=== PATIENT | male | born 1940 | race Caucasian/White ===

== ENCOUNTER 2016-12-21 23:02 | Emergency (ER) | payer MEDICARE, OTHER ==
[2016-12-21] MEDS ORDERED: Magnesium 1 Gm / 100 Ml D5W*** 100 ML IV ONE ×2 (23:07→23:12)
[2016-12-21] MEDS ORDERED: BABY ASPIRIN 81 MG CHEW PO ONE (23:10)
[2016-12-21] MEDS ORDERED: Sodium Chloride 0.9% 1000 ML 1,000 ML IV SCH (23:15)
[2016-12-21] MEDS ORDERED: BABY ASPIRIN 81 MG CHEW ONE (23:16)
[2016-12-21] MEDS ORDERED: Sodium Chloride 0.9% 1000 ML 1,000 ML ONE (23:17)
--- NOTE | 2016-12-21 23:18 | ERPHSYRPT ---
- History of Present Illness Time Seen by Provider: 12/21/16 23:02 Source: patient, EMS Exam Limitations: no limitations Physician History: FOR THE PAST 2 HOURS PT HAS HAD SHORTNESS OF AIR; DENIES CHEST PAIN, FEVER, COUGH, NAUSEA, VOMITING, DIAPHORESIS. Allergies/Adverse Reactions: No Known Drug Allergies Allergy (Unverified 02/15/16 07:44) Home Medications: Atorvastatin Calcium [Lipitor] 20 mg PO DAILY 10/02/13 [History] Enalapril Maleate [Vasotec] 20 mg PO DAILY 10/02/13 [History] Famotidine 20 mg [Pepcid 20 MG] 40 mg PO HS 10/02/13 [History] Metformin HCl 1000 mg [Glucophage 1000 MG] 1,000 mg PO BID 10/02/13 [History] Apixaban [Eliquis] 2.5 mg PO BID 12/12/15 [History] Bumetanide 1 mg [Bumex 1 mg] 1 mg PO DAILY 12/12/15 [History] Levothyroxine Sodium 75 Mcg [Synthroid 75 Mcg] 75 mcg PO DAILY 12/12/15 [ History] Ascorbic Acid [Vitamin C] 500 mg PO DAILY 02/15/16 [History] Vitamin E 400 Units [Vitamin E 400 UNIT SOFTGEL] 400 units PO DAILY [History] Potassium Chloride 20 Meq [Klor-Con 20 MEQ] 20 meq PO BID 02/16/16 [History] Clopidogrel Bisulfate 75 mg [PLAVIX 75 MG Tablet] 75 mg PO DAILY 12/21/16 [History] PANTOPRAZOLE 40 mg Tablet [Protonix 40MG Tablet] 40 mg PO DAILY 12/21/16 [ History] Tiotropium Br/Olodaterol HCl [Stiolto Respimat Inhal [place]] 4 gm IH DAILY [History] Hx Tetanus, Diphtheria Vaccination/Date Given: Yes Hx Influenza Vaccination/Date Given: Yes Hx Pneumococcal Vaccination/Date Given: Yes - Review of Systems Constitutional: No Fever Respiratory: Dyspnea, No Cough Cardiac: No Chest Pain Abdominal/Gastrointestinal: No Abdominal Pain, No Nausea, No Vomiting Endocrine: No Excessive Sweating All Other Systems: Reviewed and Negative - Past Medical History Pertinent Past Medical History: Yes Neurological History: TIA ENT History: No Pertinent History Cardiac History: Coronary Artery Disease, High Cholesterol, Hypertension Respiratory History: COPD Endocrine Medical History: Hypothyroidism Musculoskeletal History: Fractures, Arthritis GI Medical History: No Pertinent History History: No Pertinent History Psycho-Social History: No Pertinent History Male Reproductive Disorders: No Pertinent History Other Medical History: kidney stones - Past Surgical History Past Surgical History: Yes Neuro Surgical History: No Pertinent History Cardiac: Cardiac Catheterization, Cardiac Stent Gastrointestinal: No Pertinent History Genitourinary: No Pertinent History Musculoskeletal: Orthopedic Surgery Male Surgical History: Other Other Surgical History: right hand, - Social History Smoking Status: Former smoker Exposure to second hand smoke: No Drug Use: none Patient Lives Alone: No - Nursing Vital Signs Nursing Vital Signs: Initial Vital Signs Temperature 97.7 F 12/21/16 23:12 Pulse Rate 109 H 12/21/16 23:12 Respiratory Rate 26 H 12/21/16 23:12 Blood Pressure 216/132 12/21/16 23:12 O2 Sat by Pulse Oximetry 92 L 12/21/16 23:12 Pain Scale Pain Intensity 0 - Physical Exam General Appearance: mild distress, alert Eye Exam: PERRL/EOMI Ears, Nose, Throat Exam: normal pharynx, abnormal TM (R) (CERUMEN OCCLUSION OF RIGHT EAC.) Neck Exam: normal inspection Respiratory Exam: respiratory distress (MILD), wheezing Cardiovascular/Chest Exam: normal heart sounds Abdominal/Gastrointestinal Exam: soft, normal bowel sounds Extremity Exam: normal inspection, no pedal edema Peripheral Pulses Exam: dorsalis-pedis (R): 2+, dorsalis-pedis (L): 2+ Neurologic Exam: alert, cooperative Skin Exam: warm, dry SpO2 Interpretation: hypoxic SpO2: 92 Oxygen Delivery: Nasal Cannula (5L) - Course Nursing assessment & vital signs reviewed: Yes EKG Interpreted by Me: RATE (102), Sinus Tach, NORMAL AXIS, Non-specific ST Changes, Other (PREMATURE JUNCTIONAL BEATS) - Radiology Exams Chest X-ray Interpretation: Interpreted by me (COPD; ? FIBROSIS) Ordered Tests: Active Orders 24 hr Category Date Time Status Parcel Post Clerk STAT Care 12/21/16 23:11 Active EKG-ER Only STAT Care 12/21/16 23:10 Active EKG-ER Only STAT Care 12/22/16 00:19 Active IV Insertion STAT Care 12/21/16 23:10 Active Oxygen-ED Only NASAL CANNULA 4 lpm Care 12/21/16 23:10 Active Pulse Oximetry (ED) STAT Care 12/21/16 23:10 Active CHEST 1 VIEW (PORTABLE) Stat Exams 12/21/16 23:11 Taken AMYLASE Stat Lab 12/21/16 23:20 Completed ARTERIAL BLOOD GASES Urgent Lab 12/21/16 23:50 Completed CBC W DIFF Stat Lab 12/21/16 23:20 Completed CMP Stat Lab 12/21/16 23:20 Completed D-DIMER QUANTITATION Stat Lab 12/21/16 23:20 Completed LIPASE Stat Lab 12/21/16 23:20 Completed MAGNESIUM Stat Lab 12/21/16 23:20 Completed Manual Differential NC Stat Lab 12/21/16 23:20 Completed NT PRO BNP Stat Lab 12/21/16 23:20 Completed PROTIME WITH INR Stat Lab 12/21/16 23:20 Completed PTT Stat Lab 12/21/16 23:20 Completed TROPONIN Q3H Lab 12/21/16 23:20 Completed TROPONIN Q3H Lab 12/22/16 02:15 Ordered TROPONIN Q3H Lab 12/22/16 05:15 Ordered TROPONIN Q3H Lab 12/22/16 08:15 Ordered TROPONIN Q3H Lab 12/22/16 11:15 Ordered UA W/RFX UR CULTURE Stat Lab 12/21/16 23:11 Ordered BiPap/CPAP Assessment STAT RT 12/22/16 00:00 Active neb [Respiratory Nebulizer] STAT RT 12/22/16 00:27 Completed Medication Summary Generic Name Dose Route Start Last Admin Trade Name Freq PRN Reason Stop Dose Admin Sodium Chloride 1,000 mls @ 100 mls/hr 12/21/16 23:15 12/21/16 23:20 Sodium Chloride 0.9% 1000 Ml IV 01/20/17 23:14 100 mls/hr .Q10H DUANE Administration Discontinued Medications Generic Name Dose Route Start Last Admin Trade Name Freq PRN Reason Stop Dose Admin Aspirin 324 mg 12/21/16 23:10 12/21/16 23:23 Baby Aspirin 81 Mg Chew PO 12/21/16 23:11 324 mg STAT ONE Administration Aspirin Confirm 12/21/16 23:16 Baby Aspirin 81 Mg Chew Administered 12/21/16 23:17 Dose 324 mg .ROUTE .STK-MED ONE Magnesium Sulfate/Dextrose Confirm 12/21/16 23:07 Magnesium 1 Gm / 100 Ml D5w Administered 12/21/16 23:08 Dose 100 mls @ ud IV .STK-MED ONE Magnesium Sulfate/Dextrose 100 mls @ 400 mls/hr 12/21/16 23:12 12/21/16 23:10 Magnesium 1 Gm / 100 Ml D5w IV 12/21/16 23:26 400 mls/hr STAT ONE Administration Levalbuterol HCl 1.25 mg 12/21/16 23:59 12/22/16 00:22 Xopenex 1.25 Mg/0.5 Ml Ud Nebule IH 12/22/16 00:00 1.25 mg STAT ONE Administration Levalbuterol HCl Confirm 12/22/16 00:22 Xopenex 1.25 Mg/0.5 Ml Ud Nebule Administered 12/22/16 00:23 Dose 1.25 mg IH .STK-MED ONE Morphine Sulfate 1 mg 12/22/16 00:02 12/22/16 00:04 Morphine Sulfate 2 Mg Inj IV 12/22/16 00:03 1 mg STAT ONE Administration Morphine Sulfate Confirm 12/22/16 00:03 Morphine Sulfate 2 Mg Inj Administered 12/22/16 00:04 Dose 2 mg .ROUTE .STK-MED ONE Nitroglycerin 0.4 mg 12/21/16 23:21 12/21/16 23:26 Nitrostat 0.4 Mg (Ed) 12/21/16 23:22 0.4 mg STAT ONE Administration Nitroglycerin 0.4 mg 12/21/16 23:47 12/21/16 23:50 Nitrostat 0.4 Mg (Ed) SL 12/21/16 23:48 0.4 mg STAT ONE Administration Promethazine HCl 6.25 mg 12/22/16 00:02 12/22/16 00:05 Phenergan 25 Mg Inj IV 12/22/16 00:03 6.25 mg STAT ONE Administration Promethazine HCl Confirm 12/22/16 00:03 Phenergan 25 Mg Inj Administered 12/22/16 00:04 Dose 25 mg .ROUTE .STK-MED ONE Sodium Chloride Confirm 12/22/16 00:22 Sodium Chloride 3 Ml Ud Nebules Administered 12/22/16 00:23 Dose 3 ml IH .STK-MED ONE Lab/Rad Data: Laboratory Result Diagrams 12/21/16 23:20 12/21/16 23:20 Laboratory Results 12/21/16 12/21/16 12/21/16 Range/Units 23:50 23:20 23:20 WBC (4.0-10.5) K/mm3 RBC (4.1-5.6) M/mm3 Hgb (12.5-18.0) gm/dl Hct (42-50) % MCV (78-100) fl MCH (26-32) pg MCHC (32-36) g/dl RDW (11.5-14.0) % Plt Count (150-450) K/mm3 MPV (6-9.5) fl INR 1.26 (0.8-3.0) APTT 34.2 (24.1-36.1) SECONDS D-Dimer 487 (0-500) ng/mL Puncture Site LEFT RADIAL pCO2 54 H (35-45) mmHg pO2 78 (75-100) mmHg Base Excess -2.8 L (-2.0-2.0) O2 Saturation 94.4 (94-100) g/dF ABG pH 7.27 L (7.35-7.45) ABG HCO3 24.8 (22-28) ABG O2 Sat (Measured) 96.8 (95-100) % Samuel Test YES A-a Gradient 211 a/A Ratio 0.27 Hemoglobin 12.6 Carboxyhemoglobin 2.0 (0.0-6.9) % THgb Methemoglobin 0.6 L (1.4-1.5) % Temperature 37.0 C POC O2 Flow Rate 50 % Sodium (136-145) mEq/L Potassium 4.6 (3.5-5.1) mEq/L Chloride (98-107) mEq/L Carbon Dioxide (21-32) mEq/L Anion Gap (5-15) MEQ/L BUN (9-20) mg/dL Creatinine (0.55-1.30) mg/dl Estimated GFR ML/MIN Glucose (70-110) MG/DL Calcium (8.5-10.1) mg/dL Magnesium (1.8-2.4) mg/dL Total Bilirubin (0.2-1.0) mg/dL AST (15-37) U/L ALT (12-78) U/L Alkaline Phosphatase (46-116) U/L Troponin I < 0.017 (0.000-0.056) ng/ml NT-Pro-B Natriuret Pep (0-125) pg/ml Serum Total Protein (6.4-8.2) gm/dL Albumin (3.4-5.0) g/dL Amylase (25-115) U/L Lipase (73-393) U/L 12/21/16 12/21/16 Range/Units 23:20 23:20 WBC 14.1 H (4.0-10.5) K/mm3 RBC 4.62 (4.1-5.6) M/mm3 Hgb 13.4 (12.5-18.0) gm/dl Hct 41.9 L (42-50) % MCV 90.7 (78-100) fl MCH 29.0 (26-32) pg MCHC 32.0 (32-36) g/dl RDW 15.3 H (11.5-14.0) % Plt Count 189 (150-450) K/mm3 MPV 10.9 H (6-9.5) fl INR (0.8-3.0) APTT (24.1-36.1) SECONDS D-Dimer (0-500) ng/mL Puncture Site pCO2 (35-45) mmHg pO2 (75-100) mmHg Base Excess (-2.0-2.0) O2 Saturation (94-100) g/dF ABG pH (7.35-7.45) ABG HCO3 (22-28) ABG O2 Sat (Measured) (95-100) % Samuel Test A-a Gradient a/A Ratio Hemoglobin Carboxyhemoglobin (0.0-6.9) % THgb Methemoglobin (1.4-1.5) % Temperature C POC O2 Flow Rate % Sodium 144 (136-145) mEq/L Potassium 4.2 (3.5-5.1) mEq/L Chloride 108 H (98-107) mEq/L Carbon Dioxide 25.5 (21-32) mEq/L Anion Gap 15.1 H (5-15) MEQ/L BUN 19 (9-20) mg/dL Creatinine 1.46 H (0.55-1.30) mg/dl Estimated GFR 50 ML/MIN Glucose 117 H (70-110) MG/DL Calcium 9.0 (8.5-10.1) mg/dL Magnesium 1.8 (1.8-2.4) mg/dL Total Bilirubin 0.80 (0.2-1.0) mg/dL AST 19 (15-37) U/L ALT 29 (12-78) U/L Alkaline Phosphatase 104 (46-116) U/L Troponin I (0.000-0.056) ng/ml NT-Pro-B Natriuret Pep 643 H (0-125) pg/ml Serum Total Protein 7.5 (6.4-8.2) gm/dL Albumin 3.9 (3.4-5.0) g/dL Amylase 36 (25-115) U/L Lipase 114 (73-393) U/L - Progress Discussed with : Other (SPOKE WITH DR DEVLIN(HOSPITALIST)([id number]) WHO ACCEPTED PT FOR TRANSFER TO [facility] ICU.) - Departure Time of Disposition: 00:43 Departure Disposition: Transfer ([facility]) Clinical Impression: ACUTE RESPIRATORY FAILURE, COPD, CAD, HTN, ARTHRITIS, HYPOTHYROIDISM Condition: Stable Critical Care Time: Yes Critical Care Time(excluding separately billable procedures): 30-74 minutes Referrals: TOBIAS NULL [Primary Care Provider] -
[2016-12-21] MEDS ORDERED: Nitrostat 0.4 MG (ED) SL ONE ×2 (23:21→23:47)
[2016-12-21 23:37] LABS: Mean Cell Volume 90.7 fl (78-100); Mean Platelet Volume 10.9 fl (6-9.5); Platelet Count 189 K/mm3 (150-450); Red Blood Count 4.62 M/mm3 (4.1-5.6); Red Cell Distribution Width 15.3 % (11.5-14.0); White Blood Count 14.1 K/mm3 (4.0-10.5)
[2016-12-21 23:50] LABS: INR 1.26 (0.8-3.0)
[2016-12-21 23:53] LABS: PTT 34.2 SECONDS (24.1-36.1)
[2016-12-21] MEDS ORDERED: Xopenex 1.25 MG/0.5 ML UD NEBULE IH ONE (23:59)
[2016-12-22] MEDS ORDERED: Phenergan 25 MG INJ IV ONE (00:02)
[2016-12-22] MEDS ORDERED: MORPHINE SULFATE 2 MG INJ IV ONE (00:02)
[2016-12-22] MEDS ORDERED: MORPHINE SULFATE 2 MG INJ ONE (00:03)
[2016-12-22] MEDS ORDERED: Phenergan 25 MG INJ ONE (00:03)
[2016-12-22 00:05] LABS: ALBUMIN 3.9 g/dL (3.4-5.0); ANION GAP 15.1 MEQ/L (5-15); BILIRUBIN,TOTAL 0.8 mg/dL (0.2-1.0); Carbon Dioxide 25.5 mEq/L (21-32); MAGNESIUM 1.8 mg/dL (1.8-2.4); Potassium 4.2 mEq/L (3.5-5.1); Total Protein 7.5 gm/dL (6.4-8.2)
[2016-12-22 00:13] LABS: A-aADO2 211; ALLEN TEST OK? YES; ARTERIAL BLD GAS O2 SATURATION 96.8 % (95-100); ARTERIAL BLOOD GAS BASE EXCESS -2.8 (-2.0-2.0); ARTERIAL BLOOD GAS FIO2 50 %; ARTERIAL BLOOD GAS PO2 78 mmHg (75-100); ARTERIAL BLOOD GAS pH 7.27 (7.35-7.45)
[2016-12-22] MEDS ORDERED: Sodium Chloride 3 ML UD NEBULES IH ONE (00:22)
[2016-12-22] MEDS ORDERED: Xopenex 1.25 MG/0.5 ML UD NEBULE IH ONE (00:22)
[2016-12-22 00:57] VITALS: O2SAT 99
[2016-12-22 01:23] LABS: BAND 2 % (0.0-2.0); Eosinophil 1 % (0.00-3.0); Total Cells Counted 100
[2016-12-22 01:24] LABS: Platelet Estimate NORMAL (NORMAL)
[2016-12-22 01:46] VITALS: BP 140/88; PULSE 108
[2016-12-22] MEDS ORDERED: Nitrostat 0.4 MG (ED) SL ONE (03:51)
--- NOTE | 2016-12-22 21:07 | XRAY ---
Exam: AP portable chest film from 2330 hrs. on 12/21/2016. Comparison: Two-view chest from 02/15/2016. Indication: Shortness of air, no history of prior chest surgery. Findings: The transverse heart size is normal. The film was obtained in a lordotic projection. There is some hyperinflation of the lungs. There is some accentuation of the interstitial markings within the lower half of each lung. This appears relatively similar to 02/15/2016. Therefore, this may represent interstitial fibrosis. Correlate clinically to exclude an interstitial inflammatory process. I do not see any confluent dense airspace infiltrate, pneumothorax, or pleural fluid. The left costophrenic angle tip has been barely cut off. No Nasir B lines are seen. Some thoracic osteophyte formation is seen. Impression: 1. Mildly hyperinflated chest revealing mild increased interstitial lung markings throughout the lower half of each lung. This may represent chronic interstitial lung disease or interstitial fibrosis, as the findings appears similar to 02/15/2016. However, correlate clinically to exclude an interstitial inflammatory or infectious process.
== END 2016-12-22 01:40 | disposition short-term general hospital (02) ==
LOC: ED 23:02
DX: J96.90 Respiratory failure, unspecified, unspecified whether with hypoxia or hypercapnia (principal); J44.9 Chronic obstructive pulmonary disease, unspecified; I25.10 Atherosclerotic heart disease of native coronary artery without angina pectoris; I10 Essential (primary) hypertension; M19.90 Unspecified osteoarthritis, unspecified site; E03.9 Hypothyroidism, unspecified; Z79.899 Other long term (current) drug therapy; Z79.84 Long term (current) use of oral hypoglycemic drugs
CPT/HCPCS: 36000; 36415; 36600; 71010; 80053; 82150; 82375; 82803; 83690; 83735; 83880; 84484; 85025; 85379; 85610; 85730; 93005; 93041; 94002; 94640; 96360; 96361; 96365; 96374; 96375; 99291; J2270; J2550; J3475; A9270-GY

== ENCOUNTER 2019-03-18 18:26 | Emergency (ER) | payer MEDICARE, OTHER ==
[2019-03-18] MEDS ORDERED: Sodium Chloride 0.9% 1000 ML 1,000 ML ONE (18:46)
[2019-03-18] MEDS: Sodium Chloride 0.9% 1000 ML 1,000 ML IV SCH (18:48)
--- NOTE | 2019-03-18 18:49 | ERPHSYRPT ---
- History of Present Illness Source: patient, EMS Exam Limitations: no limitations Patient Subjective Stated Complaint: Pt states that he just hasn't felt good for the past couple of days and his only complaint is generalized weakness Triage Nursing Assessment: Pt brought to the ER via EMS, hypertensive, no edema , denies pain, denies N&V, wheezing, on 2L NC, doesnt' appear to be in any distress Timing/Duration: yesterday Associated Symptoms: loss of appetite, weakness, No nausea, No vomiting, No abdominal pain, No shortness of breath, No cough, No chest pain, No fever Hx Tetanus, Diphtheria Vaccination/Date Given: Yes Hx Influenza Vaccination/Date Given: Yes Hx Pneumococcal Vaccination/Date Given: Yes <KAYLA GIBSON - Last Filed: 03/18/19 19:23> <SUZAN STALLWORTH - Last Filed: 03/18/19 22:20> - History of Present Illness Time Seen by Provider: 03/18/19 18:35 Physician History: pt. presents to ER via EMS with c/o "not feeling good x 2 days", he complains of generalized weakness - states he was recently discharged from 1 week ago after being rx for COPD exacerbation - pt. denies fever/chest pain/SOB/abdominal pain - he has had his flu shot - he normally wears 2l oxygen at bedtime, pt, currently on 2 L oxygen - when asked he states that he was laying down hence he put the oxygen on (KAYLA GIBSON) Allergies/Adverse Reactions: No Known Drug Allergies Allergy (Verified 03/18/19 18:39) Home Medications: Atorvastatin Calcium [Lipitor] 20 mg PO DAILY 10/02/13 [History] Famotidine 20 mg [Pepcid 20 MG] 40 mg PO HS 10/02/13 [History] Apixaban [Eliquis] 5 mg PO BID 12/12/15 [History] Bumetanide 1 mg [Bumex 1 mg] 1 mg PO DAILY 12/12/15 [History] Levothyroxine Sodium 75 Mcg [Synthroid 75 Mcg] 75 mcg PO DAILY 12/12/15 [ History] Ascorbic Acid [Vitamin C] 500 mg PO DAILY 02/15/16 [History] Vitamin E 400 Units [Vitamin E 400 UNIT SOFTGEL] 400 units PO DAILY [History] Potassium Chloride 20 Meq [Klor-Con 20 MEQ] 10 meq PO BID 02/16/16 [History] Tiotropium Br/Olodaterol HCl [Stiolto Respimat Inhal [place]] 4 gm IH DAILY [History] Diltiazem HCl [Cartia Xt] 180 mg PO DAILY 03/18/19 [History] Losartan Potassium 50 mg [Cozaar 50 MG] 50 mg PO DAILY 03/18/19 [History] - Review of Systems Constitutional: Weakness, No Fever, No Chills Eyes: No Symptoms Ears, Nose, & Throat: No Symptoms Respiratory: No Symptoms Cardiac: No Symptoms Abdominal/Gastrointestinal: No Symptoms Genitourinary Symptoms: No Symptoms Musculoskeletal: No Symptoms Skin: No Symptoms Neurological: No Symptoms Psychological: No Symptoms Endocrine: No Symptoms Hematologic/Lymphatic: No Symptoms Immunological/Allergic: No Symptoms All Other Systems: Reviewed and Negative <KAYLA GIBSON - Last Filed: 03/18/19 19:23> - Past Medical History Pertinent Past Medical History: Yes Neurological History: TIA ENT History: No Pertinent History Cardiac History: Coronary Artery Disease, High Cholesterol, Hypertension Respiratory History: COPD Endocrine Medical History: Hypothyroidism Musculoskeletal History: Fractures, Arthritis GI Medical History: No Pertinent History History: No Pertinent History Psycho-Social History: No Pertinent History Male Reproductive Disorders: No Pertinent History Other Medical History: kidney stones - Past Surgical History Past Surgical History: Yes Neuro Surgical History: No Pertinent History Cardiac: Cardiac Catheterization, Cardiac Stent Gastrointestinal: No Pertinent History Genitourinary: No Pertinent History Musculoskeletal: Orthopedic Surgery Male Surgical History: Other Other Surgical History: right hand, - Social History Smoking Status: Former smoker Exposure to second hand smoke: No Drug Use: none Patient Lives Alone: No <KAYLA GIBSON - Last Filed: 03/18/19 19:23> - Physical Exam General Appearance: no apparent distress Eye Exam: PERRL/EOMI, eyes nml inspection, No pale conjunctivae Ears, Nose, Throat Exam: normal ENT inspection, TMs normal, pharynx normal, moist mucous membranes Neck Exam: normal inspection, non-tender, supple, full range of motion Respiratory Exam: diminished breath sounds, wheezing Cardiovascular Exam: regular rate/rhythm Gastrointestinal/Abdomen Exam: soft Back Exam: normal inspection Extremity Exam: normal inspection Neurologic Exam: alert, oriented x 3, cooperative, doctor of osteopathy II-XII nml as tested Skin Exam: normal color, warm, dry Lymphatic Exam: No adenopathy SpO2 Interpretation: O2 applied SpO2: 98 O2 Delivery: Nasal Cannula <KAYLA GIBSON - Last Filed: 03/18/19 19:23> - Nursing Vital Signs Nursing Vital Signs: Initial Vital Signs Temperature 97.7 F 03/18/19 18:27 Pulse Rate 62 03/18/19 18:27 Blood Pressure 174/76 03/18/19 18:27 O2 Sat by Pulse Oximetry 98 03/18/19 18:27 Pain Scale Pain Intensity 0 Ordered Tests: Active Orders 24 hr Category Date Time Status EKG-ER Only STAT Care 03/18/19 18:40 Active CHEST 2 VIEWS (PA AND LAT) Stat Exams 03/18/19 18:41 Taken CBC W DIFF Stat Lab 03/18/19 19:00 Completed CMP Stat Lab 03/18/19 19:00 Completed NT PRO BNP Stat Lab 03/18/19 19:00 Completed TROPONIN Q3H Lab 03/18/19 19:00 Completed TROPONIN Q3H Lab 03/18/19 21:51 Received TROPONIN Q3H Lab 03/19/19 00:45 Ordered TROPONIN Q3H Lab 03/19/19 03:45 Ordered TROPONIN Q3H Lab 03/19/19 06:45 Ordered UA W/RFX UR CULTURE Stat Lab 03/18/19 19:17 Completed Peak Expiratory Flow Rate ONCE RT 03/18/19 19:42 Active Respiratory Therapy Assessment DAILY RT 03/18/19 19:42 Active Medication Summary Generic Name Dose Route Start Last Admin Trade Name Freq PRN Reason Stop Dose Admin Sodium Chloride 1,000 mls @ 100 mls/hr 03/18/19 18:45 03/18/19 18:48 Sodium Chloride 0.9% 1000 Ml IV 04/17/19 18:44 100 mls/hr .Q10H DUANE Administration Discontinued Medications Generic Name Dose Route Start Last Admin Trade Name Freq PRN Reason Stop Dose Admin Albuterol Sulfate 2.5 mg 03/18/19 19:03 03/18/19 19:37 Proventil 2.5 Mg/3 Ml Neb IH 03/18/19 19:04 2.5 mg STAT ONE Administration Albuterol Sulfate Confirm 03/18/19 19:36 Proventil 2.5 Mg/3 Ml Neb Administered 03/18/19 19:37 Dose 2.5 mg IH .STK-MED ONE Methylprednisolone Sodium Succinate 125 mg 03/18/19 19:02 03/18/19 19:29 Solu-Medrol 125 Mg IV 03/18/19 19:03 125 mg STAT ONE Administration Methylprednisolone Sodium Succinate Confirm 03/18/19 19:25 Solu-Medrol 125 Mg Administered 03/18/19 19:26 Dose 125 mg .ROUTE .STK-MED ONE Lab/Rad Data: Laboratory Result Diagrams 03/18/19 19:00 03/18/19 19:00 Laboratory Results 03/18/19 03/18/19 03/18/19 Range/Units 19:17 19:00 19:00 WBC (4.0-10.5) K/mm3 RBC (4.1-5.6) M/mm3 Hgb (12.5-18.0) gm/dl Hct (42-50) % MCV (78-100) fl MCH (26-32) pg MCHC (32-36) g/dl RDW (11.5-14.0) % Plt Count (150-450) K/mm3 MPV (6-9.5) fl Gran % (36.0-66.0) % Eos # (Auto) (0-0.5) Absolute Lymphs (auto) (1.0-4.6) Absolute Monos (auto) (0.0-1.3) Lymphocytes % (24.0-44.0) % Monocytes % (0.0-12.0) % Eosinophils % (0.00-5.0) % Basophils % (0.0-0.4) % Absolute Granulocytes (1.4-6.9) Basophils # (0-0.4) Sodium (137-145) mmol/L Potassium (3.5-5.1) mmol/L Chloride (98-107) mmol/L Carbon Dioxide (22-30) mmol/L Anion Gap (5-15) MEQ/L BUN (9-20) mg/dL Creatinine (0.66-1.25) mg/dL Estimated GFR ML/MIN Glucose (74-106) mg/dL Calcium (8.4-10.2) mg/dL Total Bilirubin (0.2-1.3) mg/dL AST (17-59) U/L ALT (0-50) U/L Alkaline Phosphatase (38-126) U/L Troponin I < 0.012 (0.000-0.034) ng/mL NT-Pro-B Natriuret Pep (0-1800) pg/mL Serum Total Protein (6.3-8.2) g/dL Albumin (3.5-5.0) g/dL Urine Color STRAW (YELLOW) Urine Appearance CLEAR (CLEAR) Urine pH 7.0 (5-6) Ur Specific [place] 1.005 (1.005-1.025) Urine Protein NEGATIVE (Negative) Urine Ketones NEGATIVE (NEGATIVE) Urine Blood NEGATIVE (0-5) Sal/ul Urine Nitrite NEGATIVE (NEGATIVE) Urine Bilirubin NEGATIVE (NEGATIVE) Urine Urobilinogen NEGATIVE (0-1) mg/dL Ur Leukocyte Esterase NEGATIVE (NEGATIVE) Urine WBC (Auto) NONE (0-5) /HPF Urine RBC (Auto) NONE (0-2) /HPF U Epithel Cells (Auto) NONE (FEW) /HPF Urine Bacteria (Auto) NONE SEEN (NEGATIVE) /HPF Urine Culture Reflexed NO (NO) Urine Glucose NEGATIVE (NEGATIVE) mg/dL Influenza Type A Ag NEGATIVE (NEGATIVE) Influenza Type B Ag NEGATIVE (NEGATIVE) RSV (PCR) NEGATIVE (Negative) 03/18/19 03/18/19 Range/Units 19:00 19:00 WBC 11.1 H (4.0-10.5) K/mm3 RBC 4.98 (4.1-5.6) M/mm3 Hgb 14.4 (12.5-18.0) gm/dl Hct 44.4 (42-50) % MCV 89.2 (78-100) fl MCH 28.9 (26-32) pg MCHC 32.4 (32-36) g/dl RDW 14.3 H (11.5-14.0) % Plt Count 149 L (150-450) K/mm3 MPV 10.6 H (6-9.5) fl Gran % 75.6 H (36.0-66.0) % Eos # (Auto) 0.28 (0-0.5) Absolute Lymphs (auto) 1.31 (1.0-4.6) Absolute Monos (auto) 1.11 (0.0-1.3) Lymphocytes % 11.8 L (24.0-44.0) % Monocytes % 10.0 (0.0-12.0) % Eosinophils % 2.5 (0.00-5.0) % Basophils % 0.1 (0.0-0.4) % Absolute Granulocytes 8.40 H (1.4-6.9) Basophils # 0.01 (0-0.4) Sodium 139 (137-145) mmol/L Potassium 4.0 (3.5-5.1) mmol/L Chloride 103 (98-107) mmol/L Carbon Dioxide 32 H (22-30) mmol/L Anion Gap 8.0 (5-15) MEQ/L BUN 14 (9-20) mg/dL Creatinine 1.10 (0.66-1.25) mg/dL Estimated GFR > 60.0 ML/MIN Glucose 123 H (74-106) mg/dL Calcium 9.2 (8.4-10.2) mg/dL Total Bilirubin 0.80 (0.2-1.3) mg/dL AST 19 (17-59) U/L ALT 21 (0-50) U/L Alkaline Phosphatase 92 (38-126) U/L Troponin I (0.000-0.034) ng/mL NT-Pro-B Natriuret Pep 256 (0-1800) pg/mL Serum Total Protein 7.0 (6.3-8.2) g/dL Albumin 3.7 (3.5-5.0) g/dL Urine Color (YELLOW) Urine Appearance (CLEAR) Urine pH (5-6) Ur Specific [place] (1.005-1.025) Urine Protein (Negative) Urine Ketones (NEGATIVE) Urine Blood (0-5) Sal/ul Urine Nitrite (NEGATIVE) Urine Bilirubin (NEGATIVE) Urine Urobilinogen (0-1) mg/dL Ur Leukocyte Esterase (NEGATIVE) Urine WBC (Auto) (0-5) /HPF Urine RBC (Auto) (0-2) /HPF U Epithel Cells (Auto) (FEW) /HPF Urine Bacteria (Auto) (NEGATIVE) /HPF Urine Culture Reflexed (NO) Urine Glucose (NEGATIVE) mg/dL Influenza Type A Ag (NEGATIVE) Influenza Type B Ag (NEGATIVE) RSV (PCR) (Negative) <KAYLA GIBSON - Last Filed: 03/18/19 19:23> - Progress Progress: improved Counseled pt/family regarding: lab results, diagnosis, need for follow-up, rad results <SUZAN STALLWORTH - Last Filed: 03/18/19 22:20> - Progress Progress Note: 03/18/19 18:55 This's a 78 yr old pt. presenting to ED for evaluation of generalized weakness - On arrival he was hypertensive with BP 174/76, rest of Vital signs were stable - he was given albuterol inhaled, solumedrol and IVF At this time care has been transferred to - 03/18/19 19:23 (KAYLA GIBSON) 03/18/19 21:59 pt states he is feeling much better and is ready to go home. he is hungry and thirsty and verbalizes is ready to go home 03/18/19 22:17 cxr-no acute process. (SUZAN STALLWORTH) <KAYLA GIBSON - Last Filed: 03/18/19 19:23> - Departure Departure Disposition: Home Critical Care Time: No <SUZAN STALLWORTH - Last Filed: 03/18/19 22:20> - Departure Clinical Impression: Weakness, HTN (hypertension) Condition: Stable Referrals: TAHIR MICHAUD NP [NON-STAFF PHY W/O PRIVILEGES] - Additional Instructions: take your medications as prescribed. follow up with primary doctor for further management Prescriptions: Prednisone 10 mg [Deltasone 10 mg] 10 mg PO TID #12 tablet
[2019-03-18 19:03] LABS: BASOPHIL % 0.1 % (0.0-0.4); Basophil (Absolute #) 0.01 (0-0.4); Eosinophil % 2.5 % (0.00-5.0); Eosinophil (Absolute #) 0.28 (0-0.5); Hematocrit 44.4 % (42-50); Hemoglobin 14.4 gm/dl (12.5-18.0); Lymphocyte (Absolute #) 1.31 (1.0-4.6); Lymphocytes % 11.8 % (24.0-44.0); Mean Cell Volume 89.2 fl (78-100); Mean Corpuscular Hemoglobin 28.9 pg (26-32); Mean Corpuscular Hgb Concent. 32.4 g/dl (32-36); Mean Platelet Volume 10.6 fl (6-9.5); Monocyte (Absolute #) 1.11 (0.0-1.3); Neutrophil % 75.6 % (36.0-66.0); Platelet Count 149 K/mm3 (150-450); Red Blood Count 4.98 M/mm3 (4.1-5.6); Red Cell Distribution Width 14.3 % (11.5-14.0); White Blood Count 11.1 K/mm3 (4.0-10.5)
[2019-03-18 19:22] LABS: Appearance CLEAR (CLEAR); Bilirubin NEGATIVE (NEGATIVE); Blood NEGATIVE Ery/ul (0-5); Glucose NEGATIVE (NEGATIVE); Ketones NEGATIVE (NEGATIVE); Leukocyte Esterase NEGATIVE (NEGATIVE); Nitrite NEGATIVE (NEGATIVE); Protein,Urine Dip NEGATIVE (Negative); Specific Gravity 1.005 (1.005-1.025); Urobilinogen NEGATIVE mg/dL (0-1)
[2019-03-18 19:23] LABS: Bacteria NONE SEEN /HPF (NEGATIVE)
[2019-03-18] MEDS ORDERED: solu-MEDROL 125 MG ONE (19:25)
[2019-03-18 19:27] LABS: ALBUMIN 3.7 g/dL (3.5-5.0); ALKALINE PHOSPHATASE 92 U/L (38-126); BLOOD UREA NITROGEN 14 mg/dL (9-20); CHLORIDE 103 mmol/L (98-107); Calcium 9.2 mg/dL (8.4-10.2); Carbon Dioxide 32 mmol/L (22-30); Glucose 123 mg/dL (74-106); NT PRO BNP 256 pg/mL (0-1800); SGOT/AST 19 U/L (17-59); SGPT/ALT 21 U/L (0-50); SODIUM 139 mmol/L (137-145)
[2019-03-18] MEDS: solu-MEDROL 125 MG IV ONE (19:29)
[2019-03-18] MEDS ORDERED: PROVENTIL 2.5 MG/3 ML NEB IH ONE (19:36)
[2019-03-18] MEDS: PROVENTIL 2.5 MG/3 ML NEB IH ONE (19:37)
[2019-03-18 19:38] LABS: INFLUENZA A NEGATIVE (NEGATIVE); INFLUENZA B NEGATIVE (NEGATIVE); RESPIRATORY SYNCTIAL VIRUS NEGATIVE (Negative)
[2019-03-18 21:41] VITALS: O2SAT 97
[2019-03-18 22:25] VITALS: BP 168/88; PULSE 68
--- NOTE | 2019-03-19 07:38 | XRAY ---
Indication: Pain wheezing and weakness. COPD. Comparison: December 21, 2016. PA/lateral chest again demonstrates COPD with a few tiny calcified granulomas. No focal infiltrate, consolidation, or large effusion. Heart and mediastinal structures within normal limits. Bony thorax intact again with mild osteopenia and degenerative changes. Stable partially visualized right carotid stent graft. Impression: Nonacute chest with chronic features.
== END 2019-03-18 22:30 | disposition home or self-care (01) ==
LOC: ED 18:26
DX: R53.1 Weakness (principal); I10 Essential (primary) hypertension; J44.9 Chronic obstructive pulmonary disease, unspecified; I25.10 Atherosclerotic heart disease of native coronary artery without angina pectoris; E03.9 Hypothyroidism, unspecified; E78.00 Pure hypercholesterolemia, unspecified; M19.90 Unspecified osteoarthritis, unspecified site; Z99.81 Dependence on supplemental oxygen; Z79.899 Other long term (current) drug therapy; Z86.73 Personal history of transient ischemic attack (TIA), and cerebral infarction without residual deficits; Z87.442 Personal history of urinary calculi
CPT/HCPCS: 36415; 71046; 80053; 81001; 83880; 84484; 85025; 87631; 93005; 94150; 94640; 96360; 96374; 99284; J2930; J7609; A9270-GY

== ENCOUNTER 2019-03-28 00:44 | Emergency (ER) | payer MEDICARE, OTHER ==
[2019-03-28] MEDS ORDERED: DUONEB 0.5-3 MG/3 ml Neb IH ONE ×2 (00:56→01:00)
[2019-03-28 01:26] LABS: Hematocrit 46.9 % (42-50); Mean Cell Volume 90.5 fl (78-100); Mean Platelet Volume 10.1 fl (6-9.5); Platelet Count 152 K/mm3 (150-450); Red Blood Count 5.18 M/mm3 (4.1-5.6); Red Cell Distribution Width 14.5 % (11.5-14.0); White Blood Count 14.1 K/mm3 (4.0-10.5)
--- NOTE | 2019-03-28 01:32 | ERPHSYRPT ---
- History of Present Illness Time Seen by Provider: 03/28/19 01:10 Source: patient, family, EMS Exam Limitations: clinical condition Patient Subjective Stated Complaint: pt states states that he went to PCP on sunday for regular visit, pt states that he has not felt well for weeks, pt states that tonight he became more short of breath, pt states that he was dx with bronchitis a couple weeks ago, pt states that he was on steroid and antibiotic and finished last week, son states that father is under a lot of stress, son states that pt had neb treatment and inhaler at 2130 Triage Nursing Assessment: pt arrived to er via ambulance, pt c/o SOB, pt using accessory muscles, pt is breathing substernal, lungs sounds are wheezy throughout, pt is very anxious, pt is hypertensive, pt received a duo neb, 125 mg solu in route Physician History: 78 yo pt with a h/o copd, afib, cad, htn here for sob. pt is on 2-3 L o2 via nc started having sob yesterday. got worse today. no fever chills. no cp. duoneb at home, 2 hours later by medics and once here has helped his breathing some. solumedrol via ambulance. 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 lives with his and son. quit smoking 30 years ago. was diagnosed with bronchitis a few weeks back and was on steroids, abx till last week. uptodate on shots Allergies/Adverse Reactions: No Known Drug Allergies Allergy (Verified 03/18/19 18:39) Home Medications: Atorvastatin Calcium [Lipitor] 20 mg PO DAILY 10/02/13 [History] Famotidine 20 mg [Pepcid 20 MG] 40 mg PO HS 10/02/13 [History] Apixaban [Eliquis] 5 mg PO BID 12/12/15 [History] Bumetanide 1 mg [Bumex 1 mg] 1 mg PO DAILY 12/12/15 [History] Levothyroxine Sodium 75 Mcg [Synthroid 75 Mcg] 75 mcg PO DAILY 12/12/15 [ History] Ascorbic Acid [Vitamin C] 500 mg PO DAILY 02/15/16 [History] Vitamin E 400 Units [Vitamin E 400 UNIT SOFTGEL] 400 units PO DAILY [History] Potassium Chloride 20 Meq [Klor-Con 20 MEQ] 10 meq PO BID 02/16/16 [History] Tiotropium Br/Olodaterol HCl [Stiolto Respimat Inhal Burns] 4 gm IH DAILY [History] Diltiazem HCl [Cartia Xt] 180 mg PO DAILY 03/18/19 [History] Losartan Potassium 50 mg [Cozaar 50 MG] 50 mg PO DAILY 03/18/19 [History] Hx Tetanus, Diphtheria Vaccination/Date Given: Yes Hx Influenza Vaccination/Date Given: Yes Hx Pneumococcal Vaccination/Date Given: Yes - Review of Systems Constitutional: No Symptoms Eyes: No Symptoms Ears, Nose, & Throat: Nose Congestion Respiratory: Cough, Wheezing Cardiac: No Chest Pain Abdominal/Gastrointestinal: No Nausea, No Vomiting, No Diarrhea Genitourinary Symptoms: No Symptoms Musculoskeletal: No Symptoms Skin: No Symptoms Neurological: No Symptoms - Past Medical History Pertinent Past Medical History: Yes Neurological History: TIA ENT History: No Pertinent History Cardiac History: Coronary Artery Disease, High Cholesterol, Hypertension Respiratory History: COPD Endocrine Medical History: Hypothyroidism Musculoskeletal History: Fractures, Arthritis GI Medical History: No Pertinent History History: No Pertinent History Psycho-Social History: No Pertinent History Male Reproductive Disorders: No Pertinent History Other Medical History: kidney stones, a-fib - Past Surgical History Past Surgical History: Yes Neuro Surgical History: No Pertinent History Cardiac: Cardiac Catheterization, Cardiac Stent Gastrointestinal: No Pertinent History Genitourinary: No Pertinent History Musculoskeletal: Orthopedic Surgery Male Surgical History: Other Other Surgical History: right hand, - Social History Smoking Status: Former smoker Exposure to second hand smoke: No Drug Use: none Patient Lives Alone: No - Nursing Vital Signs Nursing Vital Signs: Initial Vital Signs Temperature 98.9 F 03/28/19 00:55 Pulse Rate 100 H 03/28/19 00:55 Respiratory Rate 43 H 03/28/19 00:55 Blood Pressure 215/112 03/28/19 00:55 O2 Sat by Pulse Oximetry 100 03/28/19 00:55 - Physical Exam General Appearance: moderate distress Eye Exam: eyes nml inspection Ears, Nose, Throat Exam: normal ENT inspection Neck Exam: normal inspection Respiratory Exam: diminished breath sounds, accessory muscle use, wheezing Cardiovascular Exam: other (tachycardic) Gastrointestinal/Abdomen Exam: soft, normal bowel sounds Extremity Exam: normal inspection SpO2: 100 - Course EKG Interpreted by Me: RATE (105), Other (escape rhythm) Ordered Tests: Active Orders 24 hr Category Date Time Status CHEST 2 VIEWS (PA AND LAT) Stat Exams 03/28/19 01:33 Taken BLOOD CULTURE Stat Lab 03/28/19 01:23 Received CBC Stat Lab 03/28/19 01:23 Completed CMP Stat Lab 03/28/19 01:23 Completed Lactic Acid Stat Lab 03/28/19 02:35 Completed TROPONIN Stat Lab 03/28/19 01:15 Completed UA W/RFX UR CULTURE Stat Lab 03/28/19 00:58 Uncollected VENOUS BLOOD GAS Stat Lab 03/28/19 02:35 Completed BiPap/CPAP STAT RT 03/28/19 01:26 Active EKG STAT RT 03/28/19 00:57 Active Respiratory Therapy Assessment DAILY RT 03/28/19 02:10 Active Respiratory Therapy Consult ONCE RT 03/28/19 02:10 Completed Medication Summary Discontinued Medications Generic Name Dose Route Start Last Admin Trade Name Ashia PRN Reason Stop Dose Admin Albuterol/Ipratropium Confirm 03/28/19 00:56 Duoneb 0.5-3 Mg/3 Ml Neb Administered 03/28/19 00:57 Dose 3 ml IH .STK-MED ONE Albuterol/Ipratropium 3 ml 03/28/19 01:00 03/28/19 01:00 Duoneb 0.5-3 Mg/3 Ml Neb IH 03/28/19 01:01 3 ml STAT ONE Administration Azithromycin 500 mg 03/28/19 01:40 03/28/19 01:54 Zithromax 250 Mg Tablet PO 03/28/19 01:41 500 mg STAT ONE Administration Azithromycin Confirm 03/28/19 01:48 Zithromax 250 Mg Tablet Administered 03/28/19 01:49 Dose 500 mg .ROUTE .STK-MED ONE Ceftriaxone Sodium 2,000 mg 03/28/19 01:39 03/28/19 01:54 Rocephin 1000 Mg Inj IV 03/28/19 01:40 2,000 mg STAT ONE Administration Ceftriaxone Sodium/Dextrose Confirm 03/28/19 01:48 Rocephin 2 Gm-D5w 50ml Bag Administered 03/28/19 01:49 Dose 2 g in 50 mls @ ud IV .STK-MED ONE Lab/Rad Data: Laboratory Result Diagrams 03/28/19 01:23 03/28/19 01:23 Laboratory Results 03/28/19 03/28/19 03/28/19 Range/Units 02:35 01:23 01:23 WBC 14.1 H (4.0-10.5) K/mm3 RBC 5.18 (4.1-5.6) M/mm3 Hgb 15.0 (12.5-18.0) gm/dl Hct 46.9 (42-50) % MCV 90.5 (78-100) fl MCH 29.0 (26-32) pg MCHC 32.0 (32-36) g/dl RDW 14.5 H (11.5-14.0) % Plt Count 152 (150-450) K/mm3 MPV 10.1 H (6-9.5) fl pO2/FiO2 Ratio 36 % VBG pH 7.36 (7.32-7.42) VBG pCO2 at Pat Temp 48 (42-55) mm/Hg VBG pO2 at Pat Temp 95 H (25-40) mm/Hg VBG HCO3 27.1 (22-28) meq/L VBG O2 Sat (Magno) 99.2 (95-100) VBG Base Excess 0.9 (-2.0-2.0) VBG Hemoglobin 15.0 VBG Carboxyhemoglobin 2.6 (0.0-6.9) % T HGB POC Potassium 4.3 (3.5-5.1) Sodium 139 (137-145) mmol/L Potassium 4.5 (3.5-5.1) mmol/L Chloride 100 (98-107) mmol/L Carbon Dioxide 33 H (22-30) mmol/L Anion Gap 9.9 (5-15) MEQ/L BUN 15 (9-20) mg/dL Creatinine 1.08 (0.66-1.25) mg/dL Estimated GFR > 60.0 ML/MIN Glucose 190 H (74-106) mg/dL Lactic Acid 0.8 (0.4-2.0) Calcium 8.9 (8.4-10.2) mg/dL Total Bilirubin 0.70 (0.2-1.3) mg/dL AST 21 (17-59) U/L ALT 23 (0-50) U/L Alkaline Phosphatase 91 (38-126) U/L Troponin I (0.000-0.034) ng/mL Serum Total Protein 7.3 (6.3-8.2) g/dL Albumin 3.9 (3.5-5.0) g/dL 03/28/19 Range/Units 01:15 WBC (4.0-10.5) K/mm3 RBC (4.1-5.6) M/mm3 Hgb (12.5-18.0) gm/dl Hct (42-50) % MCV (78-100) fl MCH (26-32) pg MCHC (32-36) g/dl RDW (11.5-14.0) % Plt Count (150-450) K/mm3 MPV (6-9.5) fl pO2/FiO2 Ratio % VBG pH (7.32-7.42) VBG pCO2 at Pat Temp (42-55) mm/Hg VBG pO2 at Pat Temp (25-40) mm/Hg VBG HCO3 (22-28) meq/L VBG O2 Sat (Magno) (95-100) VBG Base Excess (-2.0-2.0) VBG Hemoglobin VBG Carboxyhemoglobin (0.0-6.9) % T HGB POC Potassium (3.5-5.1) Sodium (137-145) mmol/L Potassium (3.5-5.1) mmol/L Chloride (98-107) mmol/L Carbon Dioxide (22-30) mmol/L Anion Gap (5-15) MEQ/L BUN (9-20) mg/dL Creatinine (0.66-1.25) mg/dL Estimated GFR ML/MIN Glucose (74-106) mg/dL Lactic Acid (0.4-2.0) Calcium (8.4-10.2) mg/dL Total Bilirubin (0.2-1.3) mg/dL AST (17-59) U/L ALT (0-50) U/L Alkaline Phosphatase (38-126) U/L Troponin I 0.012 (0.000-0.034) ng/mL Serum Total Protein (6.3-8.2) g/dL Albumin (3.5-5.0) g/dL - Progress Progress: improved Air Movement: fair Blood Culture(s) Obtained: Yes Antibiotics given: Yes Counseled pt/family regarding: lab results, diagnosis, rad results (xray doesnt show any new infiltrates. opacities right lower lobe,same from before. azithro and rocephin given in er. no beds at [facility]. bipap started. wbc, bs slighty elevated. otherwise labs unremarkable. 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 D/W DR Fleming hospitalist at 2:44am who graciously accepted the pt to the floor on tele. ) - Departure Departure Disposition: In-patient Admission, Transfer Clinical Impression: COPD exacerbation Condition: Stable Critical Care Time: No Referrals: JED CARTER [Primary Care Provider] - Instructions: Chronic Obstructive Pulmonary Disease
[2019-03-28] MEDS ORDERED: Rocephin 1000 MG INJ IV ONE (01:39)
[2019-03-28] MEDS ORDERED: Zithromax 250 MG TABLET PO ONE (01:40)
[2019-03-28 01:42] LABS: ALBUMIN 3.9 g/dL (3.5-5.0); ALKALINE PHOSPHATASE 91 U/L (38-126); ANION GAP 9.9 MEQ/L (5-15); BLOOD UREA NITROGEN 15 mg/dL (9-20); CHLORIDE 100 mmol/L (98-107); Calcium 8.9 mg/dL (8.4-10.2); Carbon Dioxide 33 mmol/L (22-30); Creatinine 1 1.08 mg/dL (0.66-1.25); Glucose 190 mg/dL (74-106); Potassium 4.5 mmol/L (3.5-5.1); SGOT/AST 21 U/L (17-59); SGPT/ALT 23 U/L (0-50); SODIUM 139 mmol/L (137-145); Total Protein 7.3 g/dL (6.3-8.2)
[2019-03-28] MEDS ORDERED: Zithromax 250 MG TABLET ONE (01:48)
[2019-03-28] MEDS ORDERED: ROCEPHIN 2 Gm-D5w 50ML BAG** 2 G/50 ML IVPB IV ONE (01:48)
[2019-03-28 02:49] LABS: Lactic Acid 0.8 (0.4-2.0); VBG BASE EXCESS 0.9 (-2.0-2.0); VBG CARBOXYHEMOGLOBIN 2.6 % T HGB (0.0-6.9); VBG HCO3- 27.1 meq/L (22-28); VBG O2 SATURATION 99.2 (95-100); VBG POTASSIUM 4.3 (3.5-5.1); VBG pH 7.36 (7.32-7.42)
[2019-03-28 03:30] VITALS: BP 130/95; PULSE 98; O2SAT 99
--- NOTE | 2019-03-28 09:56 | XRAY ---
Indication: Cough and short of breath. COPD. Comparison: March 18, 2019. PA/lateral chest unchanged again demonstrating COPD and right carotid stent graft. Remaining heart and lungs unremarkable. No new/acute findings.
== END 2019-03-28 04:02 | disposition short-term general hospital (02) ==
LOC: ED 00:44
DX: J44.1 Chronic obstructive pulmonary disease with (acute) exacerbation (principal); Z79.899 Other long term (current) drug therapy; R05 Cough; R09.81 Nasal congestion; Z86.73 Personal history of transient ischemic attack (TIA), and cerebral infarction without residual deficits; I25.10 Atherosclerotic heart disease of native coronary artery without angina pectoris; E78.00 Pure hypercholesterolemia, unspecified; I10 Essential (primary) hypertension
CPT/HCPCS: 36415; 71046; 80053; 82805; 83605; 84484; 85027; 87040; 94002; 94640; 96372; 99285; J0696; A9270-GY

== ENCOUNTER 2020-07-01 17:37 | Observation (INO) | payer MEDICARE ==
[2020-07-01] MEDS ORDERED: PROVENTIL 2.5 MG/3 ML NEB IH ONE ×2 (18:18→18:26)
[2020-07-01] MEDS ORDERED: solu-MEDROL 125 MG IV ONE (18:20)
[2020-07-01] MEDS ORDERED: solu-MEDROL 125 MG ONE (18:28)
--- NOTE | 2020-07-01 18:40 | ERPHSYRPT ---
- History of Present Illness Time Seen by Provider: 07/01/20 17:50 Source: patient Exam Limitations: no limitations Patient Subjective Stated Complaint: Pt had been to see Dr. Jean Baptiste's nurse practitioner and he was unable to catch his breath and she sent him to the [facility] Triage Nursing Assessment: Pt was sent to the ER by the nurse practitioner, hypertensive, bradycardic, on 4 L NC, denies pain, was told that he needed steroids, no edema, skin n/w/d, pulses normal, doesn't appear to be in any distress Physician History: Patient is a 80-year-old male presents to our emergency department for evaluation of shortness of breath. Patient has a history of COPD. Patient states he was at his primary care doctor's office . Patient was seen and evaluated by primary's nurse practitioner. Patient was found to be hypoxic. His oxygen via nasal cannula was increased. Patient was advised to follow-up at the hospital for evaluation. Patient chose come here as it is closer to his home. at bedside states patient was previously on antibiotics. states that nurse practitioner advised her that patient will require a dose of steroids as well as IV antibiotics. Patient has no chest pain. No nausea vomiting or diaphoresis. No fever. Symptoms are moderate in intensity. No specific worsening or improving factors. Patient voices no other complaints or concerns at this time. Timing/Duration: today Activities at Onset: activity Severity of Dyspnea-Max: moderate Severity of Dyspnea-Current: mild Possible Cause: occasional episodes Modifying Factors: Improves With: activity Associated Symptoms: intermittent Allergies/Adverse Reactions: No Known Drug Allergies Allergy (Verified 07/01/20 17:59) Home Medications: Famotidine 20 mg [Pepcid 20 MG] 40 mg PO HS 10/02/13 [History] Apixaban [Eliquis] 5 mg PO BID 12/12/15 [History] Bumetanide 1 mg [Bumex 1 mg] 1 mg PO DAILY 12/12/15 [History] Levothyroxine Sodium 75 Mcg [Synthroid 75 Mcg] 75 mcg PO DAILY 12/12/15 [History] Ascorbic Acid [Vitamin C] 500 mg PO DAILY 02/15/16 [History] Potassium Chloride 20 Meq [Klor-Con 20 MEQ] 10 meq PO BID 02/16/16 [History] Diltiazem HCl [Cartia Xt] 180 mg PO DAILY 03/18/19 [History] Losartan Potassium 50 mg [Cozaar 50 MG] 50 mg PO DAILY 03/18/19 [History] Atorvastatin Calcium [Lipitor 20MG Tablet] 20 mg PO DAILY 07/01/20 [History] Budesonide/Glycopyr/Formoterol [Breztri Aerosphere Inhaler] 2 inh PO BID 07/01/20 [History] Metoprolol Succinate 50 mg [Toprol Xl 50 MG] 50 mg PO BID 07/01/20 [History] [place]-3 Fatty Acids/Fish Oil [Fish Oil 1,000 mg Capsule] 1,000 mg PO DAILY 07/01/20 [History] Hx Tetanus, Diphtheria Vaccination/Date Given: Yes Hx Influenza Vaccination/Date Given: Yes Hx Pneumococcal Vaccination/Date Given: Yes Travel Risk - International Travel Have you traveled outside of the country in past 3 weeks: No - Coronavirus Screening Are you exhibiting any of the following symptoms?: No Close contact with a COVID-19 positive Pt in past 14-21 Days: No - Vaccine Status Have you recieved a Covid-19 vaccination: Yes 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 - Vaccination Dates Date of 2cond Vaccination (if applicable): 06/10/2020 - Review of Systems Constitutional: No Symptoms, No Fever, No Chills Eyes: No Symptoms Ears, Nose, & Throat: No Symptoms Respiratory: No Symptoms, No Cough, No Dyspnea Cardiac: No Symptoms, No Chest Pain, No Edema, No Syncope Abdominal/Gastrointestinal: No Symptoms, No Abdominal Pain, No Nausea, No Vomiting, No Diarrhea Genitourinary Symptoms: No Symptoms, No Dysuria Musculoskeletal: No Symptoms, No Back Pain, No Neck Pain Skin: No Symptoms, No Rash Neurological: No Symptoms, No Dizziness, No Focal Weakness, No Sensory Changes Psychological: No Symptoms Endocrine: No Symptoms Hematologic/Lymphatic: No Symptoms Immunological/Allergic: No Symptoms All Other Systems: Reviewed and Negative - Past Medical History Pertinent Past Medical History: Yes Neurological History: TIA ENT History: No Pertinent History Cardiac History: Coronary Artery Disease, High Cholesterol, Hypertension Respiratory History: COPD Endocrine Medical History: Hypothyroidism Musculoskeletal History: Fractures, Arthritis GI Medical History: No Pertinent History History: No Pertinent History Psycho-Social History: No Pertinent History Male Reproductive Disorders: No Pertinent History Other Medical History: kidney stones, a-fib - Past Surgical History Past Surgical History: Yes Neuro Surgical History: No Pertinent History Cardiac: Cardiac Catheterization, Cardiac Stent Gastrointestinal: No Pertinent History Genitourinary: No Pertinent History Musculoskeletal: Orthopedic Surgery Male Surgical History: Other Other Surgical History: right hand, - Social History Smoking Status: Former smoker Exposure to second hand smoke: No Drug Use: none Patient Lives Alone: No - Nursing Vital Signs Nursing Vital Signs: Initial Vital Signs Temperature 97.8 F 07/01/20 17:44 Pulse Rate 49 L 07/01/20 17:44 Respiratory Rate 17 07/01/20 17:44 Blood Pressure 171/112 07/01/20 17:44 O2 Sat by Pulse Oximetry 95 07/01/20 17:44 Pain Scale Pain Intensity 0 - Physical Exam General Appearance: no apparent distress, alert Eye Exam: PERRL/EOMI Neck Exam: normal inspection, supple Respiratory Exam: airway intact, diminished breath sounds, other (Coarse breath sounds. Diminished breath sounds. Airway intact.), No respiratory distress Cardiovascular/Chest Exam: normal heart sounds, regular rate/rhythm Abdominal/Gastrointestinal Exam: soft, No tenderness, No distention, No mass Extremity Exam: non-tender, normal range of motion, normal inspection, no calf tenderness, no pedal edema Neurologic Exam: alert, oriented x 3, cooperative, corrective therapist II-XII nml as tested, sensation nml, No motor deficits Skin Exam: normal color, warm, No dry Lymphatic Exam: No adenopathy SpO2 Interpretation: normal SpO2: 94 O2 Delivery: Room Air - Course Nursing assessment & vital signs reviewed: Yes EKG Interpreted by Me: RATE (49), Sinus Nolan, NORMAL AXIS, NORMAL INTERVALS - Radiology Exams Chest X-ray Interpretation: Teleradiologist Report (COPD, atelectasis versus scarring at lung bases coronary artery stent.) Ordered Tests: Active Orders 24 hr Category Date Time Status Up With Assistance ROUTINE Activity 07/01/20 20:26 Active Greenhouse Manager STAT Care 07/01/20 18:18 Completed Code Status Order ROUTINE Care 07/01/20 20:26 Active EKG-ER Only STAT Care 07/01/20 18:18 Completed IV Care Q6H Care 07/01/20 20:26 Active IV Insertion STAT Care 07/01/20 18:[address] in Observation ROUTINE Care 07/01/20 20:26 Active Pulse Oximetry (ED) STAT Care 07/01/20 18:18 Completed Marisela Gardiner ROUTINE Care 07/01/20 20:26 Active Telemetry q4h Care 07/01/20 20:26 Active Weight,Daily 0600 Care 07/01/20 20:26 Active Heart-Healthy Diet Diet 07/01/20 Breakfast Active CHEST 1 VIEW (PORTABLE) Stat Exams 07/01/20 18:18 Taken BLOOD CULTURE Stat Lab 07/01/20 18:40 Received CBC AM.LAB Lab 07/02/20 04:00 Ordered CBC W DIFF Stat Lab 07/01/20 18:30 Completed CMP AM.LAB Lab 07/02/20 04:00 Ordered CMP Stat Lab 07/01/20 18:30 Completed MAGNESIUM Stat Lab 07/01/20 18:30 Completed TROPONIN Q3H Lab 07/01/20 18:30 Completed TROPONIN Q3H Lab 07/01/20 21:30 Completed TROPONIN Q3H Lab 07/02/20 00:30 Ordered TROPONIN Q3H Lab 07/02/20 03:30 Ordered TROPONIN Q3H Lab 07/02/20 06:30 Ordered UA W/RFX UR CULTURE Stat Lab 07/01/20 18:59 Completed Pulse Oximetry CONTINUOUS RT 07/01/20 20:26 Active Transfer Order Routine Transfer 07/01/20 Completed Medication Summary Generic Name Dose Route Start Last Admin Trade Name Freq PRN Reason Stop Dose Admin Albuterol Sulfate 2.5 mg 07/01/20 23:00 07/01/20 22:39 Proventil 2.5 Mg/3 Ml Neb IH 07/31/20 22:59 2.5 mg Q4HRT DUANE Administration Apixaban 5 mg 07/01/20 22:00 07/01/20 21:58 Eliquis 2.5 Mg Tablet PO 07/31/20 21:59 5 mg BID DUANE Administration Carvedilol 12.5 mg 07/01/20 22:00 07/01/20 21:58 Coreg 12.5 Mg PO 07/31/20 21:59 12.5 mg BID DUANE Administration Famotidine 40 mg 07/01/20 22:00 07/01/20 21:58 Pepcid 20 Mg PO 07/31/20 21:59 40 mg HS DUANE Administration Metoprolol Succinate 50 mg 07/01/20 22:00 07/01/20 21:59 Toprol Xl 50 Mg PO 07/31/20 21:59 50 mg BID DUANE Administration Patient Own Medication 2 each 07/01/20 19:00 07/01/20 21:13 Patient Own Medication IH 07/31/20 18:59 2 each BIDRT DUANE Administration Potassium Chloride 10 meq 07/01/20 22:00 07/01/20 21:59 Klor Con 10 Meq PO 07/31/20 21:59 10 meq BID DUANE Administration Discontinued Medications Generic Name Dose Route Start Last Admin Trade Name Freq PRN Reason Stop Dose Admin Albuterol Sulfate 2.5 mg 07/01/20 18:18 07/01/20 18:30 Proventil 2.5 Mg/3 Ml Neb IH 07/01/20 18:19 2.5 mg STAT ONE Administration Albuterol Sulfate Confirm 07/01/20 18:26 Proventil 2.5 Mg/3 Ml Neb Administered 07/01/20 18:27 Dose 2.5 mg IH .STK-MED ONE Vancomycin HCl 1 gm in 200 mls @ 125 mls/hr 07/01/20 18:42 07/01/20 20:08 Vancomycin 1 Gram/200 Ml Bag IV 07/01/20 20:17 125 mls/hr STAT ONE 125 mls/hr Administration Piperacillin Sod/Tazobactam 100 mls @ 200 mls/hr 07/01/20 18:42 07/01/20 18:52 Sod 3.375 gm/ Sodium Chloride IV 07/01/20 19:11 200 mls/hr STAT ONE Administration Sodium Chloride Confirm 07/01/20 18:50 Sodium Chloride 100ml Mini-Bag Plus Administered 07/01/20 18:51 Dose 100 mls @ ud IV .STK-MED ONE Vancomycin HCl Confirm 07/01/20 20:06 Vancomycin 1 Gram/200 Ml Bag Administered 07/01/20 20:07 Dose 1 gm in 200 mls @ ud IV .STK-MED ONE Methylprednisolone Sodium Succinate 125 mg 07/01/20 18:20 07/01/20 18:29 Solu-Medrol 125 Mg IV 04/08/21 18:21 125 mg STAT ONE Administration Methylprednisolone Sodium Succinate Confirm 07/01/20 18:28 Solu-Medrol 125 Mg Administered 07/01/20 18:29 Dose 125 mg .ROUTE .STK-MED ONE Piperacillin Sod/Tazobactam Sod Confirm 07/01/20 18:49 Zosyn 3.375 Gm Vial Administered 07/01/20 18:50 Dose 3.375 gm IV .STK-MED ONE Lab/Rad Data: Laboratory Result Diagrams 07/01/20 18:30 07/01/20 18:30 Laboratory Results 07/01/20 07/01/20 07/01/20 Range/Units 18:59 18:51 18:30 WBC (4.0-10.5) K/mm3 RBC (4.1-5.6) M/mm3 Hgb (12.5-18.0) gm/dl Hct (42-50) % MCV (78-100) fl MCH (26-32) pg MCHC (32-36) g/dl RDW (11.5-14.0) % Plt Count (150-450) K/mm3 MPV (7.5-11.0) fl Gran % (36.0-66.0) % Eos # (Auto) (0-0.5) Absolute Lymphs (auto) (1.0-4.6) Absolute Monos (auto) (0.0-1.3) Lymphocytes % (24.0-44.0) % Monocytes % (0.0-12.0) % Eosinophils % (0.00-5.0) % Basophils % (0.0-0.4) % Absolute Granulocytes (1.4-6.9) Basophils # (0-0.4) Sodium (137-145) mmol/L Potassium (3.5-5.1) mmol/L Chloride (98-107) mmol/L Carbon Dioxide (22-30) mmol/L Anion Gap (5-15) MEQ/L BUN (9-20) mg/dL Creatinine (0.66-1.25) mg/dL Estimated GFR ML/MIN Glucose (74-106) mg/dL Calcium (8.4-10.2) mg/dL Magnesium (1.6-2.3) mg/dL Total Bilirubin (0.2-1.3) mg/dL AST (17-59) U/L ALT (0-50) U/L Alkaline Phosphatase (38-126) U/L Troponin I < 0.012 (0.000-0.034) ng/mL Serum Total Protein (6.3-8.2) g/dL Albumin (3.5-5.0) g/dL Urine Color STRAW (YELLOW) Urine Appearance CLEAR (CLEAR) Urine pH 6.0 (5-6) Ur Specific [place] 1.006 (1.005-1.025) Urine Protein NEGATIVE (Negative) Urine Ketones NEGATIVE (NEGATIVE) Urine Blood SMALL (0-5) Sal/ul Urine Nitrite NEGATIVE (NEGATIVE) Urine Bilirubin NEGATIVE (NEGATIVE) Urine Urobilinogen NEGATIVE (0-1) mg/dL Ur Leukocyte Esterase NEGATIVE (NEGATIVE) Urine WBC (Auto) NONE (0-5) /HPF Urine RBC (Auto) 6-10 (0-2) /HPF U Epithel Cells (Auto) NONE (FEW) /HPF Urine Bacteria (Auto) NONE (NEGATIVE) /HPF Urine Culture Reflexed NO (NO) Urine Glucose NEGATIVE (NEGATIVE) mg/dL Influenza Type A Ag NEGATIVE (NEGATIVE) Influenza Type B Ag NEGATIVE (NEGATIVE) RSV (PCR) NEGATIVE (Negative) SARS-CoV-2 (PCR) NEGATIVE (NEGATIVE) 07/01/20 07/01/20 Range/Units 18:30 18:30 WBC 9.3 (4.0-10.5) K/mm3 RBC 4.97 (4.1-5.6) M/mm3 Hgb 14.6 (12.5-18.0) gm/dl Hct 45.8 (42-50) % MCV 92.2 (78-100) fl MCH 29.4 (26-32) pg MCHC 31.9 L (32-36) g/dl RDW 14.3 H (11.5-14.0) % Plt Count 190 (150-450) K/mm3 MPV 10.8 (7.5-11.0) fl Gran % 61.3 (36.0-66.0) % Eos # (Auto) 0.39 (0-0.5) Absolute Lymphs (auto) 2.11 (1.0-4.6) Absolute Monos (auto) 1.08 (0.0-1.3) Lymphocytes % 22.6 L (24.0-44.0) % Monocytes % 11.6 (0.0-12.0) % Eosinophils % 4.2 (0.00-5.0) % Basophils % 0.3 (0.0-0.4) % Absolute Granulocytes 5.71 (1.4-6.9) Basophils # 0.03 (0-0.4) Sodium 145 (137-145) mmol/L Potassium 3.8 (3.5-5.1) mmol/L Chloride 99 (98-107) mmol/L Carbon Dioxide 33 H (22-30) mmol/L Anion Gap 16.4 H (5-15) MEQ/L BUN 19 (9-20) mg/dL Creatinine 1.21 (0.66-1.25) mg/dL Estimated GFR > 60.0 ML/MIN Glucose 118 H (74-106) mg/dL Calcium 9.7 (8.4-10.2) mg/dL Magnesium 2.2 (1.6-2.3) mg/dL Total Bilirubin 0.50 (0.2-1.3) mg/dL AST 28 (17-59) U/L ALT 27 (0-50) U/L Alkaline Phosphatase 106 (38-126) U/L Troponin I (0.000-0.034) ng/mL Serum Total Protein 8.2 (6.3-8.2) g/dL Albumin 4.7 (3.5-5.0) g/dL Urine Color (YELLOW) Urine Appearance (CLEAR) Urine pH (5-6) Ur Specific [place] (1.005-1.025) Urine Protein (Negative) Urine Ketones (NEGATIVE) Urine Blood (0-5) Sal/ul Urine Nitrite (NEGATIVE) Urine Bilirubin (NEGATIVE) Urine Urobilinogen (0-1) mg/dL Ur Leukocyte Esterase (NEGATIVE) Urine WBC (Auto) (0-5) /HPF Urine RBC (Auto) (0-2) /HPF U Epithel Cells (Auto) (FEW) /HPF Urine Bacteria (Auto) (NEGATIVE) /HPF Urine Culture Reflexed (NO) Urine Glucose (NEGATIVE) mg/dL Influenza Type A Ag (NEGATIVE) Influenza Type B Ag (NEGATIVE) RSV (PCR) (Negative) SARS-CoV-2 (PCR) (NEGATIVE) - Progress Progress: improved Air Movement: good Progress Note: Patient reassessed. Shortness of breath improved. Steroids administered. Blood cultures obtained. IV antibiotics infused. Case discussed with Dr. Butler who accepts admission to observation. Plan of care discussed with patient. He agrees to admission [facility] for further evaluation and treatment. 07/01/20 22:32 Blood Culture(s) Obtained: No Antibiotics given: No Discussed with Dr.: Aniya Will see patient in: hospital (observation) Counseled pt/family regarding: lab results, diagnosis, rad results - Departure Departure Disposition: Observation Clinical Impression: COPD exacerbation, Shortness of breath Condition: Stable Critical Care Time: No
[2020-07-01] MEDS ORDERED: VANCOMYCIN 1 GRAM/200 ML BAG 1 GM/200 ML PIGGYBACK IV ONE ×2 (18:42→20:06)
[2020-07-01] MEDS ORDERED: Zosyn 3.375 GM Vial 3.375 GM in Sodium Chloride 100ML MINI-BAG PLUS 100 ML IV ONE (18:42)
[2020-07-01] MEDS ORDERED: Zosyn 3.375 GM Vial IV ONE (18:49)
[2020-07-01 18:50] LABS: Absolute Neutrophil Ct (ANC) 5.71 (1.4-6.9); BASOPHIL % 0.3 % (0.0-0.4); Basophil (Absolute #) 0.03 (0-0.4); Eosinophil % 4.2 % (0.00-5.0); Eosinophil (Absolute #) 0.39 (0-0.5); Hematocrit 45.8 % (42-50); Hemoglobin 14.6 gm/dl (12.5-18.0); Lymphocyte (Absolute #) 2.11 (1.0-4.6); Lymphocytes % 22.6 % (24.0-44.0); Mean Cell Volume 92.2 fl (78-100); Mean Corpuscular Hemoglobin 29.4 pg (26-32); Mean Corpuscular Hgb Concent. 31.9 g/dl (32-36); Mean Platelet Volume 10.8 fl (7.5-11.0); Monocyte (Absolute #) 1.08 (0.0-1.3); Monocytes % 11.6 % (0.0-12.0); Neutrophil % 61.3 % (36.0-66.0); Platelet Count 190 K/mm3 (150-450); Red Blood Count 4.97 M/mm3 (4.1-5.6); Red Cell Distribution Width 14.3 % (11.5-14.0); White Blood Count 9.3 K/mm3 (4.0-10.5)
[2020-07-01] MEDS ORDERED: Sodium Chloride 100ML MINI-BAG PLUS 100 ML IV ONE (18:50)
[2020-07-01 19:00] LABS: ALBUMIN 4.7 g/dL (3.5-5.0); ALKALINE PHOSPHATASE 106 U/L (38-126); ANION GAP 16.4 MEQ/L (5-15); BLOOD UREA NITROGEN 19 mg/dL (9-20); CHLORIDE 99 mmol/L (98-107); Calcium 9.7 mg/dL (8.4-10.2); Carbon Dioxide 33 mmol/L (22-30); Creatinine 1 1.21 mg/dL (0.66-1.25); EST GLOMERULAR FILTRATION RATE > 60.0 ML/MIN; Glucose 118 mg/dL (74-106); MAGNESIUM 2.2 mg/dL (1.6-2.3); Potassium 3.8 mmol/L (3.5-5.1); SGOT/AST 28 U/L (17-59); SGPT/ALT 27 U/L (0-50); SODIUM 145 mmol/L (137-145); Total Protein 8.2 g/dL (6.3-8.2)
[2020-07-01 19:23] LABS: Appearance CLEAR (CLEAR); Bilirubin NEGATIVE (NEGATIVE); Blood SMALL Ery/ul (0-5); Glucose NEGATIVE (NEGATIVE); Ketones NEGATIVE (NEGATIVE); Leukocyte Esterase NEGATIVE (NEGATIVE); Nitrite NEGATIVE (NEGATIVE); Protein,Urine Dip NEGATIVE (Negative); Specific Gravity 1.006 (1.005-1.025); Urobilinogen NEGATIVE mg/dL (0-1)
[2020-07-01 19:39] LABS: INFLUENZA A NEGATIVE (NEGATIVE); INFLUENZA B NEGATIVE (NEGATIVE); RESPIRATORY SYNCTIAL VIRUS NEGATIVE (Negative)
[2020-07-01] MEDS: PATIENT OWN MEDICATION IH SCH (21:13)
[2020-07-01] MEDS: COREG 12.5 MG PO SCH (21:58)
[2020-07-01] MEDS: ELIQUIS 2.5 MG TABLET PO SCH (21:58)
[2020-07-01] MEDS: Toprol Xl 50 MG PO SCH (21:59)
[2020-07-01] MEDS: Klor Con 10 MEQ PO SCH (21:59)
[2020-07-01] MEDS ORDERED: Pepcid 20 MG PO SCH (22:00)
[2020-07-01] MEDS: PROVENTIL 2.5 MG/3 ML NEB IH SCH (22:39)
[2020-07-02] MEDS: PROVENTIL 2.5 MG/3 ML NEB IH SCH ×3 (02:41→10:40)
[2020-07-02 04:55] LABS: Hematocrit 40.5 % (42-50); Hemoglobin 12.6 gm/dl (12.5-18.0); Mean Cell Volume 91.4 fl (78-100); Mean Corpuscular Hemoglobin 28.4 pg (26-32); Mean Corpuscular Hgb Concent. 31.1 g/dl (32-36); Mean Platelet Volume 10.7 fl (7.5-11.0); Platelet Count 163 K/mm3 (150-450); Red Blood Count 4.43 M/mm3 (4.1-5.6); Red Cell Distribution Width 13.8 % (11.5-14.0); White Blood Count 12.7 K/mm3 (4.0-10.5)
[2020-07-02 05:12] LABS: ALBUMIN 3.9 g/dL (3.5-5.0); ALKALINE PHOSPHATASE 90 U/L (38-126); ANION GAP 13.7 MEQ/L (5-15); BLOOD UREA NITROGEN 21 mg/dL (9-20); CHLORIDE 101 mmol/L (98-107); Carbon Dioxide 26 mmol/L (22-30); EST GLOMERULAR FILTRATION RATE > 60.0 ML/MIN; Glucose 291 mg/dL (74-106); Potassium 3.8 mmol/L (3.5-5.1); SGOT/AST 53 U/L (17-59); SGPT/ALT 56 U/L (0-50); SODIUM 137 mmol/L (137-145); Total Protein 6.9 g/dL (6.3-8.2)
[2020-07-02] MEDS: PATIENT OWN MEDICATION IH SCH (06:41)
[2020-07-02 07:17] VITALS: O2SAT 93
--- NOTE | 2020-07-02 08:18 | SSS ---
DISCHARGE DIAGNOSES: 1) ACUTE EXACERBATION OF CHRONIC OBSTRUCTIVE PULMONARY DISEASE. 2) HYPOXEMIA. HISTORY: The patient is a 80 year-old white male patient with a long history of chronic obstructive pulmonary disease and is on home oxygen. He has been seen in follow up by the nurse practitioner of Dr. Jean Baptiste. He had been seen in follow up for a one month follow up after being started on new inhaler medication and it was noted that his oxygen level was somewhat low and he was having some problems with wheezing. She gave him the option to go to [facility] for follow up there or to come to [facility]. The patient reports that his does not drive so they decided to come to the [facility] Emergency Room where he was seen and admitted for IV Solu-Medrol, antibiotics, nebulizer treatment and increasing oxygen. PAST MEDICAL/SURGICAL HISTORY: Significant for his chronic obstructive pulmonary disease. He is on blood thinners and thyroid medication. He has previous history of coronary artery disease, hypertension, hyperlipidemia, transient ischemic attack, kidney stones and atrial fibrillation. He had a cardiac catheterization with cardiac stent placed. PHYSICAL EXAMINATION: Vital signs in the emergency room showed temperature 97.8F, pulse 49, respiratory rate 17 and blood pressure 171/112. O2 saturation 95%. HEENT: Normocephalic, atraumatic. Pupils equal round reactive to light. Extraocular movements intact. Oropharynx is pink and moist. He is wearing oxygen per nasal cannula currently at 3 liters. NECK: Supple without lymphadenopathy, thyromegaly or JVD. HEART: Currently regular rate and rhythm. No murmurs, rubs or gallops are heard. There are slight wheezes in the bases but good air movement otherwise. ABDOMEN: Soft with no palpable masses. EXTREMITIES: Without cyanosis, clubbing or edema. NEUROLOGIC: The patient is alert and oriented x3 with no focal deficits noted. LAB DATA AND TESTS: The patient's chest x-ray showed bilateral atelectasis, infiltrate in the right base, chronic obstructive pulmonary disease and a coronary artery stent. His labs initially in the emergency room showed his white count to be 9,300, hemoglobin 14.6, PLT count 190,000. His sugar is 118, BUN 19, creatinine 1.21. Electrolytes were essentially normal. Liver enzymes were normal. His UA was normal with specific gravity 1.006. His troponin was less than 0.012. His COVID, influenza and RSV were negative. HOSPITAL COURSE: The patient was given Solu-Medrol in the emergency room and nebulizer treatments and by the next morning he was feeling much better and essentially back to his normal state of health. We discussed with the patient and his in the room his further care. We felt that he was really doing well enough that he could actually return home on prednisone p.o. and we are giving him 60 mg for five days, 40 mg for five days and then 20 mg for five days. He has a follow up to see Dr. Akbar in the office in six days. We have instructed him to follow up with his pulmonary health care manager in the next week or so as well. He has what he needs at home as far as oxygen and nebulizer medications and his usual home medications will be continued. We will give him Augmentin 875 mg twice a day for ten days in addition to the prednisone. He was instructed to call us or return if he has any further problems with increasing shortness of breath that were not controlled by the above means.
--- NOTE | 2020-07-02 08:45 | XRAY ---
Indication: Short of breath. Comparison: March 28, 2019. Portable chest again demonstrates COPD with new right base infiltrate versus atelectasis. No consolidation/large effusion. Heart not enlarged. Bony thorax intact again with mild degenerative changes. Comment: Preliminary interpretation was made by [facility]. No critical discrepancy.
[2020-07-02] MEDS: COREG 12.5 MG PO SCH (09:49)
[2020-07-02] MEDS: ELIQUIS 2.5 MG TABLET PO SCH (09:49)
[2020-07-02] MEDS: Klor Con 10 MEQ PO SCH (09:50)
[2020-07-02] MEDS: Toprol Xl 50 MG PO SCH (09:50)
[2020-07-02 10:16] VITALS: BP 126/61
[2020-07-02 10:45] VITALS: PULSE 72
== END 2020-07-02 11:31 | disposition home or self-care (01) ==
LOC: ED 17:37 → MED SURG 20:16
PROVIDERS: ADMIT Family Medicine; ATTEND Family Medicine
DX: J44.1 Chronic obstructive pulmonary disease with (acute) exacerbation (principal); R09.02 Hypoxemia; Z99.81 Dependence on supplemental oxygen; Z79.899 Other long term (current) drug therapy; Z79.01 Long term (current) use of anticoagulants; I10 Essential (primary) hypertension; E78.5 Hyperlipidemia, unspecified; Z86.73 Personal history of transient ischemic attack (TIA), and cerebral infarction without residual deficits; Z20.828 Contact with and (suspected) exposure to other viral communicable diseases
CPT/HCPCS: 0241U; 36000; 36415; 71045; 80053; 81001; 82947; 83735; 84484; 85025; 85027; 87040; 93005; 93041; 93268; 94640; 94760; 94762; 96365; 96367; 96374; 99285; G0378; J2930; J7609; A9270-GY; J3370

== ENCOUNTER 2023-03-01 16:56 | Observation (INO) | payer MEDICARE ==
[2023-03-01] MEDS ORDERED: Zofran 4 MG/2 ML VIAL IV ONE (17:51)
[2023-03-01] MEDS ORDERED: SUBLIMAZE 100 MCG/2 ML IV ONE (17:51)
[2023-03-01] MEDS ORDERED: Zofran 4 MG/2 ML VIAL ONE (17:57)
[2023-03-01] MEDS ORDERED: SUBLIMAZE 100 MCG/2 ML ONE (17:58)
[2023-03-01 18:12] LABS: Absolute Neutrophil Ct (ANC) 9.46 x10^3/uL (1.4-6.9); BASOPHIL % 0.4 % (0.0-0.4); Basophil (Absolute #) 0.05 x10^3/uL (0-0.4); Eosinophil % 1.6 % (0.00-5.0); Hematocrit 42.1 % (42-50); IMMATURE GRAN # 0.06 x10^3u/L (0.00-0.03); IMMATURE GRAN % 0.5 % (0.00-0.4); Lymphocyte (Absolute #) 1.02 x10^3/uL (1.0-4.6); Lymphocytes % 8.3 % (24.0-44.0); Mean Cell Volume 93.6 fL (78-100); Mean Corpuscular Hemoglobin 28.9 pg (26-32); Mean Corpuscular Hgb Concent. 30.9 g/dL (32-36); Mean Platelet Volume 11.2 fL (7.5-11.0); Monocyte (Absolute #) 1.57 x10^3/uL (0.0-1.3); Monocytes % 12.7 % (0.0-12.0); Neutrophil % 76.5 % (36.0-66.0); Platelet Count 150 x10^3/uL (150-450); Red Cell Distribution Width 13.8 % (11.5-14.0); White Blood Count 12.4 x10^3/uL (4.0-10.5)
[2023-03-01] MEDS ORDERED: DUONEB 0.5-3 MG/3 ml Neb IH ONE ×2 (18:40→18:50)
[2023-03-01 18:48] LABS: ALBUMIN 4.2 g/dL (3.5-5.0); ANION GAP 12.2 MEQ/L (5-15); BILIRUBIN,TOTAL 0.8 mg/dL (0.2-1.3); Calcium 9.5 mg/dL (8.4-10.2); Creatinine 1 1.45 mg/dL (0.66-1.25); EST GLOMERULAR FILTRATION RATE 48.7 ML/MIN; Total Protein 7.9 g/dL (6.3-8.2)
[2023-03-01 19:12] LABS: Slide Review 1 YES
[2023-03-01 19:23] LABS: Appearance Clear (Clear); Bacteria None Seen /HPF (None Seen); Bilirubin Negative (Negative); Blood Negative (Negative); Epithelial Cells None Seen /HPF (None Seen); Glucose, Urine Negative (Negative); Hyaline Casts NONE SEEN /LPF (0-2); Ketones Trace (Negative); Leukocyte Esterase Negative (Negative); Nitrite Negative (Negative); Ph 5.5 (4.6-8.0); Protein,Urine Dip Trace (Negative); RBC 0-2 /HPF (0-5); Specific Gravity 1.015 (1.005-1.030); Urobilinogen 0.2 mg/dL (0.2); WBC 0-2 /HPF (0-5)
[2023-03-01] MEDS ORDERED: solu-MEDROL 125 MG, Sterile H2O 10 ml 2 ML IV ONE ×2 (19:38)
[2023-03-01] MEDS ORDERED: solu-MEDROL ONE (19:41)
[2023-03-01] MEDS ORDERED: Sterile H2O 10 ml IJ ONE (19:41)
[2023-03-01 19:52] LABS: ADD URINE CULTURE? NO (NO)
--- NOTE | 2023-03-01 20:54 | ERPHSYRPT ---
- History of Present Illness Time Seen by Provider: 03/01/23 17:08 Source: patient, family Exam Limitations: no limitations Patient Subjective Stated Complaint: C/O SOB that has been worse since Sunday with c/o left side/rib pain. Patient had CPR performed on him Sunday. Triage Nursing Assessment: Patient brought back in a W/C. He is very SOB wearing 02 @ 4L per N/C. Patient wears this continuously at home. Patient only able to speak with one or two words at at time. 02 sats 84%. 02 increased to 5.5L per N/C and RT called to room. Patient stating 89% on the 5.5L. RT arrived to assess patient and increased oxygen administration to 10L per mask. 02 sats slowly increased to 94%. Patient is alert and oriented. Physician History: 82 years old male with history of paroxysmal atrial fibrillation, hypertension, lung cancer on progressive radiation therapy presented to the ER with increasing shortness of breath and pain left lower ribs and left side abdomen since yesterday. Patient received flu vaccine 2 days ago followed by collapse and CPR was performed, patient was taken to regional ER. Reported no pneumothorax or fracture ribs. Patient reports moderate intensity pain in the left lower chest wall and abdomen without associated nausea and vomiting. Patient usually use 3 to 4 L oxygen but her saturation was dropping in the 80s. He is on 5.5 L oxygen with saturation around 89% on presentation in the ER with moderate to severe shortness of breath making it difficult to complete a sentence. He is placed on 10 L Venturi mask and saturation improved to mid 90s. Allergies/Adverse Reactions: No Known Drug Allergies Allergy (Verified 03/01/23 17:21) Home Medications: Apixaban [Eliquis] 1 tab PO BID 03/01/23 [History] Atorvastatin Calcium [Lipitor 20MG Tablet] 1 tab PO DAILY 03/01/23 [History] Diltiazem HCl [Cartia Xt] 1 cap PO DAILY 03/01/23 [History] Metoprolol Tartrate 50 mg [Lopressor 50 MG] 1 tab PO BID 03/01/23 [History] Valsartan 1 tab PO DAILY 03/01/23 [History] Hx Tetanus, Diphtheria Vaccination/Date Given: Yes Hx Influenza Vaccination/Date Given: Yes (02/27/23) Hx Pneumococcal Vaccination/Date Given: Yes Immunizations Up to Date: Yes Travel Risk - International Travel Have you traveled outside of the country in past 3 weeks: No - Coronavirus Screening Are you exhibiting any of the following symptoms?: Yes Symptoms: Shortness of Breath Close contact with a COVID-19 positive Pt in past 14-21 Days: No - Vaccine Status Have you recieved a Covid-19 vaccination: Yes Regular Senior Care Provider: Moderna - Vaccination Dates Date of 2cond Vaccination (if applicable): 06/10/2020 - Review of Systems Constitutional: No Symptoms Eyes: No Symptoms Ears, Nose, & Throat: No Symptoms Respiratory: Dyspnea Cardiac: Chest Pain Abdominal/Gastrointestinal: Abdominal Pain Genitourinary Symptoms: No Symptoms Musculoskeletal: Arthralgias Neurological: No Symptoms Endocrine: No Symptoms Hematologic/Lymphatic: No Symptoms Immunological/Allergic: No Symptoms - Past Medical History Pertinent Past Medical History: Yes Neurological History: TIA ENT History: No Pertinent History Cardiac History: Coronary Artery Disease, High Cholesterol, Hypertension Respiratory History: COPD, Emphysema Endocrine Medical History: Hypothyroidism Musculoskeletal History: Fractures, Arthritis GI Medical History: No Pertinent History History: No Pertinent History Psycho-Social History: No Pertinent History Male Reproductive Disorders: No Pertinent History Other Medical History: kidney stones, a-fib - Past Surgical History Past Surgical History: Yes Neuro Surgical History: No Pertinent History Cardiac: Cardiac Catheterization, Cardiac Stent Gastrointestinal: No Pertinent History Genitourinary: No Pertinent History Musculoskeletal: Orthopedic Surgery Male Surgical History: Other Other Surgical History: right hand, - Social History Smoking Status: Former smoker Exposure to second hand smoke: No Drug Use: none Patient Lives Alone: No - Nursing Vital Signs Nursing Vital Signs: Initial Vital Signs Temperature 98 F 03/01/23 17:21 Pulse Rate 89 03/01/23 17:21 Respiratory Rate 30 H 03/01/23 17:21 Blood Pressure 182/84 03/01/23 17:21 O2 Sat by Pulse Oximetry 84 L 03/01/23 17:21 Pain Scale Pain Intensity 5 - Physical Exam General Appearance: mild distress, moderate distress, alert Eye Exam: PERRL/EOMI, eyes nml inspection Ears, Nose, Throat Exam: hearing grossly normal, pharyngeal erythema Neck Exam: normal inspection, non-tender, supple, full range of motion Respiratory Exam: respiratory distress, accessory muscle use, rhonchi, wheezing Cardiovascular/Chest Exam: normal heart sounds, regular rate/rhythm Abdominal/Gastrointestinal Exam: soft, normal bowel sounds, No tenderness Extremity Exam: non-tender, normal range of motion Neurologic Exam: alert, oriented x 3, cooperative, shaft sinker II-XII nml as tested Skin Exam: normal color SpO2 Interpretation: O2 applied SpO2: 91 O2 Delivery: Nasal Cannula - Course EKG Interpreted by Me: RATE ([id number]), Sinus Rhythm, NORMAL AXIS, NORMAL INTERVALS, Non-specific ST Changes Ordered Tests: Active Orders 24 hr Category Date Time Status EKG-ER Only STAT Care 03/01/23 17:51 Active IV Insertion STAT Care 03/01/23 17:51 Active NPO (ED) STAT Care 03/01/23 17:51 Active ABDOMEN AND PELVIS W/0 CONTRAS [CT] Stat Exams 03/01/23 17:51 Taken CHEST WITHOUT CONTRAST [CT] Stat Exams 03/01/23 17:51 Taken BNPII [NT PRO BNPII] Stat Lab 03/01/23 18:00 Completed CBC W DIFF Stat Lab 03/01/23 18:00 Completed CMP Stat Lab 03/01/23 18:00 Completed LIPASE Stat Lab 03/01/23 18:00 Completed Lactic Acid Stat Lab 03/01/23 18:00 Completed Lactic Acid Stat Lab 03/01/23 20:11 Received TROPONIN Q4H Lab 03/01/23 18:00 Completed TROPONIN Q4H Lab 03/01/23 22:00 Ordered TROPONIN Q4H Lab 03/02/23 02:00 Ordered UA W/RFX UR CULTURE Stat Lab 03/01/23 19:10 Completed Oxygen Oxymask LPM 10 lpm RT 03/01/23 17:44 Active Pulse Oximetry ROUTINE RT 03/01/23 17:46 Active Respiratory Therapy Assessment DAILY RT 03/01/23 18:55 Active Transfer Order Routine Transfer 03/01/23 Ordered Medication Summary Discontinued Medications Generic Name Dose Route Start Last Admin Trade Name Freq PRN Reason Stop Dose Admin Albuterol/Ipratropium 3 ml 03/01/23 18:40 03/01/23 18:53 Ipratropium/Albuterol Sulfate 3 Ml Ampul.Neb IH 03/01/23 18:41 3 ml STAT ONE Administration Albuterol/Ipratropium Confirm 03/01/23 18:50 Ipratropium/Albuterol Sulfate 3 Ml Ampul.Neb Administered 03/01/23 18:51 Dose 3 ml IH .STK-MED ONE Methylprednisolone Sodium 0 mg 03/01/23 19:38 03/01/23 19:41 Succinate 125 mg/ Sterile IV 03/01/23 19:39 125 mg Water 2 ml STAT ONE Administration Fentanyl Citrate 50 mcg 03/01/23 17:51 03/01/23 18:01 Fentanyl Citrate 100 Mcg/2 Ml* Vial IV 03/01/23 17:52 50 mcg STAT ONE Administration Fentanyl Citrate Confirm 03/01/23 17:58 Fentanyl Citrate 100 Mcg/2 Ml* Vial Administered 03/01/23 17:59 Dose 100 mcg .ROUTE .STK-MED ONE Methylprednisolone Sodium Succinate Confirm 03/01/23 19:41 Methylprednis Sod Succ 125 Mg/2 Ml Vial Administered 03/01/23 19:42 Dose 125 mg .ROUTE .STK-MED ONE Ondansetron HCl 4 mg 03/01/23 17:51 03/01/23 18:00 Ondansetron Hcl 4 Mg/2 Ml Vial IV 03/01/23 17:52 4 mg STAT ONE Administration Ondansetron HCl Confirm 03/01/23 17:57 Ondansetron Hcl 4 Mg/2 Ml Vial Administered 03/01/23 17:58 Dose 4 mg .ROUTE .STK-MED ONE Sterile Water Confirm 03/01/23 19:41 Water For Injection,Sterile 10 Ml Vial Administered 03/01/23 19:42 Dose 10 ml IJ .STK-MED ONE Lab/Rad Data: Laboratory Result Diagrams 03/01/23 18:00 03/01/23 18:00 Laboratory Results 03/01/23 03/01/23 03/01/23 Range/Units 19:10 18:00 18:00 WBC (4.0-10.5) x10^3/uL RBC (4.1-5.6) x10^6/uL Hgb (12.5-18.0) g/dL Hct (42-50) % MCV (78-100) fL MCH (26-32) pg MCHC (32-36) g/dL RDW (11.5-14.0) % Plt Count (150-450) x10^3/uL MPV (7.5-11.0) fL Gran % (36.0-66.0) % Immature Gran % (Auto) (0.00-0.4) % Nucleat RBC Rel Count (0.00-0.1) % Eos # (Auto) (0-0.5) x10^3/uL Immature Gran # (Auto) (0.00-0.03) x10^3u/L Absolute Lymphs (auto) (1.0-4.6) x10^3/uL Absolute Monos (auto) (0.0-1.3) x10^3/uL Absolute Nucleated RBC (0.00-0.01) x10^3u/L Lymphocytes % (24.0-44.0) % Monocytes % (0.0-12.0) % Eosinophils % (0.00-5.0) % Basophils % (0.0-0.4) % Absolute Granulocytes (1.4-6.9) x10^3/uL Basophils # (0-0.4) x10^3/uL Sodium (137-145) mmol/L Potassium (3.5-5.1) mmol/L Chloride (98-107) mmol/L Carbon Dioxide (22-30) mmol/L Anion Gap (5-15) MEQ/L BUN (9-20) mg/dL Creatinine (0.66-1.25) mg/dL Estimated GFR ML/MIN Glucose (74-106) mg/dL Lactic Acid (0.4-2.0) Calcium (8.4-10.2) mg/dL Total Bilirubin (0.2-1.3) mg/dL AST (17-59) U/L ALT (0-50) U/L Alkaline Phosphatase (38-126) U/L Troponin I < 0.012 (0.000-0.034) ng/mL NT-Pro-B Natriuret Pep 1100 (<300) pg/mL Serum Total Protein (6.3-8.2) g/dL Albumin (3.5-5.0) g/dL Lipase (23-300) U/L Urine Color Yellow (Yellow) Urine Appearance Clear (Clear) Urine pH 5.5 (4.6-8.0) Ur Specific [place] 1.015 (1.005-1.030) Urine Protein Trace A (Negative) Urine Glucose (UA) Negative (Negative) mg/dL Urine Ketones Trace A (Negative) Urine Blood Negative (Negative) Urine Nitrite Negative (Negative) Urine Bilirubin Negative (Negative) Urine Urobilinogen 0.2 (0.2) mg/dL Ur Leukocyte Esterase Negative (Negative) U Hyaline Cast (Auto) NONE SEEN (0-2) /LPF Urine Microscopic RBC 0-2 (0-5) /HPF Urine Microscopic WBC 0-2 (0-5) /HPF Ur Epithelial Cells None Seen (None Seen) /HPF Urine Bacteria None Seen (None Seen) /HPF Urine Culture Reflexed NO (NO) Slides for Path Review 03/01/23 03/01/23 03/01/23 Range/Units 18:00 18:00 18:00 WBC 12.4 H (4.0-10.5) x10^3/uL RBC 4.50 (4.1-5.6) x10^6/uL Hgb 13.0 (12.5-18.0) g/dL Hct 42.1 (42-50) % MCV 93.6 (78-100) fL MCH 28.9 (26-32) pg MCHC 30.9 L (32-36) g/dL RDW 13.8 (11.5-14.0) % Plt Count 150 (150-450) x10^3/uL MPV 11.2 H (7.5-11.0) fL Gran % 76.5 H (36.0-66.0) % Immature Gran % (Auto) 0.5 H (0.00-0.4) % Nucleat RBC Rel Count 0.0 (0.00-0.1) % Eos # (Auto) 0.20 (0-0.5) x10^3/uL Immature Gran # (Auto) 0.06 H (0.00-0.03) x10^3u/L Absolute Lymphs (auto) 1.02 (1.0-4.6) x10^3/uL Absolute Monos (auto) 1.57 H (0.0-1.3) x10^3/uL Absolute Nucleated RBC 0.00 (0.00-0.01) x10^3u/L Lymphocytes % 8.3 L (24.0-44.0) % Monocytes % 12.7 H (0.0-12.0) % Eosinophils % 1.6 (0.00-5.0) % Basophils % 0.4 (0.0-0.4) % Absolute Granulocytes 9.46 H (1.4-6.9) x10^3/uL Basophils # 0.05 (0-0.4) x10^3/uL Sodium 138 (137-145) mmol/L Potassium 5.0 (3.5-5.1) mmol/L Chloride 98 (98-107) mmol/L Carbon Dioxide 33 H (22-30) mmol/L Anion Gap 12.2 (5-15) MEQ/L BUN 27 H (9-20) mg/dL Creatinine 1.45 H (0.66-1.25) mg/dL Estimated GFR 48.7 ML/MIN Glucose 163 H (74-106) mg/dL Lactic Acid 2.1 H (0.4-2.0) Calcium 9.5 (8.4-10.2) mg/dL Total Bilirubin 0.80 (0.2-1.3) mg/dL AST 26 (17-59) U/L ALT 25 (0-50) U/L Alkaline Phosphatase 128 H (38-126) U/L Troponin I (0.000-0.034) ng/mL NT-Pro-B Natriuret Pep (<300) pg/mL Serum Total Protein 7.9 (6.3-8.2) g/dL Albumin 4.2 (3.5-5.0) g/dL Lipase 41 (23-300) U/L Urine Color (Yellow) Urine Appearance (Clear) Urine pH (4.6-8.0) Ur Specific [place] (1.005-1.030) Urine Protein (Negative) Urine Glucose (UA) (Negative) mg/dL Urine Ketones (Negative) Urine Blood (Negative) Urine Nitrite (Negative) Urine Bilirubin (Negative) Urine Urobilinogen (0.2) mg/dL Ur Leukocyte Esterase (Negative) U Hyaline Cast (Auto) (0-2) /LPF Urine Microscopic RBC (0-5) /HPF Urine Microscopic WBC (0-5) /HPF Ur Epithelial Cells (None Seen) /HPF Urine Bacteria (None Seen) /HPF Urine Culture Reflexed (NO) Slides for Path Review YES - Progress Progress: improved Air Movement: good Progress Note: 03/01/23 21:08 82 years old male with history of paroxysmal atrial fibrillation, hypertension, lung cancer on progressive radiation therapy presented to the ER with increasing shortness of breath and pain left lower ribs and left side abdomen since yesterday. Patient received flu vaccine 2 days ago followed by collapse and CPR was performed, patient was taken to regional ER. Reported no pneumothorax or fracture ribs. Patient reports moderate intensity pain in the left lower chest wall and abdomen without associated nausea and vomiting. Patient usually use 3 to 4 L oxygen but her saturation was dropping in the 80s. He is on 5.5 L oxygen with saturation around 89% on presentation in the ER with moderate to severe shortness of breath making it difficult to complete a sentence. He is placed on 10 L Venturi mask and saturation improved to mid 90s. He is given DuoNeb and symptomatic treatment for pain along with steroid, on reevaluation feeling better. He slowly weaned down to 5 L maintaining satu ration in low 90s. I have obtained CT chest abdomen pelvis without contrast which showed right upper lobe spiculated mass which patient is already aware of but no focal consolidation, pneumothorax or fractured rib. No acute intra- abdominal findings. Negative initial troponins. White count of 12 and stable CKD with a creatinine of 1.4. Patient is on Eliquis, low concern for PE. EKG is normal sinus rhythm with no acute ST elevations. I believe patient has COPD exacerbation, would benefit with observation, frequent neb treatments and steroids. I have discussed the results of workup with patient and family and plan of observation admission which they agree. Discussed with rev Emiliano iewed history, workup and agreed with observation admission. Blood Culture(s) Obtained: Yes Antibiotics given: No Discussed with : Alie, Other (Dr. Leiva [id number]) Counseled pt/family regarding: lab results, diagnosis, rad results Medical Desision Making - Independent Historian Additional History obtained from: Child - Discussion of managment Care discussed with:: hospitalist (Dr. Leiva) Reviewed:: Test results Agreed on:: Treatment plan Will see patient: in hospital - Diagnostic Testing Diagnostic test were ordered, analyzed, and reviewed by me: Yes Radiological Interpretation: Reviewed by me - Risk of complications The pt has a high risk of morbidity or mortality based on: Decision regarding hospitilization or escalation of hosp level of care - Departure Departure Disposition: Observation Clinical Impression: COPD exacerbation, Left sided abdominal pain Condition: Stable Critical Care Time: No Referrals: JED CARTER MD [Primary Care Provider] - Follow up/PCP as directed
[2023-03-01 21:42] LABS: INFLUENZA A NEGATIVE (NEGATIVE); INFLUENZA B NEGATIVE (NEGATIVE); RESPIRATORY SYNCTIAL VIRUS NEGATIVE (NEGATIVE); SARS-CoV-2 Xpert Express NEGATIVE (NEGATIVE)
[2023-03-01] MEDS ORDERED: PROVENTIL 2.5 MG/3 ML NEB IH PRN (22:35)
--- NOTE | 2023-03-01 23:22 | PCM.HP ---
History of Present Illness - Chief Complaint Chief Complaint: COPD exacerbation Date: 03/01/23 History of Present Illness: Mr. Jaramillo is an 82 year-old male with CAD s/p PCI, Afib, COPD, HTN, Lung Cancer on XRT, chronic hypoxemic respiratory failure, CKD, HLD, and hypothyroidism who presents with shortness of breath. According to the patient, he suffered a cardiac arrest a few days ago while getting the influenza vaccine (CPR; ACLS) but was discharged home the next day with no acute abnormalities discovered during the admission. This morning, he suddenly felt short of breath and thus presented to [place] for further medical attention. Initially, he was placed on 10L oxygen, but after several nebulizer treatments and a dose of IV solumedrol, his oxygen requirement decreased to 5L. Laboratory data including a viral panel was negative, and CT chest revealed known malignancy but no other acute abnormalities. On my examination, he is resting comfortably on 5L NC denying any current fevers, chills, nausea, vomiting, diarrhea, syncope, presyncope, visual changes, orthopnea, PND, odynophagia, dysphagia, chest pain, belly pain, dysuria, hematuria, melena, hematochezia, or neurological changes. All other systems were reviewed and were negative. - Review of Systems Constitutional: No Fever, No Chills Eyes: No Symptoms Ears, Nose, & Throat: No Symptoms Respiratory: Short Of Breath Cardiac: No Chest Pain, No Edema, No Syncope Abdominal/Gastrointestinal: No Abdominal Pain, No Nausea, No Vomiting, No Diarrhea Genitourinary Symptoms: No Dysuria Musculoskeletal: No Back Pain, No Neck Pain Skin: No Rash Neurological: No Dizziness, No Focal Weakness, No Sensory Changes Psychological: No Symptoms Endocrine: No Symptoms Hematologic/Lymphatic: No Symptoms Immunological/Allergic: No Symptoms Medications & Allergies Home Medications: Home Medication List Albuterol Sulfate 2.5 mg IH Q4H PRN PRN 03/01/23 [History Confirmed 03/01/23] Apixaban [Eliquis] 1 tab PO BID 03/01/23 [History Confirmed 03/01/23] Atorvastatin Calcium [Lipitor 20MG Tablet] 1 tab PO DAILY 03/01/23 [History Confirmed 03/01/23] Budesonide/Glycopyr/Formoterol [Breztri Aerosphere Inhaler] See Rx Instructions .ROUTE .COMPLEX 12/07/23 [History Confirmed 03/01/23] Bumetanide 1 mg [Bumex 1 mg] 1 mg PO DAILY 03/01/23 [History Confirmed 03/01/23] Diltiazem HCl [Cartia Xt] 1 cap PO DAILY 03/01/23 [History Confirmed 03/01/23] Famotidine 40 mg PO HS 03/01/23 [History Confirmed 03/01/23] LORazepam [Lorazepam] 0.5 mg PO BID PRN 03/01/23 [History Confirmed 03/01/23] Levothyroxine Sodium 75 Mcg [Synthroid 75 Mcg] 75 mcg PO DAILY 03/01/23 [History Confirmed 03/01/23] Metoprolol Tartrate 50 mg [Lopressor 50 MG] 1 tab PO BID 03/01/23 [History Confirmed 03/01/23] Potassium Chloride 10 meq PO TID 03/01/23 [History Confirmed 03/01/23] Valsartan 1 tab PO DAILY 03/01/23 [History Confirmed 03/01/23] Allergies/Adverse Reactions: Allergies Allergy/AdvReac Type Severity Reaction Status Date / Time influenza vaccine Allergy Severe Uncoded 03/01/23 21:23 - Past Medical History Past Medical History: Yes Neurological History: TIA ENT History: No Pertinent History Cardiac History: Arrhythmia, Congestive Heart Failure, Coronary Artery Disease, High Cholesterol, Hypertension, Myocardial Infarction ([place]) Respiratory History: COPD, Emphysema, Lung Cancer Endocrine Medical History: Diabetes Type II, Hypothyroidism Musculoskelatal History: Fractures, Arthritis GI Medical History: GERD History: No Pertinent History Pyscho-Social History: Anxiety Male Reproductive Disorders: No Pertinent History Comment: kidney stones, a-fib - Past Surgical History Past Surgical History: Yes Neuro Surgical History: No Pertinent History Cardiac History: Cardiac Catheterization, Cardiac Stent Respiratory Surgery: No Pertinent History GI Surgical History: No Pertinent History Genitourinary Surgical Hx: No Pertinent History Musculskeletal Surgical Hx: Orthopedic Surgery Male Surgical History: No Pertinent History Other Surgical History: right hand, cardiac ablation 2016 - Social History Smoking Status: Former smoker Exposure to second hand smoke: No Alcohol: None Drug Use: none - Physical Exam Vital Signs: Vital Signs - 24 hr Temp Pulse Resp BP BP Pulse Ox 03/01/23 22:38 58 L 18 92 L 03/01/23 21:57 97.6 F 76 22 144/76 93 L 03/01/23 21:10 91 L 03/01/23 21:00 64 21 134/86 96 03/01/23 20:30 66 18 138/69 91 L 03/01/23 20:00 89 20 136/72 91 L 03/01/23 19:48 90 19 125/86 97 03/01/23 18:53 83 20 98 03/01/23 18:01 91 H 26 H 138/90 97 03/01/23 17:46 89 L 03/01/23 17:30 93 H 19 179/90 100 03/01/23 17:21 98 F 89 30 H 182/84 84 L General Appearance: no apparent distress, alert Neurologic Exam: alert, oriented x 3, cooperative, normal mood/affect, nml cerebellar function, nml station & gait, sensation nml, No motor deficits Eye Exam: PERRL/EOMI, eyes nml inspection Ears, Nose, Throat Exam: normal ENT inspection, TMs normal, pharynx normal, moist mucous membranes Neck Exam: normal inspection, non-tender, supple, full range of motion Respiratory Exam: normal breath sounds, lungs clear, No respiratory distress Cardiovascular Exam: regular rate/rhythm, normal heart sounds, normal peripheral pulses Gastrointestinal/Abdomen Exam: soft, normal bowel sounds, No tenderness, No mass Back Exam: normal inspection, normal range of motion, No CVA tenderness, No vertebral tenderness Extremity Exam: normal inspection, normal range of motion, pelvis stable Skin Exam: normal color, warm, dry, No rash Lymphatic Exam: No adenopathy Results - Labs Lab/Micro Results: Lab Results-Last 24 Hours 03/01/23 03/01/23 03/01/23 Range/Units 18:00 18:00 18:00 WBC 12.4 H (4.0-10.5) x10^3/uL RBC 4.50 (4.1-5.6) x10^6/uL Hgb 13.0 (12.5-18.0) g/dL Hct 42.1 (42-50) % MCV 93.6 (78-100) fL MCH 28.9 (26-32) pg MCHC 30.9 L (32-36) g/dL RDW 13.8 (11.5-14.0) % Plt Count 150 (150-450) x10^3/uL MPV 11.2 H (7.5-11.0) fL Gran % 76.5 H (36.0-66.0) % Immature Gran % (Auto) 0.5 H (0.00-0.4) % Nucleat RBC Rel Count 0.0 (0.00-0.1) % Eos # (Auto) 0.20 (0-0.5) x10^3/uL Immature Gran # (Auto) 0.06 H (0.00-0.03) x10^3u/L Absolute Lymphs (auto) 1.02 (1.0-4.6) x10^3/uL Absolute Monos (auto) 1.57 H (0.0-1.3) x10^3/uL Absolute Nucleated RBC 0.00 (0.00-0.01) x10^3u/L Lymphocytes % 8.3 L (24.0-44.0) % Monocytes % 12.7 H (0.0-12.0) % Eosinophils % 1.6 (0.00-5.0) % Basophils % 0.4 (0.0-0.4) % Absolute Granulocytes 9.46 H (1.4-6.9) x10^3/uL Basophils # 0.05 (0-0.4) x10^3/uL Sodium 138 (137-145) mmol/L Potassium 5.0 (3.5-5.1) mmol/L Chloride 98 (98-107) mmol/L Carbon Dioxide 33 H (22-30) mmol/L Anion Gap 12.2 (5-15) MEQ/L BUN 27 H (9-20) mg/dL Creatinine 1.45 H (0.66-1.25) mg/dL Estimated GFR 48.7 ML/MIN Glucose 163 H (74-106) mg/dL Lactic Acid 2.1 H (0.4-2.0) Calcium 9.5 (8.4-10.2) mg/dL Total Bilirubin 0.80 (0.2-1.3) mg/dL AST 26 (17-59) U/L ALT 25 (0-50) U/L Alkaline Phosphatase 128 H (38-126) U/L Troponin I (0.000-0.034) ng/mL NT-Pro-B Natriuret Pep (<300) pg/mL Serum Total Protein 7.9 (6.3-8.2) g/dL Albumin 4.2 (3.5-5.0) g/dL Lipase 41 (23-300) U/L Urine Color (Yellow) Urine Appearance (Clear) Urine pH (4.6-8.0) Ur Specific [place] (1.005-1.030) Urine Protein (Negative) Urine Glucose (UA) (Negative) mg/dL Urine Ketones (Negative) Urine Blood (Negative) Urine Nitrite (Negative) Urine Bilirubin (Negative) Urine Urobilinogen (0.2) mg/dL Ur Leukocyte Esterase (Negative) U Hyaline Cast (Auto) (0-2) /LPF Urine Microscopic RBC (0-5) /HPF Urine Microscopic WBC (0-5) /HPF Ur Epithelial Cells (None Seen) /HPF Urine Bacteria (None Seen) /HPF Urine Culture Reflexed (NO) Influenza Type A Ag (NEGATIVE) Influenza Type B Ag (NEGATIVE) RSV (PCR) (NEGATIVE) SARS-CoV-2 (PCR) (NEGATIVE) Slides for Path Review YES 03/01/23 03/01/23 03/01/23 Range/Units 18:00 18:00 19:10 WBC (4.0-10.5) x10^3/uL RBC (4.1-5.6) x10^6/uL Hgb (12.5-18.0) g/dL Hct (42-50) % MCV (78-100) fL MCH (26-32) pg MCHC (32-36) g/dL RDW (11.5-14.0) % Plt Count (150-450) x10^3/uL MPV (7.5-11.0) fL Gran % (36.0-66.0) % Immature Gran % (Auto) (0.00-0.4) % Nucleat RBC Rel Count (0.00-0.1) % Eos # (Auto) (0-0.5) x10^3/uL Immature Gran # (Auto) (0.00-0.03) x10^3u/L Absolute Lymphs (auto) (1.0-4.6) x10^3/uL Absolute Monos (auto) (0.0-1.3) x10^3/uL Absolute Nucleated RBC (0.00-0.01) x10^3u/L Lymphocytes % (24.0-44.0) % Monocytes % (0.0-12.0) % Eosinophils % (0.00-5.0) % Basophils % (0.0-0.4) % Absolute Granulocytes (1.4-6.9) x10^3/uL Basophils # (0-0.4) x10^3/uL Sodium (137-145) mmol/L Potassium (3.5-5.1) mmol/L Chloride (98-107) mmol/L Carbon Dioxide (22-30) mmol/L Anion Gap (5-15) MEQ/L BUN (9-20) mg/dL Creatinine (0.66-1.25) mg/dL Estimated GFR ML/MIN Glucose (74-106) mg/dL Lactic Acid (0.4-2.0) Calcium (8.4-10.2) mg/dL Total Bilirubin (0.2-1.3) mg/dL AST (17-59) U/L ALT (0-50) U/L Alkaline Phosphatase (38-126) U/L Troponin I < 0.012 (0.000-0.034) ng/mL NT-Pro-B Natriuret Pep 1100 (<300) pg/mL Serum Total Protein (6.3-8.2) g/dL Albumin (3.5-5.0) g/dL Lipase (23-300) U/L Urine Color Yellow (Yellow) Urine Appearance Clear (Clear) Urine pH 5.5 (4.6-8.0) Ur Specific [place] 1.015 (1.005-1.030) Urine Protein Trace A (Negative) Urine Glucose (UA) Negative (Negative) mg/dL Urine Ketones Trace A (Negative) Urine Blood Negative (Negative) Urine Nitrite Negative (Negative) Urine Bilirubin Negative (Negative) Urine Urobilinogen 0.2 (0.2) mg/dL Ur Leukocyte Esterase Negative (Negative) U Hyaline Cast (Auto) NONE SEEN (0-2) /LPF Urine Microscopic RBC 0-2 (0-5) /HPF Urine Microscopic WBC 0-2 (0-5) /HPF Ur Epithelial Cells None Seen (None Seen) /HPF Urine Bacteria None Seen (None Seen) /HPF Urine Culture Reflexed NO (NO) Influenza Type A Ag (NEGATIVE) Influenza Type B Ag (NEGATIVE) RSV (PCR) (NEGATIVE) SARS-CoV-2 (PCR) (NEGATIVE) Slides for Path Review 03/01/23 03/01/23 Range/Units 21:00 21:00 WBC (4.0-10.5) x10^3/uL RBC (4.1-5.6) x10^6/uL Hgb (12.5-18.0) g/dL Hct (42-50) % MCV (78-100) fL MCH (26-32) pg MCHC (32-36) g/dL RDW (11.5-14.0) % Plt Count (150-450) x10^3/uL MPV (7.5-11.0) fL Gran % (36.0-66.0) % Immature Gran % (Auto) (0.00-0.4) % Nucleat RBC Rel Count (0.00-0.1) % Eos # (Auto) (0-0.5) x10^3/uL Immature Gran # (Auto) (0.00-0.03) x10^3u/L Absolute Lymphs (auto) (1.0-4.6) x10^3/uL Absolute Monos (auto) (0.0-1.3) x10^3/uL Absolute Nucleated RBC (0.00-0.01) x10^3u/L Lymphocytes % (24.0-44.0) % Monocytes % (0.0-12.0) % Eosinophils % (0.00-5.0) % Basophils % (0.0-0.4) % Absolute Granulocytes (1.4-6.9) x10^3/uL Basophils # (0-0.4) x10^3/uL Sodium (137-145) mmol/L Potassium (3.5-5.1) mmol/L Chloride (98-107) mmol/L Carbon Dioxide (22-30) mmol/L Anion Gap (5-15) MEQ/L BUN (9-20) mg/dL Creatinine (0.66-1.25) mg/dL Estimated GFR ML/MIN Glucose (74-106) mg/dL Lactic Acid (0.4-2.0) Calcium (8.4-10.2) mg/dL Total Bilirubin (0.2-1.3) mg/dL AST (17-59) U/L ALT (0-50) U/L Alkaline Phosphatase (38-126) U/L Troponin I 0.013 (0.000-0.034) ng/mL NT-Pro-B Natriuret Pep (<300) pg/mL Serum Total Protein (6.3-8.2) g/dL Albumin (3.5-5.0) g/dL Lipase (23-300) U/L Urine Color (Yellow) Urine Appearance (Clear) Urine pH (4.6-8.0) Ur Specific [place] (1.005-1.030) Urine Protein (Negative) Urine Glucose (UA) (Negative) mg/dL Urine Ketones (Negative) Urine Blood (Negative) Urine Nitrite (Negative) Urine Bilirubin (Negative) Urine Urobilinogen (0.2) mg/dL Ur Leukocyte Esterase (Negative) U Hyaline Cast (Auto) (0-2) /LPF Urine Microscopic RBC (0-5) /HPF Urine Microscopic WBC (0-5) /HPF Ur Epithelial Cells (None Seen) /HPF Urine Bacteria (None Seen) /HPF Urine Culture Reflexed (NO) Influenza Type A Ag NEGATIVE (NEGATIVE) Influenza Type B Ag NEGATIVE (NEGATIVE) RSV (PCR) NEGATIVE (NEGATIVE) SARS-CoV-2 (PCR) NEGATIVE (NEGATIVE) Slides for Path Review - Radiology Impressions Radiology Exams & Impressions: Radiology Procedures Category Date Time Status ABDOMEN AND PELVIS W/0 CONTRAS [CT] Stat Exams 03/01/23 17:51 Taken CHEST WITHOUT CONTRAST [CT] Stat Exams 03/01/23 17:51 Taken - Other Procedures and Tests Respiratory Therapy 03/01/23 18:55 Respiratory Therapy Assessment DAILY 03/01/23 21:16 Oxygen Nasal Cannula 5 lpm 03/01/23 22:48 Incentive Spirometry UD 03/01/23 22:52 Respiratory MDI BID Assessment/Plan (1) COPD exacerbation Current Visit: No Status: Acute Assessment & Plan: ANTIBIOTICS AND STEROIDS Azithromycin Solumedrol ASSESSMENT 1. Acute on Chronic Hypoxemic Respiratory Failure 2. Acute COPD Exacerbation 3. Acute on Chronic Kidney Disease 4. Elevated Lactate 5. Hyperkalemia 6. Atrial Fibrillation 7. Hypertension 8. Hyperlipidemia 9. Coronary Artery Disease s/p PCI 10. Hypothyroidism 11. Lung Cancer on XRT PLAN 1. Wean oxygen to maintain SaO2 > 90%; currently on 5L 2. IV steroids + Neb Treatments 3. No ABx for now; no PNA on my read of CT; final read pending 4. Gentle fluids 5. Needs V/Q Scan Eliquis/PPI The entirety of this encounter was done via telemedicine Chi Leiva MD Pulmonary and Critical Care Medicine Code(s): J44.1 - CHRONIC OBSTRUCTIVE PULMONARY DISEASE W (ACUTE) EXACERBATION Telemedicine Encounter - Telemedicine Encounter Telemedicine Encounter: The entirety of this encounter was performed via Telemedicine"
[2023-03-02] MEDS ORDERED: solu-MEDROL 60 MG, Sterile H2O 10 ml 2 ML IV SCH ×2
[2023-03-02] MEDS ORDERED: solu-MEDROL ONE ×2 (00:04→05:59)
[2023-03-02] MEDS ORDERED: Sterile H2O 10 ml IJ ONE ×2 (00:05→05:59)
[2023-03-02] MEDS: solu-MEDROL 40 MG, Sterile H2O 10 ml 1 ML IV SCH ×6 (00:09→21:19)
[2023-03-02 02:27] LABS: Hematocrit 37.4 % (42-50); Hemoglobin 11.7 g/dL (12.5-18.0); Mean Corpuscular Hemoglobin 29.1 pg (26-32); Mean Corpuscular Hgb Concent. 31.3 g/dL (32-36); Platelet Count 120 x10^3/uL (150-450); Red Blood Count 4.02 x10^6/uL (4.1-5.6); Red Cell Distribution Width 13.8 % (11.5-14.0); White Blood Count 8.5 x10^3/uL (4.0-10.5)
[2023-03-02] MEDS: DUONEB 0.5-3 MG/3 ml Neb IH SCH ×6 (02:44→22:27)
[2023-03-02 02:47] LABS: ALBUMIN 3.7 g/dL (3.5-5.0); ANION GAP 8.4 MEQ/L (5-15); BILIRUBIN,TOTAL 0.7 mg/dL (0.2-1.3); Calcium 9.3 mg/dL (8.4-10.2); Creatinine 1 1.42 mg/dL (0.66-1.25); Potassium 4.8 mmol/L (3.5-5.1); Total Protein 7.1 g/dL (6.3-8.2)
[2023-03-02] MEDS ORDERED: PROVENTIL 2.5 MG/3 ML NEB IH SCH (07:00)
[2023-03-02] MEDS: Advair Hfa 115/21 Common canister IH SCH ×2 (07:20→18:46)
[2023-03-02] MEDS: Spiriva 18 Mcg/Cap Inhaler IH SCH (07:31)
[2023-03-02] MEDS: TYLENOL 325 MG PO PRN ×2 (08:05→23:53)
[2023-03-02] MEDS: HUMALOG SQ PRN ×2 (08:07→11:58)
--- NOTE | 2023-03-02 08:54 | XRAY ---
Indication: Short of breath and left abdomen pain. Status post CPR. Multiple contiguous axial images obtained through the chest without contrast. Comparison: November 07, 2021 Lungs again demonstrates moderate/advanced centrilobular pulmonary emphysema and tiny right lower lobe calcified granuloma. Medial right upper lobe demonstrates new spiculated subpleural mass like opacity measuring 2.2 x 1.7 x 2.4 cm with minimal pleural thickening, concerning for malignancy. No infiltrate, effusion, or pneumothorax. Heart not enlarged again with scattered coronary calcifications. Aorta remains mildly arteriosclerotic without aneurysm. Stable 1.5 x 2.0 cm precarinal noncalcified node and tiny right hilar calcified nodes. No new pathologic mediastinal lymphadenopathy. Bony thorax again demonstrates osteopenia and mild degenerative changes throughout the spine. New anterolateral left 8/9 rib fractures of uncertain chronicity. CT abdomen/pelvis reported separately. Impression: 1. New suspicious medial right upper lobe masslike opacity as detailed. Malignancy is of primary concern. PET CT may yield further information. 2. Stable prominent mediastinal lymphadenopathy. Rule out reactive versus metastasis. 3. Chronic findings including pulmonary emphysema, arteriosclerotic disease, and old granulomatous disease. 4. Incidental bony findings.
--- NOTE | 2023-03-02 08:56 | XRAY ---
Indication: Left abdomen pain. Multiple contiguous axial images obtained through the abdomen and pelvis without contrast. Comparison: None CT chest reported separately. Study slightly degraded by respiration artifact. Noncontrasted stomach and bowel loops appear nonobstructed. Scattered descending and sigmoid diverticulosis without diverticulitis. Nonobstructing bilateral renal micro-calculi largest right lower pole measuring 7 mm. 2 cm right upper renal cyst. Enlarged prostate gland impresses on base of bladder. No free fluid/air. Remaining liver, gallbladder, pancreas, spleen, adrenal glands, kidneys, ureters, and bladder are unremarkable for noncontrast exam. Moderate scattered arteriosclerotic disease without AAA. Osseous structures intact with osteopenia and mild degenerative changes throughout visualized spine/both hips. Small fatty bilateral inguinal hernias. Impression: 1. Respiration artifact. 2. Chronic findings including colonic diverticulosis, nonobstructing bilateral renal micro-calculi, right renal cyst, enlarged prostate gland, arteriosclerotic disease, chronic bony findings, and bilateral fatty inguinal hernias. 3. No acute findings on this noncontrast exam.
[2023-03-02] MEDS: Zocor 10MG PO SCH (09:16)
[2023-03-02] MEDS: DIOVAN 80 MG PO SCH (09:17)
[2023-03-02] MEDS: BUMEX 1 MG PO SCH (09:17)
[2023-03-02] MEDS: ELIQUIS 2.5 MG TABLET PO SCH ×2 (09:17→21:23)
[2023-03-02] MEDS: Klor Con PO SCH ×3 (09:17→21:22)
[2023-03-02] MEDS: Lidoderm Patch 5% TOP SCH (09:18)
[2023-03-02] MEDS: Cardizem CD PO SCH (09:18)
[2023-03-02] MEDS: Lopressor 50 MG PO SCH ×2 (09:34→21:23)
[2023-03-02] MEDS ORDERED: SYNTHROID 75 MCG PO SCH (10:00)
--- NOTE | 2023-03-02 12:45 | PCM.NOTE ---
Date and Time: 03/02/23 1232 Subjective Assessment: 03/02/23 Mr. Jaramillo is an 82 year-old male with CAD s/p PCI, Afib, COPD, HTN, Lung Cancer on XRT, chronic hypoxemic respiratory failure, CKD, HLD, and hypothyroidism who presents with shortness of breath. According to the patient, he suffered a cardiac arrest a few days ago while getting the influenza vaccine (CPR; ACLS) but was discharged home the next day with no acute abnormalities discovered during the admission. The morning of 03/01 he suddenly felt short of breath and thus presented to [facility] for further medical attention. Initially, he was placed on 10L oxygen, but after several nebulizer treatments and a dose of IV solumedrol, his oxygen requirement decreased to 5L. Laboratory data including a viral panel was negative CT chest revealed known malignancy and new anterolateral left 8/9 rib fractures . On my examination, he is resting comfo rtably on baseline o2 of 4L NC denying anything further than some increased SOB that has improved since admission. - Review of Systems Constitutional: No Fever, No Chills Eyes: No Symptoms Ears, Nose, & Throat: No Symptoms Respiratory: Short Of Breath, No Cough Cardiac: No Chest Pain, No Edema, No Syncope Abdominal/Gastrointestinal: No Abdominal Pain, No Nausea, No Vomiting, No Diarrhea Genitourinary Symptoms: No Dysuria Musculoskeletal: Other (Rib pain ), No Back Pain, No Neck Pain Skin: No Rash Neurological: No Dizziness, No Focal Weakness, No Sensory Changes Psychological: No Symptoms Endocrine: No Symptoms Hematologic/Lymphatic: No Symptoms Immunological/Allergic: No Symptoms Objective Exam General Appearance: no apparent distress, alert Neurologic Exam: alert, oriented x 3, cooperative, normal mood/affect, nml cerebellar function, sensation nml, No motor deficits Skin Exam: normal color, warm, dry Eye Exam: PERRL, EOMI, eyes nml inspection Ears, Nose, Throat Exam: normal ENT inspection, pharynx normal, moist mucous membranes Neck Exam: normal inspection, non-tender, supple, full range of motion Respiratory Exam: normal breath sounds, lungs clear, No respiratory distress Cardiovascular Exam: regular rate/rhythm, normal heart sounds Gastrointestinal/Abdomen Exam: soft, No tenderness, No mass Extremity Exam: normal inspection, normal range of motion Back Exam: normal inspection, normal range of motion, No CVA tenderness, No vertebral tenderness Male Genitalia Exam: deferred Rectal Exam: deferred OBJECTIVE DATA Vital Signs: Vital Signs - 24 hr Temp Pulse Resp BP BP Pulse Ox 03/02/23 10:48 76 20 96 03/02/23 09:15 62 105/53 03/02/23 07:17 70 20 99 03/02/23 06:58 96.7 F 55 L 17 129/62 100 03/02/23 04:00 97.8 F 74 21 133/69 99 03/02/23 00:00 97.6 F 58 L 18 144/76 92 L 03/01/23 22:38 58 L 18 92 L 03/01/23 21:57 97.6 F 76 22 144/76 93 L 03/01/23 21:10 91 L 03/01/23 21:00 64 21 134/86 96 03/01/23 20:30 66 18 138/69 91 L 03/01/23 20:00 89 20 136/72 91 L 03/01/23 19:48 90 19 125/86 97 03/01/23 18:53 83 20 98 03/01/23 18:01 91 H 26 H 138/90 97 03/01/23 17:46 89 L 03/01/23 17:30 93 H 19 179/90 100 03/01/23 17:21 98 F 89 30 H 182/84 84 L Pain Assessment - Last Documented Pain Intensity 5 Pain Scale Used 0-10 Pain Scale Intake and Output: Intake & Output 02/28/23 03/01/23 03/02/23 03/03/23 11:59 11:59 11:59 11:59 Intake Total 100 Output Total 300 Balance -200 Weight 58.5 kg Lab Results: Lab Results-Last 24 Hours 03/01/23 03/01/23 03/01/23 Range/Units 18:00 18:00 18:00 WBC 12.4 H (4.0-10.5) x10^3/uL RBC 4.50 (4.1-5.6) x10^6/uL Hgb 13.0 (12.5-18.0) g/dL Hct 42.1 (42-50) % MCV 93.6 (78-100) fL MCH 28.9 (26-32) pg MCHC 30.9 L (32-36) g/dL RDW 13.8 (11.5-14.0) % Plt Count 150 (150-450) x10^3/uL MPV 11.2 H (7.5-11.0) fL Gran % 76.5 H (36.0-66.0) % Immature Gran % (Auto) 0.5 H (0.00-0.4) % Nucleat RBC Rel Count 0.0 (0.00-0.1) % Eos # (Auto) 0.20 (0-0.5) x10^3/uL Immature Gran # (Auto) 0.06 H (0.00-0.03) x10^3u/L Absolute Lymphs (auto) 1.02 (1.0-4.6) x10^3/uL Absolute Monos (auto) 1.57 H (0.0-1.3) x10^3/uL Absolute Nucleated RBC 0.00 (0.00-0.01) x10^3u/L Lymphocytes % 8.3 L (24.0-44.0) % Monocytes % 12.7 H (0.0-12.0) % Eosinophils % 1.6 (0.00-5.0) % Basophils % 0.4 (0.0-0.4) % Absolute Granulocytes 9.46 H (1.4-6.9) x10^3/uL Basophils # 0.05 (0-0.4) x10^3/uL Sodium 138 (137-145) mmol/L Potassium 5.0 (3.5-5.1) mmol/L Chloride 98 (98-107) mmol/L Carbon Dioxide 33 H (22-30) mmol/L Anion Gap 12.2 (5-15) MEQ/L BUN 27 H (9-20) mg/dL Creatinine 1.45 H (0.66-1.25) mg/dL Estimated GFR 48.7 ML/MIN Glucose 163 H (74-106) mg/dL POC Glucometer (74 to 106) mg/dL Hemoglobin A1c (4.5-6.0) % Lactic Acid 2.1 H (0.4-2.0) Calcium 9.5 (8.4-10.2) mg/dL Total Bilirubin 0.80 (0.2-1.3) mg/dL AST 26 (17-59) U/L ALT 25 (0-50) U/L Alkaline Phosphatase 128 H (38-126) U/L Troponin I (0.000-0.034) ng/mL NT-Pro-B Natriuret Pep (<300) pg/mL Serum Total Protein 7.9 (6.3-8.2) g/dL Albumin 4.2 (3.5-5.0) g/dL Lipase 41 (23-300) U/L Urine Color (Yellow) Urine Appearance (Clear) Urine pH (4.6-8.0) Ur Specific [place] (1.005-1.030) Urine Protein (Negative) Urine Glucose (UA) (Negative) mg/dL Urine Ketones (Negative) Urine Blood (Negative) Urine Nitrite (Negative) Urine Bilirubin (Negative) Urine Urobilinogen (0.2) mg/dL Ur Leukocyte Esterase (Negative) U Hyaline Cast (Auto) (0-2) /LPF Urine Microscopic RBC (0-5) /HPF Urine Microscopic WBC (0-5) /HPF Ur Epithelial Cells (None Seen) /HPF Urine Bacteria (None Seen) /HPF Urine Culture Reflexed (NO) Influenza Type A Ag (NEGATIVE) Influenza Type B Ag (NEGATIVE) RSV (PCR) (NEGATIVE) SARS-CoV-2 (PCR) (NEGATIVE) Slides for Path Review YES 03/01/23 03/01/23 03/01/23 Range/Units 18:00 18:00 19:10 WBC (4.0-10.5) x10^3/uL RBC (4.1-5.6) x10^6/uL Hgb (12.5-18.0) g/dL Hct (42-50) % MCV (78-100) fL MCH (26-32) pg MCHC (32-36) g/dL RDW (11.5-14.0) % Plt Count (150-450) x10^3/uL MPV (7.5-11.0) fL Gran % (36.0-66.0) % Immature Gran % (Auto) (0.00-0.4) % Nucleat RBC Rel Count (0.00-0.1) % Eos # (Auto) (0-0.5) x10^3/uL Immature Gran # (Auto) (0.00-0.03) x10^3u/L Absolute Lymphs (auto) (1.0-4.6) x10^3/uL Absolute Monos (auto) (0.0-1.3) x10^3/uL Absolute Nucleated RBC (0.00-0.01) x10^3u/L Lymphocytes % (24.0-44.0) % Monocytes % (0.0-12.0) % Eosinophils % (0.00-5.0) % Basophils % (0.0-0.4) % Absolute Granulocytes (1.4-6.9) x10^3/uL Basophils # (0-0.4) x10^3/uL Sodium (137-145) mmol/L Potassium (3.5-5.1) mmol/L Chloride (98-107) mmol/L Carbon Dioxide (22-30) mmol/L Anion Gap (5-15) MEQ/L BUN (9-20) mg/dL Creatinine (0.66-1.25) mg/dL Estimated GFR ML/MIN Glucose (74-106) mg/dL POC Glucometer (74 to 106) mg/dL Hemoglobin A1c (4.5-6.0) % Lactic Acid (0.4-2.0) Calcium (8.4-10.2) mg/dL Total Bilirubin (0.2-1.3) mg/dL AST (17-59) U/L ALT (0-50) U/L Alkaline Phosphatase (38-126) U/L Troponin I < 0.012 (0.000-0.034) ng/mL NT-Pro-B Natriuret Pep 1100 (<300) pg/mL Serum Total Protein (6.3-8.2) g/dL Albumin (3.5-5.0) g/dL Lipase (23-300) U/L Urine Color Yellow (Yellow) Urine Appearance Clear (Clear) Urine pH 5.5 (4.6-8.0) Ur Specific [place] 1.015 (1.005-1.030) Urine Protein Trace A (Negative) Urine Glucose (UA) Negative (Negative) mg/dL Urine Ketones Trace A (Negative) Urine Blood Negative (Negative) Urine Nitrite Negative (Negative) Urine Bilirubin Negative (Negative) Urine Urobilinogen 0.2 (0.2) mg/dL Ur Leukocyte Esterase Negative (Negative) U Hyaline Cast (Auto) NONE SEEN (0-2) /LPF Urine Microscopic RBC 0-2 (0-5) /HPF Urine Microscopic WBC 0-2 (0-5) /HPF Ur Epithelial Cells None Seen (None Seen) /HPF Urine Bacteria None Seen (None Seen) /HPF Urine Culture Reflexed NO (NO) Influenza Type A Ag (NEGATIVE) Influenza Type B Ag (NEGATIVE) RSV (PCR) (NEGATIVE) SARS-CoV-2 (PCR) (NEGATIVE) Slides for Path Review 03/01/23 03/01/23 03/01/23 Range/Units 20:11 21:00 21:00 WBC (4.0-10.5) x10^3/uL RBC (4.1-5.6) x10^6/uL Hgb (12.5-18.0) g/dL Hct (42-50) % MCV (78-100) fL MCH (26-32) pg MCHC (32-36) g/dL RDW (11.5-14.0) % Plt Count (150-450) x10^3/uL MPV (7.5-11.0) fL Gran % (36.0-66.0) % Immature Gran % (Auto) (0.00-0.4) % Nucleat RBC Rel Count (0.00-0.1) % Eos # (Auto) (0-0.5) x10^3/uL Immature Gran # (Auto) (0.00-0.03) x10^3u/L Absolute Lymphs (auto) (1.0-4.6) x10^3/uL Absolute Monos (auto) (0.0-1.3) x10^3/uL Absolute Nucleated RBC (0.00-0.01) x10^3u/L Lymphocytes % (24.0-44.0) % Monocytes % (0.0-12.0) % Eosinophils % (0.00-5.0) % Basophils % (0.0-0.4) % Absolute Granulocytes (1.4-6.9) x10^3/uL Basophils # (0-0.4) x10^3/uL Sodium (137-145) mmol/L Potassium (3.5-5.1) mmol/L Chloride (98-107) mmol/L Carbon Dioxide (22-30) mmol/L Anion Gap (5-15) MEQ/L BUN (9-20) mg/dL Creatinine (0.66-1.25) mg/dL Estimated GFR ML/MIN Glucose (74-106) mg/dL POC Glucometer (74 to 106) mg/dL Hemoglobin A1c (4.5-6.0) % Lactic Acid 1.9 (0.4-2.0) Calcium (8.4-10.2) mg/dL Total Bilirubin (0.2-1.3) mg/dL AST (17-59) U/L ALT (0-50) U/L Alkaline Phosphatase (38-126) U/L Troponin I 0.013 (0.000-0.034) ng/mL NT-Pro-B Natriuret Pep (<300) pg/mL Serum Total Protein (6.3-8.2) g/dL Albumin (3.5-5.0) g/dL Lipase (23-300) U/L Urine Color (Yellow) Urine Appearance (Clear) Urine pH (4.6-8.0) Ur Specific [place] (1.005-1.030) Urine Protein (Negative) Urine Glucose (UA) (Negative) mg/dL Urine Ketones (Negative) Urine Blood (Negative) Urine Nitrite (Negative) Urine Bilirubin (Negative) Urine Urobilinogen (0.2) mg/dL Ur Leukocyte Esterase (Negative) U Hyaline Cast (Auto) (0-2) /LPF Urine Microscopic RBC (0-5) /HPF Urine Microscopic WBC (0-5) /HPF Ur Epithelial Cells (None Seen) /HPF Urine Bacteria (None Seen) /HPF Urine Culture Reflexed (NO) Influenza Type A Ag NEGATIVE (NEGATIVE) Influenza Type B Ag NEGATIVE (NEGATIVE) RSV (PCR) NEGATIVE (NEGATIVE) SARS-CoV-2 (PCR) NEGATIVE (NEGATIVE) Slides for Path Review 03/02/23 03/02/23 03/02/23 Range/Units 02:20 02:20 02:20 WBC 8.5 (4.0-10.5) x10^3/uL RBC 4.02 L (4.1-5.6) x10^6/uL Hgb 11.7 L (12.5-18.0) g/dL Hct 37.4 L (42-50) % MCV 93.0 (78-100) fL MCH 29.1 (26-32) pg MCHC 31.3 L (32-36) g/dL RDW 13.8 (11.5-14.0) % Plt Count 120 L (150-450) x10^3/uL MPV 11.0 (7.5-11.0) fL Gran % (36.0-66.0) % Immature Gran % (Auto) (0.00-0.4) % Nucleat RBC Rel Count (0.00-0.1) % Eos # (Auto) (0-0.5) x10^3/uL Immature Gran # (Auto) (0.00-0.03) x10^3u/L Absolute Lymphs (auto) (1.0-4.6) x10^3/uL Absolute Monos (auto) (0.0-1.3) x10^3/uL Absolute Nucleated RBC (0.00-0.01) x10^3u/L Lymphocytes % (24.0-44.0) % Monocytes % (0.0-12.0) % Eosinophils % (0.00-5.0) % Basophils % (0.0-0.4) % Absolute Granulocytes (1.4-6.9) x10^3/uL Basophils # (0-0.4) x10^3/uL Sodium 135 L (137-145) mmol/L Potassium 4.8 (3.5-5.1) mmol/L Chloride 97 L (98-107) mmol/L Carbon Dioxide 34 H (22-30) mmol/L Anion Gap 8.4 (5-15) MEQ/L BUN 31 H (9-20) mg/dL Creatinine 1.42 H (0.66-1.25) mg/dL Estimated GFR 50.0 ML/MIN Glucose 283 H (74-106) mg/dL POC Glucometer (74 to 106) mg/dL Hemoglobin A1c (4.5-6.0) % Lactic Acid (0.4-2.0) Calcium 9.3 (8.4-10.2) mg/dL Total Bilirubin 0.70 (0.2-1.3) mg/dL AST 23 (17-59) U/L ALT 24 (0-50) U/L Alkaline Phosphatase 113 (38-126) U/L Troponin I 0.014 (0.000-0.034) ng/mL NT-Pro-B Natriuret Pep (<300) pg/mL Serum Total Protein 7.1 (6.3-8.2) g/dL Albumin 3.7 (3.5-5.0) g/dL Lipase (23-300) U/L Urine Color (Yellow) Urine Appearance (Clear) Urine pH (4.6-8.0) Ur Specific [place] (1.005-1.030) Urine Protein (Negative) Urine Glucose (UA) (Negative) mg/dL Urine Ketones (Negative) Urine Blood (Negative) Urine Nitrite (Negative) Urine Bilirubin (Negative) Urine Urobilinogen (0.2) mg/dL Ur Leukocyte Esterase (Negative) U Hyaline Cast (Auto) (0-2) /LPF Urine Microscopic RBC (0-5) /HPF Urine Microscopic WBC (0-5) /HPF Ur Epithelial Cells (None Seen) /HPF Urine Bacteria (None Seen) /HPF Urine Culture Reflexed (NO) Influenza Type A Ag (NEGATIVE) Influenza Type B Ag (NEGATIVE) RSV (PCR) (NEGATIVE) SARS-CoV-2 (PCR) (NEGATIVE) Slides for Path Review 03/02/23 03/02/23 03/02/23 Range/Units 07:56 11:51 Unknown WBC (4.0-10.5) x10^3/uL RBC (4.1-5.6) x10^6/uL Hgb (12.5-18.0) g/dL Hct (42-50) % MCV (78-100) fL MCH (26-32) pg MCHC (32-36) g/dL RDW (11.5-14.0) % Plt Count (150-450) x10^3/uL MPV (7.5-11.0) fL Gran % (36.0-66.0) % Immature Gran % (Auto) (0.00-0.4) % Nucleat RBC Rel Count (0.00-0.1) % Eos # (Auto) (0-0.5) x10^3/uL Immature Gran # (Auto) (0.00-0.03) x10^3u/L Absolute Lymphs (auto) (1.0-4.6) x10^3/uL Absolute Monos (auto) (0.0-1.3) x10^3/uL Absolute Nucleated RBC (0.00-0.01) x10^3u/L Lymphocytes % (24.0-44.0) % Monocytes % (0.0-12.0) % Eosinophils % (0.00-5.0) % Basophils % (0.0-0.4) % Absolute Granulocytes (1.4-6.9) x10^3/uL Basophils # (0-0.4) x10^3/uL Sodium (137-145) mmol/L Potassium (3.5-5.1) mmol/L Chloride (98-107) mmol/L Carbon Dioxide (22-30) mmol/L Anion Gap (5-15) MEQ/L BUN (9-20) mg/dL Creatinine (0.66-1.25) mg/dL Estimated GFR ML/MIN Glucose (74-106) mg/dL POC Glucometer 223 H 272 H (74 to 106) mg/dL Hemoglobin A1c 6.04 H (4.5-6.0) % Lactic Acid (0.4-2.0) Calcium (8.4-10.2) mg/dL Total Bilirubin (0.2-1.3) mg/dL AST (17-59) U/L ALT (0-50) U/L Alkaline Phosphatase (38-126) U/L Troponin I (0.000-0.034) ng/mL NT-Pro-B Natriuret Pep (<300) pg/mL Serum Total Protein (6.3-8.2) g/dL Albumin (3.5-5.0) g/dL Lipase (23-300) U/L Urine Color (Yellow) Urine Appearance (Clear) Urine pH (4.6-8.0) Ur Specific [place] (1.005-1.030) Urine Protein (Negative) Urine Glucose (UA) (Negative) mg/dL Urine Ketones (Negative) Urine Blood (Negative) Urine Nitrite (Negative) Urine Bilirubin (Negative) Urine Urobilinogen (0.2) mg/dL Ur Leukocyte Esterase (Negative) U Hyaline Cast (Auto) (0-2) /LPF Urine Microscopic RBC (0-5) /HPF Urine Microscopic WBC (0-5) /HPF Ur Epithelial Cells (None Seen) /HPF Urine Bacteria (None Seen) /HPF Urine Culture Reflexed (NO) Influenza Type A Ag (NEGATIVE) Influenza Type B Ag (NEGATIVE) RSV (PCR) (NEGATIVE) SARS-CoV-2 (PCR) (NEGATIVE) Slides for Path Review Radiology Exams: Radiology Procedures Category Date Time Status ABDOMEN AND PELVIS W/0 CONTRAS [CT] Stat Exams 03/01/23 17:51 Completed CHEST WITHOUT CONTRAST [CT] Stat Exams 03/01/23 17:51 Completed Multi-Disciplinary Progress Notes: Multi-Disciplinary Progress Notes 03/02/23 08:31 Pharmacy Note by Wayne Stahl Patient is 82 yo, <60kg and has reduced renal function. Recommended dose of Eliquis is 2.5mg po bid. Initialized on 03/02/23 08:31 - END OF NOTE 03/02/23 02:45 Respiratory Note by Anna Chowdhury Patient does not wish to be woken up for scheduled 0300 neb tx. RT advised pt to call RT if he needs tx. RT checked on patient at 0245, pt sleeping at this time. Initialized on 03/02/23 02:45 - END OF NOTE 03/01/23 19:49 Respiratory Note by Anna Chowdhury Pt's SpO2 on 10L oxymask was 100%. Pt's O2 weaned to 4L nasal cannula per Dr. Bui. Pt wears 4-4.5L O2 at home 24hr/day. SpO2 on 4L nasal cannula is 96%. Initialized on 03/01/23 19:49 - END OF NOTE Assessment/Plan (1) COPD exacerbation Current Visit: Yes Status: Acute Assessment & Plan: - On baseline oxygen at 4LNC- 96% - IV steroids + Neb Treatments - No ABx needed - Chronic findings seen on CT Code(s): J44.1 - CHRONIC OBSTRUCTIVE PULMONARY DISEASE W (ACUTE) EXACERBATION (2) Rib fractures Current Visit: Yes Status: Acute Assessment & Plan: - New finding seen on CT - New anterolateral left 8/9 rib fractures - Lidocaine patch - tylenol for pain Code(s): S22.49XA - MULTIPLE FRACTURES OF RIBS, UNSP SIDE, INIT FOR CLOS FX (3) Lactate blood increased Current Visit: Yes Status: Acute Assessment & Plan: - resolved - 2:2 COPD exacerbation Code(s): R79.89 - OTHER SPECIFIED ABNORMAL FINDINGS OF BLOOD CHEMISTRY (4) Hyponatremia Current Visit: Yes Status: Acute Assessment & Plan: - Mild 135- trend Code(s): E87.1 - HYPO-OSMOLALITY AND HYPONATREMIA (5) Lung cancer Current Visit: Yes Status: Acute Assessment & Plan: - Known hx- follows with Dr. Weeks- oncology - Has an OP appointment Weds - CT chest 03/01 Impression: 1. New suspicious medial right upper lobe masslike opacity as detailed. Malignancy is of primary concern. PET CT may yield further information. 2. Stable prominent mediastinal lymphadenopathy. Rule out reactive versus metastasis. 3. Chronic findings including pulmonary emphysema, arteriosclerotic disease, and old granulomatous disease. 4. Incidental bony findings Code(s): C34.90 - MALIGNANT NEOPLASM OF UNSP PART OF UNSP BRONCHUS OR LUNG (6) Atrial fibrillation Current Visit: Yes Status: Acute Assessment & Plan: - Chronic- on eliquis- cont Code(s): I48.91 - UNSPECIFIED ATRIAL FIBRILLATION (7) Diabetes mellitus Current Visit: No Status: Chronic Qualifiers: Diabetes mellitus type: type 2 Diabetes mellitus complication status: without complication Assessment & Plan: - oral medication controlled - glucose elevated d/t steriods - accuchecks ac/hs - Humalog s/s- low dose Code(s): E11.9 - TYPE 2 DIABETES MELLITUS WITHOUT COMPLICATIONS (8) Hypertension Current Visit: No Status: Chronic Assessment & Plan: - Stable - Continue home meds Code(s): I10 - ESSENTIAL (PRIMARY) HYPERTENSION (9) Hypothyroidism Current Visit: Yes Status: Acute Assessment & Plan: - Continue synthroid Code(s): E03.9 - HYPOTHYROIDISM, UNSPECIFIED (10) Acute on chronic renal failure Current Visit: Yes Status: Acute Assessment & Plan: - labs improving- trend - Baseline creat 1.25 VTE: eliquis PPI: pepcid Next of kin: Emily Matute ( daughter) [phone] D/C plan: tomorrow Code(s): N17.9 - ACUTE KIDNEY FAILURE, UNSPECIFIED; N18.9 - CHRONIC KIDNEY DISEASE, UNSPECIFIED
[2023-03-02] MEDS: Pepcid 20 MG PO SCH (21:22)
[2023-03-02] MEDS: Ativan 0.5 MG PO PRN (23:41)
[2023-03-03] MEDS: HUMALOG SQ PRN ×4 (01:23→16:44)
[2023-03-03] MEDS: DUONEB 0.5-3 MG/3 ml Neb IH SCH ×6 (05:19→22:57)
[2023-03-03 05:39] LABS: Hematocrit 35.2 % (42-50); Hemoglobin 11.3 g/dL (12.5-18.0); Mean Cell Volume 90.5 fL (78-100); Mean Corpuscular Hgb Concent. 32.1 g/dL (32-36); Mean Platelet Volume 11.2 fL (7.5-11.0); Platelet Count 138 x10^3/uL (150-450); Red Blood Count 3.89 x10^6/uL (4.1-5.6); White Blood Count 24.6 x10^3/uL (4.0-10.5)
[2023-03-03] MEDS: SYNTHROID 75 MCG PO SCH (05:41)
[2023-03-03 05:58] LABS: ALBUMIN 3.4 g/dL (3.5-5.0); ANION GAP 13.8 MEQ/L (5-15); BILIRUBIN,TOTAL 0.5 mg/dL (0.2-1.3); Calcium 9.1 mg/dL (8.4-10.2); Creatinine 1 1.72 mg/dL (0.66-1.25); EST GLOMERULAR FILTRATION RATE 39.7 ML/MIN; Potassium 4.3 mmol/L (3.5-5.1); Total Protein 6.4 g/dL (6.3-8.2)
[2023-03-03] MEDS: Advair Hfa 115/21 Common canister IH SCH ×2 (06:45→19:13)
[2023-03-03] MEDS: Spiriva 18 Mcg/Cap Inhaler IH SCH (06:45)
[2023-03-03] MEDS: TYLENOL 325 MG PO PRN ×2 (07:59→21:26)
[2023-03-03] MEDS: Lidoderm Patch 5% TOP SCH (08:59)
[2023-03-03] MEDS: Dextrose 5%-NS IV Solution 1000 ML 1,000 ML IV SCH ×2 (09:00→21:25)
[2023-03-03] MEDS: solu-MEDROL 40 MG, Sterile H2O 10 ml 1 ML IV SCH ×4 (09:04→21:25)
[2023-03-03] MEDS: Klor Con PO SCH ×3 (09:12→21:26)
[2023-03-03] MEDS: Cardizem CD PO SCH (09:12)
[2023-03-03] MEDS: Zocor 10MG PO SCH (09:12)
[2023-03-03] MEDS: DIOVAN 80 MG PO SCH (09:12)
[2023-03-03] MEDS: ELIQUIS 2.5 MG TABLET PO SCH ×2 (09:12→21:25)
[2023-03-03] MEDS: BUMEX 1 MG PO SCH (09:13)
[2023-03-03] MEDS: Lopressor 50 MG PO SCH ×2 (09:14→23:48)
[2023-03-03] MEDS: Docusate Sodium 100 MG PO SCH ×2 (10:51→21:25)
--- NOTE | 2023-03-03 11:36 | PCM.NOTE ---
Date and Time: 03/03/23 1130 Subjective Assessment: 03/02/23 Mr. Jaramillo is an 82 year-old male with CAD s/p PCI, Afib, COPD, HTN, Lung Cancer on XRT, chronic hypoxemic respiratory failure, CKD, HLD, and hypothyroidism who presents with shortness of breath. According to the patient, he suffered a cardiac arrest a few days ago while getting the influenza vaccine (CPR; ACLS) but was discharged home the next day with no acute abnormalities discovered during the admission. The morning of 03/01 he suddenly felt short of breath and thus presented to [facility] for further medical attention. Initially, he was placed on 10L oxygen, but after several nebulizer treatments and a dose of IV solumedrol, his oxygen requirement decreased to 5L. Laboratory data including a viral panel was negative CT chest revealed known malignancy and new anterolateral left 8/9 rib fractures . On my examination, he is resting comfor tably on baseline o2 of 4L NC denying anything further than some increased SOB that has improved since admission. 03/03/23 Pt sitting up in the chair. He explains he is feeling much better. He is not SOB and lungs are clear. Discussed labs and his kidney function has worsened overnight . Stopped Valsartan, Bumex, and lopresser. Will give evening dose of lopresser. BP is low this morning at 97/55. IVF started. WBC elevated and most likely r/t steriods as he is not SOB, no cough or fever, and on baseline oxygen of 4LNC. He is not happy about staying another day but explained we would like his kidney function to improve before D/C. He denies any further concerns at this time. - Review of Systems Constitutional: No Fever, No Chills Eyes: No Symptoms Ears, Nose, & Throat: No Symptoms Respiratory: No Cough, No Short Of Breath Cardiac: No Chest Pain, No Edema, No Syncope Abdominal/Gastrointestinal: No Abdominal Pain, No Nausea, No Vomiting, No Diarrhea Genitourinary Symptoms: No Dysuria Musculoskeletal: No Back Pain, No Neck Pain Skin: No Rash Neurological: No Dizziness, No Focal Weakness, No Sensory Changes Psychological: No Symptoms Endocrine: No Symptoms Hematologic/Lymphatic: No Symptoms Immunological/Allergic: No Symptoms Objective Exam General Appearance: no apparent distress, alert Neurologic Exam: alert, oriented x 3, cooperative, normal mood/affect, nml cerebellar function, sensation nml, No motor deficits Skin Exam: normal color, warm, dry Eye Exam: PERRL, EOMI, eyes nml inspection Ears, Nose, Throat Exam: normal ENT inspection, pharynx normal, moist mucous membranes Neck Exam: normal inspection, non-tender, supple, full range of motion Respiratory Exam: normal breath sounds, lungs clear, No respiratory distress Cardiovascular Exam: regular rate/rhythm, normal heart sounds Gastrointestinal/Abdomen Exam: soft, No tenderness, No mass Extremity Exam: normal inspection, normal range of motion Back Exam: normal inspection, normal range of motion, No CVA tenderness, No vertebral tenderness Male Genitalia Exam: deferred Rectal Exam: deferred OBJECTIVE DATA Vital Signs: Vital Signs - 24 hr Temp Pulse Resp BP Pulse Ox 03/03/23 11:04 61 20 98 03/03/23 09:00 72 97/55 03/03/23 07:00 97.1 F 72 18 96/59 98 03/03/23 06:49 72 18 99 03/03/23 03:00 97.8 F 92 H 21 100/55 98 03/02/23 23:00 98.8 F 109 H 17 137/62 96 03/02/23 22:28 86 18 95 03/02/23 19:53 98.5 F 78 18 107/53 96 03/02/23 18:50 81 16 96 03/02/23 16:59 97.1 F 85 19 120/72 97 03/02/23 14:46 70 20 99 03/02/23 13:00 97.3 F 68 18 115/56 95 Pain Assessment - Last Documented Pain Intensity 5 Pain Scale Used 0-10 Pain Scale Intake and Output: Intake & Output 02/28/23 03/01/23 03/02/23 03/03/23 11:59 11:59 11:59 11:59 Intake Total 100 1200 Output Total 300 2050 Balance -200 -850 Weight 58.5 kg Lab Results: Lab Results-Last 24 Hours 03/02/23 03/02/23 03/02/23 Range/Units 11:51 16:22 21:02 WBC (4.0-10.5) x10^3/uL RBC (4.1-5.6) x10^6/uL Hgb (12.5-18.0) g/dL Hct (42-50) % MCV (78-100) fL MCH (26-32) pg MCHC (32-36) g/dL RDW (11.5-14.0) % Plt Count (150-450) x10^3/uL MPV (7.5-11.0) fL Sodium (137-145) mmol/L Potassium (3.5-5.1) mmol/L Chloride (98-107) mmol/L Carbon Dioxide (22-30) mmol/L Anion Gap (5-15) MEQ/L BUN (9-20) mg/dL Creatinine (0.66-1.25) mg/dL Estimated GFR ML/MIN Glucose (74-106) mg/dL POC Glucometer 272 H 194 H 224 H (74 to 106) mg/dL Calcium (8.4-10.2) mg/dL Total Bilirubin (0.2-1.3) mg/dL AST (17-59) U/L ALT (0-50) U/L Alkaline Phosphatase (38-126) U/L Serum Total Protein (6.3-8.2) g/dL Albumin (3.5-5.0) g/dL 03/03/23 03/03/23 03/03/23 Range/Units 01:18 05:15 05:15 WBC 24.6 H (4.0-10.5) x10^3/uL RBC 3.89 L (4.1-5.6) x10^6/uL Hgb 11.3 L (12.5-18.0) g/dL Hct 35.2 L (42-50) % MCV 90.5 (78-100) fL MCH 29.0 (26-32) pg MCHC 32.1 (32-36) g/dL RDW 14.0 (11.5-14.0) % Plt Count 138 L (150-450) x10^3/uL MPV 11.2 H (7.5-11.0) fL Sodium 130 L (137-145) mmol/L Potassium 4.3 (3.5-5.1) mmol/L Chloride 94 L (98-107) mmol/L Carbon Dioxide 27 (22-30) mmol/L Anion Gap 13.8 (5-15) MEQ/L BUN 51 H (9-20) mg/dL Creatinine 1.72 H (0.66-1.25) mg/dL Estimated GFR 39.7 ML/MIN Glucose 236 H (74-106) mg/dL POC Glucometer 271 H (74 to 106) mg/dL Calcium 9.1 (8.4-10.2) mg/dL Total Bilirubin 0.50 (0.2-1.3) mg/dL AST 25 (17-59) U/L ALT 26 (0-50) U/L Alkaline Phosphatase 97 (38-126) U/L Serum Total Protein 6.4 (6.3-8.2) g/dL Albumin 3.4 L (3.5-5.0) g/dL 03/03/23 Range/Units 06:44 WBC (4.0-10.5) x10^3/uL RBC (4.1-5.6) x10^6/uL Hgb (12.5-18.0) g/dL Hct (42-50) % MCV (78-100) fL MCH (26-32) pg MCHC (32-36) g/dL RDW (11.5-14.0) % Plt Count (150-450) x10^3/uL MPV (7.5-11.0) fL Sodium (137-145) mmol/L Potassium (3.5-5.1) mmol/L Chloride (98-107) mmol/L Carbon Dioxide (22-30) mmol/L Anion Gap (5-15) MEQ/L BUN (9-20) mg/dL Creatinine (0.66-1.25) mg/dL Estimated GFR ML/MIN Glucose (74-106) mg/dL POC Glucometer 254 H (74 to 106) mg/dL Calcium (8.4-10.2) mg/dL Total Bilirubin (0.2-1.3) mg/dL AST (17-59) U/L ALT (0-50) U/L Alkaline Phosphatase (38-126) U/L Serum Total Protein (6.3-8.2) g/dL Albumin (3.5-5.0) g/dL Radiology Exams: Radiology Procedures Category Date Time Status ABDOMEN AND PELVIS W/0 CONTRAS [CT] Stat Exams 03/01/23 17:51 Completed CHEST WITHOUT CONTRAST [CT] Stat Exams 03/01/23 17:51 Completed Assessment/Plan (1) COPD exacerbation Current Visit: Yes Status: Acute Code(s): J44.1 - CHRONIC OBSTRUCTIVE PULMONARY DISEASE W (ACUTE) EXACERBATION (2) Rib fractures Current Visit: Yes Status: Acute Code(s): S22.49XA - MULTIPLE FRACTURES OF RIBS, UNSP SIDE, INIT FOR CLOS FX (3) Lactate blood increased Current Visit: Yes Status: Acute Code(s): R79.89 - OTHER SPECIFIED ABNORMAL FINDINGS OF BLOOD CHEMISTRY (4) Hyponatremia Current Visit: Yes Status: Acute Code(s): E87.1 - HYPO-OSMOLALITY AND HYPONATREMIA (5) Lung cancer Current Visit: Yes Status: Acute Code(s): C34.90 - MALIGNANT NEOPLASM OF UNSP PART OF UNSP BRONCHUS OR LUNG (6) Atrial fibrillation Current Visit: Yes Status: Acute Code(s): I48.91 - UNSPECIFIED ATRIAL FIBRILLATION (7) Diabetes mellitus Current Visit: No Status: Chronic Qualifiers: Diabetes mellitus type: type 2 Diabetes mellitus complication status: without complication Code(s): E11.9 - TYPE 2 DIABETES MELLITUS WITHOUT COMPLICATIONS (8) Hypertension Current Visit: No Status: Chronic Code(s): I10 - ESSENTIAL (PRIMARY) HYPERTENSION (9) Hypothyroidism Current Visit: Yes Status: Acute Code(s): E03.9 - HYPOTHYROIDISM, UNSPECIFIED (10) Acute on chronic renal failure Current Visit: Yes Status: Acute Assessment & Plan: (1) COPD exacerbation Current Visit: Yes Status: Acute Assessment & Plan: - On baseline oxygen at 4LNC- 96% - IV steroids + Neb Treatments - No ABx needed - Chronic findings seen on CT Code(s): J44.1 - CHRONIC OBSTRUCTIVE PULMONARY DISEASE W (ACUTE) EXACERBATION (2) Rib fractures Current Visit: Yes Status: Acute Assessment & Plan: - New finding seen on CT - New anterolateral left 8/9 rib fractures - Lidocaine patch - tylenol for pain Code(s): S22.49XA - MULTIPLE FRACTURES OF RIBS, UNSP SIDE, INIT FOR CLOS FX (3) Lactate blood increased Current Visit: Yes Status: Acute Assessment & Plan: - resolved - 2:2 COPD exacerbation Code(s): R79.89 - OTHER SPECIFIED ABNORMAL FINDINGS OF BLOOD CHEMISTRY (4) Hyponatremia Current Visit: Yes Status: Acute Assessment & Plan: - Mild 135- trend 03/02 - Na+ 130 -started D5NS @ 75ml/hr Code(s): E87.1 - HYPO-OSMOLALITY AND HYPONATREMIA (5) Lung cancer Current Visit: Yes Status: Acute Assessment & Plan: - Known hx- follows with Dr. Weeks- oncology - Has an OP appointment Weds - On baseline 4LNC - CT chest 03/01 Impression: 1. New suspicious medial right upper lobe masslike opacity as detailed. Malignancy is of primary concern. PET CT may yield further information. 2. Stable prominent mediastinal lymphadenopathy. Rule out reactive versus metastasis. 3. Chronic findings including pulmonary emphysema, arteriosclerotic disease, and old granulomatous disease. 4. Incidental bony findings Code(s): C34.90 - MALIGNANT NEOPLASM OF UNSP PART OF UNSP BRONCHUS OR LUNG (6) Atrial fibrillation Current Visit: Yes Status: Acute Assessment & Plan: - Chronic- on eliquis- cont Code(s): I48.91 - UNSPECIFIED ATRIAL FIBRILLATION (7) Diabetes mellitus Current Visit: No Status: Chronic Qualifiers: Diabetes mellitus type: type 2 Diabetes mellitus complication status: without complication Assessment & Plan: - oral medication controlled - glucose elevated d/t steriods - accuchecks ac/hs - Humalog s/s- low dose - A1C 6.04 Code(s): E11.9 - TYPE 2 DIABETES MELLITUS WITHOUT COMPLICATIONS (8) Hypertension Current Visit: No Status: Chronic Assessment & Plan: - Stable - Continue home meds 03/03 - held lopressor this am- will restart this afternoon - hold valsartan Code(s): I10 - ESSENTIAL (PRIMARY) HYPERTENSION (9) Hypothyroidism Current Visit: Yes Status: Acute Assessment & Plan: - Continue synthroid Code(s): E03.9 - HYPOTHYROIDISM, UNSPECIFIED (10) Acute on chronic renal failure Current Visit: Yes Status: Acute Assessment & Plan: - labs improving- trend - Baseline creat 1.25 03/03 - Cret 1.72- worse - held Valsartan, and Bumex - IVF VTE: Eliquis PPI: Pepcid Next of kin: Emily Matute ( daughter) [phone] D/C plan: tomorrow Code(s): N17.9 - ACUTE KIDNEY FAILURE, UNSPECIFIED; N18.9 - CHRONIC KIDNEY DISEASE, UNSPECIFIED
[2023-03-03] MEDS: Pepcid 20 MG PO SCH (21:25)
[2023-03-03] MEDS: Ativan 0.5 MG PO PRN (21:26)
[2023-03-04] MEDS: DUONEB 0.5-3 MG/3 ml Neb IH SCH ×3 (05:56→11:31)
[2023-03-04] MEDS: SYNTHROID 75 MCG PO SCH (06:12)
[2023-03-04] MEDS: Spiriva 18 Mcg/Cap Inhaler IH SCH (06:44)
[2023-03-04] MEDS: Advair Hfa 115/21 Common canister IH SCH (06:44)
[2023-03-04] MEDS: HUMALOG SQ PRN ×2 (07:36→13:11)
[2023-03-04 08:11] LABS: Hematocrit 38.3 % (42-50); Hemoglobin 12.3 g/dL (12.5-18.0); Mean Cell Volume 91.6 fL (78-100); Mean Corpuscular Hemoglobin 29.4 pg (26-32); Mean Corpuscular Hgb Concent. 32.1 g/dL (32-36); Mean Platelet Volume 10.8 fL (7.5-11.0); Platelet Count 162 x10^3/uL (150-450); Red Blood Count 4.18 x10^6/uL (4.1-5.6); Red Cell Distribution Width 14.2 % (11.5-14.0)
[2023-03-04 08:36] LABS: ALBUMIN 3.9 g/dL (3.5-5.0); ANION GAP 14.8 MEQ/L (5-15); BILIRUBIN,TOTAL 0.4 mg/dL (0.2-1.3); Calcium 9.4 mg/dL (8.4-10.2); Creatinine 1 1.4 mg/dL (0.66-1.25); EST GLOMERULAR FILTRATION RATE 50.8 ML/MIN; Potassium 4.8 mmol/L (3.5-5.1); Total Protein 7.3 g/dL (6.3-8.2)
[2023-03-04] MEDS: Dextrose 5%-NS IV Solution 1000 ML 1,000 ML IV SCH (09:06)
[2023-03-04] MEDS: Lidoderm Patch 5% TOP SCH (09:08)
[2023-03-04] MEDS: Cardizem CD PO SCH (09:09)
[2023-03-04] MEDS: Zocor 10MG PO SCH (09:10)
[2023-03-04] MEDS: Klor Con PO SCH (09:10)
[2023-03-04] MEDS: ELIQUIS 2.5 MG TABLET PO SCH (09:10)
[2023-03-04] MEDS: Docusate Sodium 100 MG PO SCH (09:10)
[2023-03-04] MEDS: Lopressor 50 MG PO SCH (09:10)
[2023-03-04] MEDS: solu-MEDROL 40 MG, Sterile H2O 10 ml 1 ML IV SCH ×2 (09:10)
--- NOTE | 2023-03-04 10:40 | PCM.DS ---
Discharge Summary Date of Admission: 03/01/23 21:13 Date of Discharge: 03/04/23 Admitting Physician: PRITI HARDWICK MD Primary Care Provider: JED CARTER Allergies Allergies influenza vaccine Allergy (Severe, Uncoded 03/01/23 21:23) cardiac arrest Hospital Summary - Hospital Course Hospital Course: 03/02/23 Mr. Jaramillo is an 82 year-old male with CAD s/p PCI, Afib, COPD, HTN, Lung Cancer on XRT, chronic hypoxemic respiratory failure, CKD, HLD, and hypothyroidism who presents with shortness of breath. According to the patient, he suffered a cardiac arrest a few days ago while getting the influenza vaccine (CPR; ACLS) but was discharged home the next day with no acute abnormalities discovered during the admission. The morning of 03/01 he suddenly felt short of breath and thus presented to [facility] for further medical attention. Initially, he was placed on 10L oxygen, but after several nebulizer treatments and a dose of IV solumedrol, his oxygen requirement decreased to 5L. Laboratory data including a viral panel was negative CT chest revealed known malignancy and new anterolateral left 8/9 rib fractures . On my examination, he is resting comfortably on baseline o2 of 4L NC denying anything further than some increased SOB that has improved since admission. 03/03/23 Pt sitting up in the chair. He explains he is feeling much better. He is not SOB and lungs are clear. Discussed labs and his kidney function has worsened overnight . Stopped Valsartan, Bumex, and lopresser. Will give evening dose of lopresser. BP is low this morning at 97/55. IVF started. WBC elevated and most likely r/t steriods as he is not SOB, no cough or fever, and on baseline oxygen of 4LNC. He is not happy about staying another day but explained we would like his kidney function to improve before D/C. He denies any further concerns at this time. 03/04/23 Pt resting in bed. He is feeling much better today. He is no longer SOB and on baseline oxygen at 4LNC. He would like to go home today. He reports he has an appointment Sunday with Oncology and will make a f/u appointment with Cardiology. BRENT has improved. Will continue to hold Valsartan. He has concerns about the medication and will discuss with cardiology at the appointment. He denies any further concerns at this time. - Vitals & Intake/Output Vital Signs: Vital Signs Temperature 97.6 F 03/04/23 07:00 Pulse Rate 75 03/04/23 09:52 Respiratory Rate 18 03/04/23 07:00 Blood Pressure 152/63 03/04/23 09:52 O2 Sat by Pulse Oximetry 97 03/04/23 07:00 Intake & Output: Intake & Output 03/01/23 03/02/23 03/03/23 03/04/23 11:59 11:59 11:59 11:59 Intake Total 100 1200 3043 Output Total 300 2050 1850 Balance -200 -850 1193 Weight 58.5 kg - Lab Result Diagrams: 03/04/23 08:05 03/04/23 08:05 Lab Results-Last 24 Hrs: Lab Results-Last 24 Hours 03/03/23 03/03/23 03/03/23 Range/Units 11:50 16:17 20:43 WBC (4.0-10.5) x10^3/uL RBC (4.1-5.6) x10^6/uL Hgb (12.5-18.0) g/dL Hct (42-50) % MCV (78-100) fL MCH (26-32) pg MCHC (32-36) g/dL RDW (11.5-14.0) % Plt Count (150-450) x10^3/uL MPV (7.5-11.0) fL Sodium (137-145) mmol/L Potassium (3.5-5.1) mmol/L Chloride (98-107) mmol/L Carbon Dioxide (22-30) mmol/L Anion Gap (5-15) MEQ/L BUN (9-20) mg/dL Creatinine (0.66-1.25) mg/dL Estimated GFR ML/MIN Glucose (74-106) mg/dL POC Glucometer 214 H 232 H 231 H (74 to 106) mg/dL Calcium (8.4-10.2) mg/dL Total Bilirubin (0.2-1.3) mg/dL AST (17-59) U/L ALT (0-50) U/L Alkaline Phosphatase (38-126) U/L Serum Total Protein (6.3-8.2) g/dL Albumin (3.5-5.0) g/dL 03/04/23 03/04/23 03/04/23 Range/Units 07:19 08:05 08:05 WBC 22.0 H (4.0-10.5) x10^3/uL RBC 4.18 (4.1-5.6) x10^6/uL Hgb 12.3 L (12.5-18.0) g/dL Hct 38.3 L (42-50) % MCV 91.6 (78-100) fL MCH 29.4 (26-32) pg MCHC 32.1 (32-36) g/dL RDW 14.2 H (11.5-14.0) % Plt Count 162 (150-450) x10^3/uL MPV 10.8 (7.5-11.0) fL Sodium 137 D (137-145) mmol/L Potassium 4.8 (3.5-5.1) mmol/L Chloride 102 (98-107) mmol/L Carbon Dioxide 25 (22-30) mmol/L Anion Gap 14.8 (5-15) MEQ/L BUN 47 H (9-20) mg/dL Creatinine 1.40 H (0.66-1.25) mg/dL Estimated GFR 50.8 ML/MIN Glucose 284 H (74-106) mg/dL POC Glucometer 283 H (74 to 106) mg/dL Calcium 9.4 (8.4-10.2) mg/dL Total Bilirubin 0.40 (0.2-1.3) mg/dL AST 38 (17-59) U/L ALT 60 H (0-50) U/L Alkaline Phosphatase 95 (38-126) U/L Serum Total Protein 7.3 (6.3-8.2) g/dL Albumin 3.9 (3.5-5.0) g/dL Micro Results-Entire Visit: Microbiology 02/28/23 21:08 Blood Culture - Preliminary Blood 02/28/23 21:08 Blood Culture - Preliminary Blood Accuchecks Date 03/04/23 Date 03/03/23 Date 03/03/23 Date 03/03/23 Time 07:33 Time 20:45 Time 16:34 Time 11:53 - Procedures and Test Procedures and Tests throughout Hospitalization: Therapy Orders & Screens 03/01/23 18:55 Respiratory Therapy Assessment DAILY Comment: 03/01/23 21:16 Oxygen Nasal Cannula 4 lpm Comment: 03/01/23 22:24 RT Screen per Nursing Assess ONCE Comment: Protocol Order Physician Instructions: Greater than 3 points order RT Admission Screen Reason For Exam: Triggered on Admission Diagnosis: COPD exacerbation Diagnosis: COPD exacerbation Pneumonia: No Home O2: Yes Asthma: No CHF: Yes Home CPAP/BIPAP: No Home Nebs/MDI: Yes Total Points: 13 03/01/23 22:48 Incentive Spirometry UD Comment: Diagnosis: COPD exacerbation 03/01/23 22:52 Respiratory MDI BID Comment: Diagnosis: COPD exacerbation Discharge Exam General Appearance: no apparent distress, alert Neurologic Exam: alert, oriented x 3, cooperative, normal mood/affect, nml cerebellar function, sensation nml, No motor deficits Eye Exam: PERRL, EOMI, eyes nml inspection Ears, Nose, Throat Exam: normal ENT inspection, pharynx normal, moist mucous membranes Neck Exam: normal inspection, non-tender, supple, full range of motion Respiratory Exam: normal breath sounds, lungs clear, No respiratory distress Cardiovascular Exam: regular rate/rhythm, normal heart sounds Gastrointestinal/Abdomen Exam: soft, No tenderness, No mass Male Genitalia Exam: deferred Rectal Exam: deferred Back Exam: normal inspection, normal range of motion, No CVA tenderness, No vertebral tenderness Extremity Exam: normal inspection, normal range of motion Skin Exam: normal color, warm, dry Final Diagnosis/Problem List - Final Discharge Diagnosis/Problem (1) COPD exacerbation Current Visit: Yes Status: Acute Code(s): J44.1 - CHRONIC OBSTRUCTIVE PULMONARY DISEASE W (ACUTE) EXACERBATION (2) Rib fractures Current Visit: Yes Status: Acute Code(s): S22.49XA - MULTIPLE FRACTURES OF RIBS, UNSP SIDE, INIT FOR CLOS FX (3) Lactate blood increased Current Visit: Yes Status: Acute Code(s): R79.89 - OTHER SPECIFIED ABNORMAL FINDINGS OF BLOOD CHEMISTRY (4) Hyponatremia Current Visit: Yes Status: Acute Code(s): E87.1 - HYPO-OSMOLALITY AND HYPONATREMIA (5) Lung cancer Current Visit: Yes Status: Acute Code(s): C34.90 - MALIGNANT NEOPLASM OF UNSP PART OF UNSP BRONCHUS OR LUNG (6) Atrial fibrillation Current Visit: Yes Status: Acute Code(s): I48.91 - UNSPECIFIED ATRIAL FIBRILLATION (7) Diabetes mellitus Current Visit: No Status: Chronic Code(s): E11.9 - TYPE 2 DIABETES MELLITUS WITHOUT COMPLICATIONS (8) Hypertension Current Visit: No Status: Chronic Code(s): I10 - ESSENTIAL (PRIMARY) HYPERTENSION (9) Hypothyroidism Current Visit: Yes Status: Acute Code(s): E03.9 - HYPOTHYROIDISM, UNSPECIFIED (10) Acute on chronic renal failure Current Visit: Yes Status: Acute Assessment & Plan: (1) COPD exacerbation Current Visit: Yes Status: Acute Assessment & Plan: - On baseline oxygen at 4LNC- 96% - IV steroids + Neb Treatments - No ABx needed - Chronic findings seen on CT 03/04 - Continue steriod taper OP Code(s): J44.1 - CHRONIC OBSTRUCTIVE PULMONARY DISEASE W (ACUTE) EXACERBATION (2) Rib fractures Current Visit: Yes Status: Acute Assessment & Plan: - from CPR earlier this week - New finding seen on CT - New anterolateral left 8/9 rib fractures - Lidocaine patch - tylenol for pain Code(s): S22.49XA - MULTIPLE FRACTURES OF RIBS, UNSP SIDE, INIT FOR CLOS FX (3) Lactate blood increased Current Visit: Yes Status: Acute Assessment & Plan: - resolved - 2:2 COPD exacerbation Code(s): R79.89 - OTHER SPECIFIED ABNORMAL FINDINGS OF BLOOD CHEMISTRY (4) Hyponatremia Current Visit: Yes Status: Acute Assessment & Plan: - Mild 135- trend 03/02 - Na+ 130 -started D5NS @ 75ml/hr 03/03 - Sodium 137- resolved Code(s): E87.1 - HYPO-OSMOLALITY AND HYPONATREMIA (5) Lung cancer Current Visit: Yes Status: Acute Assessment & Plan: - Known hx- follows with Dr. Weeks- oncology - Has an OP appointment Weds - On baseline 4LNC - CT chest 03/01 Impression: 1. New suspicious medial right upper lobe masslike opacity as detailed. Malignancy is of primary concern. PET CT may yield further information. 2. Stable prominent mediastinal lymphadenopathy. Rule out reactive versus metastasis. 3. Chronic findings including pulmonary emphysema, arteriosclerotic disease, and old granulomatous disease. 4. Incidental bony findings 03/04 - F/u with oncology OP Code(s): C34.90 - MALIGNANT NEOPLASM OF UNSP PART OF UNSP BRONCHUS OR LUNG (6) Atrial fibrillation Current Visit: Yes Status: Acute Assessment & Plan: - Chronic- on eliquis- cont Code(s): I48.91 - UNSPECIFIED ATRIAL FIBRILLATION (7) Diabetes mellitus Current Visit: No Status: Chronic Qualifiers: Diabetes mellitus type: type 2 Diabetes mellitus complication status: without complication Assessment & Plan: - oral medication controlled - glucose elevated d/t steriods - accuchecks ac/hs - Humalog s/s- low dose - A1C 6.04 Code(s): E11.9 - TYPE 2 DIABETES MELLITUS WITHOUT COMPLICATIONS (8) Hypertension Current Visit: No Status: Chronic Assessment & Plan: - Stable - Continue home meds 03/03 - held lopressor this am- will restart this afternoon - hold valsartan 03/04 - Bp stable - Continue to hold valsartan and f/u with cardiology OP Code(s): I10 - ESSENTIAL (PRIMARY) HYPERTENSION (9) Hypothyroidism Current Visit: Yes Status: Acute Assessment & Plan: - Continue synthroid Code(s): E03.9 - HYPOTHYROIDISM, UNSPECIFIED (10) Acute on chronic renal failure Current Visit: Yes Status: Acute Assessment & Plan: - labs improving- trend - Baseline creat 1.25 03/03 - Cret 1.72- worse - held Valsartan, and Bumex - IVF 03/04 - labs improved - Hold valsartan OP- F/u with Cardiology Code(s): N17.9 - ACUTE KIDNEY FAILURE, UNSPECIFIED; N18.9 - CHRONIC KIDNEY DISEASE, UNSPECIFIED - Discharge Discharge Date: 03/04/23 Disposition: Home, Self-Care Condition: Stable Prescriptions: Continue Apixaban [Eliquis] 1 tab PO BID Diltiazem HCl [Cartia Xt] 1 cap PO DAILY Valsartan 1 tab PO DAILY Metoprolol Tartrate 50 mg [Lopressor 50 MG] 1 tab PO BID Atorvastatin Calcium [Lipitor 20MG Tablet] 1 tab PO DAILY Budesonide/Glycopyr/Formoterol [Breztri Aerosphere Inhaler] See Rx Instructions .ROUTE .COMPLEX Potassium Chloride 10 meq PO TID Levothyroxine Sodium 75 Mcg [Synthroid 75 Mcg] 75 mcg PO DAILY LORazepam [Lorazepam] 0.5 mg PO BID PRN PRN Reason: Anxiety Famotidine 40 mg PO HS Bumetanide 1 mg [Bumex 1 mg] 1 mg PO DAILY Albuterol Sulfate 2.5 mg IH Q4H PRN PRN PRN Reason: Shortness Of Breath/Wheezing Additional Instructions: Can buy OTC lidocaine patches for rib pain if they were helpful. Use tylenol for pain. Follow up with: JED CARTER MD [Primary Care Provider] - 03/13/23 3:00 pm
[2023-03-04 11:10] VITALS: BP 148/74; TEMP 97.3
[2023-03-04 11:34] VITALS: PULSE 74; RESP 18; O2SAT 97
== END 2023-03-04 14:15 | disposition home or self-care (01) ==
LOC: ED 16:56 → MED SURG 21:13
PROVIDERS: ADMIT Internal Medicine Critical Care Medicine; ATTEND Internal Medicine Critical Care Medicine
DX: J44.1 Chronic obstructive pulmonary disease with (acute) exacerbation (principal); S22.49XA Multiple fractures of ribs, unspecified side, initial encounter for closed fracture; R79.89 Other specified abnormal findings of blood chemistry; E87.1 Hypo-osmolality and hyponatremia; C34.90 Malignant neoplasm of unspecified part of unspecified bronchus or lung; I48.91 Unspecified atrial fibrillation; E11.22 Type 2 diabetes mellitus with diabetic chronic kidney disease; I12.9 Hypertensive chronic kidney disease with stage 1 through stage 4 chronic kidney disease, or unspecified chronic kidney disease; N18.9 Chronic kidney disease, unspecified; I25.10 Atherosclerotic heart disease of native coronary artery without angina pectoris; E78.5 Hyperlipidemia, unspecified; E03.9 Hypothyroidism, unspecified; N17.9 Acute kidney failure, unspecified; Z79.01 Long term (current) use of anticoagulants; Z79.899 Other long term (current) drug therapy; Z20.828 Contact with and (suspected) exposure to other viral communicable diseases
CPT/HCPCS: 0241U; 36000; 36415; 71250; 74176; 80053; 81001; 82947; 83036; 83605; 83690; 83880; 84484; 85025; 85027; 87040; 93005; 93268; 94640; 94760; 94762; 96374; 96375; 99285; G0378; J1817; J2405; J2920; J2930; J3010; J7609; Q3014; A9270-GY

== ENCOUNTER 2023-09-30 20:34 | Observation (INO) | payer MEDICARE ==
--- NOTE | 2023-09-30 20:45 | ERPHSYRPT ---
- History of Present Illness Time Seen by Provider: 09/30/23 20:34 Source: patient Exam Limitations: no limitations Physician History: Pt states he has had shortness of air and a productive cough for the past 9.5 hours; denies chest pain, fever, abdominal pain, nausea, vomiting, diarrhea. Allergies/Adverse Reactions: influenza vaccine Allergy (Severe, Uncoded 09/30/23 20:37) cardiac arrest Home Medications: Apixaban [Eliquis] 1 tab PO BID 03/01/23 [History] Atorvastatin Calcium [Lipitor 20MG Tablet] 1 tab PO DAILY 03/01/23 [History] Bumetanide 1 mg [Bumex 1 mg] 1 mg PO DAILY 03/01/23 [History] LORazepam [Lorazepam] 0.5 mg PO BID PRN 03/01/23 [History] Levothyroxine Sodium 75 Mcg [Synthroid 75 Mcg] 75 mcg PO DAILY 03/01/23 [History] Metoprolol Tartrate 50 mg [Lopressor 50 MG] 1 tab PO BID 03/01/23 [History] Potassium Chloride 10 meq PO TID 03/01/23 [History] Valsartan 0.5 tab PO DAILY 03/01/23 [History] dilTIAZem HCL [Cartia Xt] 1 cap PO DAILY 03/01/23 [History] Cinnamon Bark [Cinnamon] 2,000 mg PO DAILY 09/30/23 [History] Multivitamin 1 tab PO DAILY 09/30/23 [History] Nitroglycerin 0.4 mg SL Q5MIN PRN MR X 3 PRN 09/30/23 [History] Sertraline HCl 50 mg [Zoloft 50 mg Tablet] 1 tab PO DAILY 09/30/23 [History] Sucralfate 1 tab PO HS 09/30/23 [History] Hx Tetanus, Diphtheria Vaccination/Date Given: Yes Hx Influenza Vaccination/Date Given: Yes (02/27/23) Hx Pneumococcal Vaccination/Date Given: Yes - Review of Systems Constitutional: No Fever, No Chills Ears, Nose, & Throat: No Ear Pain Respiratory: Cough, Dyspnea Cardiac: No Chest Pain Abdominal/Gastrointestinal: No Abdominal Pain, No Nausea, No Vomiting, No Diarrhea Genitourinary Symptoms: No Dysuria Neurological: No Headache - Past Medical History Pertinent Past Medical History: Yes Neurological History: TIA ENT History: No Pertinent History Cardiac History: Arrhythmia, Congestive Heart Failure, Coronary Artery Disease, High Cholesterol, Hypertension, Myocardial Infarction ([place]) Respiratory History: COPD, Emphysema, Lung Cancer Endocrine Medical History: Diabetes Type II, Hypothyroidism Musculoskeletal History: Fractures, Arthritis GI Medical History: GERD History: No Pertinent History Psycho-Social History: Anxiety Male Reproductive Disorders: No Pertinent History Other Medical History: kidney stones, a-fib - Past Surgical History Past Surgical History: Yes Neuro Surgical History: No Pertinent History Cardiac: Cardiac Catheterization, Cardiac Stent Respiratory: No Pertinent History Gastrointestinal: No Pertinent History Genitourinary: No Pertinent History Musculoskeletal: Orthopedic Surgery Male Surgical History: No Pertinent History Other Surgical History: right hand, cardiac ablation 2016 - Social History Smoking Status: Former smoker Exposure to second hand smoke: No Drug Use: none Patient Lives Alone: No - Social Determinants of Health Will the patient participate in the screening: Yes Do you worry about a steady place to live?: No In the past 12 months,have you had to go without utilities?: No Transportation Issues: No Has anyone in your support network made you feel unsafe?: No Have you or anyone in your house had to go without enough: No - Nursing Vital Signs Nursing Vital Signs: Initial Vital Signs Pulse Rate 64 09/30/23 20:35 Respiratory Rate 23 09/30/23 20:35 Blood Pressure 149/85 09/30/23 20:35 O2 Sat by Pulse Oximetry 100 09/30/23 20:35 Pain Scale Pain Intensity 0 - Physical Exam General Appearance: alert Eye Exam: eyes nml inspection Ears, Nose, Throat Exam: pharyngeal erythema (mild), No abnormal TM (R), No abnormal TM (L) Neck Exam: normal inspection Respiratory Exam: wheezing (minimal expiratory wheezing over left posterior base) Cardiovascular/Chest Exam: No friction rub Abdominal/Gastrointestinal Exam: normal bowel sounds Extremity Exam: pedal edema (+1 bilaterally) Neurologic Exam: alert, cooperative Skin Exam: warm, dry SpO2 Interpretation: normal SpO2: 100 O2 Delivery: Nasal Cannula (5 l/min) - Course EKG Interpreted by Me: RATE (61), Sinus Rhythm, NORMAL AXIS, Other (QTc = 432) - CT Exams Chest CT Interpretation: Tele-radiologist Report (Mild right-sided pleural effusion with focal patchy consolidation with nodular infiltrates in posterior segment of the right upper lobe, likely representing acute infectious etiology. See rest of report.) Ordered Tests: Active Orders 24 hr Category Date Time Status EKG-ER Only STAT Care 09/30/23 20:47 Active IV Insertion STAT Care 09/30/23 20:47 Active CHEST WITH CONTRAST [CT] Stat Exams 09/30/23 22:08 Completed BLOOD CULTURE Stat Lab 09/30/23 21:20 Received CBC W DIFF Stat Lab 09/30/23 21:05 Completed CMP Stat Lab 09/30/23 21:05 Completed CULTURE,SPUTUM Stat Lab 09/30/23 21:17 Received D-DIMER QUANTITATIVE Stat Lab 09/30/23 21:05 Completed MAGNESIUM Stat Lab 09/30/23 21:05 Completed NT PRO BNPII Stat Lab 09/30/23 21:05 Completed TROPONIN Q4H Lab 09/30/23 21:05 Completed TROPONIN Q4H Lab 10/01/23 01:00 Ordered TROPONIN Q4H Lab 10/01/23 05:00 Ordered VENOUS BLOOD GAS Stat Lab 09/30/23 21:20 Completed Respiratory Therapy Assessment DAILY RT 09/30/23 21:17 Active Medication Summary Generic Name Dose Route Start Last Admin Trade Name Freq PRN Reason Stop Dose Admin Sodium Chloride 1,000 mls @ 100 mls/hr 09/30/23 21:00 09/30/23 23:31 Sodium Chloride 0.9% 1000 Ml IV 10/30/23 20:59 Infused .Q10H DUANE Infusion Discontinued Medications Generic Name Dose Route Start Last Admin Trade Name Freq PRN Reason Stop Dose Admin Albuterol Sulfate 2.5 mg 09/30/23 20:49 09/30/23 21:16 Albuterol Sulfate 2.5 Mg/3 Ml Neb IH 09/30/23 20:50 2.5 mg STAT ONE Administration Albuterol Sulfate Confirm 09/30/23 21:16 Albuterol Sulfate 2.5 Mg/3 Ml Neb Administered 09/30/23 21:17 Dose 2.5 mg IH .STK-MED ONE Azithromycin 500 mg in 250 mls @ 250 mls/hr 09/30/23 20:49 09/30/23 22:45 Zithromax 500 Mg/ 250 Ml Nacl Premix IV 09/30/23 21:48 Infused STAT STA Infusion Ceftriaxone Sodium 1 gm in 100 mls @ 200 mls/hr 09/30/23 20:49 09/30/23 22:10 Rocephin 1 Gm / 100 Ml Nacl IV 09/30/23 21:18 Infused STAT ONE Infusion Ceftriaxone Sodium Confirm 09/30/23 21:25 Rocephin 1 Gm / 100 Ml Nacl Administered 09/30/23 21:26 Dose 1 gm in 100 mls @ ud IV .STK-MED ONE Sodium Chloride 1,000 mls @ 999 mls/hr 09/30/23 21:46 09/30/23 21:56 Sodium Chloride 0.9% 1000 Ml IV 09/30/23 22:46 Not Given .Q1H1M STA Azithromycin Confirm 09/30/23 22:07 Zithromax 500 Mg/ 250 Ml Nacl Premix Administered 09/30/23 22:08 Dose 500 mg in 250 mls @ ud IV .STK-MED ONE Lab/Rad Data: Laboratory Result Diagrams 09/30/23 21:05 09/30/23 21:05 Laboratory Results 09/30/23 09/30/23 09/30/23 Range/Units 21:20 21:20 21:05 WBC (4.23-9.07) x10^3/uL RBC (4.63-6.08) x10^6/uL Hgb (13.7-17.5) g/dL Hct (40.1-51.0) % MCV (79.0-92.2) fL MCH (25.7-32.2) pg MCHC (32.3-36.5) g/dL RDW (11.6-14.4) % Plt Count (163-337) x10^3/uL MPV (9.4-12.4) fL Gran % (34.0-67.9) % Immature Gran % (Auto) (0.001-0.429) % Nucleat RBC Rel Count (0.00-0.2) % Eos # (Auto) (0.04-0.54) x10^3/uL Immature Gran # (Auto) (0.001-0.031) x10^3u/L Absolute Lymphs (auto) (1.32-3.57) x10^3/uL Absolute Monos (auto) (0.30-0.82) x10^3/uL Absolute Nucleated RBC (0.00-0.012) x10^3u/L Lymphocytes % (21.8-53.1) % Monocytes % (5.3-12.2) % Eosinophils % (0.8-7.0) % Basophils % (0.2-1.2) % Absolute Granulocytes (1.78-5.38) x10^3/uL Basophils # (0.01-0.08) x10^3/uL D-Dimer (0.0-0.50) mg/L pO2/FiO2 Ratio 21.0 % VBG pH 7.50 H (7.32-7.42) VBG pCO2 at Pat Temp 56 H (42-55) mm/Hg VBG pO2 at Pat Temp 39 (25-40) mm/Hg VBG HCO3 43.7 H* (22-28) meq/L VBG O2 Sat (Magno) 77.7 L (95-100) VBG Base Excess 17.9 H (-2.0-2.0) VBG Hemoglobin 11.5 VBG Carboxyhemoglobin 6.8 (0.0-6.9) % T HGB POC Potassium 4.3 (3.5-5.1) Sodium (135-145) mmol/L Potassium (3.5-5.1) mmol/L Chloride (98-107) mmol/L Carbon Dioxide (22-30) mmol/L Anion Gap (5-15) MEQ/L BUN (9-20) mg/dL Creatinine (0.66-1.25) mg/dL Estimated GFR ML/MIN Glucose (74-106) mg/dL Calcium (8.4-10.2) mg/dL Magnesium 2.0 (1.6-2.3) mg/dL Total Bilirubin (0.2-1.3) mg/dL AST (17-59) U/L ALT (0-50) U/L Alkaline Phosphatase (38-126) U/L Troponin I 0.012 (0.000-0.033) ng/mL NT-Pro-B Natriuret Pep 903 (<300) pg/mL Serum Total Protein (6.3-8.2) g/dL Albumin (3.5-5.0) g/dL Influenza Type A Ag NEGATIVE (NEGATIVE) Influenza Type B Ag NEGATIVE (NEGATIVE) RSV (PCR) NEGATIVE (NEGATIVE) SARS-CoV-2 (PCR) NEGATIVE (NEGATIVE) 09/30/23 09/30/23 09/30/23 Range/Units 21:05 21:05 21:05 WBC 10.0 H (4.23-9.07) x10^3/uL RBC 3.76 L (4.63-6.08) x10^6/uL Hgb 10.7 L (13.7-17.5) g/dL Hct 34.4 L (40.1-51.0) % MCV 91.5 (79.0-92.2) fL MCH 28.5 (25.7-32.2) pg MCHC 31.1 L (32.3-36.5) g/dL RDW 14.2 (11.6-14.4) % Plt Count 174 (163-337) x10^3/uL MPV 11.1 (9.4-12.4) fL Gran % 79.6 H (34.0-67.9) % Immature Gran % (Auto) 0.2 (0.001-0.429) % Nucleat RBC Rel Count 0.0 (0.00-0.2) % Eos # (Auto) 0.22 (0.04-0.54) x10^3/uL Immature Gran # (Auto) 0.02 (0.001-0.031) x10^3u/L Absolute Lymphs (auto) 0.77 L (1.32-3.57) x10^3/uL Absolute Monos (auto) 1.00 H (0.30-0.82) x10^3/uL Absolute Nucleated RBC 0.00 (0.00-0.012) x10^3u/L Lymphocytes % 7.7 L (21.8-53.1) % Monocytes % 10.0 (5.3-12.2) % Eosinophils % 2.2 (0.8-7.0) % Basophils % 0.3 (0.2-1.2) % Absolute Granulocytes 7.94 H (1.78-5.38) x10^3/uL Basophils # 0.03 (0.01-0.08) x10^3/uL D-Dimer 0.69 H* (0.0-0.50) mg/L pO2/FiO2 Ratio % VBG pH (7.32-7.42) VBG pCO2 at Pat Temp (42-55) mm/Hg VBG pO2 at Pat Temp (25-40) mm/Hg VBG HCO3 (22-28) meq/L VBG O2 Sat (Magno) (95-100) VBG Base Excess (-2.0-2.0) VBG Hemoglobin VBG Carboxyhemoglobin (0.0-6.9) % T HGB POC Potassium (3.5-5.1) Sodium 139 (135-145) mmol/L Potassium 4.1 (3.5-5.1) mmol/L Chloride 95 L (98-107) mmol/L Carbon Dioxide 39 H (22-30) mmol/L Anion Gap 8.8 (5-15) MEQ/L BUN 23 H (9-20) mg/dL Creatinine 1.03 (0.66-1.25) mg/dL Estimated GFR 73.0 ML/MIN Glucose 122 H (74-106) mg/dL Calcium 9.5 (8.4-10.2) mg/dL Magnesium (1.6-2.3) mg/dL Total Bilirubin 0.40 (0.2-1.3) mg/dL AST 35 (17-59) U/L ALT 41 (0-50) U/L Alkaline Phosphatase 129 H (38-126) U/L Troponin I (0.000-0.033) ng/mL NT-Pro-B Natriuret Pep (<300) pg/mL Serum Total Protein 7.2 (6.3-8.2) g/dL Albumin 3.7 (3.5-5.0) g/dL Influenza Type A Ag (NEGATIVE) Influenza Type B Ag (NEGATIVE) RSV (PCR) (NEGATIVE) SARS-CoV-2 (PCR) (NEGATIVE) - Progress Progress: unchanged Progress Note: 09/30/23 23:43 ER Nurse states pt's oxygen saturation dropped to 88% during ER stay. Discussed with : Melany (Spoke with & discussed case with Dr. Vergara - obs.) Counseled pt/family regarding: lab results, diagnosis, rad results Medical Desision Making - Diagnostic Testing Diagnostic test were ordered, analyzed, and reviewed by me: Yes Radiological Interpretation: Teleradiologist Report - Departure Departure Disposition: Observation Clinical Impression: Pneumonia, Hypoxia, Dyspnea Condition: Stable Critical Care Time: No Referrals: JED CARTER MD [Primary Care Provider] - Follow up/PCP as directed
[2023-09-30] MEDS ORDERED: PROVENTIL 2.5 MG/3 ML NEB IH ONE (21:16)
[2023-09-30] MEDS: PROVENTIL 2.5 MG/3 ML NEB IH ONE (21:16)
[2023-09-30 21:23] LABS: Absolute Neutrophil Ct (ANC) 7.94 x10^3/uL (1.78-5.38); BASOPHIL % 0.3 % (0.2-1.2); Basophil (Absolute #) 0.03 x10^3/uL (0.01-0.08); Eosinophil % 2.2 % (0.8-7.0); Eosinophil (Absolute #) 0.22 x10^3/uL (0.04-0.54); Hematocrit 34.4 % (40.1-51.0); Hemoglobin 10.7 g/dL (13.7-17.5); IMMATURE GRAN # 0.02 x10^3u/L (0.001-0.031); IMMATURE GRAN % 0.2 % (0.001-0.429); Lymphocyte (Absolute #) 0.77 x10^3/uL (1.32-3.57); Lymphocytes % 7.7 % (21.8-53.1); Mean Cell Volume 91.5 fL (79.0-92.2); Mean Corpuscular Hemoglobin 28.5 pg (25.7-32.2); Mean Corpuscular Hgb Concent. 31.1 g/dL (32.3-36.5); Mean Platelet Volume 11.1 fL (9.4-12.4); Neutrophil % 79.6 % (34.0-67.9); Platelet Count 174 x10^3/uL (163-337); Red Blood Count 3.76 x10^6/uL (4.63-6.08); Red Cell Distribution Width 14.2 % (11.6-14.4)
[2023-09-30] MEDS ORDERED: Sodium Chloride 0.9% 1000 ML 1,000 ML ONE (21:25)
[2023-09-30] MEDS ORDERED: ROCEPHIN 1 GM / 100 ML NaCl 1 GM/100 ML IVPB IV ONE (21:25)
[2023-09-30] MEDS: Sodium Chloride 0.9% 1000 ML 1,000 ML IV SCH (21:27)
[2023-09-30 21:29] LABS: VBG BASE EXCESS 17.9 (-2.0-2.0); VBG CARBOXYHEMOGLOBIN 6.8 % T HGB (0.0-6.9); VBG HCO3- 43.7 meq/L (22-28); VBG HEMOGLOBIN 11.5; VBG O2 SATURATION 77.7 (95-100); VBG POTASSIUM 4.3 (3.5-5.1); VBG pH 7.5 (7.32-7.42)
[2023-09-30] MEDS: ROCEPHIN 1 GM / 100 ML NaCl 1 GM/100 ML IVPB IV ONE (21:29)
[2023-09-30 21:39] LABS: ALBUMIN 3.7 g/dL (3.5-5.0); ANION GAP 8.8 MEQ/L (5-15); BILIRUBIN,TOTAL 0.4 mg/dL (0.2-1.3); Calcium 9.5 mg/dL (8.4-10.2); Creatinine 1 1.03 mg/dL (0.66-1.25); Potassium 4.1 mmol/L (3.5-5.1); Total Protein 7.2 g/dL (6.3-8.2)
[2023-09-30 21:51] LABS: TROPONIN 0.012 ng/mL (0.000-0.033)
[2023-09-30] MEDS: Sodium Chloride 0.9% 1000 ML 1,000 ML IV STA (21:56)
[2023-09-30 22:02] LABS: INFLUENZA A NEGATIVE (NEGATIVE); INFLUENZA B NEGATIVE (NEGATIVE); RESPIRATORY SYNCTIAL VIRUS NEGATIVE (NEGATIVE); SARS-CoV-2 Xpert Express NEGATIVE (NEGATIVE)
[2023-09-30] MEDS ORDERED: Zithromax 500 MG/ 250 ML NaCl Premix 500 MG/250 ML IVPB IV ONE (22:07)
[2023-09-30] MEDS: Zithromax 500 MG/ 250 ML NaCl Premix 500 MG/250 ML IVPB IV STA (22:08)
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
[2023-10-01] MEDS: PROVENTIL 2.5 MG/3 ML NEB IH SCH (00:52)
[2023-10-01] MEDS ORDERED: TYLENOL 325 MG PO PRN (02:23)
--- NOTE | 2023-10-01 02:36 | PCM.HP ---
History of Present Illness - Chief Complaint Chief Complaint: shortness of breath Date: 10/01/23 History of Present Illness: 83 y/o M with h/o COPD on 4L oxygen at home, A-fib, CHF, hypothyroidism, and HTN, who presents with dyspnea. Notes that about 3-4 days ago he began to have worsening dyspnea with a productive cough. Denies fevers, sick contacts, or change in his baseline oxygen requirements. Notes no wheezing, nor a change in his albuterol usage (about q4h while awake at baseline.) He has noted some leg swelling at the same time; he denies orthopnea, PND, or early satiety. Notes chronic poor appetite. Denies chest pain, nausea, diaphoresis, or weakness. In ED, patient was given Rocephin, Azithromycin, albuterol x1, NS 1L, then started on NS at 125 ml/hr. - Review of Systems Constitutional: No Fever, No Fatigue, No Night Sweats, No Weakness Eyes: No Vision Changes Ears, Nose, & Throat: No Nose Congestion, No Throat Pain, No Throat Swelling Respiratory: Cough, Short Of Breath, No Orthopnea, No Wheezing Cardiac: Edema, No Chest Pain, No Palpitations, No Orthopnea, No PND Abdominal/Gastrointestinal: Appetite Changes, No Abdominal Pain, No Nausea, No Diarrhea Genitourinary Symptoms: No Dysuria, No Frequency Neurological: No Dizziness, No Focal Weakness, No Headache Medications & Allergies Home Medications: Home Medication List Apixaban [Eliquis] 1 tab PO BID 03/01/23 [History Confirmed 09/30/23] Atorvastatin Calcium [Lipitor 20MG Tablet] 1 tab PO DAILY 03/01/23 [History Confirmed 09/30/23] Bumetanide 1 mg [Bumex 1 mg] 1 mg PO DAILY 03/01/23 [History Confirmed 09/30/23] LORazepam [Lorazepam] 0.5 mg PO BID PRN 03/01/23 [History Confirmed 09/30/23] Levothyroxine Sodium 75 Mcg [Synthroid 75 Mcg] 75 mcg PO DAILY 03/01/23 [History Confirmed 09/30/23] Metoprolol Tartrate 50 mg [Lopressor 50 MG] 1 tab PO BID 03/01/23 [History Confirmed 09/30/23] Potassium Chloride 10 meq PO TID 03/01/23 [History Confirmed 09/30/23] Valsartan 0.5 tab PO DAILY 03/01/23 [History Confirmed 09/30/23] dilTIAZem HCL [Cartia Xt] 1 cap PO DAILY 03/01/23 [History Confirmed 09/30/23] Cinnamon Bark [Cinnamon] 2,000 mg PO DAILY 09/30/23 [History Confirmed 09/30/23] Multivitamin 1 tab PO DAILY 09/30/23 [History Confirmed 09/30/23] Nitroglycerin 0.4 mg SL Q5MIN PRN MR X 3 PRN 09/30/23 [History Confirmed 09/30/23] Sertraline HCl 50 mg [Zoloft 50 mg Tablet] 1 tab PO DAILY 09/30/23 [History Confirmed 09/30/23] Sucralfate 1 tab PO HS 09/30/23 [History Confirmed 09/30/23] Allergies/Adverse Reactions: Allergies Allergy/AdvReac Type Severity Reaction Status Date / Time influenza vaccine Allergy Severe Uncoded 09/30/23 20:37 - Past Medical History Past Medical History: Yes Neurological History: TIA ENT History: No Pertinent History Cardiac History: Arrhythmia, Congestive Heart Failure, Coronary Artery Disease, High Cholesterol, Hypertension, Myocardial Infarction (SD) Respiratory History: COPD, Emphysema, Lung Cancer Endocrine Medical History: Hypothyroidism Musculoskelatal History: Fractures, Arthritis GI Medical History: GERD History: No Pertinent History Pyscho-Social History: Anxiety Male Reproductive Disorders: No Pertinent History Comment: kidney stones, a-fib, lung cancer in 2022 - radiation tx only, SD - 2014 - Past Surgical History Past Surgical History: Yes Neuro Surgical History: No Pertinent History Cardiac History: Cardiac Catheterization, Cardiac Stent Respiratory Surgery: No Pertinent History GI Surgical History: No Pertinent History Genitourinary Surgical Hx: No Pertinent History Musculskeletal Surgical Hx: Orthopedic Surgery Male Surgical History: No Pertinent History Other Surgical History: right hand, cardiac ablation 2016 Significant Family History: no pertinent family hx - Social History Smoking Status: Former smoker Exposure to second hand smoke: No Alcohol: None Drug Use: none - Social Determinants of Health Will the patient participate in the screening: Yes Do you worry about a steady place to live?: No Do you have any problems with any of the following?: No known problems In the past 12 months,have you had to go without utilities?: No Have you or anyone in your house had to go without enough: No Transportation Issues: No Has anyone in your support network made you feel unsafe?: No Does the patient want assistance with any of the above?: No Comment: air conditioning went out today - Physical Exam Vital Signs: Vital Signs - 24 hr Temp Pulse Resp BP BP Pulse Ox 10/01/23 00:52 54 L 20 91 L 10/01/23 00:09 97.8 F 59 L 22 134/61 91 L 10/01/23 00:00 61 20 134/75 95 09/30/23 23:50 100 09/30/23 23:30 62 22 127/76 93 L 09/30/23 23:07 76 23 128/76 95 09/30/23 22:00 115 H 21 131/78 94 L 09/30/23 21:45 88 L 09/30/23 21:32 66 21 112/52 99 09/30/23 21:18 22 98 09/30/23 21:16 80 22 99 09/30/23 20:37 73 18 149/85 95 09/30/23 20:35 64 23 149/85 100 GEN: Sitting up in bed in on acute distress HEENT: NCAT, eyes clear CV: Irregularly irregular, no murmur, mild pedal edema. PULM: No wheezing, mild coarse breath sounds on right, on 5L oxygen by nasal cannula ABD: Soft, non-distended PSYCH: alert, oriented, calm NEURO: no focal deficits Results - Labs Lab/Micro Results: Lab Results-Last 24 Hours 09/30/23 09/30/23 09/30/23 Range/Units 21:05 21:05 21:05 WBC 10.0 H (4.23-9.07) x10^3/uL RBC 3.76 L (4.63-6.08) x10^6/uL Hgb 10.7 L (13.7-17.5) g/dL Hct 34.4 L (40.1-51.0) % MCV 91.5 (79.0-92.2) fL MCH 28.5 (25.7-32.2) pg MCHC 31.1 L (32.3-36.5) g/dL RDW 14.2 (11.6-14.4) % Plt Count 174 (163-337) x10^3/uL MPV 11.1 (9.4-12.4) fL Gran % 79.6 H (34.0-67.9) % Immature Gran % (Auto) 0.2 (0.001-0.429) % Nucleat RBC Rel Count 0.0 (0.00-0.2) % Eos # (Auto) 0.22 (0.04-0.54) x10^3/uL Immature Gran # (Auto) 0.02 (0.001-0.031) x10^3u/L Absolute Lymphs (auto) 0.77 L (1.32-3.57) x10^3/uL Absolute Monos (auto) 1.00 H (0.30-0.82) x10^3/uL Absolute Nucleated RBC 0.00 (0.00-0.012) x10^3u/L Lymphocytes % 7.7 L (21.8-53.1) % Monocytes % 10.0 (5.3-12.2) % Eosinophils % 2.2 (0.8-7.0) % Basophils % 0.3 (0.2-1.2) % Absolute Granulocytes 7.94 H (1.78-5.38) x10^3/uL Basophils # 0.03 (0.01-0.08) x10^3/uL D-Dimer 0.69 H* (0.0-0.50) mg/L pO2/FiO2 Ratio % VBG pH (7.32-7.42) VBG pCO2 at Pat Temp (42-55) mm/Hg VBG pO2 at Pat Temp (25-40) mm/Hg VBG HCO3 (22-28) meq/L VBG O2 Sat (Magno) (95-100) VBG Base Excess (-2.0-2.0) VBG Hemoglobin VBG Carboxyhemoglobin (0.0-6.9) % T HGB POC Potassium (3.5-5.1) Sodium 139 (135-145) mmol/L Potassium 4.1 (3.5-5.1) mmol/L Chloride 95 L (98-107) mmol/L Carbon Dioxide 39 H (22-30) mmol/L Anion Gap 8.8 (5-15) MEQ/L BUN 23 H (9-20) mg/dL Creatinine 1.03 (0.66-1.25) mg/dL Estimated GFR 73.0 ML/MIN Glucose 122 H (74-106) mg/dL Calcium 9.5 (8.4-10.2) mg/dL Magnesium (1.6-2.3) mg/dL Total Bilirubin 0.40 (0.2-1.3) mg/dL AST 35 (17-59) U/L ALT 41 (0-50) U/L Alkaline Phosphatase 129 H (38-126) U/L Troponin I (0.000-0.033) ng/mL NT-Pro-B Natriuret Pep (<300) pg/mL Serum Total Protein 7.2 (6.3-8.2) g/dL Albumin 3.7 (3.5-5.0) g/dL Influenza Type A Ag (NEGATIVE) Influenza Type B Ag (NEGATIVE) RSV (PCR) (NEGATIVE) SARS-CoV-2 (PCR) (NEGATIVE) 09/30/23 09/30/23 09/30/23 Range/Units 21:05 21:20 21:20 WBC (4.23-9.07) x10^3/uL RBC (4.63-6.08) x10^6/uL Hgb (13.7-17.5) g/dL Hct (40.1-51.0) % MCV (79.0-92.2) fL MCH (25.7-32.2) pg MCHC (32.3-36.5) g/dL RDW (11.6-14.4) % Plt Count (163-337) x10^3/uL MPV (9.4-12.4) fL Gran % (34.0-67.9) % Immature Gran % (Auto) (0.001-0.429) % Nucleat RBC Rel Count (0.00-0.2) % Eos # (Auto) (0.04-0.54) x10^3/uL Immature Gran # (Auto) (0.001-0.031) x10^3u/L Absolute Lymphs (auto) (1.32-3.57) x10^3/uL Absolute Monos (auto) (0.30-0.82) x10^3/uL Absolute Nucleated RBC (0.00-0.012) x10^3u/L Lymphocytes % (21.8-53.1) % Monocytes % (5.3-12.2) % Eosinophils % (0.8-7.0) % Basophils % (0.2-1.2) % Absolute Granulocytes (1.78-5.38) x10^3/uL Basophils # (0.01-0.08) x10^3/uL D-Dimer (0.0-0.50) mg/L pO2/FiO2 Ratio 21.0 % VBG pH 7.50 H (7.32-7.42) VBG pCO2 at Pat Temp 56 H (42-55) mm/Hg VBG pO2 at Pat Temp 39 (25-40) mm/Hg VBG HCO3 43.7 H* (22-28) meq/L VBG O2 Sat (Magno) 77.7 L (95-100) VBG Base Excess 17.9 H (-2.0-2.0) VBG Hemoglobin 11.5 VBG Carboxyhemoglobin 6.8 (0.0-6.9) % T HGB POC Potassium 4.3 (3.5-5.1) Sodium (135-145) mmol/L Potassium (3.5-5.1) mmol/L Chloride (98-107) mmol/L Carbon Dioxide (22-30) mmol/L Anion Gap (5-15) MEQ/L BUN (9-20) mg/dL Creatinine (0.66-1.25) mg/dL Estimated GFR ML/MIN Glucose (74-106) mg/dL Calcium (8.4-10.2) mg/dL Magnesium 2.0 (1.6-2.3) mg/dL Total Bilirubin (0.2-1.3) mg/dL AST (17-59) U/L ALT (0-50) U/L Alkaline Phosphatase (38-126) U/L Troponin I 0.012 (0.000-0.033) ng/mL NT-Pro-B Natriuret Pep 903 (<300) pg/mL Serum Total Protein (6.3-8.2) g/dL Albumin (3.5-5.0) g/dL Influenza Type A Ag NEGATIVE (NEGATIVE) Influenza Type B Ag NEGATIVE (NEGATIVE) RSV (PCR) NEGATIVE (NEGATIVE) SARS-CoV-2 (PCR) NEGATIVE (NEGATIVE) - Radiology Impressions Radiology Exams & Impressions: Radiology Procedures Category Date Time Status CHEST WITH CONTRAST [CT] Stat Exams 09/30/23 22:[address] Chest - small R pleural effusion, RUL infiltrate (images reviewed) - Other Procedures and Tests Respiratory Therapy 09/30/23 21:17 Respiratory Therapy Assessment DAILY 10/01/23 00:09 Oxygen Nasal Cannula 5 lpm Assessment/Plan (1) Pneumonia Current Visit: Yes Status: Acute Assessment & Plan: 83 y/o M with h/o COPD on 4L O2, CHF, HTN, A-fib, and hypothyrodism, here with pneumonia. ## Pneumonia - with RUL infiltrate on CXR, cough, and worsened dyspnea. Impressively, his COPD does not appear to be significantly exacerbated, and patient is more or less at his baseline oxygen needs, although with less exercise tolerance. - Rocephin/Azithromycin for CAP coverage - follow up blood cultures ## COPD, chronic hypoxic respiratory failure - more or less at his baseline oxygen usage. No appreciable wheezing on exam. Does not appear to be in COPD exacerbation. Of note, he is only on PRN albuterol at home, no controller medications. - no need for steroids at this point - continue albuterol q4h - titrate oxygen to maintain SpO2 91-94% ## CHF - unknown if systolic or diastolic (although as he is not on GDMT, likely diastolic). Patient's proBNP is 900, decreased from prior at 1100. Despite his pedal edema, current symptoms appear more driven by pulmonary status than by a CHF exacerbation. Likely increased cardiac demand from the pneumonia led to some volume overload/pedal edema. Unfortunately, now has also received extra IV fluids on arrival. - Give Lasix 20 mg IV x1 now - resume home Bumex 1 mg PO daily later today (Sunday) ## A-fib - currently rate-controlled. - continue Eliquis 5 BID - continue Diltiazem 180 mg daily, Lopressor 50 BID ## hypertension - BP controlled - resume home Valsartan 20 daily, diltiazem 180 daily, Lopressor 50 BID ## hypothyroidism - continue home levothyroxine 75 mcg daily ## depression - continue home Zoloft 50 daily Code Status: Full code Prophylaxis: Eliquis Diet: 2 gm Na Code(s): J18.9 - PNEUMONIA, UNSPECIFIED ORGANISM Telemedicine Encounter - Telemedicine Encounter Telemedicine Encounter: "The entirety of this encounter was performed via Telemedicine" This visit was performed using real-time audio and video connection between my location and thepatients locationwith the assistance of a surrogateat the patients location. Written or verbal consent was obtained from the patient/guardian to perform this visit [facility] technology. Any patient questions regarding the telemedicine interaction were answered.
[2023-10-01] MEDS: Lasix 20 MG/2 ML IV ONE (02:38)
[2023-10-01] MEDS: Sodium Chloride 0.9% 1000 ML 1,000 ML IV SCH (02:57)
[2023-10-01 04:39] LABS: Absolute Neutrophil Ct (ANC) 7.31 x10^3/uL (1.78-5.38); BASOPHIL % 0.4 % (0.2-1.2); Basophil (Absolute #) 0.04 x10^3/uL (0.01-0.08); Eosinophil % 2.2 % (0.8-7.0); Hematocrit 31.6 % (40.1-51.0); Hemoglobin 9.7 g/dL (13.7-17.5); IMMATURE GRAN # 0.02 x10^3u/L (0.001-0.031); IMMATURE GRAN % 0.2 % (0.001-0.429); Lymphocyte (Absolute #) 0.83 x10^3/uL (1.32-3.57); Lymphocytes % 8.9 % (21.8-53.1); Mean Cell Volume 92.1 fL (79.0-92.2); Mean Corpuscular Hemoglobin 28.3 pg (25.7-32.2); Mean Corpuscular Hgb Concent. 30.7 g/dL (32.3-36.5); Mean Platelet Volume 10.9 fL (9.4-12.4); Monocyte (Absolute #) 0.88 x10^3/uL (0.30-0.82); Monocytes % 9.5 % (5.3-12.2); Neutrophil % 78.8 % (34.0-67.9); Platelet Count 150 x10^3/uL (163-337); Red Blood Count 3.43 x10^6/uL (4.63-6.08); Red Cell Distribution Width 14.6 % (11.6-14.4); White Blood Count 9.3 x10^3/uL (4.23-9.07)
[2023-10-01 04:57] LABS: ALBUMIN 3.2 g/dL (3.5-5.0); BILIRUBIN,TOTAL 0.3 mg/dL (0.2-1.3); Calcium 9.1 mg/dL (8.4-10.2); Creatinine 1 1.1 mg/dL (0.66-1.25); EST GLOMERULAR FILTRATION RATE 67.4 ML/MIN; Potassium 3.8 mmol/L (3.5-5.1); Total Protein 6.2 g/dL (6.3-8.2)
[2023-10-01 05:07] LABS: ANION GAP 11.8 MEQ/L (5-15)
[2023-10-01] MEDS ORDERED: PROVENTIL Solution 2.5 MG/0.5 ML IH ONE (06:58)
[2023-10-01] MEDS: Klor Con PO SCH (10:01)
[2023-10-01] MEDS: SYNTHROID 75 MCG PO SCH (10:01)
[2023-10-01] MEDS: DIOVAN 80 MG PO SCH (10:01)
[2023-10-01] MEDS: Cardizem CD PO SCH (10:01)
[2023-10-01] MEDS: BUMEX 1 MG PO SCH (10:02)
[2023-10-01] MEDS: Lopressor 50 MG PO SCH (10:02)
[2023-10-01] MEDS: Zocor 10MG PO SCH (10:03)
[2023-10-01] MEDS: ELIQUIS 2.5 MG TABLET PO SCH (10:03)
[2023-10-01] MEDS: ZOLOFT 50 MG TABLET PO SCH (10:03)
[2023-10-01] MEDS: PULMICORT 0.5 MG/2 ML RESPULES IH SCH (13:56)
[2023-10-01] MEDS: ROCEPHIN 1 GM / 100 ML NaCl 1 GM/100 ML IVPB IV SCH (22:14)
[2023-10-01] MEDS: Carafate 1 GM PO SCH (22:15)
[2023-10-01] MEDS: Zithromax 500 MG/ 250 ML NaCl Premix 500 MG/250 ML IVPB IV SCH (22:52)
[2023-10-02 04:48] LABS: Absolute Neutrophil Ct (ANC) 6.14 x10^3/uL (1.78-5.38); BASOPHIL % 0.5 % (0.2-1.2); Basophil (Absolute #) 0.04 x10^3/uL (0.01-0.08); Eosinophil % 4.3 % (0.8-7.0); Eosinophil (Absolute #) 0.36 x10^3/uL (0.04-0.54); Hematocrit 30.7 % (40.1-51.0); Hemoglobin 9.6 g/dL (13.7-17.5); IMMATURE GRAN # 0.03 x10^3u/L (0.001-0.031); IMMATURE GRAN % 0.4 % (0.001-0.429); Lymphocyte (Absolute #) 0.96 x10^3/uL (1.32-3.57); Lymphocytes % 11.4 % (21.8-53.1); Mean Cell Volume 91.1 fL (79.0-92.2); Mean Corpuscular Hemoglobin 28.5 pg (25.7-32.2); Mean Corpuscular Hgb Concent. 31.3 g/dL (32.3-36.5); Mean Platelet Volume 10.7 fL (9.4-12.4); Monocyte (Absolute #) 0.89 x10^3/uL (0.30-0.82); Monocytes % 10.6 % (5.3-12.2); Neutrophil % 72.8 % (34.0-67.9); Platelet Count 149 x10^3/uL (163-337); Red Blood Count 3.37 x10^6/uL (4.63-6.08); Red Cell Distribution Width 14.5 % (11.6-14.4); White Blood Count 8.4 x10^3/uL (4.23-9.07)
--- NOTE | 2023-10-02 05:23 | PCM.NOTE ---
Date and Time: 10/02/23 0517 Subjective Assessment: 83 y/o M with h/o COPD on 4L oxygen at home, A-fib, CHF, hypothyroidism, and HTN admitted 10/01/23 with pneumonia after experiencing a 3-4 day history of worsening dyspnea and productive cough. CT Chest with small right pleural effusion and RUL infiltrate. Rocephin/azithromycin started for CAP coverage. Patient baseline oxygen of 4L - currently at 5L. CHF with volume overload - lasix 20mg given IV, will resume his home bumex 1mg IV due to BLE pitting edema. H/o AFIB - controlled with eliquis and diltiazem, will continue. 10/02/23: Met with patient bedside. Endorses continued dyspnea and non productive cough. Baseline 4L oxygen, requiring 5L currently. Lung sounds diminished. BLE improved, still with 1+ pitting edema. Will continue IV bumex/antibiotics. Sputum culture with gram negative ID - will change abx to levaquin/Add mucinex. Patient stated he has been having difficulty swallowing, speech therapy consulted with plans for barium swallow today. Denies fever, cp, abdominal pain, SWANN, dizziness, N/V/D. - Review of Systems Constitutional: No Symptoms Eyes: No Symptoms Ears, Nose, & Throat: No Symptoms Respiratory: Cough, Short Of Breath Cardiac: Edema (BLE +1 pitting) Abdominal/Gastrointestinal: No Symptoms Genitourinary Symptoms: No Symptoms Musculoskeletal: No Symptoms Skin: No Symptoms Neurological: No Symptoms Psychological: No Symptoms Endocrine: No Symptoms Hematologic/Lymphatic: No Symptoms Immunological/Allergic: No Symptoms Objective Exam General Appearance: no apparent distress Neurologic Exam: alert, oriented x 3, cooperative Skin Exam: normal color Eye Exam: PERRL Ears, Nose, Throat Exam: normal ENT inspection Neck Exam: normal inspection, full range of motion Respiratory Exam: diminished breath sounds, crackles/rales Cardiovascular Exam: regular rate/rhythm, normal heart sounds Gastrointestinal/Abdomen Exam: soft, normal bowel sounds Extremity Exam: swelling (BLE +1 pitting edema) Back Exam: normal inspection Male Genitalia Exam: deferred Rectal Exam: deferred Objective Data Vital Signs: Vital Signs - 24 hr Temp Pulse Resp BP Pulse Ox 10/02/23 04:00 97.9 F 58 L 18 155/72 90 L 10/02/23 01:02 58 L 18 98 10/01/23 23:04 97.6 F 74 18 123/66 98 10/01/23 20:00 97.3 F 60 18 136/66 90 L 10/01/23 19:08 65 99 10/01/23 15:59 98.0 F 68 17 107/58 91 L 10/01/23 13:58 62 18 94 L 10/01/23 12:00 97.7 F 62 17 152/72 94 L 10/01/23 07:20 97.8 F 63 24 135/64 93 L 10/01/23 07:07 62 18 93 L Pain Assessment - Last Documented Pain Intensity 0 Intake and Output: Intake & Output 09/29/23 09/30/23 10/01/23 10/02/23 11:59 11:59 11:59 11:59 Intake Total 260 180 Output Total 700 350 Balance -440 -170 Weight 52.3 kg Lab Results: Lab Results-Last 24 Hours 10/01/23 10/01/23 10/01/23 Range/Units 04:32 15:38 21:14 POC Glucometer 137 H 153 H (74 to 106) mg/dL Hemoglobin A1c 6.67 H (4.5-6.0) % Radiology Exams: Radiology Procedures Category Date Time Status CHEST WITH CONTRAST [CT] Stat Exams 09/30/23 22:08 Completed Multi-Disciplinary Progress Notes: Multi-Disciplinary Progress Notes 10/01/23 12:47 Case Management Note by Brianna Chao Addendum entered by Brianna Chao 10/01/23 12:52: FOLLOW UP PHONE NUMBERS PLACED IN DC INSTRUCTIONS Original Note: REFERRAL FAXED TO [facility] TO SEE IF PATIENT QUALIFIED FOR ANY SERVICES THRU THEM REFERRAL ALSO GIVEN TO [facility] Initialized on 10/01/23 12:47 - END OF NOTE 10/01/23 12:34 Case Management Note by Brianna Chao S/W KRISTIN ELIAS, SHE REPORTS SHE FEELS LIKE THEY COULD USE MORE HELP AT HOME. SHE IS AGREEABLE TO [facility]. SHE DOES NOT THINK THEY WILL QUALIFY FOR MEDICAID SERVICES AND IS AWARE HELP LIKE THAT AT HOME WOULD NEED TO BE A PRIVATE PAY SITUATION. SHE REPORTS PATIENT IS INDEPENDENT AT HOME AND STILL MANAGES HIS MEDS AND SUCH BUT BOTH HIM AND HIS ARE ELDERLY AND NEED ASSISTANCE AT HOME. SHE WAS GIVEN C LIST TO DISCUSS WITH PATIENT AND ALSO LIST OF PRIVATE CAREGIVERS. Initialized on 10/01/23 12:34 - END OF NOTE Assessment/Plan (1) Pneumonia Current Visit: Yes Status: Acute Assessment & Plan: -cxr demonstrates RUL infiltrate -blood cultures NGTD - sputum cultures with gram - ID -Ceftriaxone/azithromycin started, changed to levaquin due to sputum culture -supplemental oxygen with goal spo2 88-92% - baseline 4L -RT following nebs/INH - budesonide -add mucinex Code(s): J18.9 - PNEUMONIA, UNSPECIFIED ORGANISM (2) CHF (congestive heart failure) Current Visit: Yes Status: Acute Assessment & Plan: -BNP 900 -decreased from previous 1100 -BLE edema -Lasix IV given, will continue with Bumex 1mg IV Code(s): I50.9 - HEART FAILURE, UNSPECIFIED (3) COPD exacerbation Current Visit: No Status: Acute Assessment & Plan: -2/2 to pneumonia -Nebs PRN- budesonide -continue ceftriaxone/azith -supplemental oxygen with spo2 goal 88-92% - baseline 4L, currently at 5L Code(s): J44.1 - CHRONIC OBSTRUCTIVE PULMONARY DISEASE W (ACUTE) EXACERBATION (4) Hypertension Current Visit: No Status: Chronic Assessment & Plan: -controlled, continue home meds valsartan, diltiazem, lopressor Code(s): I10 - ESSENTIAL (PRIMARY) HYPERTENSION (5) Hypothyroidism Current Visit: No Status: Chronic Assessment & Plan: -continue kush levothyroxine Code(s): E03.9 - HYPOTHYROIDISM, UNSPECIFIED (6) Depression Current Visit: Yes Status: Acute Assessment & Plan: - continue home Zoloft 50 daily Code Status: Full code Prophylaxis: Eliquis Diet: 2 gm Na Code(s): F32.A - DEPRESSION, UNSPECIFIED (7) Dysphagia Current Visit: Yes Status: Acute Assessment & Plan: -speech therapy consulted, plans for barium swallow today Code(s): R13.10 - DYSPHAGIA, UNSPECIFIED
[2023-10-02 05:28] LABS: ALBUMIN 3.1 g/dL (3.5-5.0); BILIRUBIN,TOTAL 0.4 mg/dL (0.2-1.3); Creatinine 1 0.95 mg/dL (0.66-1.25); EST GLOMERULAR FILTRATION RATE 80.4 ML/MIN; Potassium 4.4 mmol/L (3.5-5.1); Total Protein 6.3 g/dL (6.3-8.2)
[2023-10-02 05:50] LABS: ANION GAP 11.4 MEQ/L (5-15)
[2023-10-02] MEDS: Mucinex 600MG ER Tabs PO SCH (09:09)
[2023-10-02] MEDS: BUMEX 1 MG IV SCH (09:48)
[2023-10-02] MEDS ORDERED: Lasix 40 MG/4 ML IV SCH (10:00)
--- NOTE | 2023-10-03 05:07 | PCM.NOTE ---
Date and Time: 10/03/23 0506 Subjective Assessment: 83 y/o M with h/o COPD on 4L oxygen at home, A-fib, CHF, hypothyroidism, and HTN admitted 10/01/23 with pneumonia after experiencing a 3-4 day history of worsening dyspnea and productive cough. CT Chest with small right pleural effusion and RUL infiltrate. Rocephin/azithromycin started for CAP coverage. Patient baseline oxygen of 4L - currently at 5L. CHF with volume overload - lasix 20mg given IV, will resume his home bumex 1mg IV due to BLE pitting edema. H/o AFIB - controlled with eliquis and diltiazem, will continue. 10/02/23: Met with patient bedside. Endorses continued dyspnea and non productive cough. Baseline 4L oxygen, requiring 5L currently. Lung sounds diminished. BLE improved, still with 1+ pitting edema. Will continue IV bumex/antibiotics. Sputum culture with gram negative ID - will change abx to levaquin/Add mucinex. Patient stated he has been having difficulty swallowing, speech therapy consulted with plans for barium swallow today. Denies fever, cp, abdominal pain, SWANN, dizziness, N/V/D. Objective Data Vital Signs: Vital Signs - 24 hr Temp Pulse Resp BP Pulse Ox 10/03/23 03:00 97.2 F 73 14 125/73 97 10/03/23 00:46 58 L 18 100 10/02/23 23:00 97.1 F 57 L 15 119/66 100 10/02/23 19:55 97.4 F 57 L 17 164/70 98 10/02/23 19:10 61 20 98 10/02/23 16:00 97.7 F 53 L 16 126/60 90 L 10/02/23 13:12 54 L 20 92 L 10/02/23 12:00 97.9 F 57 L 16 138/63 92 L 10/02/23 07:44 98.0 F 58 L 20 144/69 92 L 10/02/23 06:44 55 L 20 92 L Pain Assessment - Last Documented Pain Intensity 0 Intake and Output: Intake & Output 09/30/23 10/01/23 10/02/23 10/03/23 11:59 11:59 11:59 11:59 Intake Total 260 180 720 Output Total 700 1350 400 Balance -440 -1170 320 Weight 52.3 kg Lab Results: Lab Results-Last 24 Hours 10/02/23 10/02/23 10/02/23 Range/Units 04:40 04:40 07:32 WBC 8.4 (4.23-9.07) x10^3/uL RBC 3.37 L (4.63-6.08) x10^6/uL Hgb 9.6 L (13.7-17.5) g/dL Hct 30.7 L (40.1-51.0) % MCV 91.1 (79.0-92.2) fL MCH 28.5 (25.7-32.2) pg MCHC 31.3 L (32.3-36.5) g/dL RDW 14.5 H (11.6-14.4) % Plt Count 149 L (163-337) x10^3/uL MPV 10.7 (9.4-12.4) fL Gran % 72.8 H (34.0-67.9) % Immature Gran % (Auto) 0.4 (0.001-0.429) % Nucleat RBC Rel Count 0.0 (0.00-0.2) % Eos # (Auto) 0.36 (0.04-0.54) x10^3/uL Immature Gran # (Auto) 0.03 (0.001-0.031) x10^3u/L Absolute Lymphs (auto) 0.96 L (1.32-3.57) x10^3/uL Absolute Monos (auto) 0.89 H (0.30-0.82) x10^3/uL Absolute Nucleated RBC 0.00 (0.00-0.012) x10^3u/L Lymphocytes % 11.4 L (21.8-53.1) % Monocytes % 10.6 (5.3-12.2) % Eosinophils % 4.3 (0.8-7.0) % Basophils % 0.5 (0.2-1.2) % Absolute Granulocytes 6.14 H (1.78-5.38) x10^3/uL Basophils # 0.04 (0.01-0.08) x10^3/uL Sodium 140 (135-145) mmol/L Potassium 4.4 (3.5-5.1) mmol/L Chloride 97 L (98-107) mmol/L Carbon Dioxide 36 H (22-30) mmol/L Anion Gap 11.4 (5-15) MEQ/L BUN 19 (9-20) mg/dL Creatinine 0.95 (0.66-1.25) mg/dL Estimated GFR 80.4 ML/MIN Glucose 104 (74-106) mg/dL POC Glucometer 110 H (74 to 106) mg/dL Calcium 9.0 (8.4-10.2) mg/dL Total Bilirubin 0.40 (0.2-1.3) mg/dL AST 65 H (17-59) U/L ALT 75 H (0-50) U/L Alkaline Phosphatase 125 (38-126) U/L Serum Total Protein 6.3 (6.3-8.2) g/dL Albumin 3.1 L (3.5-5.0) g/dL 10/02/23 10/02/23 10/02/23 Range/Units 11:08 16:22 21:53 WBC (4.23-9.07) x10^3/uL RBC (4.63-6.08) x10^6/uL Hgb (13.7-17.5) g/dL Hct (40.1-51.0) % MCV (79.0-92.2) fL MCH (25.7-32.2) pg MCHC (32.3-36.5) g/dL RDW (11.6-14.4) % Plt Count (163-337) x10^3/uL MPV (9.4-12.4) fL Gran % (34.0-67.9) % Immature Gran % (Auto) (0.001-0.429) % Nucleat RBC Rel Count (0.00-0.2) % Eos # (Auto) (0.04-0.54) x10^3/uL Immature Gran # (Auto) (0.001-0.031) x10^3u/L Absolute Lymphs (auto) (1.32-3.57) x10^3/uL Absolute Monos (auto) (0.30-0.82) x10^3/uL Absolute Nucleated RBC (0.00-0.012) x10^3u/L Lymphocytes % (21.8-53.1) % Monocytes % (5.3-12.2) % Eosinophils % (0.8-7.0) % Basophils % (0.2-1.2) % Absolute Granulocytes (1.78-5.38) x10^3/uL Basophils # (0.01-0.08) x10^3/uL Sodium (135-145) mmol/L Potassium (3.5-5.1) mmol/L Chloride (98-107) mmol/L Carbon Dioxide (22-30) mmol/L Anion Gap (5-15) MEQ/L BUN (9-20) mg/dL Creatinine (0.66-1.25) mg/dL Estimated GFR ML/MIN Glucose (74-106) mg/dL POC Glucometer 152 H 114 H 145 H (74 to 106) mg/dL Calcium (8.4-10.2) mg/dL Total Bilirubin (0.2-1.3) mg/dL AST (17-59) U/L ALT (0-50) U/L Alkaline Phosphatase (38-126) U/L Serum Total Protein (6.3-8.2) g/dL Albumin (3.5-5.0) g/dL Radiology Exams: Radiology Procedures Category Date Time Status MODIFIED BARIUM SWALLOW (RAD) [MODIFIED BARIUM SWALLOW Exams 10/02/23 08:42 Taken EXAM] Routine Multi-Disciplinary Progress Notes: Multi-Disciplinary Progress Notes 10/02/23 17:25 Mod Barium Swallow Note by Maisha(Iwona#[id number],Jazzy Modified Barium Swallow Study ST Modified Barium Swallow Study Start: 10/02/23 09:00 Freq: .as ordered Status: Active Protocol: Document 10/02/23 16:48 BM (Rec: 10/02/23 17:22 BM [id number]) E-Sign 10/02/23 16:48 BM Modified Barium Swallow Reason for Assessment Primary Diagnosis J18.9 - PNEUMONIA, UNSPECIFIED ORGANISM Primary Diagnosis (cont) R06.00 - DYSPNEA, UNSPECIFIED Treatment Diagnosis #1 R13.12 - DYSPHAGIA, OROPHARYNGEAL PHASE Reason for Assessment PATIENT REFERRED FOR MBS STUDY DUE TO PATIENT C/O DIFFICULTY SWALLOWING. PATIENT INDICATED THAT HE FEELS SOMETHING GETS STUCK AND POINTED HIGH IN THROAT JUST UNDER MANDIBLE. PMH: SEE MEDICAL RECORD. PATIENT WITH LUNG CA, COMPLETED RADIATION TX IN DEC 2022. Onset Date 09/30/23 Date of Evaluation/SOC 10/02/23 Pain Assessment Do you have pain on swallowing No Non-verbal signs & symptoms of pain No Modified Barium Swallow View This evaluation was completed to assess the functioning of the oral and pharyngeal phases of swallowing and to determine if the patient is aspirating or at risk for aspiration. Modified Barium Swallow View Lateral View Consistencies Assessed Barium trials included: Thin Liquid via Spoon,Thin Liquid via Cup,Thin Liquid via Straw,[place] Liquid via Spoon ,Thin Honey Liquid via spoon, Honey Liquid via Spoon,Pudding Liquid via spoon,Pureed Food, Paste on a Cookie Aspiration Risk Aspiration Observed No Amount of Aspiration Observed None Patient considered at risk of aspiration Yes during oral intake Patient is at risk for aspiration After the swallow,Before the swallow,During the swallow Severity of Aspiration Risk Moderate Penetration into Laryngeal Vestibule Yes Penetration occured with Thin Liquid Reason for aspirational risk: PATIENT AT RISK FOR ASPIRATION BEFORE THE SWALLOW DUE TO DELAYED SWALLOW INITIATION WITH PREMATURE SPILLAGE INTO VALLECULAE WITH ALL CONSISTENCIES. PATIENT AT RISK FOR ASPIRATION DURING THE SWALLOW DUE TO DECREASED TIMING/ COORDINATION AND BOLUS CONTROL WITH LARGE VOLUME SWALLOW OF THIN LIQUID PRESENTED VIA STRAW. 8-Point Penetration-Aspiration Scale ([place]) 2.Material enters the airway,remains Yes above the vocal folds and IS ejected from the airway Consistency Thin Method of presentation Straw Comment: ALL OTHER TRIALS AND METHODS OF PRESENTATION: #1 MATERIAL DOES NOT ENTER AIRWAY Residue/Retention Residue Observed Valleculae Right,Valleculae Left Esophageal Function No Impairment (WFL) Other UNABLE TO FULLY ASSESS ESOPHAGEAL FUNCTION DURING THIS MBS STUDY DUE TO MOVEMENT LIMITATIONS OF EQUIPMENT UTILIZED. Assessment of Swallow Phases Oral Phase Labial Closure No Impairment (WFL) Bolus Formation Yes Bolus Control Pooling L/R No Impairment (WFL) Bolus Control under Tongue No Impairment (WFL) Bolus Control Scattered Loss No Impairment (WFL) Mastication Effectiveness No Impairment (WFL) A/P Bolus Propulsion No Impairment (WFL) Premature Spillage into: Valleculae A/P Lingual Propulsion Delay No Impairment (WFL) Lingual Movement No Impairment (WFL) Residue Clearing/Sensitivity No Impairment (WFL) Aspiration No Swallow Initiation Delay Mild Impairment Swallow Delay Time (sec) 2 Other Oral Phase Observations PATIENT WITH MILD SWALLOW INITIATION DELAY EVIDENCED BY PREMATURE SPILLAGE TO VALLECULAE PRIOR TO SWALLOW INITIATION. Pharyngeal Phase Base of Tongue Retraction No Impairment (WFL) Epiglottic Coverage No Impairment (WFL) Laryngeal Elevation Minimal Impairment Reduced Anterior Laryngeal Movement No Laryngeal Closure Minimal Impariment Vallecular Retention Clearing Moderate Impairment Pharyn. Wall Residue Clearing No Impairment (WFL) Pyriform Sinus Retention No Impairment (WFL) Penetration Yes Aspiration No Cricopharyngeal Dysfunction No Cough Throat Clear Other Pharyngeal Phase Observation PATIENT WITH LARYNGEAL VESTIBULE PENETRATION WITH LARGE VOLUME OF THIN LIQUID BARIUM PRESENTED VIA STRAW, DUE TO DECREASED TIMING/ COORDINATION WITH LARYNGEAL CLOSURE. SUFFICIENTLY CLEARED WITH SWALLOW COMPLETION. PATIENT DID DEMONSTRATE SLIGHT THROAT CLEARING COUGH SPONTANEOUSLY. PATIENT WITH INCREASING VOLUME OF VALLECULAR RETENTION AND DECREASED ABILITY TO SUFFICIENTLY CLEAR RESIDUE WITH EACH INCREASE IN VISCOSITY OF BARIUM. PATIENT CUED TO SWALLOW AGAIN TO ASSIST IN CLEARING RESIDUE FROM VALLECULAE. ADDITIONAL ATTEMPT TO CLEAR WITH USE OF DRINK OF WATER, RESULTING IN PARTIAL CLEAR LEAVING SMALL-TO -TRACE AMOUNT REMAINING. Clinical Interpretation Clinical Interpretation PATIENT PRESENTS WITH MILD-TO- MODERATE OROPHARYNGEAL DYSPHAGIA. Speech Therapy Teaching Record Teaching Summary Results/Recommendations Learning Preferences Demonstration,Discussion Barriers to Learning None Readiness for Learning Accepting Teaching Methods Discussion,Audiovisual Teaching Recipient Patient Response to Teaching Verbalize understanding ST Recommendations Diet Consistency Regular Liquid Consistency Regular Thin Follow-Up Primary Physician regarding findings/ Yes recommendations Safe Swallow Compensatory Strategies Compensatory Strategies Small bites and drinks,Dry swallows,Alternate solids/ liquids,[place]in [place] Medication Instructions Medication(s) in pudding or applesauce Staff/Family Suggestions Reinforce Treatment Program Speech Therapist Treatment Program Thermal/tactile Stim. to trigger the No swallow response Therapeutic Feeds Teach Compensatory Techniques, Diet Consistency Analysis Rehabilitation Potential: GOOD Additional Comments: ST TO PROVIDE A WRITTEN LIST OF SAFE SWALLOW COMPENSATORY STRATEGIES FOR PATIENT USE. PLAN OF CARE/STG (DURING HOSPITAL STAY): 1. PATIENT WILL INDEPENDENTLY UTILIZE SAFE SWALLOW COMPENSATORY STRATEGIES TO DECREASE RISK OF ASPIRATION, 90% OF TRIALS. Signatures Speech Therapist Signature ZAK MS, CCC/INSTALLER APPRENTICE Physician Signature DR Christopher SIMPSON, RADIOLOGIST Initialized on 10/02/23 17:25 - END OF NOTE 10/02/23 11:42 Case Management Note by Brianna Chao REFERRAL FAXED TO [facility]. THEY WILL NEED NOTIFIED AT TIME OF DC AT [phone]. THEY WILL NEED FAXED THE DC INSTRUCTIONS. DC MED LIST AND DC SUMMARY TO [phone] Initialized on 10/02/23 11:42 - END OF NOTE 10/02/23 11:03 Case Management Note by Brianna Chao PATIENT CONTINUES TO PLAN TO DC HOME WITH HIS AT TIME OF DC. HE IS AGREEABLE TO [facility] AND HAS NO PREFERENCE IN COMPANY. HE IS ALSO AWARE HIS FAMILY IS LOOKING INTO PRIVATE CAREGIVERS TO HELP HIM AND HIS AT HOME. S/W SON SHON AND PANCHITO FOSTER- BOTH AGREEABLE WITH PLAN TO DC HOME WITH [facility] AND THEY WILL LOOK INTO PRIVATE CAREGIVERS TO ASSIST WELL. NO OTHER NEW NEEDS IDENTIFIED AT THIS TIME Initialized on 10/02/23 11:03 - END OF NOTE Assessment/Plan (1) Pneumonia Current Visit: Yes Status: Acute Assessment & Plan: -cxr demonstrates RUL infiltrate -blood cultures NGTD - sputum cultures with gram - ID -Ceftriaxone/azithromycin started, changed to levaquin due to sputum culture -supplemental oxygen with goal spo2 88-92% - baseline 4L -RT following nebs/INH - budesonide -add mucinex Code(s): J18.9 - PNEUMONIA, UNSPECIFIED ORGANISM (2) CHF (congestive heart failure) Current Visit: Yes Status: Acute Assessment & Plan: -BNP 900 -decreased from previous 1100 -BLE edema -Lasix IV given, will continue with Bumex 1mg IV Code(s): I50.9 - HEART FAILURE, UNSPECIFIED (3) COPD exacerbation Current Visit: No Status: Acute Assessment & Plan: -2/2 to pneumonia -Nebs PRN- budesonide -continue ceftriaxone/azith -supplemental oxygen with spo2 goal 88-92% - baseline 4L, currently at 5L Code(s): J44.1 - CHRONIC OBSTRUCTIVE PULMONARY DISEASE W (ACUTE) EXACERBATION (4) Hypertension Current Visit: No Status: Chronic Assessment & Plan: -controlled, continue home meds valsartan, diltiazem, lopressor Code(s): I10 - ESSENTIAL (PRIMARY) HYPERTENSION (5) Hypothyroidism Current Visit: No Status: Chronic Assessment & Plan: -continue kush levothyroxine Code(s): E03.9 - HYPOTHYROIDISM, UNSPECIFIED (6) Depression Current Visit: Yes Status: Acute Assessment & Plan: - continue home Zoloft 50 daily Code Status: Full code Prophylaxis: Eliquis Diet: 2 gm Na Code(s): F32.A - DEPRESSION, UNSPECIFIED (7) Dysphagia Current Visit: Yes Status: Acute Assessment & Plan: -speech therapy consulted, plans for barium swallow today Code(s): R13.10 - DYSPHAGIA, UNSPECIFIED Code(s): J18.9 - PNEUMONIA, UNSPECIFIED ORGANISM (2) CHF (congestive heart failure) Current Visit: Yes Status: Acute Code(s): I50.9 - HEART FAILURE, UNSPECIFIED (3) COPD exacerbation Current Visit: No Status: Acute Code(s): J44.1 - CHRONIC OBSTRUCTIVE PULMONARY DISEASE W (ACUTE) EXACERBATION (4) Hypertension Current Visit: No Status: Chronic Code(s): I10 - ESSENTIAL (PRIMARY) HYPERTENSION (5) Hypothyroidism Current Visit: No Status: Chronic Code(s): E03.9 - HYPOTHYROIDISM, UNSPECIFIED (6) Depression Current Visit: Yes Status: Acute Code(s): F32.A - DEPRESSION, UNSPECIFIED (7) Dysphagia Current Visit: Yes Status: Acute Code(s): R13.10 - DYSPHAGIA, UNSPECIFIED
[2023-10-03 05:14] LABS: Absolute Neutrophil Ct (ANC) 6.72 x10^3/uL (1.78-5.38); BASOPHIL % 0.5 % (0.2-1.2); Basophil (Absolute #) 0.04 x10^3/uL (0.01-0.08); Eosinophil % 3.6 % (0.8-7.0); Eosinophil (Absolute #) 0.32 x10^3/uL (0.04-0.54); Hematocrit 32.1 % (40.1-51.0); Hemoglobin 9.8 g/dL (13.7-17.5); IMMATURE GRAN # 0.02 x10^3u/L (0.001-0.031); IMMATURE GRAN % 0.2 % (0.001-0.429); Lymphocyte (Absolute #) 0.87 x10^3/uL (1.32-3.57); Lymphocytes % 9.9 % (21.8-53.1); Mean Cell Volume 92.2 fL (79.0-92.2); Mean Corpuscular Hemoglobin 28.2 pg (25.7-32.2); Mean Corpuscular Hgb Concent. 30.5 g/dL (32.3-36.5); Mean Platelet Volume 10.9 fL (9.4-12.4); Monocyte (Absolute #) 0.86 x10^3/uL (0.30-0.82); Monocytes % 9.7 % (5.3-12.2); Neutrophil % 76.1 % (34.0-67.9); Platelet Count 154 x10^3/uL (163-337); Red Blood Count 3.48 x10^6/uL (4.63-6.08); Red Cell Distribution Width 14.3 % (11.6-14.4); White Blood Count 8.8 x10^3/uL (4.23-9.07)
[2023-10-03 05:51] LABS: ALBUMIN 3.2 g/dL (3.5-5.0); BILIRUBIN,TOTAL 0.4 mg/dL (0.2-1.3); Calcium 9.2 mg/dL (8.4-10.2); Creatinine 1 0.99 mg/dL (0.66-1.25); EST GLOMERULAR FILTRATION RATE 76.5 ML/MIN; Potassium 4.7 mmol/L (3.5-5.1); Total Protein 6.4 g/dL (6.3-8.2)
[2023-10-03 06:00] LABS: ANION GAP 10.7 MEQ/L (5-15)
--- NOTE | 2023-10-03 08:42 | XRAY ---
Indication: Difficulty swallowing. Dysphagia. Modified barium swallow study performed by the Department of speech therapy with fluoroscopic assistance provided. Patient ingested multiple consistencies of liquids and solids. Full report and recommendations will be reported separately. Approximately 1.19 minute of fluoroscopy used.
[2023-10-03] MEDS: LEVOFLOXACIN 750MG/150ML D5W 750 MG/150 ML BAG IV SCH (09:38)
--- NOTE | 2023-10-03 11:24 | PCM.DS ---
Discharge Summary Date of Admission: 10/01/23 00:03 Date of Discharge: 10/03/23 Admitting Physician: HI KAUR MD Primary Care Provider: JED CARTER Allergies Allergies influenza vaccine Allergy (Severe, Uncoded 09/30/23 20:37) cardiac arrest Hospital Summary - Hospital Course Hospital Course: 83 y/o M with h/o COPD on 4L oxygen at home, A-fib, CHF, hypothyroidism, and HTN admitted 10/01/23 with pneumonia after experiencing a 3-4 day history of worsening dyspnea and productive cough. CT Chest with small right pleural effusion and RUL infiltrate. IP treatment with Rocephin/azithromycin started for CAP coverage. Patient at baseline oxygen of 4L - 5L. CHF with volume overload. H/o AFIB - controlled with eliquis and diltiazem, will continue. Dyspnea and cough have improved. Patient at baseline oxygenation. Sputum culture with possible c ontamination. Blood cultures NGTD. Labs and vitals stable. Patient requesting discharge and is stable. Will discharge home on levaquin. Advised follow up next week with PCP/Pulm. Discharge Note New Diagnosis: Pneumonia New Medications: Levaquin Follow Up: PCP Results pending: Blood culture final read Latest Assessment & Plan (1) Pneumonia Current Visit: Yes Status: Acute Assessment & Plan: -cxr demonstrates RUL infiltrate -blood cultures NGTD - sputum cultures with gram - ID -Ceftriaxone/azithromycin started, changed to levaquin due to sputum culture -supplemental oxygen with goal spo2 88-92% - baseline 4L -RT following nebs/INH - budesonide -add mucinex 10/02: -Home with levaquin - at baseline oxygen -labs stable -sputum culture with possible contamination -covered with levaquin Code(s): J18.9 - PNEUMONIA, UNSPECIFIED ORGANISM (2) CHF (congestive heart failure) Current Visit: Yes Status: Acute Assessment & Plan: -BNP 900 -decreased from previous 1100 -BLE edema -Lasix IV given, will continue with Bumex 1mg IV Code(s): I50.9 - HEART FAILURE, UNSPECIFIED (3) COPD exacerbation Current Visit: No Status: Acute Assessment & Plan: -2/2 to pneumonia -Nebs PRN- budesonide -continue ceftriaxone/azith -supplemental oxygen with spo2 goal 88-92% - baseline 4L, currently at 5L Code(s): J44.1 - CHRONIC OBSTRUCTIVE PULMONARY DISEASE W (ACUTE) EXACERBATION (4) Hypertension Current Visit: No Status: Chronic Assessment & Plan: -controlled, continue home meds valsartan, diltiazem, lopressor Code(s): I10 - ESSENTIAL (PRIMARY) HYPERTENSION (5) Hypothyroidism Current Visit: No Status: Chronic Assessment & Plan: -continue kush levothyroxine Code(s): E03.9 - HYPOTHYROIDISM, UNSPECIFIED (6) Depression Current Visit: Yes Status: Acute Assessment & Plan: - continue home Zoloft 50 daily #Dysphagia -Barium swallow performed recs for Regular diet Small bites and drinks,Dry swallows,Alternate solids/ liquids,Chin Tuck Medication Instructions Medication(s) in pudding or applesauce Staff/Family Suggestions Reinforce Treatment Program I spent 35 minutes [id number] with the patient on the day of discharge performing discharge exam, discussing hospital stay and discharge instructions with patient and caregivers, preparation of discharge records, prescriptions & referral forms and addressing any questions/concerns the patient had as documented above. - Vitals & Intake/Output Vital Signs: Vital Signs Temperature 97.1 F 10/03/23 07:00 Pulse Rate 60 10/03/23 07:00 Respiratory Rate 16 10/03/23 07:00 Blood Pressure 141/70 10/03/23 07:00 O2 Sat by Pulse Oximetry 90 L 10/03/23 07:00 Intake & Output: Intake & Output 09/30/23 10/01/23 10/02/23 10/03/23 11:59 11:59 11:59 11:59 Intake Total 229 798 1223 Output Total 700 1350 1225 Balance -440 -1170 455 Weight 52.3 kg - Lab Result Diagrams: 10/03/23 04:25 10/03/23 04:25 Lab Results-Last 24 Hrs: Lab Results-Last 24 Hours 10/02/23 10/02/23 10/03/23 Range/Units 16:22 21:53 04:25 WBC 8.8 (4.23-9.07) x10^3/uL RBC 3.48 L (4.63-6.08) x10^6/uL Hgb 9.8 L (13.7-17.5) g/dL Hct 32.1 L (40.1-51.0) % MCV 92.2 (79.0-92.2) fL MCH 28.2 (25.7-32.2) pg MCHC 30.5 L (32.3-36.5) g/dL RDW 14.3 (11.6-14.4) % Plt Count 154 L (163-337) x10^3/uL MPV 10.9 (9.4-12.4) fL Gran % 76.1 H (34.0-67.9) % Immature Gran % (Auto) 0.2 (0.001-0.429) % Nucleat RBC Rel Count 0.0 (0.00-0.2) % Eos # (Auto) 0.32 (0.04-0.54) x10^3/uL Immature Gran # (Auto) 0.02 (0.001-0.031) x10^3u/L Absolute Lymphs (auto) 0.87 L (1.32-3.57) x10^3/uL Absolute Monos (auto) 0.86 H (0.30-0.82) x10^3/uL Absolute Nucleated RBC 0.00 (0.00-0.012) x10^3u/L Lymphocytes % 9.9 L (21.8-53.1) % Monocytes % 9.7 (5.3-12.2) % Eosinophils % 3.6 (0.8-7.0) % Basophils % 0.5 (0.2-1.2) % Absolute Granulocytes 6.72 H (1.78-5.38) x10^3/uL Basophils # 0.04 (0.01-0.08) x10^3/uL Sodium (135-145) mmol/L Potassium (3.5-5.1) mmol/L Chloride (98-107) mmol/L Carbon Dioxide (22-30) mmol/L Anion Gap (5-15) MEQ/L BUN (9-20) mg/dL Creatinine (0.66-1.25) mg/dL Estimated GFR ML/MIN Glucose (74-106) mg/dL POC Glucometer 114 H 145 H (74 to 106) mg/dL Calcium (8.4-10.2) mg/dL Total Bilirubin (0.2-1.3) mg/dL AST (17-59) U/L ALT (0-50) U/L Alkaline Phosphatase (38-126) U/L Serum Total Protein (6.3-8.2) g/dL Albumin (3.5-5.0) g/dL 10/03/23 10/03/23 Range/Units 04:25 07:05 WBC (4.23-9.07) x10^3/uL RBC (4.63-6.08) x10^6/uL Hgb (13.7-17.5) g/dL Hct (40.1-51.0) % MCV (79.0-92.2) fL MCH (25.7-32.2) pg MCHC (32.3-36.5) g/dL RDW (11.6-14.4) % Plt Count (163-337) x10^3/uL MPV (9.4-12.4) fL Gran % (34.0-67.9) % Immature Gran % (Auto) (0.001-0.429) % Nucleat RBC Rel Count (0.00-0.2) % Eos # (Auto) (0.04-0.54) x10^3/uL Immature Gran # (Auto) (0.001-0.031) x10^3u/L Absolute Lymphs (auto) (1.32-3.57) x10^3/uL Absolute Monos (auto) (0.30-0.82) x10^3/uL Absolute Nucleated RBC (0.00-0.012) x10^3u/L Lymphocytes % (21.8-53.1) % Monocytes % (5.3-12.2) % Eosinophils % (0.8-7.0) % Basophils % (0.2-1.2) % Absolute Granulocytes (1.78-5.38) x10^3/uL Basophils # (0.01-0.08) x10^3/uL Sodium 139 (135-145) mmol/L Potassium 4.7 (3.5-5.1) mmol/L Chloride 96 L (98-107) mmol/L Carbon Dioxide 37 H (22-30) mmol/L Anion Gap 10.7 (5-15) MEQ/L BUN 18 (9-20) mg/dL Creatinine 0.99 (0.66-1.25) mg/dL Estimated GFR 76.5 ML/MIN Glucose 110 H (74-106) mg/dL POC Glucometer 117 H (74 to 106) mg/dL Calcium 9.2 (8.4-10.2) mg/dL Total Bilirubin 0.40 (0.2-1.3) mg/dL AST 62 H (17-59) U/L ALT 75 H (0-50) U/L Alkaline Phosphatase 131 H (38-126) U/L Serum Total Protein 6.4 (6.3-8.2) g/dL Albumin 3.2 L (3.5-5.0) g/dL Micro Results-Entire Visit: Microbiology 09/30/23 21:17 Gram Stain - Final Sputum - Aerosol Induced Sputum Culture - Final [place] Spp 09/30/23 21:20 Blood Culture - Preliminary Blood 09/30/23 21:20 Blood Culture - Preliminary Blood Accuchecks Date 10/03/23 Date 10/02/23 Date 10/02/23 Date 10/02/23 Time 16:31 Time 11:10 - Radiology Exams Ordered Rad Exams-Entire Visit: Radiology Procedures Category Date Time Status MODIFIED BARIUM SWALLOW (RAD) [MODIFIED BARIUM SWALLOW Exams 10/02/23 08:42 Completed EXAM] Routine - Procedures and Test Procedures and Tests throughout Hospitalization: Therapy Orders & Screens 09/30/23 21:17 Respiratory Therapy Assessment DAILY Comment: 10/01/23 00:09 Oxygen Nasal Cannula 5 lpm Comment: Respiratory Therapy Consult ONCE Comment: Reason For Exam: 10/01/23 01:18 RT Screen per Nursing Assess ONCE Comment: Protocol Order Physician Instructions: Greater than 3 points order RT Admission Screen Reason For Exam: Triggered on Admission Diagnosis: pneumonia, dyspnea Diagnosis: pneumonia, dyspnea Pneumonia: Yes Home O2: Yes Asthma: Yes CHF: Yes Home CPAP/BIPAP: No Home Nebs/MDI: Yes Total Points: 20 10/01/23 09:00 ST Screen per Nursing Assess ONCE Comment: Protocol Order Physician Instructions: Greater than [address] Admission Screening Reason For Exam: Triggered on Admission Diagnosis: pneumonia, dyspnea CVA/Dyshpagia/Aphasia: No Cognitive Deficits: No Dehydration/Nutrition Deficit: No Reflux: No Oral-Motor Difficulties: No Pneumonia: Yes Senior Care Resident: No Total Points: 5 10/01/23 13:44 Speech Therapy Eval & Treat [ Eval & Treat (MD Order)] .as ordered Comment: Physician Instructions: Reason For Exam: Evaluate: Yes Treat: Yes Reason for Eval: pt states trouble swallowing; pt has known lung CA and XRT Diagnosis: shortness of breath 10/02/23 08:00 Incentive Spirometry UD Comment: Diagnosis: shortness of breath 10/02/23 09:00 Modified Barium Swallow Eval .as ordered Comment: Physician Instructions: Reason For Exam: dysphagia Discharge Exam General Appearance: no apparent distress Neurologic Exam: alert, oriented x 3, cooperative Eye Exam: PERRL Ears, Nose, Throat Exam: normal ENT inspection Neck Exam: normal inspection Respiratory Exam: diminished breath sounds Cardiovascular Exam: regular rate/rhythm, normal heart sounds Gastrointestinal/Abdomen Exam: soft, normal bowel sounds Male Genitalia Exam: deferred Rectal Exam: deferred Back Exam: normal inspection Extremity Exam: normal inspection Skin Exam: normal color Final Diagnosis/Problem List - Final Discharge Diagnosis/Problem (1) Pneumonia Current Visit: Yes Status: Acute Code(s): J18.9 - PNEUMONIA, UNSPECIFIED ORGANISM (2) CHF (congestive heart failure) Current Visit: Yes Status: Chronic Code(s): I50.9 - HEART FAILURE, UNSPECIFIED (3) COPD exacerbation Current Visit: No Status: Chronic Code(s): J44.1 - CHRONIC OBSTRUCTIVE PULMONARY DISEASE W (ACUTE) EXACERBATION (4) Hypertension Current Visit: No Status: Chronic Code(s): I10 - ESSENTIAL (PRIMARY) HYPERTENSION (5) Hypothyroidism Current Visit: No Status: Chronic Code(s): E03.9 - HYPOTHYROIDISM, UNSPECIFIED (6) Depression Current Visit: Yes Status: Chronic Code(s): F32.A - DEPRESSION, UNSPECIFIED (7) Dysphagia Current Visit: Yes Status: Resolved Code(s): R13.10 - DYSPHAGIA, UNSPECIFIED - Discharge Disposition: Home, Self-Care Condition: Stable Prescriptions: New levoFLOXacin [Levofloxacin] 750 mg PO DAILY 7 Days #7 tablet Continue Apixaban [Eliquis] 1 tab PO BID dilTIAZem HCL [Cartia Xt] 1 cap PO DAILY Valsartan 0.5 tab PO DAILY Metoprolol Tartrate 50 mg [Lopressor 50 MG] 1 tab PO BID Atorvastatin Calcium [Lipitor 20MG Tablet] 1 tab PO DAILY Potassium Chloride 10 meq PO TID Levothyroxine Sodium 75 Mcg [Synthroid 75 Mcg] 75 mcg PO DAILY LORazepam [Lorazepam] 0.5 mg PO BID PRN PRN Reason: Anxiety Bumetanide 1 mg [Bumex 1 mg] 1 mg PO DAILY Cinnamon Bark [Cinnamon] 2,000 mg PO DAILY Multivitamin 1 tab PO DAILY Sucralfate 1 tab PO HS Sertraline HCl 50 mg [Zoloft 50 mg Tablet] 1 tab PO DAILY Nitroglycerin 0.4 mg SL Q5MIN PRN MR X 3 PRN PRN Reason: Chest Pain Additional Instructions: [facility] HAS BEEN SET UP FOR YOU. THEY WILL CALL YOU TO MAKE AN APT TO COME SEE YOU. THEIR PHONE NUMBER IS [phone] IF YOU NEED ANYTHING BEFORE THEIR FIRST VISIT A REFERRAL WAS SENT TO [facility] TO SEE IF YOU QUALIFY TO GET ANY HELP THRU THEM. THEY WILL CALL YOU BUT IF NEEDED YOU CAN FOLLOW UP WITH THEM AT [phone] A REFERRAL WAS ALSO SENT TO OUT [facility]CO DEPARTMENT TO SEE IF THEY CAN HELP YOU MANGE YOUR HEALTH AT HOME WELL. THEY WILL CALL YOU TO SEE HOW THEY CAN HELP. IF NEED TO, YOU CAN FOLLOWUP WITH THEM AT [phone] Follow up with: JED CARTER MD [Primary Care Provider] -
[2023-10-03] MEDS: Ativan 0.5 MG PO PRN (21:33)
--- NOTE | 2023-10-04 05:13 | PCM.DS ---
Discharge Summary Date of Admission: 10/01/23 00:03 Date of Discharge: 10/04/23 Admitting Physician: HI KAUR MD Primary Care Provider: JED CARTER Allergies Allergies influenza vaccine Allergy (Severe, Uncoded 09/30/23 20:37) cardiac arrest Hospital Summary - Hospital Course Hospital Course: 83 y/o M with h/o COPD on 4L oxygen at home, A-fib, CHF, hypothyroidism, and HTN admitted 10/01/23 with pneumonia after experiencing a 3-4 day history of worsening dyspnea and productive cough. CT Chest with small right pleural effusion and RUL infiltrate. IP treatment with Rocephin/azithromycin started for CAP coverage. Patient at baseline oxygen of 4L - 5L. CHF with volume overload. H/o AFIB - controlled with eliquis and diltiazem, will continue. Dyspnea and cough have improved. Patient at baseline oxygenation. Sputum culture with possible contamination. Blood cultures NGTD. Labs and vitals stable. Patient requesting discharge and is stable. Will discharge home on levaquin. Advised follow up next week with PCP/Pulm. Discharge Note New Diagnosis: Pneumonia New Medications: Levaquin Follow Up: PCP Results pending: Blood culture final read Latest Assessment & Plan (1) Pneumonia Current Visit: Yes Status: Acute Assessment & Plan: -cxr demonstrates RUL infiltrate -blood cultures NGTD - sputum cultures with gram - ID -Ceftriaxone/azithromycin started, changed to levaquin due to sputum culture -supplemental oxygen with goal spo2 88-92% - baseline 4L -RT following nebs/INH - budesonide -add mucinex 10/02: -Home with levaquin - at baseline oxygen -labs stable -sputum culture with possible contamination -covered with levaquin Code(s): J18.9 - PNEUMONIA, UNSPECIFIED ORGANISM (2) CHF (congestive heart failure) Current Visit: Yes Status: Acute Assessment & Plan: -BNP 900 -decreased from previous 1100 -BLE edema -Lasix IV given, will continue with Bumex 1mg IV Code(s): I50.9 - HEART FAILURE, UNSPECIFIED (3) COPD exacerbation Current Visit: No Status: Acute Assessment & Plan: -2/2 to pneumonia -Nebs PRN- budesonide -continue ceftriaxone/azith -supplemental oxygen with spo2 goal 88-92% - baseline 4L, currently at 5L Code(s): J44.1 - CHRONIC OBSTRUCTIVE PULMONARY DISEASE W (ACUTE) EXACERBATION (4) Hypertension Current Visit: No Status: Chronic Assessment & Plan: -controlled, continue home meds valsartan, diltiazem, lopressor Code(s): I10 - ESSENTIAL (PRIMARY) HYPERTENSION (5) Hypothyroidism Current Visit: No Status: Chronic Assessment & Plan: -continue kush levothyroxine Code(s): E03.9 - HYPOTHYROIDISM, UNSPECIFIED (6) Depression Current Visit: Yes Status: Acute Assessment & Plan: - continue home Zoloft 50 daily #Dysphagia -Barium swallow performed recs for Regular diet Small bites and drinks,Dry swallows,Alternate solids/ liquids,Chin Tuck Medication Instructions Medication(s) in pudding or applesauce Staff/Family Suggestions Reinforce Treatment Program I spent 35 minutes [id number] with the patient on the day of discharge performing discharge exam, discussing hospital stay and discharge instructions with patient and caregivers, preparation of discharge records, prescriptions & referral forms and addressing any questions/concerns the patient had as documented above. - Vitals & Intake/Output Vital Signs: Vital Signs Temperature 97.0 F 10/03/23 23:00 Pulse Rate 61 10/04/23 01:15 Respiratory Rate 16 10/04/23 01:15 Blood Pressure 129/69 10/03/23 23:00 O2 Sat by Pulse Oximetry 96 10/04/23 01:15 Intake & Output: Intake & Output 10/01/23 10/02/23 10/03/23 10/04/23 11:59 11:59 11:59 11:59 Intake Total 904 153 2381 240 Output Total 700 1350 1225 650 Balance -440 -1170 455 -410 Weight 52.3 kg - Lab Result Diagrams: 10/04/23 04:50 10/04/23 04:50 Lab Results-Last 24 Hrs: Lab Results-Last 24 Hours 10/03/23 10/03/23 10/03/23 Range/Units 04:25 04:25 07:05 WBC 8.8 (4.23-9.07) x10^3/uL RBC 3.48 L (4.63-6.08) x10^6/uL Hgb 9.8 L (13.7-17.5) g/dL Hct 32.1 L (40.1-51.0) % MCV 92.2 (79.0-92.2) fL MCH 28.2 (25.7-32.2) pg MCHC 30.5 L (32.3-36.5) g/dL RDW 14.3 (11.6-14.4) % Plt Count 154 L (163-337) x10^3/uL MPV 10.9 (9.4-12.4) fL Gran % 76.1 H (34.0-67.9) % Immature Gran % (Auto) 0.2 (0.001-0.429) % Nucleat RBC Rel Count 0.0 (0.00-0.2) % Eos # (Auto) 0.32 (0.04-0.54) x10^3/uL Immature Gran # (Auto) 0.02 (0.001-0.031) x10^3u/L Absolute Lymphs (auto) 0.87 L (1.32-3.57) x10^3/uL Absolute Monos (auto) 0.86 H (0.30-0.82) x10^3/uL Absolute Nucleated RBC 0.00 (0.00-0.012) x10^3u/L Lymphocytes % 9.9 L (21.8-53.1) % Monocytes % 9.7 (5.3-12.2) % Eosinophils % 3.6 (0.8-7.0) % Basophils % 0.5 (0.2-1.2) % Absolute Granulocytes 6.72 H (1.78-5.38) x10^3/uL Basophils # 0.04 (0.01-0.08) x10^3/uL Sodium 139 (135-145) mmol/L Potassium 4.7 (3.5-5.1) mmol/L Chloride 96 L (98-107) mmol/L Carbon Dioxide 37 H (22-30) mmol/L Anion Gap 10.7 (5-15) MEQ/L BUN 18 (9-20) mg/dL Creatinine 0.99 (0.66-1.25) mg/dL Estimated GFR 76.5 ML/MIN Glucose 110 H (74-106) mg/dL POC Glucometer 117 H (74 to 106) mg/dL Calcium 9.2 (8.4-10.2) mg/dL Total Bilirubin 0.40 (0.2-1.3) mg/dL AST 62 H (17-59) U/L ALT 75 H (0-50) U/L Alkaline Phosphatase 131 H (38-126) U/L Serum Total Protein 6.4 (6.3-8.2) g/dL Albumin 3.2 L (3.5-5.0) g/dL 10/03/23 10/03/23 10/03/23 Range/Units 11:17 16:35 21:21 WBC (4.23-9.07) x10^3/uL RBC (4.63-6.08) x10^6/uL Hgb (13.7-17.5) g/dL Hct (40.1-51.0) % MCV (79.0-92.2) fL MCH (25.7-32.2) pg MCHC (32.3-36.5) g/dL RDW (11.6-14.4) % Plt Count (163-337) x10^3/uL MPV (9.4-12.4) fL Gran % (34.0-67.9) % Immature Gran % (Auto) (0.001-0.429) % Nucleat RBC Rel Count (0.00-0.2) % Eos # (Auto) (0.04-0.54) x10^3/uL Immature Gran # (Auto) (0.001-0.031) x10^3u/L Absolute Lymphs (auto) (1.32-3.57) x10^3/uL Absolute Monos (auto) (0.30-0.82) x10^3/uL Absolute Nucleated RBC (0.00-0.012) x10^3u/L Lymphocytes % (21.8-53.1) % Monocytes % (5.3-12.2) % Eosinophils % (0.8-7.0) % Basophils % (0.2-1.2) % Absolute Granulocytes (1.78-5.38) x10^3/uL Basophils # (0.01-0.08) x10^3/uL Sodium (135-145) mmol/L Potassium (3.5-5.1) mmol/L Chloride (98-107) mmol/L Carbon Dioxide (22-30) mmol/L Anion Gap (5-15) MEQ/L BUN (9-20) mg/dL Creatinine (0.66-1.25) mg/dL Estimated GFR ML/MIN Glucose (74-106) mg/dL POC Glucometer 204 H 101 174 H (74 to 106) mg/dL Calcium (8.4-10.2) mg/dL Total Bilirubin (0.2-1.3) mg/dL AST (17-59) U/L ALT (0-50) U/L Alkaline Phosphatase (38-126) U/L Serum Total Protein (6.3-8.2) g/dL Albumin (3.5-5.0) g/dL Micro Results-Entire Visit: Microbiology 09/30/23 21:17 Gram Stain - Final Sputum - Aerosol Induced Sputum Culture - Final [place] Spp 09/30/23 21:20 Blood Culture - Preliminary Blood 09/30/23 21:20 Blood Culture - Preliminary Blood Accuchecks Date 10/03/23 Date 10/03/23 Date 10/03/23 Date 10/03/23 Time 21:21 - Radiology Exams Ordered Rad Exams-Entire Visit: Radiology Procedures Category Date Time Status MODIFIED BARIUM SWALLOW (RAD) [MODIFIED BARIUM SWALLOW Exams 10/02/23 08:42 Completed EXAM] Routine - Procedures and Test Procedures and Tests throughout Hospitalization: Therapy Orders & Screens 09/30/23 21:17 Respiratory Therapy Assessment DAILY Comment: 10/01/23 00:09 Oxygen Nasal Cannula 5 lpm Comment: Respiratory Therapy Consult ONCE Comment: Reason For Exam: 10/01/23 01:18 RT Screen per Nursing Assess ONCE Comment: Protocol Order Physician Instructions: Greater than 3 points order RT Admission Screen Reason For Exam: Triggered on Admission Diagnosis: pneumonia, dyspnea Diagnosis: pneumonia, dyspnea Pneumonia: Yes Home O2: Yes Asthma: Yes CHF: Yes Home CPAP/BIPAP: No Home Nebs/MDI: Yes Total Points: 20 10/01/23 09:00 ST Screen per Nursing Assess ONCE Comment: Protocol Order Physician Instructions: Greater than [address] Admission Screening Reason For Exam: Triggered on Admission Diagnosis: pneumonia, dyspnea CVA/Dyshpagia/Aphasia: No Cognitive Deficits: No Dehydration/Nutrition Deficit: No Reflux: No Oral-Motor Difficulties: No Pneumonia: Yes Prison Resident: No Total Points: 5 10/01/23 13:44 Speech Therapy Eval & Treat [ Eval & Treat (MD Order)] .as ordered Comment: Physician Instructions: Reason For Exam: Evaluate: Yes Treat: Yes Reason for Eval: pt states trouble swallowing; pt has known lung CA and XRT Diagnosis: shortness of breath 10/02/23 08:00 Incentive Spirometry UD Comment: Diagnosis: shortness of breath 10/02/23 09:00 Modified Barium Swallow Eval .as ordered Comment: Physician Instructions: Reason For Exam: dysphagia 10/03/23 13:36 PT Eval & Treat ( Order) ONCE Reason for Eval:: weakness Diagnosis: shortness of breath Discharge Exam General Appearance: no apparent distress Neurologic Exam: alert, oriented x 3, cooperative Eye Exam: PERRL Ears, Nose, Throat Exam: normal ENT inspection Neck Exam: normal inspection Respiratory Exam: diminished breath sounds Cardiovascular Exam: regular rate/rhythm, normal heart sounds Gastrointestinal/Abdomen Exam: soft, normal bowel sounds Male Genitalia Exam: deferred Rectal Exam: deferred Back Exam: normal inspection Extremity Exam: normal inspection Skin Exam: normal color Final Diagnosis/Problem List - Final Discharge Diagnosis/Problem (1) Pneumonia Current Visit: Yes Status: Acute Code(s): J18.9 - PNEUMONIA, UNSPECIFIED ORGANISM (2) CHF (congestive heart failure) Current Visit: Yes Status: Chronic Code(s): I50.9 - HEART FAILURE, UNSPECIFIED (3) COPD exacerbation Current Visit: No Status: Chronic Code(s): J44.1 - CHRONIC OBSTRUCTIVE PULMONARY DISEASE W (ACUTE) EXACERBATION (4) Hypertension Current Visit: No Status: Chronic Code(s): I10 - ESSENTIAL (PRIMARY) HYPERTENSION (5) Hypothyroidism Current Visit: No Status: Chronic Code(s): E03.9 - HYPOTHYROIDISM, UNSPECIFIED (6) Depression Current Visit: Yes Status: Chronic Code(s): F32.A - DEPRESSION, UNSPECIFIED (7) Dysphagia Current Visit: Yes Status: Resolved Code(s): R13.10 - DYSPHAGIA, UNSPECIFIED - Discharge Disposition: Home, Self-Care Condition: Stable Prescriptions: New levoFLOXacin [Levofloxacin] 750 mg PO DAILY 7 Days #7 tablet Continue Apixaban [Eliquis] 1 tab PO BID dilTIAZem HCL [Cartia Xt] 1 cap PO DAILY Valsartan 0.5 tab PO DAILY Metoprolol Tartrate 50 mg [Lopressor 50 MG] 1 tab PO BID Atorvastatin Calcium [Lipitor 20MG Tablet] 1 tab PO DAILY Potassium Chloride 10 meq PO TID Levothyroxine Sodium 75 Mcg [Synthroid 75 Mcg] 75 mcg PO DAILY LORazepam [Lorazepam] 0.5 mg PO BID PRN PRN Reason: Anxiety Bumetanide 1 mg [Bumex 1 mg] 1 mg PO DAILY Cinnamon Bark [Cinnamon] 2,000 mg PO DAILY Multivitamin 1 tab PO DAILY Sucralfate 1 tab PO HS Sertraline HCl 50 mg [Zoloft 50 mg Tablet] 1 tab PO DAILY Nitroglycerin 0.4 mg SL Q5MIN PRN MR X 3 PRN PRN Reason: Chest Pain Instructions: Levofloxacin (Systemic), Pneumonia in adults - Discharge instructions Additional Instructions: [facility] HAS BEEN SET UP FOR YOU. THEY WILL CALL YOU TO MAKE AN APT TO COME SEE YOU. THEIR PHONE NUMBER IS [phone] IF YOU NEED ANYTHING BEFORE THEIR FIRST VISIT A REFERRAL WAS SENT TO [facility] TO SEE IF YOU QUALIFY TO GET ANY HELP THRU THEM. THEY WILL CALL YOU BUT IF NEEDED YOU CAN FOLLOW UP WITH THEM AT [phone] A REFERRAL WAS ALSO SENT TO OUT ACO DEPARTMENT TO SEE IF THEY CAN HELP YOU MANGE YOUR HEALTH AT HOME WELL. THEY WILL CALL YOU TO SEE HOW THEY CAN HELP. IF NEED TO, YOU CAN FOLLOWUP WITH THEM AT [phone] Follow up with: JED CARTER MD [Primary Care Provider] - 10/16/23 10:00 am Forms: Discharge Instructions
[2023-10-04 05:28] LABS: Absolute Neutrophil Ct (ANC) 7.25 x10^3/uL (1.78-5.38); BASOPHIL % 0.2 % (0.2-1.2); Basophil (Absolute #) 0.02 x10^3/uL (0.01-0.08); Eosinophil % 1.5 % (0.8-7.0); Eosinophil (Absolute #) 0.13 x10^3/uL (0.04-0.54); Hematocrit 34.3 % (40.1-51.0); Hemoglobin 10.5 g/dL (13.7-17.5); IMMATURE GRAN # 0.03 x10^3u/L (0.001-0.031); IMMATURE GRAN % 0.3 % (0.001-0.429); Lymphocytes % 5.7 % (21.8-53.1); Mean Corpuscular Hemoglobin 28.2 pg (25.7-32.2); Mean Corpuscular Hgb Concent. 30.6 g/dL (32.3-36.5); Mean Platelet Volume 11.6 fL (9.4-12.4); Monocyte (Absolute #) 0.87 x10^3/uL (0.30-0.82); Monocytes % 9.9 % (5.3-12.2); Neutrophil % 82.4 % (34.0-67.9); Platelet Count 175 x10^3/uL (163-337); Red Blood Count 3.73 x10^6/uL (4.63-6.08); Red Cell Distribution Width 14.2 % (11.6-14.4); White Blood Count 8.8 x10^3/uL (4.23-9.07)
[2023-10-04 05:51] LABS: ALBUMIN 3.5 g/dL (3.5-5.0); ANION GAP 9.8 MEQ/L (5-15); BILIRUBIN,TOTAL 0.7 mg/dL (0.2-1.3); Calcium 9.3 mg/dL (8.4-10.2); Creatinine 1 1.18 mg/dL (0.66-1.25); Potassium 4.5 mmol/L (3.5-5.1); Total Protein 6.9 g/dL (6.3-8.2)
[2023-10-04 07:01] VITALS: RESP 18
[2023-10-04 07:47] LABS: Slide Review 1 YES
[2023-10-04 13:16] VITALS: BP 102/56; PULSE 81; TEMP 97.9; O2SAT 93
[2023-10-05] MEDS ORDERED: Levofloxacin 250MG Tablet PO SCH ×2 (10:00)
== END 2023-10-04 13:10 | disposition home health service (06) ==
LOC: ED 20:34 → MED SURG 10-01 00:03
PROVIDERS: ADMIT Internal Medicine; ATTEND Internal Medicine
DX: J18.9 Pneumonia, unspecified organism (principal); I11.0 Hypertensive heart disease with heart failure; I50.9 Heart failure, unspecified; I48.91 Unspecified atrial fibrillation; J44.1 Chronic obstructive pulmonary disease with (acute) exacerbation; E03.9 Hypothyroidism, unspecified; F32.A Depression, unspecified; R13.10 Dysphagia, unspecified; Z99.81 Dependence on supplemental oxygen; Z79.01 Long term (current) use of anticoagulants; Z79.899 Other long term (current) drug therapy
CPT/HCPCS: 0241U; 36000; 36415; 71260; 74230; 80053; 82805; 82947; 83036; 83735; 83880; 84484; 85025; 85379; 87040; 87070; 87077; 87186; 92611; 93005; 93268; 94640; 94762; 96365; 96367; 97161; 99285; G0378; Q3014; J0456; J0696; J1940; J1956; J7609; A9270-GY

== ENCOUNTER 2023-10-05 13:08 | Observation (INO) | payer MEDICARE ==
--- NOTE | 2023-10-05 13:18 | ERPHSYRPT ---
- History of Present Illness Time Seen by Provider: 10/05/23 13:17 Source: patient Exam Limitations: clinical condition Patient Subjective Stated Complaint: Pt states "I was released from here yesterday and I still cannot breath." Triage Nursing Assessment: Pt presented alert and oriented X 3, skin pwd. Pt able to speak in clear full sentences. Pt resting comfortably on the bed. Physician History: This is an 83-year-old white male patient of Dr. Carter who was brought to the emergency department by the paramedics because of complaint of worsening shortness of breath. I reviewed the patient's most recent admission into [facility]. Date of admission 09/30/2023 and date of discharge 10/04/2023. Patient states he was breathing much better yesterday and requested that he be discharged to home. Since being home, his shortness of breath has worsened. He does not have shortness of breath. He was diagnosed with right- sided pneumonia and was on Levaquin orally as an outpatient. Patient denies chest pain. Patient denies abdominal pain. Patient has end-stage COPD and wears 4 to 5 L of oxygen via nasal cannula and has a history of lung cancer. On arrival to the emergency department, the patient's oxygen saturation levels 84% on his 4 L of nasal cannula oxygen. He is afebrile. His systolic blood pressure 86. He has a respiratory rate of 14. Patient has a history of atrial fibrillation for which he takes Eliquis and diltiazem. He has a history of hyperlipidemia, CHF, hypertension, TIAs, coronary disease, gastroesophageal reflux disease and anxiety. Timing/Duration: today, worse Activities at Onset: none Severity of Dyspnea-Max: moderate Severity of Dyspnea-Current: moderate Possible Cause: frequent episodes Modifying Factors: Improves With: oxygen Associated Symptoms: denies symptoms Allergies/Adverse Reactions: influenza vaccine Allergy (Severe, Uncoded 09/30/23 20:37) cardiac arrest Home Medications: Apixaban [Eliquis] 1 tab PO BID 03/01/23 [History] Atorvastatin Calcium [Lipitor 20MG Tablet] 1 tab PO DAILY 03/01/23 [History] Bumetanide 1 mg [Bumex 1 mg] 1 mg PO DAILY 03/01/23 [History] LORazepam [Lorazepam] 0.5 mg PO BID PRN 03/01/23 [History] Levothyroxine Sodium 75 Mcg [Synthroid 75 Mcg] 75 mcg PO DAILY 03/01/23 [History] Metoprolol Tartrate 50 mg [Lopressor 50 MG] 1 tab PO BID 03/01/23 [History] Potassium Chloride 10 meq PO TID 03/01/23 [History] Valsartan 0.5 tab PO DAILY 03/01/23 [History] dilTIAZem HCL [Cartia Xt] 1 cap PO DAILY 03/01/23 [History] Cinnamon Bark [Cinnamon] 2,000 mg PO DAILY 09/30/23 [History] Multivitamin 1 tab PO DAILY 09/30/23 [History] Nitroglycerin 0.4 mg SL Q5MIN PRN MR X 3 PRN 09/30/23 [History] Sertraline HCl 50 mg [Zoloft 50 mg Tablet] 1 tab PO DAILY 09/30/23 [History] Sucralfate 1 tab PO HS 09/30/23 [History] Hx Tetanus, Diphtheria Vaccination/Date Given: No Hx Influenza Vaccination/Date Given: No Hx Pneumococcal Vaccination/Date Given: No Immunizations Up to Date: No Travel Risk - International Travel Have you traveled outside of the country in past 3 weeks: No - Emerging Infectious Disease Are you exhibiting symptoms associated with any current EIDs: No Symptoms: Shortness of Breath - Review of Systems Constitutional: Lethargy, Weakness Eyes: No Symptoms Ears, Nose, & Throat: No Symptoms Respiratory: Dyspnea Cardiac: No Symptoms Abdominal/Gastrointestinal: No Symptoms Genitourinary Symptoms: No Symptoms Musculoskeletal: No Symptoms Skin: No Symptoms Neurological: No Symptoms Psychological: No Symptoms Endocrine: No Symptoms Hematologic/Lymphatic: No Symptoms Immunological/Allergic: No Symptoms All Other Systems: Reviewed and Negative - Past Medical History Pertinent Past Medical History: Yes Neurological History: TIA ENT History: No Pertinent History Cardiac History: Arrhythmia, Congestive Heart Failure, Coronary Artery Disease, High Cholesterol, Hypertension, Myocardial Infarction ([place]) Respiratory History: COPD, Emphysema, Lung Cancer Endocrine Medical History: Hypothyroidism Musculoskeletal History: Fractures, Arthritis GI Medical History: GERD History: No Pertinent History Psycho-Social History: Anxiety Male Reproductive Disorders: No Pertinent History Other Medical History: kidney stones, a-fib, lung cancer in 2022 - radiation tx only, [place] - [place] - Past Surgical History Past Surgical History: Yes Neuro Surgical History: No Pertinent History Cardiac: Cardiac Catheterization, Cardiac Stent Respiratory: No Pertinent History Gastrointestinal: No Pertinent History Genitourinary: No Pertinent History Musculoskeletal: Orthopedic Surgery Male Surgical History: No Pertinent History Other Surgical History: right hand, cardiac ablation 2017 Significant Family History: no pertinent family hx - Social History Smoking Status: Former smoker Exposure to second hand smoke: No Drug Use: none Patient Lives Alone: No - Social Determinants of Health Will the patient participate in the screening: Yes Do you worry about a steady place to live?: No Do you have any problems with any of the following?: No known problems In the past 12 months,have you had to go without utilities?: No Transportation Issues: No Has anyone in your support network made you feel unsafe?: No Have you or anyone in your house had to go without enough: No Comment: air conditioning went out today - Nursing Vital Signs Nursing Vital Signs: Initial Vital Signs Temperature 97.4 F 10/05/23 13:09 Pulse Rate 64 10/05/23 13:09 Respiratory Rate 14 10/05/23 13:09 Blood Pressure 86/52 10/05/23 13:09 O2 Sat by Pulse Oximetry 84 L 10/05/23 13:09 Pain Scale Pain Intensity 0 - Physical Exam General Appearance: moderate distress, lethargy, cachetic Eye Exam: PERRL/EOMI, eyes nml inspection Ears, Nose, Throat Exam: hearing grossly normal, normal pharynx Neck Exam: normal inspection, non-tender, supple, full range of motion Respiratory Exam: normal breath sounds, lungs clear, respiratory distress, airway intact, No chest tenderness Cardiovascular/Chest Exam: normal heart sounds, regular rate/rhythm Abdominal/Gastrointestinal Exam: soft, normal bowel sounds, No tenderness Rectal Exam: not done Extremity Exam: non-tender, normal range of motion, normal inspection 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 No change from the twelve-lead EKG that was performed here at [facility] on 09/30/2023.) Ordered Tests: Active Orders 24 hr Category Date Time Status Machine Container Washer STAT Care 10/05/23 13:19 Active EKG-ER Only STAT Care 10/05/23 13:18 Active IV Insertion STAT Care 10/05/23 13:18 Active Pulse Oximetry (ED) STAT Care 10/05/23 13:18 Active CHEST 1 VIEW (PORTABLE) Stat Exams 10/05/23 13:18 Completed BLOOD CULTURE Stat Lab 10/05/23 13:18 Received CBC W DIFF Stat Lab 10/05/23 13:47 Completed CMP Stat Lab 10/05/23 13:47 Completed CULTURE,URINE Stat Lab 10/05/23 14:21 Received D-DIMER QUANTITATIVE Stat Lab 10/05/23 13:47 Completed Lactic Acid Stat Lab 10/05/23 13:18 Completed MAGNESIUM Stat Lab 10/05/23 13:47 Completed NT PRO BNPII Stat Lab 10/05/23 13:47 Completed TROPONIN Q4H Lab 10/05/23 13:30 Completed TROPONIN Q4H Lab 10/05/23 17:30 Ordered TROPONIN Q4H Lab 10/05/23 21:30 Ordered UA W/RFX UR CULTURE Stat Lab 10/05/23 14:21 Completed VBG [VENOUS BLOOD GAS] Stat Lab 10/05/23 13:18 Completed BiPap/CPAP STAT RT 10/05/23 14:16 Active Medication Summary Discontinued Medications Generic Name Dose Route Start Last Admin Trade Name Freq PRN Reason Stop Dose Admin Methylprednisolone Sodium 0 mg 10/05/23 13:18 10/05/23 13:27 Succinate 125 mg/ Sterile IV 10/05/23 13:19 125 mg Water 2 ml STAT ONE Administration Furosemide 40 mg 10/05/23 14:32 10/05/23 14:48 Furosemide 40 Mg/4 Ml Vial IV 10/05/23 14:33 40 mg STAT ONE Administration Furosemide Confirm 10/05/23 14:46 Furosemide 40 Mg/4 Ml Vial Administered 10/05/23 14:47 Dose 40 mg .ROUTE .STK-MED ONE Methylprednisolone Sodium Succinate Confirm 10/05/23 13:24 Methylprednis Sod Succ 125 Mg/2 Ml Vial Administered 10/05/23 13:25 Dose 125 mg .ROUTE .STK-MED ONE Sterile Water Confirm 10/05/23 13:24 Water For Injection,Sterile 10 Ml Vial Administered 10/05/23 13:25 Dose 10 ml IJ .STK-MED ONE Lab/Rad Data: Laboratory Result Diagrams 10/05/23 13:47 10/05/23 13:47 Laboratory Results 10/05/23 10/05/23 10/05/23 Range/Units 14:21 14:02 13:47 WBC (4.23-9.07) x10^3/uL RBC (4.63-6.08) x10^6/uL Hgb (13.7-17.5) g/dL Hct (40.1-51.0) % MCV (79.0-92.2) fL MCH (25.7-32.2) pg MCHC (32.3-36.5) g/dL RDW (11.6-14.4) % Plt Count (163-337) x10^3/uL MPV (9.4-12.4) fL Gran % (34.0-67.9) % Immature Gran % (Auto) (0.001-0.429) % Nucleat RBC Rel Count (0.00-0.2) % Eos # (Auto) (0.04-0.54) x10^3/uL Immature Gran # (Auto) (0.001-0.031) x10^3u/L Absolute Lymphs (auto) (1.32-3.57) x10^3/uL Absolute Monos (auto) (0.30-0.82) x10^3/uL Absolute Nucleated RBC (0.00-0.012) x10^3u/L Lymphocytes % (21.8-53.1) % Monocytes % (5.3-12.2) % Eosinophils % (0.8-7.0) % Basophils % (0.2-1.2) % Absolute Granulocytes (1.78-5.38) x10^3/uL Basophils # (0.01-0.08) x10^3/uL D-Dimer 0.72 H* (0.0-0.50) mg/L pO2/FiO2 Ratio % VBG pH (7.32-7.42) VBG pCO2 at Pat Temp (42-55) mm/Hg VBG pO2 at Pat Temp (25-40) mm/Hg VBG HCO3 (22-28) meq/L VBG O2 Sat (Magno) (95-100) VBG Base Excess (-2.0-2.0) VBG Hemoglobin VBG Carboxyhemoglobin (0.0-6.9) % T HGB POC Potassium (3.5-5.1) Sodium (135-145) mmol/L Potassium (3.5-5.1) mmol/L Chloride (98-107) mmol/L Carbon Dioxide (22-30) mmol/L Anion Gap (5-15) MEQ/L BUN (9-20) mg/dL Creatinine (0.66-1.25) mg/dL Estimated GFR ML/MIN Glucose (74-106) mg/dL Lactic Acid (0.4-2.0) Calcium (8.4-10.2) mg/dL Magnesium (1.6-2.3) mg/dL Total Bilirubin (0.2-1.3) mg/dL AST (17-59) U/L ALT (0-50) U/L Alkaline Phosphatase (38-126) U/L Troponin I (0.000-0.033) ng/mL NT-Pro-B Natriuret Pep (<300) pg/mL Serum Total Protein (6.3-8.2) g/dL Albumin (3.5-5.0) g/dL Urine Color Yellow (Yellow) Urine Appearance Clear (Clear) Urine pH 5.0 (4.6-8.0) Ur Specific [place] 1.015 (1.005-1.030) Urine Protein Trace A (Negative) Urine Glucose (UA) Negative (Negative) mg/dL Urine Ketones Negative (Negative) Urine Blood Large A (Negative) Urine Nitrite Negative (Negative) Urine Bilirubin Negative (Negative) Urine Urobilinogen 0.2 (0.2) mg/dL Ur Leukocyte Esterase Negative (Negative) U Hyaline Cast (Auto) 6-10 A (0-2) /LPF Urine Microscopic RBC 21-50 A (0-5) /HPF Urine Microscopic WBC 3-5 (0-5) /HPF Ur Epithelial Cells None Seen (None Seen) /HPF Urine Bacteria None Seen (None Seen) /HPF Urine Culture Reflexed YES (NO) Influenza Type A Ag NEGATIVE (NEGATIVE) Influenza Type B Ag NEGATIVE (NEGATIVE) RSV (PCR) NEGATIVE (NEGATIVE) SARS-CoV-2 (PCR) NEGATIVE (NEGATIVE) 10/05/23 10/05/23 10/05/23 Range/Units 13:47 13:47 13:30 WBC 11.7 H (4.23-9.07) x10^3/uL RBC 3.40 L (4.63-6.08) x10^6/uL Hgb 9.7 L (13.7-17.5) g/dL Hct 31.5 L (40.1-51.0) % MCV 92.6 H (79.0-92.2) fL MCH 28.5 (25.7-32.2) pg MCHC 30.8 L (32.3-36.5) g/dL RDW 14.4 (11.6-14.4) % Plt Count 151 L (163-337) x10^3/uL MPV 10.9 (9.4-12.4) fL Gran % 83.3 H (34.0-67.9) % Immature Gran % (Auto) 0.4 (0.001-0.429) % Nucleat RBC Rel Count 0.0 (0.00-0.2) % Eos # (Auto) 0 L (0.04-0.54) x10^3/uL Immature Gran # (Auto) 0.05 H (0.001-0.031) x10^3u/L Absolute Lymphs (auto) 0.67 L (1.32-3.57) x10^3/uL Absolute Monos (auto) 1.22 H (0.30-0.82) x10^3/uL Absolute Nucleated RBC 0.00 (0.00-0.012) x10^3u/L Lymphocytes % 5.7 L (21.8-53.1) % Monocytes % 10.4 (5.3-12.2) % Eosinophils % 0.0 L (0.8-7.0) % Basophils % 0.2 (0.2-1.2) % Absolute Granulocytes 9.76 H (1.78-5.38) x10^3/uL Basophils # 0.02 (0.01-0.08) x10^3/uL D-Dimer (0.0-0.50) mg/L pO2/FiO2 Ratio % VBG pH (7.32-7.42) VBG pCO2 at Pat Temp (42-55) mm/Hg VBG pO2 at Pat Temp (25-40) mm/Hg VBG HCO3 (22-28) meq/L VBG O2 Sat (Magno) (95-100) VBG Base Excess (-2.0-2.0) VBG Hemoglobin VBG Carboxyhemoglobin (0.0-6.9) % T HGB POC Potassium (3.5-5.1) Sodium 136 (135-145) mmol/L Potassium 4.4 (3.5-5.1) mmol/L Chloride 95 L (98-107) mmol/L Carbon Dioxide 32 H (22-30) mmol/L Anion Gap 13.2 (5-15) MEQ/L BUN 43 H (9-20) mg/dL Creatinine 1.61 H (0.66-1.25) mg/dL Estimated GFR 42.7 ML/MIN Glucose 158 H (74-106) mg/dL Lactic Acid (0.4-2.0) Calcium 9.3 (8.4-10.2) mg/dL Magnesium 2.0 (1.6-2.3) mg/dL Total Bilirubin 0.50 (0.2-1.3) mg/dL AST 158 H (17-59) U/L ALT 164 H (0-50) U/L Alkaline Phosphatase 158 H (38-126) U/L Troponin I 0.117 H* (0.000-0.033) ng/mL NT-Pro-B Natriuret Pep 8700 (<300) pg/mL Serum Total Protein 6.9 (6.3-8.2) g/dL Albumin 3.8 (3.5-5.0) g/dL Urine Color (Yellow) Urine Appearance (Clear) Urine pH (4.6-8.0) Ur Specific [place] (1.005-1.030) Urine Protein (Negative) Urine Glucose (UA) (Negative) mg/dL Urine Ketones (Negative) Urine Blood (Negative) Urine Nitrite (Negative) Urine Bilirubin (Negative) Urine Urobilinogen (0.2) mg/dL Ur Leukocyte Esterase (Negative) U Hyaline Cast (Auto) (0-2) /LPF Urine Microscopic RBC (0-5) /HPF Urine Microscopic WBC (0-5) /HPF Ur Epithelial Cells (None Seen) /HPF Urine Bacteria (None Seen) /HPF Urine Culture Reflexed (NO) Influenza Type A Ag (NEGATIVE) Influenza Type B Ag (NEGATIVE) RSV (PCR) (NEGATIVE) SARS-CoV-2 (PCR) (NEGATIVE) 10/05/23 10/05/23 Range/Units 13:18 13:18 WBC (4.23-9.07) x10^3/uL RBC (4.63-6.08) x10^6/uL Hgb (13.7-17.5) g/dL Hct (40.1-51.0) % MCV (79.0-92.2) fL MCH (25.7-32.2) pg MCHC (32.3-36.5) g/dL RDW (11.6-14.4) % Plt Count (163-337) x10^3/uL MPV (9.4-12.4) fL Gran % (34.0-67.9) % Immature Gran % (Auto) (0.001-0.429) % Nucleat RBC Rel Count (0.00-0.2) % Eos # (Auto) (0.04-0.54) x10^3/uL Immature Gran # (Auto) (0.001-0.031) x10^3u/L Absolute Lymphs (auto) (1.32-3.57) x10^3/uL Absolute Monos (auto) (0.30-0.82) x10^3/uL Absolute Nucleated RBC (0.00-0.012) x10^3u/L Lymphocytes % (21.8-53.1) % Monocytes % (5.3-12.2) % Eosinophils % (0.8-7.0) % Basophils % (0.2-1.2) % Absolute Granulocytes (1.78-5.38) x10^3/uL Basophils # (0.01-0.08) x10^3/uL D-Dimer (0.0-0.50) mg/L pO2/FiO2 Ratio 40.0 % VBG pH 7.32 (7.32-7.42) VBG pCO2 at Pat Temp 68 H* (42-55) mm/Hg VBG pO2 at Pat Temp 21 L (25-40) mm/Hg VBG HCO3 35.0 H* (22-28) meq/L VBG O2 Sat (Magno) 35.2 L (95-100) VBG Base Excess 7.2 H (-2.0-2.0) VBG Hemoglobin 10.2 VBG Carboxyhemoglobin 0.5 (0.0-6.9) % T HGB POC Potassium 4.4 (3.5-5.1) Sodium (135-145) mmol/L Potassium (3.5-5.1) mmol/L Chloride (98-107) mmol/L Carbon Dioxide (22-30) mmol/L Anion Gap (5-15) MEQ/L BUN (9-20) mg/dL Creatinine (0.66-1.25) mg/dL Estimated GFR ML/MIN Glucose (74-106) mg/dL Lactic Acid 3.1 H (0.4-2.0) Calcium (8.4-10.2) mg/dL Magnesium (1.6-2.3) mg/dL Total Bilirubin (0.2-1.3) mg/dL AST (17-59) U/L ALT (0-50) U/L Alkaline Phosphatase (38-126) U/L Troponin I (0.000-0.033) ng/mL NT-Pro-B Natriuret Pep (<300) pg/mL Serum Total Protein (6.3-8.2) g/dL Albumin (3.5-5.0) g/dL Urine Color (Yellow) Urine Appearance (Clear) Urine pH (4.6-8.0) Ur Specific [place] (1.005-1.030) Urine Protein (Negative) Urine Glucose (UA) (Negative) mg/dL Urine Ketones (Negative) Urine Blood (Negative) Urine Nitrite (Negative) Urine Bilirubin (Negative) Urine Urobilinogen (0.2) mg/dL Ur Leukocyte Esterase (Negative) U Hyaline Cast (Auto) (0-2) /LPF Urine Microscopic RBC (0-5) /HPF Urine Microscopic WBC (0-5) /HPF Ur Epithelial Cells (None Seen) /HPF Urine Bacteria (None Seen) /HPF Urine Culture Reflexed (NO) Influenza Type A Ag (NEGATIVE) Influenza Type B Ag (NEGATIVE) RSV (PCR) (NEGATIVE) SARS-CoV-2 (PCR) (NEGATIVE) - Progress Progress: re-examined Air Movement: fair Progress Note: 10/05/23 13:48 My medical decision making and the assignment of moderate to high complexity of this patient's medical history today is based on review of the patient's past medical history, review the patient's medication list, review patient drug allergy list, history present illness and physical findings on examination. The workup in this patient includes respiratory therapy consultation, ABG, application of BiPAP, intravenous line, twelve-lead EKG, BNP, D-dimer, troponin level, CBC, CMP, chest x-ray. The chest x-ray [place] report was interpreted by me. It appears as though the patient might have a right lower lobe infiltrate versus fluid and mild 5 basilar pleural effusions right side worse than left. Differential diagnosis include but is not limited to worsening CHF, COPD exace rbation, myocardial infarction, arrhythmia, pleural effusions, pneumonia 10/05/23 14:28 I interpreted the patient's laboratory data results. The patient's white count is elevated which may suggest worsening pneumonia. Patient has worsening BNP level as well as associated increase in the liver function test. This may be related to worsening CHF. The D-dimer is elevated but I will not repeat a CT scan of the chest with contrast. The patient had a CT scan of the chest with contrast 5 days ago which was read by the radiologist. There was no evidence of pulmonary embolus on that film. 10/05/23 16:03 5 spoke with the family at length including the . They are adamant that the patient is to go to [facility] and not [facility]. I spoke with the hospitalist at [facility], . I reviewed the patient history, presenting complaint, physical findings, EKG, radiographic and laboratory results with him. He accepts the patient in transfer. Transfer center stated to me that at this point in time they do have beds and 1 will likely become available sooner rather than later this evening. Blood Culture(s) Obtained: Yes Antibiotics given: Yes Counseled pt/family regarding: lab results, diagnosis, rad results Medical Desision Making - Independent Historian Additional History obtained from: Spouse, Family - Diagnostic Testing Diagnostic test were ordered, analyzed, and reviewed by me: Yes Radiological Interpretation: Reviewed by me, Teleradiologist Report - Risk of complications The pt has a high risk of morbidity or mortality based on: Decision regarding hospitilization or escalation of hosp level of care - Departure Departure Disposition: Transfer Clinical Impression: Shortness of breath, Hypoxia, CHF exacerbation, Elevated liver function tests, Elevated troponin, Right pulmonary infiltrate on CXR, COPD exacerbation, Pleural effusion, Hypotension Condition: Fair Critical Care Time: Yes Critical Care Time(excluding separately billable procedures): Critical 30-74 mi ns (45) Referrals: JED CARTER MD [Primary Care Provider] - Follow up/PCP as directed Instructions: Heart Failure, Chronic Obstructive Pulmonary Disease
[2023-10-05] MEDS ORDERED: Sterile H2O 10 ml IJ ONE (13:24)
[2023-10-05] MEDS ORDERED: solu-MEDROL ONE (13:24)
[2023-10-05] MEDS: solu-MEDROL 125 MG, Sterile H2O 10 ml 2 ML IV ONE (13:27)
[2023-10-05 13:32] LABS: VBG BASE EXCESS 7.2 (-2.0-2.0); VBG CARBOXYHEMOGLOBIN 0.5 % T HGB (0.0-6.9); VBG HEMOGLOBIN 10.2; VBG O2 SATURATION 35.2 (95-100); VBG POTASSIUM 4.4 (3.5-5.1); VBG pH 7.32 (7.32-7.42)
--- NOTE | 2023-10-05 13:49 | XRAY ---
Indication: Short of breath. Comparison: July 13, 2020 Portable chest demonstrates new small bibasilar infiltrates/atelectasis/effusions, right greater than left. Remaining upper lungs hyperinflated and clear. Heart not enlarged again with coronary stent. Bony thorax intact again with osteopenia and degenerative changes.
[2023-10-05 13:50] LABS: Absolute Neutrophil Ct (ANC) 9.76 x10^3/uL (1.78-5.38); BASOPHIL % 0.2 % (0.2-1.2); Basophil (Absolute #) 0.02 x10^3/uL (0.01-0.08); Eosinophil (Absolute #) 0 x10^3/uL (0.04-0.54); Hematocrit 31.5 % (40.1-51.0); Hemoglobin 9.7 g/dL (13.7-17.5); IMMATURE GRAN # 0.05 x10^3u/L (0.001-0.031); IMMATURE GRAN % 0.4 % (0.001-0.429); Lymphocyte (Absolute #) 0.67 x10^3/uL (1.32-3.57); Lymphocytes % 5.7 % (21.8-53.1); Mean Cell Volume 92.6 fL (79.0-92.2); Mean Corpuscular Hemoglobin 28.5 pg (25.7-32.2); Mean Corpuscular Hgb Concent. 30.8 g/dL (32.3-36.5); Mean Platelet Volume 10.9 fL (9.4-12.4); Monocyte (Absolute #) 1.22 x10^3/uL (0.30-0.82); Monocytes % 10.4 % (5.3-12.2); Neutrophil % 83.3 % (34.0-67.9); Platelet Count 151 x10^3/uL (163-337); Red Cell Distribution Width 14.4 % (11.6-14.4); White Blood Count 11.7 x10^3/uL (4.23-9.07)
[2023-10-05 14:12] LABS: ALBUMIN 3.8 g/dL (3.5-5.0); ANION GAP 13.2 MEQ/L (5-15); BILIRUBIN,TOTAL 0.5 mg/dL (0.2-1.3); Calcium 9.3 mg/dL (8.4-10.2); Creatinine 1 1.61 mg/dL (0.66-1.25); EST GLOMERULAR FILTRATION RATE 42.7 ML/MIN; Potassium 4.4 mmol/L (3.5-5.1); Total Protein 6.9 g/dL (6.3-8.2)
[2023-10-05 14:41] LABS: INFLUENZA A NEGATIVE (NEGATIVE); INFLUENZA B NEGATIVE (NEGATIVE); RESPIRATORY SYNCTIAL VIRUS NEGATIVE (NEGATIVE); SARS-CoV-2 Xpert Express NEGATIVE (NEGATIVE)
[2023-10-05] MEDS ORDERED: Lasix 40 MG/4 ML ONE (14:46)
[2023-10-05] MEDS: Lasix 40 MG/4 ML IV ONE (14:48)
[2023-10-05 14:50] LABS: Appearance Clear (Clear); Bacteria None Seen /HPF (None Seen); Bilirubin Negative (Negative); Blood Large (Negative); Epithelial Cells None Seen /HPF (None Seen); Glucose, Urine Negative (Negative); Ketones Negative (Negative); Leukocyte Esterase Negative (Negative); Nitrite Negative (Negative); Protein,Urine Dip Trace (Negative); RBC 21-50 /HPF (0-5); Specific Gravity 1.015 (1.005-1.030); Urobilinogen 0.2 mg/dL (0.2)
[2023-10-05 14:56] LABS: ADD URINE CULTURE? YES (NO)
[2023-10-05] MEDS ORDERED: ROCEPHIN 1 GM / 100 ML NaCl 1 GM/100 ML IVPB IV ONE (18:04)
[2023-10-05] MEDS: ROCEPHIN 1 GM / 100 ML NaCl 1 GM/100 ML IVPB IV ONE (18:05)
[2023-10-05] MEDS ORDERED: Zofran 4 MG/2 ML VIAL IV PRN (18:18)
[2023-10-05] MEDS ORDERED: TYLENOL 325 MG PO PRN (18:18)
[2023-10-05] MEDS ORDERED: Nitrostat 0.4 MG Tablet SL PRN (19:53)
[2023-10-05] MEDS ORDERED: Ativan 0.5 MG PO PRN (19:53)
--- NOTE | 2023-10-05 20:11 | PCM.HP ---
History of Present Illness - Chief Complaint Chief Complaint: chf exacerbation, pne, copd exacerbation, elevated troponins History of Present Illness: is a 83 year old male with hx of chronic respiratory failure on 4Ls NC O2, COPD, CHF, AFib, HTN, Hypothyroidism, and CKD 3-4 presented today for SOB. He was admitted here on September 29 for SOB and treated for PNA. Sent home October 03 with oral Levaquin. But came back today with SOB. Denies chest pain. has mostly non-productive cough, but when he does gets phlegm, it is green in color. No chest pain, headache, nausea, vomiting, diarrhea, fever, chills, dysuria. I saw him via telemedicine in his room. His daughter, Hasmukh, was present at the time of my visit. Pt was not in distress, comfortably talking to me without SOB. On 5Ls NC O2 - Review of Systems Constitutional: No Symptoms Eyes: No Symptoms Ears, Nose, & Throat: No Symptoms Respiratory: Cough, Short Of Breath, Wheezing Cardiac: No Symptoms Abdominal/Gastrointestinal: No Symptoms Genitourinary Symptoms: No Symptoms Musculoskeletal: No Symptoms Skin: No Symptoms Neurological: No Symptoms Psychological: No Symptoms Endocrine: No Symptoms Hematologic/Lymphatic: No Symptoms Immunological/Allergic: No Symptoms Medications & Allergies Home Medications: Home Medication List Apixaban [Eliquis] 1 tab PO BID 03/01/23 [History Confirmed 10/05/23] Atorvastatin Calcium [Lipitor 20MG Tablet] 1 tab PO DAILY 03/01/23 [History Confirmed 10/05/23] Bumetanide 1 mg [Bumex 1 mg] 1 mg PO DAILY 03/01/23 [History Confirmed 10/05/23] LORazepam [Lorazepam] 0.5 mg PO BID PRN 03/01/23 [History Confirmed 10/05/23] Levothyroxine Sodium 75 Mcg [Synthroid 75 Mcg] 75 mcg PO DAILY 03/01/23 [History Confirmed 10/05/23] Metoprolol Tartrate 50 mg [Lopressor 50 MG] 1 tab PO BID 03/01/23 [History Confirmed 10/05/23] Potassium Chloride 10 meq PO TID 03/01/23 [History Confirmed 10/05/23] Valsartan 0.5 tab PO DAILY 03/01/23 [History Confirmed 10/05/23] dilTIAZem HCL [Cartia Xt] 1 cap PO DAILY 03/01/23 [History Confirmed 10/05/23] Cinnamon Bark [Cinnamon] 2,000 mg PO DAILY 09/30/23 [History Confirmed 10/05/23] Multivitamin 1 tab PO DAILY 09/30/23 [History Confirmed 10/05/23] Nitroglycerin 0.4 mg SL Q5MIN PRN MR X 3 PRN 09/30/23 [History Confirmed 10/05/23] Sertraline HCl 50 mg [Zoloft 50 mg Tablet] 1 tab PO DAILY 09/30/23 [History Confirmed 10/05/23] Sucralfate 1 tab PO HS 09/30/23 [History Confirmed 10/05/23] levoFLOXacin [Levofloxacin] 500 mg PO DAILY 7 Days #7 tablet 10/04/23 [Rx Confirmed 10/05/23] Allergies/Adverse Reactions: Allergies Allergy/AdvReac Type Severity Reaction Status Date / Time influenza vaccine Allergy Severe Uncoded 10/05/23 19:24 - Past Medical History Past Medical History: Yes Neurological History: TIA ENT History: No Pertinent History Cardiac History: Arrhythmia, Congestive Heart Failure, Coronary Artery Disease, High Cholesterol, Hypertension, Myocardial Infarction ([place]) Respiratory History: COPD, Emphysema, Lung Cancer Endocrine Medical History: Hypothyroidism Musculoskelatal History: Fractures, Arthritis GI Medical History: GERD History: No Pertinent History Pyscho-Social History: Anxiety Male Reproductive Disorders: No Pertinent History Comment: kidney stones, a-fib, lung cancer in 2022 - radiation tx only, [place] - 2014 - Past Surgical History Past Surgical History: Yes Neuro Surgical History: No Pertinent History Cardiac History: Cardiac Catheterization, Cardiac Stent Respiratory Surgery: No Pertinent History GI Surgical History: No Pertinent History Genitourinary Surgical Hx: No Pertinent History Musculskeletal Surgical Hx: Orthopedic Surgery Male Surgical History: No Pertinent History Other Surgical History: right hand, cardiac ablation 2017 Significant Family History: no pertinent family hx - Social History Smoking Status: Former smoker Exposure to second hand smoke: No Alcohol: None Drug Use: none - Social Determinants of Health Will the patient participate in the screening: Yes Do you worry about a steady place to live?: No Do you have any problems with any of the following?: No known problems In the past 12 months,have you had to go without utilities?: No Have you or anyone in your house had to go without enough: No Transportation Issues: No Has anyone in your support network made you feel unsafe?: No Does the patient want assistance with any of the above?: No Comment: air conditioning went out today - Physical Exam Vital Signs: Vital Signs - 24 hr Temp Pulse Resp BP BP Pulse Ox 10/05/23 19:11 73 18 97 10/05/23 18:46 97.5 F 73 24 144/74 92 L 10/05/23 18:18 97 10/05/23 17:30 70 15 112/77 97 10/05/23 17:00 70 17 126/73 98 10/05/23 16:30 67 16 128/74 99 10/05/23 16:05 85 L 10/05/23 16:00 64 12 124/72 100 10/05/23 15:30 63 15 111/67 100 10/05/23 15:00 65 21 102/66 100 10/05/23 14:30 64 12 111/70 100 10/05/23 14:00 67 19 104/68 100 10/05/23 13:34 80 L 10/05/23 13:30 70 17 85/63 74 L 10/05/23 13:23 63 13 98/58 83 L 10/05/23 13:12 65 21 86/52 89 L 10/05/23 13:09 97.4 F 64 14 86/52 85 L General Appearance: no apparent distress, alert, thin Neurologic Exam: alert, oriented x 3, cooperative Eye Exam: PERRL/EOMI, eyes nml inspection Ears, Nose, Throat Exam: normal ENT inspection Neck Exam: normal inspection Respiratory Exam: diminished breath sounds Cardiovascular Exam: irregular Gastrointestinal/Abdomen Exam: soft, normal bowel sounds Rectal Exam: deferred Extremity Exam: normal inspection Skin Exam: normal color Results - Labs Lab/Micro Results: Lab Results-Last 24 Hours 10/05/23 10/05/23 10/05/23 Range/Units 13:18 13:18 13:30 WBC (4.23-9.07) x10^3/uL RBC (4.63-6.08) x10^6/uL Hgb (13.7-17.5) g/dL Hct (40.1-51.0) % MCV (79.0-92.2) fL MCH (25.7-32.2) pg MCHC (32.3-36.5) g/dL RDW (11.6-14.4) % Plt Count (163-337) x10^3/uL MPV (9.4-12.4) fL Gran % (34.0-67.9) % Immature Gran % (Auto) (0.001-0.429) % Nucleat RBC Rel Count (0.00-0.2) % Eos # (Auto) (0.04-0.54) x10^3/uL Immature Gran # (Auto) (0.001-0.031) x10^3u/L Absolute Lymphs (auto) (1.32-3.57) x10^3/uL Absolute Monos (auto) (0.30-0.82) x10^3/uL Absolute Nucleated RBC (0.00-0.012) x10^3u/L Lymphocytes % (21.8-53.1) % Monocytes % (5.3-12.2) % Eosinophils % (0.8-7.0) % Basophils % (0.2-1.2) % Absolute Granulocytes (1.78-5.38) x10^3/uL Basophils # (0.01-0.08) x10^3/uL D-Dimer (0.0-0.50) mg/L pO2/FiO2 Ratio 40.0 % VBG pH 7.32 (7.32-7.42) VBG pCO2 at Pat Temp 68 H* (42-55) mm/Hg VBG pO2 at Pat Temp 21 L (25-40) mm/Hg VBG HCO3 35.0 H* (22-28) meq/L VBG O2 Sat (Magno) 35.2 L (95-100) VBG Base Excess 7.2 H (-2.0-2.0) VBG Hemoglobin 10.2 VBG Carboxyhemoglobin 0.5 (0.0-6.9) % T HGB POC Potassium 4.4 (3.5-5.1) Sodium (135-145) mmol/L Potassium (3.5-5.1) mmol/L Chloride (98-107) mmol/L Carbon Dioxide (22-30) mmol/L Anion Gap (5-15) MEQ/L BUN (9-20) mg/dL Creatinine (0.66-1.25) mg/dL Estimated GFR ML/MIN Glucose (74-106) mg/dL Lactic Acid 3.1 H (0.4-2.0) Calcium (8.4-10.2) mg/dL Magnesium (1.6-2.3) mg/dL Total Bilirubin (0.2-1.3) mg/dL AST (17-59) U/L ALT (0-50) U/L Alkaline Phosphatase (38-126) U/L Troponin I 0.117 H* (0.000-0.033) ng/mL NT-Pro-B Natriuret Pep (<300) pg/mL Serum Total Protein (6.3-8.2) g/dL Albumin (3.5-5.0) g/dL Urine Color (Yellow) Urine Appearance (Clear) Urine pH (4.6-8.0) Ur Specific [place] (1.005-1.030) Urine Protein (Negative) Urine Glucose (UA) (Negative) mg/dL Urine Ketones (Negative) Urine Blood (Negative) Urine Nitrite (Negative) Urine Bilirubin (Negative) Urine Urobilinogen (0.2) mg/dL Ur Leukocyte Esterase (Negative) U Hyaline Cast (Auto) (0-2) /LPF Urine Microscopic RBC (0-5) /HPF Urine Microscopic WBC (0-5) /HPF Ur Epithelial Cells (None Seen) /HPF Urine Bacteria (None Seen) /HPF Urine Culture Reflexed (NO) Influenza Type A Ag (NEGATIVE) Influenza Type B Ag (NEGATIVE) RSV (PCR) (NEGATIVE) SARS-CoV-2 (PCR) (NEGATIVE) 10/05/23 10/05/23 10/05/23 Range/Units 13:47 13:47 13:47 WBC 11.7 H (4.23-9.07) x10^3/uL RBC 3.40 L (4.63-6.08) x10^6/uL Hgb 9.7 L (13.7-17.5) g/dL Hct 31.5 L (40.1-51.0) % MCV 92.6 H (79.0-92.2) fL MCH 28.5 (25.7-32.2) pg MCHC 30.8 L (32.3-36.5) g/dL RDW 14.4 (11.6-14.4) % Plt Count 151 L (163-337) x10^3/uL MPV 10.9 (9.4-12.4) fL Gran % 83.3 H (34.0-67.9) % Immature Gran % (Auto) 0.4 (0.001-0.429) % Nucleat RBC Rel Count 0.0 (0.00-0.2) % Eos # (Auto) 0 L (0.04-0.54) x10^3/uL Immature Gran # (Auto) 0.05 H (0.001-0.031) x10^3u/L Absolute Lymphs (auto) 0.67 L (1.32-3.57) x10^3/uL Absolute Monos (auto) 1.22 H (0.30-0.82) x10^3/uL Absolute Nucleated RBC 0.00 (0.00-0.012) x10^3u/L Lymphocytes % 5.7 L (21.8-53.1) % Monocytes % 10.4 (5.3-12.2) % Eosinophils % 0.0 L (0.8-7.0) % Basophils % 0.2 (0.2-1.2) % Absolute Granulocytes 9.76 H (1.78-5.38) x10^3/uL Basophils # 0.02 (0.01-0.08) x10^3/uL D-Dimer 0.72 H* (0.0-0.50) mg/L pO2/FiO2 Ratio % VBG pH (7.32-7.42) VBG pCO2 at Pat Temp (42-55) mm/Hg VBG pO2 at Pat Temp (25-40) mm/Hg VBG HCO3 (22-28) meq/L VBG O2 Sat (Magno) (95-100) VBG Base Excess (-2.0-2.0) VBG Hemoglobin VBG Carboxyhemoglobin (0.0-6.9) % T HGB POC Potassium (3.5-5.1) Sodium 136 (135-145) mmol/L Potassium 4.4 (3.5-5.1) mmol/L Chloride 95 L (98-107) mmol/L Carbon Dioxide 32 H (22-30) mmol/L Anion Gap 13.2 (5-15) MEQ/L BUN 43 H (9-20) mg/dL Creatinine 1.61 H (0.66-1.25) mg/dL Estimated GFR 42.7 ML/MIN Glucose 158 H (74-106) mg/dL Lactic Acid (0.4-2.0) Calcium 9.3 (8.4-10.2) mg/dL Magnesium 2.0 (1.6-2.3) mg/dL Total Bilirubin 0.50 (0.2-1.3) mg/dL AST 158 H (17-59) U/L ALT 164 H (0-50) U/L Alkaline Phosphatase 158 H (38-126) U/L Troponin I (0.000-0.033) ng/mL NT-Pro-B Natriuret Pep 8700 (<300) pg/mL Serum Total Protein 6.9 (6.3-8.2) g/dL Albumin 3.8 (3.5-5.0) g/dL Urine Color (Yellow) Urine Appearance (Clear) Urine pH (4.6-8.0) Ur Specific [place] (1.005-1.030) Urine Protein (Negative) Urine Glucose (UA) (Negative) mg/dL Urine Ketones (Negative) Urine Blood (Negative) Urine Nitrite (Negative) Urine Bilirubin (Negative) Urine Urobilinogen (0.2) mg/dL Ur Leukocyte Esterase (Negative) U Hyaline Cast (Auto) (0-2) /LPF Urine Microscopic RBC (0-5) /HPF Urine Microscopic WBC (0-5) /HPF Ur Epithelial Cells (None Seen) /HPF Urine Bacteria (None Seen) /HPF Urine Culture Reflexed (NO) Influenza Type A Ag (NEGATIVE) Influenza Type B Ag (NEGATIVE) RSV (PCR) (NEGATIVE) SARS-CoV-2 (PCR) (NEGATIVE) 10/05/23 10/05/23 10/05/23 Range/Units 14:02 14:21 17:52 WBC (4.23-9.07) x10^3/uL RBC (4.63-6.08) x10^6/uL Hgb (13.7-17.5) g/dL Hct (40.1-51.0) % MCV (79.0-92.2) fL MCH (25.7-32.2) pg MCHC (32.3-36.5) g/dL RDW (11.6-14.4) % Plt Count (163-337) x10^3/uL MPV (9.4-12.4) fL Gran % (34.0-67.9) % Immature Gran % (Auto) (0.001-0.429) % Nucleat RBC Rel Count (0.00-0.2) % Eos # (Auto) (0.04-0.54) x10^3/uL Immature Gran # (Auto) (0.001-0.031) x10^3u/L Absolute Lymphs (auto) (1.32-3.57) x10^3/uL Absolute Monos (auto) (0.30-0.82) x10^3/uL Absolute Nucleated RBC (0.00-0.012) x10^3u/L Lymphocytes % (21.8-53.1) % Monocytes % (5.3-12.2) % Eosinophils % (0.8-7.0) % Basophils % (0.2-1.2) % Absolute Granulocytes (1.78-5.38) x10^3/uL Basophils # (0.01-0.08) x10^3/uL D-Dimer (0.0-0.50) mg/L pO2/FiO2 Ratio % VBG pH (7.32-7.42) VBG pCO2 at Pat Temp (42-55) mm/Hg VBG pO2 at Pat Temp (25-40) mm/Hg VBG HCO3 (22-28) meq/L VBG O2 Sat (Magno) (95-100) VBG Base Excess (-2.0-2.0) VBG Hemoglobin VBG Carboxyhemoglobin (0.0-6.9) % T HGB POC Potassium (3.5-5.1) Sodium (135-145) mmol/L Potassium (3.5-5.1) mmol/L Chloride (98-107) mmol/L Carbon Dioxide (22-30) mmol/L Anion Gap (5-15) MEQ/L BUN (9-20) mg/dL Creatinine (0.66-1.25) mg/dL Estimated GFR ML/MIN Glucose (74-106) mg/dL Lactic Acid (0.4-2.0) Calcium (8.4-10.2) mg/dL Magnesium (1.6-2.3) mg/dL Total Bilirubin (0.2-1.3) mg/dL AST (17-59) U/L ALT (0-50) U/L Alkaline Phosphatase (38-126) U/L Troponin I 0.132 H* (0.000-0.033) ng/mL NT-Pro-B Natriuret Pep (<300) pg/mL Serum Total Protein (6.3-8.2) g/dL Albumin (3.5-5.0) g/dL Urine Color Yellow (Yellow) Urine Appearance Clear (Clear) Urine pH 5.0 (4.6-8.0) Ur Specific [place] 1.015 (1.005-1.030) Urine Protein Trace A (Negative) Urine Glucose (UA) Negative (Negative) mg/dL Urine Ketones Negative (Negative) Urine Blood Large A (Negative) Urine Nitrite Negative (Negative) Urine Bilirubin Negative (Negative) Urine Urobilinogen 0.2 (0.2) mg/dL Ur Leukocyte Esterase Negative (Negative) U Hyaline Cast (Auto) 6-10 A (0-2) /LPF Urine Microscopic RBC 21-50 A (0-5) /HPF Urine Microscopic WBC 3-5 (0-5) /HPF Ur Epithelial Cells None Seen (None Seen) /HPF Urine Bacteria None Seen (None Seen) /HPF Urine Culture Reflexed YES (NO) Influenza Type A Ag NEGATIVE (NEGATIVE) Influenza Type B Ag NEGATIVE (NEGATIVE) RSV (PCR) NEGATIVE (NEGATIVE) SARS-CoV-2 (PCR) NEGATIVE (NEGATIVE) - Radiology Impressions Radiology Exams & Impressions: Radiology Procedures Category Date Time Status CHEST 1 VIEW (PORTABLE) Stat Exams 10/05/23 13:18 Completed - Other Procedures and Tests Respiratory Therapy 10/05/23 19:19 Oxygen Nasal Cannula 5 lpm Assessment/Plan (1) CHF exacerbation Current Visit: Yes Status: Acute Assessment & Plan: CXR reviewed. Plan Lasix 40mg IV BID. Limit fluid and salt intake. He is DNR and does not want much more than medical management. He is on 4-5 Ls [place] O2, his baseline is 4Ls Code(s): I50.9 - HEART FAILURE, UNSPECIFIED (2) COPD exacerbation Current Visit: Yes Status: Acute Assessment & Plan: He is not in exacerbation - on baseline O2. Will prn updrafts. Will not continue IV steroid - no wheezing on exam Code(s): J44.1 - CHRONIC OBSTRUCTIVE PULMONARY DISEASE W (ACUTE) EXACERBATION (3) Elevated troponin Current Visit: Yes Status: Acute Assessment & Plan: Likely demand ischemia - he does not want to be transferred. He is DNR and understands the risk Code(s): R79.89 - OTHER SPECIFIED ABNORMAL FINDINGS OF BLOOD CHEMISTRY (4) Pneumonia Current Visit: No Status: Acute Assessment & Plan: He was diagnosed with this last visit - so will continue IV Rocephin 1gm daily for CAP Code(s): J18.9 - PNEUMONIA, UNSPECIFIED ORGANISM (5) Chronic atrial fibrillation Current Visit: No Status: Chronic Assessment & Plan: On Eliquis, HR is controlled. Code(s): I48.2 - CHRONIC ATRIAL FIBRILLATION * DO NOT USE * (6) Hypertension Current Visit: No Status: Chronic Assessment & Plan: Can resume home meds, monitor and adjust as needed Code(s): I10 - ESSENTIAL (PRIMARY) HYPERTENSION (7) CKD stage 4 secondary to hypertension Current Visit: Yes Status: Acute Assessment & Plan: Cr 1.6, baseline since 2010 Code(s): I12.9 - HYPERTENSIVE CHRONIC KIDNEY DISEASE W STG 1-4/UNSP CHR KDNY; N18.4 - CHRONIC KIDNEY DISEASE, STAGE 4 (SEVERE) Telemedicine Encounter - Telemedicine Encounter Telemedicine Encounter: "The entirety of this encounter was performed via Telemedicine" This visit was performed using real-time audio and video connection between my location and thepatients locationwith the assistance of a surrogateat the patients location. Written or verbal consent was obtained from the patient/guardian to perform this visit [facility] technology. Any patient questions regarding the telemedicine interaction were answered.
[2023-10-05] MEDS: Lasix 40 MG/4 ML IV SCH (20:33)
[2023-10-05] MEDS: ELIQUIS 2.5 MG TABLET PO SCH (20:33)
[2023-10-05] MEDS ORDERED: NON-FORMULARY ITEM (Apixaban [Eliquis] 5 MG Tablet) PO SCH (22:00)
[2023-10-06 05:24] LABS: Hematocrit 28.8 % (40.1-51.0); Hemoglobin 9.3 g/dL (13.7-17.5); Mean Cell Volume 87.8 fL (79.0-92.2); Mean Corpuscular Hemoglobin 28.4 pg (25.7-32.2); Mean Corpuscular Hgb Concent. 32.3 g/dL (32.3-36.5); Mean Platelet Volume 10.6 fL (9.4-12.4); Platelet Count 164 x10^3/uL (163-337); Red Blood Count 3.28 x10^6/uL (4.63-6.08); Red Cell Distribution Width 14.4 % (11.6-14.4); White Blood Count 6.7 x10^3/uL (4.23-9.07)
[2023-10-06 05:51] LABS: ANION GAP 7.9 MEQ/L (5-15); Calcium 8.8 mg/dL (8.4-10.2); Creatinine 1 1.27 mg/dL (0.66-1.25); EST GLOMERULAR FILTRATION RATE 56.8 ML/MIN; Potassium 4.1 mmol/L (3.5-5.1)
[2023-10-06] MEDS ORDERED: MEDICATION INTERVENTION MC SCH ×2 (07:45→14:30)
--- NOTE | 2023-10-06 08:53 | PCM.NOTE ---
Date and Time: 10/06/23 0842 Subjective Assessment: is a 83 year old male with hx of chronic respiratory failure on 4Ls - 5Ls baseline [place] O2, COPD, CHF, AFib, HTN, Hypothyroidism, and CKD 3-4 presented 10/05/23 for hypoxia after recent admission 09/27/23-10/04/23 for pneumonia. Patient stable at discharge and sent home on Levaquin. CXR showing new small bibasilar infiltrates/atelectasis/effusions, right greater than left. Remaining upper lungs hyperinflated and clear. Heart not enlarged again with coronary stent. Labs upon admission remarkable for BNP 8700, WBC mildly elevated at 11.7, Ddimer 0.72. CT performed 09/30/23 demonstrated mild right-sided pleural effusion with focal patchy consolidation with nodular infiltrates in posterior segment of the right upper lobe, likely representing acute infectious etiology. Multiple hypodense trachea, paratracheal, carinal and bilateral hilar nodes, appear to be reactive, the largest measuring 12 mm in short axis diameter.Extensive COPD.Thick fibroatelectatic bands in medio-basal segment of right lower lobe, sequelae to previous infection/insult. IP treatment during that visit with Rocephin/azithromycin for CAP coverage. Plan Lasix 40mg IV BID and ceftriaxone (finished course of azithromycin). Limit fluid and salt intake. He is DNR and does not want much more than medical management. He is on 4-5 Ls [place] O2, which is his baseline. 10/06/23: Met with patient bedside. Dyspnea improved. At baseline oxygenation of 5L at 96% spo2. Lung sounds diminished on auscultation. No wheezing. Patient is very weak. Cough is non-productive. Denies fever, cp, abdominal pain, SWANN, dizziness, N/V/D. Plan continued abx/lasix. Will add mucinex. No edema noted on exam. - Review of Systems Constitutional: Weakness Eyes: No Symptoms Ears, Nose, & Throat: No Symptoms Respiratory: Cough, Short Of Breath Cardiac: No Symptoms Abdominal/Gastrointestinal: No Symptoms Genitourinary Symptoms: No Symptoms Musculoskeletal: No Symptoms Skin: No Symptoms Neurological: No Symptoms Psychological: No Symptoms Endocrine: No Symptoms Hematologic/Lymphatic: No Symptoms Immunological/Allergic: No Symptoms Objective Exam General Appearance: no apparent distress Neurologic Exam: alert, oriented x 3, cooperative Skin Exam: pale Eye Exam: PERRL Ears, Nose, Throat Exam: normal ENT inspection Neck Exam: normal inspection Respiratory Exam: diminished breath sounds Cardiovascular Exam: regular rate/rhythm, normal heart sounds Gastrointestinal/Abdomen Exam: soft, normal bowel sounds Extremity Exam: normal inspection Back Exam: normal inspection Male Genitalia Exam: deferred Rectal Exam: deferred Objective Data Vital Signs: Vital Signs - 24 hr Temp Pulse Resp BP BP Pulse Ox 10/06/23 07:29 97.7 F 73 21 137/68 95 10/06/23 07:14 97 H 18 94 L 10/06/23 04:00 98.0 F 78 20 137/79 96 10/05/23 23:45 98.7 F 94 H 26 H 148/73 87 L 10/05/23 19:11 73 18 97 10/05/23 18:46 97.5 F 73 24 144/74 92 L 10/05/23 18:18 97 10/05/23 17:30 70 15 112/77 97 10/05/23 17:00 70 17 126/73 98 10/05/23 16:30 67 16 128/74 99 10/05/23 16:05 85 L 10/05/23 16:00 64 12 124/72 100 10/05/23 15:30 63 15 111/67 100 10/05/23 15:00 65 21 102/66 100 10/05/23 14:30 64 12 111/70 100 10/05/23 14:00 67 19 104/68 100 10/05/23 13:34 80 L 10/05/23 13:30 70 17 85/63 74 L 10/05/23 13:23 63 13 98/58 83 L 10/05/23 13:12 65 21 86/52 89 L 10/05/23 13:09 97.4 F 64 14 86/52 85 L Pain Assessment - Last Documented Pain Intensity 0 Intake and Output: Intake & Output 10/03/23 10/04/23 10/05/23 10/06/23 11:59 11:59 11:59 11:59 Intake Total 100 Output Total 300 Balance -200 Weight 54 kg Lab Results: Lab Results-Last 24 Hours 10/05/23 10/05/23 10/05/23 Range/Units 13:18 13:18 13:30 WBC (4.23-9.07) x10^3/uL RBC (4.63-6.08) x10^6/uL Hgb (13.7-17.5) g/dL Hct (40.1-51.0) % MCV (79.0-92.2) fL MCH (25.7-32.2) pg MCHC (32.3-36.5) g/dL RDW (11.6-14.4) % Plt Count (163-337) x10^3/uL MPV (9.4-12.4) fL Gran % (34.0-67.9) % Immature Gran % (Auto) (0.001-0.429) % Nucleat RBC Rel Count (0.00-0.2) % Eos # (Auto) (0.04-0.54) x10^3/uL Immature Gran # (Auto) (0.001-0.031) x10^3u/L Absolute Lymphs (auto) (1.32-3.57) x10^3/uL Absolute Monos (auto) (0.30-0.82) x10^3/uL Absolute Nucleated RBC (0.00-0.012) x10^3u/L Lymphocytes % (21.8-53.1) % Monocytes % (5.3-12.2) % Eosinophils % (0.8-7.0) % Basophils % (0.2-1.2) % Absolute Granulocytes (1.78-5.38) x10^3/uL Basophils # (0.01-0.08) x10^3/uL D-Dimer (0.0-0.50) mg/L pO2/FiO2 Ratio 40.0 % VBG pH 7.32 (7.32-7.42) VBG pCO2 at Pat Temp 68 H* (42-55) mm/Hg VBG pO2 at Pat Temp 21 L (25-40) mm/Hg VBG HCO3 35.0 H* (22-28) meq/L VBG O2 Sat (Magno) 35.2 L (95-100) VBG Base Excess 7.2 H (-2.0-2.0) VBG Hemoglobin 10.2 VBG Carboxyhemoglobin 0.5 (0.0-6.9) % T HGB POC Potassium 4.4 (3.5-5.1) Sodium (135-145) mmol/L Potassium (3.5-5.1) mmol/L Chloride (98-107) mmol/L Carbon Dioxide (22-30) mmol/L Anion Gap (5-15) MEQ/L BUN (9-20) mg/dL Creatinine (0.66-1.25) mg/dL Estimated GFR ML/MIN Glucose (74-106) mg/dL Lactic Acid 3.1 H (0.4-2.0) Calcium (8.4-10.2) mg/dL Magnesium (1.6-2.3) mg/dL Total Bilirubin (0.2-1.3) mg/dL AST (17-59) U/L ALT (0-50) U/L Alkaline Phosphatase (38-126) U/L Troponin I 0.117 H* (0.000-0.033) ng/mL NT-Pro-B Natriuret Pep (<300) pg/mL Serum Total Protein (6.3-8.2) g/dL Albumin (3.5-5.0) g/dL Urine Color (Yellow) Urine Appearance (Clear) Urine pH (4.6-8.0) Ur Specific Perkins (1.005-1.030) Urine Protein (Negative) Urine Glucose (UA) (Negative) mg/dL Urine Ketones (Negative) Urine Blood (Negative) Urine Nitrite (Negative) Urine Bilirubin (Negative) Urine Urobilinogen (0.2) mg/dL Ur Leukocyte Esterase (Negative) U Hyaline Cast (Auto) (0-2) /LPF Urine Microscopic RBC (0-5) /HPF Urine Microscopic WBC (0-5) /HPF Ur Epithelial Cells (None Seen) /HPF Urine Bacteria (None Seen) /HPF Urine Culture Reflexed (NO) Influenza Type A Ag (NEGATIVE) Influenza Type B Ag (NEGATIVE) RSV (PCR) (NEGATIVE) SARS-CoV-2 (PCR) (NEGATIVE) 10/05/23 10/05/23 10/05/23 Range/Units 13:47 13:47 13:47 WBC 11.7 H (4.23-9.07) x10^3/uL RBC 3.40 L (4.63-6.08) x10^6/uL Hgb 9.7 L (13.7-17.5) g/dL Hct 31.5 L (40.1-51.0) % MCV 92.6 H (79.0-92.2) fL MCH 28.5 (25.7-32.2) pg MCHC 30.8 L (32.3-36.5) g/dL RDW 14.4 (11.6-14.4) % Plt Count 151 L (163-337) x10^3/uL MPV 10.9 (9.4-12.4) fL Gran % 83.3 H (34.0-67.9) % Immature Gran % (Auto) 0.4 (0.001-0.429) % Nucleat RBC Rel Count 0.0 (0.00-0.2) % Eos # (Auto) 0 L (0.04-0.54) x10^3/uL Immature Gran # (Auto) 0.05 H (0.001-0.031) x10^3u/L Absolute Lymphs (auto) 0.67 L (1.32-3.57) x10^3/uL Absolute Monos (auto) 1.22 H (0.30-0.82) x10^3/uL Absolute Nucleated RBC 0.00 (0.00-0.012) x10^3u/L Lymphocytes % 5.7 L (21.8-53.1) % Monocytes % 10.4 (5.3-12.2) % Eosinophils % 0.0 L (0.8-7.0) % Basophils % 0.2 (0.2-1.2) % Absolute Granulocytes 9.76 H (1.78-5.38) x10^3/uL Basophils # 0.02 (0.01-0.08) x10^3/uL D-Dimer 0.72 H* (0.0-0.50) mg/L pO2/FiO2 Ratio % VBG pH (7.32-7.42) VBG pCO2 at Pat Temp (42-55) mm/Hg VBG pO2 at Pat Temp (25-40) mm/Hg VBG HCO3 (22-28) meq/L VBG O2 Sat (Magno) (95-100) VBG Base Excess (-2.0-2.0) VBG Hemoglobin VBG Carboxyhemoglobin (0.0-6.9) % T HGB POC Potassium (3.5-5.1) Sodium 136 (135-145) mmol/L Potassium 4.4 (3.5-5.1) mmol/L Chloride 95 L (98-107) mmol/L Carbon Dioxide 32 H (22-30) mmol/L Anion Gap 13.2 (5-15) MEQ/L BUN 43 H (9-20) mg/dL Creatinine 1.61 H (0.66-1.25) mg/dL Estimated GFR 42.7 ML/MIN Glucose 158 H (74-106) mg/dL Lactic Acid (0.4-2.0) Calcium 9.3 (8.4-10.2) mg/dL Magnesium 2.0 (1.6-2.3) mg/dL Total Bilirubin 0.50 (0.2-1.3) mg/dL AST 158 H (17-59) U/L ALT 164 H (0-50) U/L Alkaline Phosphatase 158 H (38-126) U/L Troponin I (0.000-0.033) ng/mL NT-Pro-B Natriuret Pep 8700 (<300) pg/mL Serum Total Protein 6.9 (6.3-8.2) g/dL Albumin 3.8 (3.5-5.0) g/dL Urine Color (Yellow) Urine Appearance (Clear) Urine pH (4.6-8.0) Ur Specific Perkins (1.005-1.030) Urine Protein (Negative) Urine Glucose (UA) (Negative) mg/dL Urine Ketones (Negative) Urine Blood (Negative) Urine Nitrite (Negative) Urine Bilirubin (Negative) Urine Urobilinogen (0.2) mg/dL Ur Leukocyte Esterase (Negative) U Hyaline Cast (Auto) (0-2) /LPF Urine Microscopic RBC (0-5) /HPF Urine Microscopic WBC (0-5) /HPF Ur Epithelial Cells (None Seen) /HPF Urine Bacteria (None Seen) /HPF Urine Culture Reflexed (NO) Influenza Type A Ag (NEGATIVE) Influenza Type B Ag (NEGATIVE) RSV (PCR) (NEGATIVE) SARS-CoV-2 (PCR) (NEGATIVE) 10/05/23 10/05/23 10/05/23 Range/Units 14:02 14:21 17:52 WBC (4.23-9.07) x10^3/uL RBC (4.63-6.08) x10^6/uL Hgb (13.7-17.5) g/dL Hct (40.1-51.0) % MCV (79.0-92.2) fL MCH (25.7-32.2) pg MCHC (32.3-36.5) g/dL RDW (11.6-14.4) % Plt Count (163-337) x10^3/uL MPV (9.4-12.4) fL Gran % (34.0-67.9) % Immature Gran % (Auto) (0.001-0.429) % Nucleat RBC Rel Count (0.00-0.2) % Eos # (Auto) (0.04-0.54) x10^3/uL Immature Gran # (Auto) (0.001-0.031) x10^3u/L Absolute Lymphs (auto) (1.32-3.57) x10^3/uL Absolute Monos (auto) (0.30-0.82) x10^3/uL Absolute Nucleated RBC (0.00-0.012) x10^3u/L Lymphocytes % (21.8-53.1) % Monocytes % (5.3-12.2) % Eosinophils % (0.8-7.0) % Basophils % (0.2-1.2) % Absolute Granulocytes (1.78-5.38) x10^3/uL Basophils # (0.01-0.08) x10^3/uL D-Dimer (0.0-0.50) mg/L pO2/FiO2 Ratio % VBG pH (7.32-7.42) VBG pCO2 at Pat Temp (42-55) mm/Hg VBG pO2 at Pat Temp (25-40) mm/Hg VBG HCO3 (22-28) meq/L VBG O2 Sat (Magno) (95-100) VBG Base Excess (-2.0-2.0) VBG Hemoglobin VBG Carboxyhemoglobin (0.0-6.9) % T HGB POC Potassium (3.5-5.1) Sodium (135-145) mmol/L Potassium (3.5-5.1) mmol/L Chloride (98-107) mmol/L Carbon Dioxide (22-30) mmol/L Anion Gap (5-15) MEQ/L BUN (9-20) mg/dL Creatinine (0.66-1.25) mg/dL Estimated GFR ML/MIN Glucose (74-106) mg/dL Lactic Acid (0.4-2.0) Calcium (8.4-10.2) mg/dL Magnesium (1.6-2.3) mg/dL Total Bilirubin (0.2-1.3) mg/dL AST (17-59) U/L ALT (0-50) U/L Alkaline Phosphatase (38-126) U/L Troponin I 0.132 H* (0.000-0.033) ng/mL NT-Pro-B Natriuret Pep (<300) pg/mL Serum Total Protein (6.3-8.2) g/dL Albumin (3.5-5.0) g/dL Urine Color Yellow (Yellow) Urine Appearance Clear (Clear) Urine pH 5.0 (4.6-8.0) Ur Specific Perkins 1.015 (1.005-1.030) Urine Protein Trace A (Negative) Urine Glucose (UA) Negative (Negative) mg/dL Urine Ketones Negative (Negative) Urine Blood Large A (Negative) Urine Nitrite Negative (Negative) Urine Bilirubin Negative (Negative) Urine Urobilinogen 0.2 (0.2) mg/dL Ur Leukocyte Esterase Negative (Negative) U Hyaline Cast (Auto) 6-10 A (0-2) /LPF Urine Microscopic RBC 21-50 A (0-5) /HPF Urine Microscopic WBC 3-5 (0-5) /HPF Ur Epithelial Cells None Seen (None Seen) /HPF Urine Bacteria None Seen (None Seen) /HPF Urine Culture Reflexed YES (NO) Influenza Type A Ag NEGATIVE (NEGATIVE) Influenza Type B Ag NEGATIVE (NEGATIVE) RSV (PCR) NEGATIVE (NEGATIVE) SARS-CoV-2 (PCR) NEGATIVE (NEGATIVE) 10/05/23 10/06/23 10/06/23 Range/Units 21:45 05:21 05:21 WBC 6.7 (4.23-9.07) x10^3/uL RBC 3.28 L (4.63-6.08) x10^6/uL Hgb 9.3 L (13.7-17.5) g/dL Hct 28.8 L (40.1-51.0) % MCV 87.8 (79.0-92.2) fL MCH 28.4 (25.7-32.2) pg MCHC 32.3 (32.3-36.5) g/dL RDW 14.4 (11.6-14.4) % Plt Count 164 (163-337) x10^3/uL MPV 10.6 (9.4-12.4) fL Gran % (34.0-67.9) % Immature Gran % (Auto) (0.001-0.429) % Nucleat RBC Rel Count (0.00-0.2) % Eos # (Auto) (0.04-0.54) x10^3/uL Immature Gran # (Auto) (0.001-0.031) x10^3u/L Absolute Lymphs (auto) (1.32-3.57) x10^3/uL Absolute Monos (auto) (0.30-0.82) x10^3/uL Absolute Nucleated RBC (0.00-0.012) x10^3u/L Lymphocytes % (21.8-53.1) % Monocytes % (5.3-12.2) % Eosinophils % (0.8-7.0) % Basophils % (0.2-1.2) % Absolute Granulocytes (1.78-5.38) x10^3/uL Basophils # (0.01-0.08) x10^3/uL D-Dimer (0.0-0.50) mg/L pO2/FiO2 Ratio % VBG pH (7.32-7.42) VBG pCO2 at Pat Temp (42-55) mm/Hg VBG pO2 at Pat Temp (25-40) mm/Hg VBG HCO3 (22-28) meq/L VBG O2 Sat (Magno) (95-100) VBG Base Excess (-2.0-2.0) VBG Hemoglobin VBG Carboxyhemoglobin (0.0-6.9) % T HGB POC Potassium (3.5-5.1) Sodium (135-145) mmol/L Potassium (3.5-5.1) mmol/L Chloride (98-107) mmol/L Carbon Dioxide (22-30) mmol/L Anion Gap (5-15) MEQ/L BUN (9-20) mg/dL Creatinine (0.66-1.25) mg/dL Estimated GFR ML/MIN Glucose (74-106) mg/dL Lactic Acid (0.4-2.0) Calcium (8.4-10.2) mg/dL Magnesium (1.6-2.3) mg/dL Total Bilirubin (0.2-1.3) mg/dL AST (17-59) U/L ALT (0-50) U/L Alkaline Phosphatase (38-126) U/L Troponin I 0.155 H* (0.000-0.033) ng/mL NT-Pro-B Natriuret Pep 8470 (<300) pg/mL Serum Total Protein (6.3-8.2) g/dL Albumin (3.5-5.0) g/dL Urine Color (Yellow) Urine Appearance (Clear) Urine pH (4.6-8.0) Ur Specific Perkins (1.005-1.030) Urine Protein (Negative) Urine Glucose (UA) (Negative) mg/dL Urine Ketones (Negative) Urine Blood (Negative) Urine Nitrite (Negative) Urine Bilirubin (Negative) Urine Urobilinogen (0.2) mg/dL Ur Leukocyte Esterase (Negative) U Hyaline Cast (Auto) (0-2) /LPF Urine Microscopic RBC (0-5) /HPF Urine Microscopic WBC (0-5) /HPF Ur Epithelial Cells (None Seen) /HPF Urine Bacteria (None Seen) /HPF Urine Culture Reflexed (NO) Influenza Type A Ag (NEGATIVE) Influenza Type B Ag (NEGATIVE) RSV (PCR) (NEGATIVE) SARS-CoV-2 (PCR) (NEGATIVE) 10/06/23 Range/Units 05:21 WBC (4.23-9.07) x10^3/uL RBC (4.63-6.08) x10^6/uL Hgb (13.7-17.5) g/dL Hct (40.1-51.0) % MCV (79.0-92.2) fL MCH (25.7-32.2) pg MCHC (32.3-36.5) g/dL RDW (11.6-14.4) % Plt Count (163-337) x10^3/uL MPV (9.4-12.4) fL Gran % (34.0-67.9) % Immature Gran % (Auto) (0.001-0.429) % Nucleat RBC Rel Count (0.00-0.2) % Eos # (Auto) (0.04-0.54) x10^3/uL Immature Gran # (Auto) (0.001-0.031) x10^3u/L Absolute Lymphs (auto) (1.32-3.57) x10^3/uL Absolute Monos (auto) (0.30-0.82) x10^3/uL Absolute Nucleated RBC (0.00-0.012) x10^3u/L Lymphocytes % (21.8-53.1) % Monocytes % (5.3-12.2) % Eosinophils % (0.8-7.0) % Basophils % (0.2-1.2) % Absolute Granulocytes (1.78-5.38) x10^3/uL Basophils # (0.01-0.08) x10^3/uL D-Dimer (0.0-0.50) mg/L pO2/FiO2 Ratio % VBG pH (7.32-7.42) VBG pCO2 at Pat Temp (42-55) mm/Hg VBG pO2 at Pat Temp (25-40) mm/Hg VBG HCO3 (22-28) meq/L VBG O2 Sat (Magno) (95-100) VBG Base Excess (-2.0-2.0) VBG Hemoglobin VBG Carboxyhemoglobin (0.0-6.9) % T HGB POC Potassium (3.5-5.1) Sodium 136 (135-145) mmol/L Potassium 4.1 (3.5-5.1) mmol/L Chloride 95 L (98-107) mmol/L Carbon Dioxide 36 H (22-30) mmol/L Anion Gap 7.9 (5-15) MEQ/L BUN 43 H (9-20) mg/dL Creatinine 1.27 H (0.66-1.25) mg/dL Estimated GFR 56.8 ML/MIN Glucose 189 H (74-106) mg/dL Lactic Acid (0.4-2.0) Calcium 8.8 (8.4-10.2) mg/dL Magnesium (1.6-2.3) mg/dL Total Bilirubin (0.2-1.3) mg/dL AST (17-59) U/L ALT (0-50) U/L Alkaline Phosphatase (38-126) U/L Troponin I (0.000-0.033) ng/mL NT-Pro-B Natriuret Pep (<300) pg/mL Serum Total Protein (6.3-8.2) g/dL Albumin (3.5-5.0) g/dL Urine Color (Yellow) Urine Appearance (Clear) Urine pH (4.6-8.0) Ur Specific Perkins (1.005-1.030) Urine Protein (Negative) Urine Glucose (UA) (Negative) mg/dL Urine Ketones (Negative) Urine Blood (Negative) Urine Nitrite (Negative) Urine Bilirubin (Negative) Urine Urobilinogen (0.2) mg/dL Ur Leukocyte Esterase (Negative) U Hyaline Cast (Auto) (0-2) /LPF Urine Microscopic RBC (0-5) /HPF Urine Microscopic WBC (0-5) /HPF Ur Epithelial Cells (None Seen) /HPF Urine Bacteria (None Seen) /HPF Urine Culture Reflexed (NO) Influenza Type A Ag (NEGATIVE) Influenza Type B Ag (NEGATIVE) RSV (PCR) (NEGATIVE) SARS-CoV-2 (PCR) (NEGATIVE) Radiology Exams: Radiology Procedures Category Date Time Status CHEST 1 VIEW (PORTABLE) Stat Exams 10/05/23 13:18 Completed Assessment/Plan (1) CHF exacerbation Current Visit: Yes Status: Acute Assessment & Plan: -supplemental oxygen with goal spo2 goal 88-92% -ABG/BIPAP if significant hypoxia/lethargy/confusion -elevated HOB/Daily weights/ strict I&O -Continue lasix 40mg BID -BNP 8470 -CXR demonstrates new small bibasilar infiltrates/atelectasis/effusions, right greater than left. Remaining upper lungs hyperinflated and clear. Heart not enlarged again with coronary stent. -Optimize electrolytes K>4, MG >2 Code(s): I50.9 - HEART FAILURE, UNSPECIFIED (2) COPD (chronic obstructive pulmonary disease) Current Visit: Yes Status: Acute Assessment & Plan: -At baseline oxygen of 4-5L - titrate as needed for spo2 goal 88-91% -DuoNebs -CXR as stated above - does not appear to be in exacerbation - Covid/flu/ RSV negative (3) Dysphagia Current Visit: Yes Status: Acute Assessment & Plan: -Modified Barium reviewed with recs as follows: ST Recommendations Diet Consistency Regular Liquid Consistency Regular Thin recommendations Safe Swallow Compensatory Strategies Compensatory Strategies Small bites and drinks,Dry swallows,Alternate solids/ liquids,[place]in [place] Medication Instructions Medication(s) in pudding or applesauce Staff/Family Suggestions Reinforce Treatment Program Speech Therapist Treatment Program Thermal/tactile Stim. to trigger the No swallow response Therapeutic Feeds Teach Compensatory Techniques, Diet Consistency Analysis Rehabilitation Potential: GOOD Additional Comments: ST TO PROVIDE A WRITTEN LIST OF SAFE SWALLOW COMPENSATORY STRATEGIES FOR PATIENT USE. PLAN OF CARE/STG (DURING HOSPITAL STAY): 1. PATIENT WILL INDEPENDENTLY UTILIZE SAFE SWALLOW COMPENSATORY STRATEGIES TO DECREASE RISK OF ASPIRATION, 90% OF TRIALS. Code(s): R13.10 - DYSPHAGIA, UNSPECIFIED (4) CKD stage 4 secondary to hypertension Current Visit: Yes Status: Acute Assessment & Plan: -Baseline creat around 1.1-1.2 - 1.61 on admission - at baseline today 1.27 -Avoid nephrotoxic agents -renal dose medications -monitor renal/lytes daily Code(s): I12.9 - HYPERTENSIVE CHRONIC KIDNEY DISEASE W STG 1-4/UNSP CHR KDNY; N18.4 - CHRONIC KIDNEY DISEASE, STAGE 4 (SEVERE) (5) Elevated troponin Current Visit: Yes Status: Acute Assessment & Plan: -Likely demand ischemia - he does not want to be transferred. He is DNR and understands the risk Code(s): R79.89 - OTHER SPECIFIED ABNORMAL FINDINGS OF BLOOD CHEMISTRY (6) Pneumonia Current Visit: No Status: Acute Assessment & Plan: -Rocephin for CAP - diagnosed 09/30/23 -OP therapy with levaquin -renally dosed Code(s): J18.9 - PNEUMONIA, UNSPECIFIED ORGANISM (7) Weakness Current Visit: No Status: Acute Assessment & Plan: -secondary to pneumonia/ advanced lung disease -PT/OT eval Code(s): R53.1 - WEAKNESS (8) Depression Current Visit: No Status: Chronic Assessment & Plan: -continue home medications Code(s): F32.A - DEPRESSION, UNSPECIFIED (9) Diabetes mellitus Current Visit: No Status: Chronic Qualifiers: Diabetes mellitus type: type 2 Diabetes mellitus complication status: without complication Assessment & Plan: -Patient requesting regular diet -SSI -a1c Code(s): E11.9 - TYPE 2 DIABETES MELLITUS WITHOUT COMPLICATIONS (10) Hypertension Current Visit: No Status: Chronic Assessment & Plan: -stable continue home meds Code(s): I10 - ESSENTIAL (PRIMARY) HYPERTENSION (11) Hypothyroidism Current Visit: No Status: Chronic Assessment & Plan: -continue home meds synthroid Code(s): E03.9 - HYPOTHYROIDISM, UNSPECIFIED (12) Chronic atrial fibrillation Current Visit: No Status: Chronic Assessment & Plan: -On Eliquis - will continue, HR is controlled VTE: eliquis Dispo: 2-3 days Diet: regular Code(s): I48.2 - CHRONIC ATRIAL FIBRILLATION * DO NOT USE *
[2023-10-06] MEDS ORDERED: CINNAMON BARK 500 MG PO SCH (10:00)
[2023-10-06] MEDS: THERAGRAN MULTIVITAMIN PO SCH (10:53)
[2023-10-06] MEDS: Zocor 10MG PO SCH (10:53)
[2023-10-06] MEDS: ZOLOFT 50 MG TABLET PO SCH (10:54)
[2023-10-06] MEDS: Cardizem CD PO SCH (10:54)
[2023-10-06] MEDS: SYNTHROID 75 MCG PO SCH (10:54)
[2023-10-06] MEDS: Lopressor 50 MG PO SCH (10:54)
[2023-10-06] MEDS: Carafate 1 GM PO SCH (10:55)
[2023-10-06] MEDS: DIOVAN 80 MG PO SCH (10:55)
[2023-10-06] MEDS: DUONEB 0.5-3 MG/3 ml Neb IH PRN (14:17)
[2023-10-06] MEDS ORDERED: PROVENTIL 2.5 MG/3 ML NEB IH SCH (14:30)
[2023-10-06] MEDS ORDERED: ROCEPHIN 1 GM / 100 ML NaCl 1 GM/100 ML IVPB IV SCH (18:00)
[2023-10-06] MEDS: DUONEB 0.5-3 MG/3 ml Neb IH SCH (18:25)
[2023-10-06] MEDS: PATIENT OWN MEDICATION IH SCH (18:35)
[2023-10-06] MEDS ORDERED: NON-FORMULARY ITEM (Budesonide/Glycopyr/Formoterol [Breztri Aerosphere Inhaler] 10.7 GM Hf IH SCH (22:00)
--- NOTE | 2023-10-07 07:09 | PCM.NOTE ---
Date and Time: 10/07/23 0708 Subjective Assessment: is a 83 year old male with hx of chronic respiratory failure on 4Ls - 5Ls baseline [place] O2, COPD, CHF, AFib, HTN, Hypothyroidism, and CKD 3-4 presented 10/05/23 for hypoxia after recent admission 09/27/23-10/04/23 for pneumonia. Patient stable at discharge and sent home on Levaquin. CXR showing new small bibasilar infiltrates/atelectasis/effusions, right greater than left. Remaining upper lungs hyperinflated and clear. Heart not enlarged again with coronary stent. Labs upon admission remarkable for BNP 8700, WBC mildly elevated at 11.7, Ddimer 0.72. CT performed 09/30/23 demonstrated mild right-sided pleural effusion with focal patchy consolidation with nodular infiltrates in posterior segment of the right upper lobe, likely representing acute infectious etiology. Multiple hypodense trachea, paratracheal, carinal and bilateral hilar nodes, appear to be reactive, the largest measuring 12 mm in short axis diameter.Extensive COPD.Thick fibroatelectatic bands in medio-basal segment of right lower lobe, sequelae to previous infection/insult. IP treatment during that visit with Rocephin/azithromycin for CAP coverage. Plan Lasix 40mg IV BID and ceftriaxone (finished course of azithromycin). Limit fluid and salt intake. He is DNR and does not want much more than medical management. He is on 4-5 Ls [place] O2, which is his baseline. 10/06/23: Met with patient bedside. Dyspnea improved. At baseline oxygenation of 5L at 96% spo2. Lung sounds diminished on auscultation. No wheezing. Patient is very weak. Cough is non-productive. Denies fever, cp, abdominal pain, SWANN, dizziness, N/V/D. Plan continued abx/lasix. Will add mucinex. No edema noted on exam. 10/07/23: No overnight events noted. Patient still with dyspnea although he endorses this has improved. Cough is non-productive. Feeling very weak. Denies fever,cp, abdominal pain, SWANN, dizziness, N/V/D. <LEWIS AMES - Last Filed: 10/07/23 08:52> Date and Time: 10/07/23 1847 <JOCELIN MUHAMMAD - Last Filed: 10/07/23 18:49> - Review of Systems Constitutional: Fatigue, Weakness Eyes: No Symptoms Ears, Nose, & Throat: No Symptoms Respiratory: Cough, Short Of Breath Cardiac: No Symptoms Abdominal/Gastrointestinal: No Symptoms Genitourinary Symptoms: No Symptoms Musculoskeletal: No Symptoms Skin: No Symptoms Neurological: No Symptoms Psychological: No Symptoms, Hallucinations Hematologic/Lymphatic: No Symptoms Immunological/Allergic: No Symptoms <LEWIS AMES - Last Filed: 10/07/23 08:52> Objective Exam General Appearance: no apparent distress Neurologic Exam: alert, oriented x 3, cooperative Skin Exam: pale Eye Exam: PERRL Ears, Nose, Throat Exam: moist mucous membranes Neck Exam: normal inspection Respiratory Exam: diminished breath sounds, wheezing Cardiovascular Exam: regular rate/rhythm, normal heart sounds Gastrointestinal/Abdomen Exam: soft, normal bowel sounds Extremity Exam: normal inspection Back Exam: normal inspection Male Genitalia Exam: deferred Rectal Exam: deferred <LEWIS AMES - Last Filed: 10/07/23 08:52> Objective Data Vital Signs: Vital Signs - 24 hr Temp Pulse Resp BP Pulse Ox 10/07/23 06:55 65 18 97 10/07/23 04:00 97.8 F 67 21 109/57 97 10/07/23 01:06 63 16 99 10/06/23 23:34 97.9 F 78 19 105/67 99 10/06/23 19:48 98.2 F 72 22 126/67 94 L 10/06/23 18:25 70 12 97 10/06/23 15:51 97.5 F 64 17 91/53 95 10/06/23 14:22 58 L 20 98 10/06/23 10:59 97.8 F 82 22 130/59 92 L 10/06/23 07:29 97.7 F 73 21 137/68 95 10/06/23 07:14 97 H 18 94 L Pain Assessment - Last Documented Pain Intensity 0 Intake and Output: Intake & Output 10/04/23 10/05/23 10/06/23 10/07/23 11:59 11:59 11:59 11:59 Intake Total 220 520 Output Total 800 1650 Balance -580 -1130 Weight 54 kg Radiology Exams: Radiology Procedures Category Date Time Status CHEST 1 VIEW (PORTABLE) Stat Exams 10/05/23 13:18 Completed Multi-Disciplinary Progress Notes: Multi-Disciplinary Progress Notes 10/06/23 11:45 (created 10/06/23 11:56) Respiratory Note by Taylor Barrios Called by Mehran Rose, COLLEEN, Care Management Coordinator about order for CPAP on patient. O2 sat 77% on 5lpm per [place] Patient states he does not want to wear a CPAP at this time. Patient did agree to wear an oxymask at this time for his low O2 sats. Patient placed on 10lpm per Oxymask and O2 sat increased to 94% on 10lpm per Oxymask. Mehran Rose RN notified. Initialized on 10/06/23 11:56 - END OF NOTE <LEWIS AMES - Last Filed: 10/07/23 08:52> Vital Signs: Vital Signs - 24 hr Temp Pulse Resp BP Pulse Ox 10/07/23 16:00 97.7 F 61 16 115/56 96 10/07/23 13:04 66 20 91 L 10/07/23 12:00 97.8 F 70 18 134/63 96 10/07/23 07:41 97.8 F 69 17 117/75 96 10/07/23 06:55 65 18 97 10/07/23 04:00 97.8 F 67 21 109/57 97 10/07/23 01:06 63 16 99 10/06/23 23:34 97.9 F 78 19 105/67 99 10/06/23 19:48 98.2 F 72 22 126/67 94 L Pain Assessment - Last Documented Pain Intensity 0 Intake and Output: Intake & Output 10/05/23 10/06/23 10/07/23 10/08/23 11:59 11:59 11:59 11:59 Intake Total 220 580 240 Output Total 800 1850 700 Balance -580 -9140 -460 Weight 54 kg Lab Results: Lab Results-Last 24 Hours 10/07/23 10/07/23 10/07/23 Range/Units 07:38 07:38 07:58 WBC 10.1 H (4.23-9.07) x10^3/uL RBC 3.38 L (4.63-6.08) x10^6/uL Hgb 9.7 L (13.7-17.5) g/dL Hct 30.3 L (40.1-51.0) % MCV 89.6 (79.0-92.2) fL MCH 28.7 (25.7-32.2) pg MCHC 32.0 L (32.3-36.5) g/dL RDW 14.6 H (11.6-14.4) % Plt Count 173 (163-337) x10^3/uL MPV 10.2 (9.4-12.4) fL Gran % 76.7 H (34.0-67.9) % Immature Gran % (Auto) 0.4 (0.001-0.429) % Nucleat RBC Rel Count 0.0 (0.00-0.2) % Eos # (Auto) 0.11 (0.04-0.54) x10^3/uL Immature Gran # (Auto) 0.04 H (0.001-0.031) x10^3u/L Absolute Lymphs (auto) 1.12 L (1.32-3.57) x10^3/uL Absolute Monos (auto) 1.04 H (0.30-0.82) x10^3/uL Absolute Nucleated RBC 0.00 (0.00-0.012) x10^3u/L Lymphocytes % 11.1 L (21.8-53.1) % Monocytes % 10.3 (5.3-12.2) % Eosinophils % 1.1 (0.8-7.0) % Basophils % 0.4 (0.2-1.2) % Absolute Granulocytes 7.78 H (1.78-5.38) x10^3/uL Basophils # 0.04 (0.01-0.08) x10^3/uL Sodium 140 (135-145) mmol/L Potassium 3.6 (3.5-5.1) mmol/L Chloride 96 L (98-107) mmol/L Carbon Dioxide 37 H (22-30) mmol/L Anion Gap 10.6 (5-15) MEQ/L BUN 37 H (9-20) mg/dL Creatinine 1.13 (0.66-1.25) mg/dL Estimated GFR 65.3 ML/MIN Glucose 123 H (74-106) mg/dL Calcium 8.8 (8.4-10.2) mg/dL Magnesium 1.9 (1.6-2.3) mg/dL Total Bilirubin 0.30 (0.2-1.3) mg/dL AST 77 H (17-59) U/L ALT 143 H (0-50) U/L Alkaline Phosphatase 128 H (38-126) U/L Serum Total Protein 6.2 L (6.3-8.2) g/dL Albumin 3.1 L (3.5-5.0) g/dL <JOCELIN MUHAMMAD - Last Filed: 10/07/23 18:49> Assessment/Plan (1) CHF exacerbation Current Visit: Yes Status: Acute Assessment & Plan: -supplemental oxygen with goal spo2 goal 88-92% -ABG/BIPAP if significant hypoxia/lethargy/confusion -elevated HOB/Daily weights/ strict I&O -Continue lasix 40mg BID -BNP 8470 -CXR demonstrates new small bibasilar infiltrates/atelectasis/effusions, right greater than left. Remaining upper lungs hyperinflated and clear. Heart not enlarged again with coronary stent. -Optimize electrolytes K>4, MG >2 10/06: -continue current management with lasix 40mg IV BID -add potassium to optimize electrolyts Code(s): I50.9 - HEART FAILURE, UNSPECIFIED (2) COPD (chronic obstructive pulmonary disease) Current Visit: Yes Status: Acute Assessment & Plan: -At baseline oxygen of 4-5L - titrate as needed for spo2 goal 88-91% - on 5L oxymask currently with spo2 at 96% -DuoNebs -CXR as stated above - does not appear to be in exacerbation - Covid/flu/ RSV negative (3) Dysphagia Current Visit: Yes Status: Acute Assessment & Plan: -Modified Barium reviewed with recs as follows: ST Recommendations Diet Consistency Regular Liquid Consistency Regular Thin recommendations Safe Swallow Compensatory Strategies Compensatory Strategies Small bites and drinks,Dry swallows,Alternate solids/ liquids,Chin Tuck Medication Instructions Medication(s) in pudding or applesauce Staff/Family Suggestions Reinforce Treatment Program Speech Therapist Treatment Program Thermal/tactile Stim. to trigger the No swallow response Therapeutic Feeds Teach Compensatory Techniques, Diet Consistency Analysis Rehabilitation Potential: GOOD Additional Comments: ST TO PROVIDE A WRITTEN LIST OF SAFE SWALLOW COMPENSATORY STRATEGIES FOR PATIENT USE. PLAN OF CARE/STG (DURING HOSPITAL STAY): 1. PATIENT WILL INDEPENDENTLY UTILIZE SAFE SWALLOW COMPENSATORY STRATEGIES TO DECREASE RISK OF ASPIRATION, 90% OF TRIALS. Code(s): R13.10 - DYSPHAGIA, UNSPECIFIED (4) CKD stage 4 secondary to hypertension Current Visit: Yes Status: Acute Assessment & Plan: -Baseline creat around 1.1-1.2 - 1.61 on admission - better than baseline today 1.13 -Avoid nephrotoxic agents -renal dose medications -monitor renal/lytes daily Code(s): I12.9 - HYPERTENSIVE CHRONIC KIDNEY DISEASE W STG 1-4/UNSP CHR KDNY; N18.4 - CHRONIC KIDNEY DISEASE, STAGE 4 (SEVERE) (5) Elevated troponin Current Visit: Yes Status: Acute Assessment & Plan: -Likely demand ischemia - he does not want to be transferred. He is DNR and understands the risk Code(s): R79.89 - OTHER SPECIFIED ABNORMAL FINDINGS OF BLOOD CHEMISTRY (6) Pneumonia Current Visit: No Status: Acute Assessment & Plan: -IP Rocephin for CAP - diagnosed 09/30/23 -OP therapy with levaquin -renally dosed - antibiotic course completed Code(s): J18.9 - PNEUMONIA, UNSPECIFIED ORGANISM (7) Weakness Current Visit: No Status: Acute Assessment & Plan: -secondary to pneumonia/ advanced lung disease -PT/OT eval Code(s): R53.1 - WEAKNESS (8) Depression Current Visit: No Status: Chronic Assessment & Plan: -continue home medications Code(s): F32.A - DEPRESSION, UNSPECIFIED (9) Diabetes mellitus Current Visit: No Status: Chronic Qualifiers: Diabetes mellitus type: type 2 Diabetes mellitus complication status: without complication Assessment & Plan: -Patient requesting regular diet -SSI -a1c Code(s): E11.9 - TYPE 2 DIABETES MELLITUS WITHOUT COMPLICATIONS (10) Hypertension Current Visit: No Status: Chronic Assessment & Plan: -stable continue home meds Code(s): I10 - ESSENTIAL (PRIMARY) HYPERTENSION (11) Hypothyroidism Current Visit: No Status: Chronic Assessment & Plan: -continue home meds synthroid Code(s): E03.9 - HYPOTHYROIDISM, UNSPECIFIED (12) Chronic atrial fibrillation Current Visit: No Status: Chronic Assessment & Plan: -On Eliquis - will continue, HR is controlled VTE: eliquis Dispo: 2-3 days Diet: regular Code(s): I50.9 - HEART FAILURE, UNSPECIFIED (2) COPD (chronic obstructive pulmonary disease) Current Visit: Yes Status: Acute (3) Dysphagia Current Visit: Yes Status: Acute Code(s): R13.10 - DYSPHAGIA, UNSPECIFIED (4) CKD stage 4 secondary to hypertension Current Visit: Yes Status: Acute Code(s): I12.9 - HYPERTENSIVE CHRONIC KIDNEY DISEASE W STG 1-4/UNSP CHR KDNY; N18.4 - CHRONIC KIDNEY DISEASE, STAGE 4 (SEVERE) (5) Elevated troponin Current Visit: Yes Status: Acute Code(s): R79.89 - OTHER SPECIFIED ABNORMAL FINDINGS OF BLOOD CHEMISTRY (6) Pneumonia Current Visit: No Status: Acute Code(s): J18.9 - PNEUMONIA, UNSPECIFIED ORGANISM (7) Weakness Current Visit: No Status: Acute Code(s): R53.1 - WEAKNESS (8) Depression Current Visit: No Status: Chronic Code(s): F32.A - DEPRESSION, UNSPECIFIED (9) Diabetes mellitus Current Visit: No Status: Chronic Qualifiers: Diabetes mellitus type: type 2 Diabetes mellitus complication status: without complication Code(s): E11.9 - TYPE 2 DIABETES MELLITUS WITHOUT COMPLICATIONS (10) Hypertension Current Visit: No Status: Chronic Code(s): I10 - ESSENTIAL (PRIMARY) HYPERTENSION (11) Hypothyroidism Current Visit: No Status: Chronic Code(s): E03.9 - HYPOTHYROIDISM, UNSPECIFIED (12) Chronic atrial fibrillation Current Visit: No Status: Chronic Code(s): I48.2 - CHRONIC ATRIAL FIBRILLATION * DO NOT USE * <LEWIS AMES - Last Filed: 10/07/23 08:52> ALFREDA Encounter - ALFREDA Encounter Attestation ALFREDA Encounter Attestation: "DIANA Farrell andhavediscussed pertinent aspects of their care with [ ]and agree with the history, physical exam (any modifications based on my personal exam will be noted below), assessment, and plan as outlined in original note. Please see immediately below for my summary of findings and additional assessment and plan along with any meaningful corrections/explanations to the Subjective/Objective portions of the ALFREDA note will be noted." My portion of the encounter took place via telemedicine. -Patient recently admitted for pneumonia and COPD exac, now returned with signs/symptoms of CHF. Quick improvement with bipap and IV diuresis. Change to oral lasix tomorrow, will need echo. PT/OT eval as he seems very debilitated from his baseline. <JOCELIN MUHAMMAD - Last Filed: 10/07/23 18:49>
[2023-10-07 07:41] LABS: Absolute Neutrophil Ct (ANC) 7.78 x10^3/uL (1.78-5.38); BASOPHIL % 0.4 % (0.2-1.2); Basophil (Absolute #) 0.04 x10^3/uL (0.01-0.08); Eosinophil % 1.1 % (0.8-7.0); Eosinophil (Absolute #) 0.11 x10^3/uL (0.04-0.54); Hematocrit 30.3 % (40.1-51.0); Hemoglobin 9.7 g/dL (13.7-17.5); IMMATURE GRAN # 0.04 x10^3u/L (0.001-0.031); IMMATURE GRAN % 0.4 % (0.001-0.429); Lymphocyte (Absolute #) 1.12 x10^3/uL (1.32-3.57); Lymphocytes % 11.1 % (21.8-53.1); Mean Cell Volume 89.6 fL (79.0-92.2); Mean Corpuscular Hemoglobin 28.7 pg (25.7-32.2); Mean Platelet Volume 10.2 fL (9.4-12.4); Monocyte (Absolute #) 1.04 x10^3/uL (0.30-0.82); Monocytes % 10.3 % (5.3-12.2); Neutrophil % 76.7 % (34.0-67.9); Platelet Count 173 x10^3/uL (163-337); Red Blood Count 3.38 x10^6/uL (4.63-6.08); Red Cell Distribution Width 14.6 % (11.6-14.4); White Blood Count 10.1 x10^3/uL (4.23-9.07)
[2023-10-07 07:58] LABS: ALBUMIN 3.1 g/dL (3.5-5.0); BILIRUBIN,TOTAL 0.3 mg/dL (0.2-1.3); Calcium 8.8 mg/dL (8.4-10.2); Creatinine 1 1.13 mg/dL (0.66-1.25); EST GLOMERULAR FILTRATION RATE 65.3 ML/MIN; Potassium 3.6 mmol/L (3.5-5.1); Total Protein 6.2 g/dL (6.3-8.2)
[2023-10-07 08:24] LABS: ANION GAP 10.6 MEQ/L (5-15)
[2023-10-07] MEDS: Klor Con PO SCH (09:43)
[2023-10-08 04:47] LABS: Absolute Neutrophil Ct (ANC) 6.51 x10^3/uL (1.78-5.38); BASOPHIL % 0.4 % (0.2-1.2); Basophil (Absolute #) 0.03 x10^3/uL (0.01-0.08); Eosinophil % 2.6 % (0.8-7.0); Eosinophil (Absolute #) 0.22 x10^3/uL (0.04-0.54); Hematocrit 31.8 % (40.1-51.0); Hemoglobin 10.1 g/dL (13.7-17.5); IMMATURE GRAN # 0.02 x10^3u/L (0.001-0.031); IMMATURE GRAN % 0.2 % (0.001-0.429); Lymphocytes % 9.3 % (21.8-53.1); Mean Cell Volume 90.1 fL (79.0-92.2); Mean Corpuscular Hemoglobin 28.6 pg (25.7-32.2); Mean Corpuscular Hgb Concent. 31.8 g/dL (32.3-36.5); Mean Platelet Volume 10.5 fL (9.4-12.4); Monocyte (Absolute #) 0.99 x10^3/uL (0.30-0.82); Monocytes % 11.6 % (5.3-12.2); Neutrophil % 75.9 % (34.0-67.9); Platelet Count 194 x10^3/uL (163-337); Red Blood Count 3.53 x10^6/uL (4.63-6.08); Red Cell Distribution Width 14.9 % (11.6-14.4); White Blood Count 8.6 x10^3/uL (4.23-9.07)
[2023-10-08 05:15] LABS: ALBUMIN 3.1 g/dL (3.5-5.0); BILIRUBIN,TOTAL 0.3 mg/dL (0.2-1.3); Calcium 8.9 mg/dL (8.4-10.2); Creatinine 1 1.01 mg/dL (0.66-1.25); EST GLOMERULAR FILTRATION RATE 74.7 ML/MIN; Potassium 3.5 mmol/L (3.5-5.1); Total Protein 6.1 g/dL (6.3-8.2)
[2023-10-08 05:24] LABS: ANION GAP 8.5 MEQ/L (5-15)
--- NOTE | 2023-10-08 09:30 | PCM.DS ---
Discharge Summary Date of Admission: 10/05/23 18:13 Date of Discharge: 10/08/23 Admitting Physician: ALEKS CHIN MD Primary Care Provider: JED CARTER Allergies Allergies influenza vaccine Allergy (Severe, Uncoded 10/05/23 19:24) cardiac arrest Hospital Summary - Hospital Course Hospital Course: 10/08/23 is a 83 year old male with hx of chronic respiratory failure on 4Ls - 5Ls baseline [place] O2, COPD, CHF, AFib, HTN, Hypothyroidism, and CKD 3-4. He presented on 10/05/23 for hypoxia after recent admission 09/27/23-10/04/23 for pneumonia. Patient stable at discharge and sent home on Levaquin. CXR showing new small bibasilar infiltrates/atelectasis/effusions, right greater than left. Remaining upper lungs hyperinflated and clear. Heart not enlarged again with coronary stent. Labs upon admission remarkable for BNP 8700, WBC mildly elevated at 11.7, Ddimer 0.72. CT performed 09/30/23 demonstrated mild right-sided pleural effusion with focal patchy consolidation with nodular infiltrates in posterior segment of the right upper lobe, likely representing acute infectious etiology. Multiple hypodense trachea, paratracheal, carinal and bilateral hilar nodes, appear to be reactive, the largest measuring 12 mm in short axis diameter. E xtensive COPD.Thick fibroatelectatic bands in medio-basal segment of right lower lobe, sequelae to previous infection/insult. In ER he was to be transferred to [facility] per family request. Despite obtaining a bed at [facility] swiftly, the patient, awakened was alert and oriented, and declined the transfer to that facility and wants to be made DO NOT RESUSCITATE. He and his family were told that he has both congestive heart failure, pneumonia, COPD exacerbation and elevated heart enzymes. He is, as is the family, aware that, despite hospital intervention, his condition can worsen and he could . By signing the DO NOT RESUSCITATE form, patient will not be placed on mechanical v entilation and will not undergo CPR or electrical/mechanical cardioversion. IP treatment during that visit with Rocephin/azithromycin for CAP coverage. During this visit Lasix 40mg IV BID and ceftriaxone (finished course of azithromycin). Fluid and salt intake limited during stay. He is DNR and does not want much more than medical management. He refused CPAP at night, and CO2 increasing. He is on 4-5 Ls [place] O2, which is his baseline. He is wanting to go home today. Antibiotics completed yesterday. He is a good candidate for Palliative care or Hospice as he is not willing to do further medical treatment. Discussed with case management. They will make OP arrangements and discuss with family. - Vitals & Intake/Output Vital Signs: Vital Signs Temperature 97.7 F 10/08/23 07:12 Pulse Rate 60 10/08/23 07:12 Respiratory Rate 15 10/08/23 07:12 Blood Pressure 116/65 10/08/23 07:12 O2 Sat by Pulse Oximetry 98 10/08/23 07:12 Intake & Output: Intake & Output 10/05/23 10/06/23 10/07/23 10/08/23 11:59 11:59 11:59 11:59 Intake Total 901 829 1510 Output Total 800 1850 1400 Balance -580 -1270 -150 Weight 54 kg 53 kg - Lab Result Diagrams: 10/08/23 04:41 10/08/23 04:41 Lab Results-Last 24 Hrs: Lab Results-Last 24 Hours 10/07/23 10/08/23 10/08/23 Range/Units 07:58 04:41 04:41 WBC 8.6 (4.23-9.07) x10^3/uL RBC 3.53 L (4.63-6.08) x10^6/uL Hgb 10.1 L (13.7-17.5) g/dL Hct 31.8 L (40.1-51.0) % MCV 90.1 (79.0-92.2) fL MCH 28.6 (25.7-32.2) pg MCHC 31.8 L (32.3-36.5) g/dL RDW 14.9 H (11.6-14.4) % Plt Count 194 (163-337) x10^3/uL MPV 10.5 (9.4-12.4) fL Gran % 75.9 H (34.0-67.9) % Immature Gran % (Auto) 0.2 (0.001-0.429) % Nucleat RBC Rel Count 0.0 (0.00-0.2) % Eos # (Auto) 0.22 (0.04-0.54) x10^3/uL Immature Gran # (Auto) 0.02 (0.001-0.031) x10^3u/L Absolute Lymphs (auto) 0.80 L (1.32-3.57) x10^3/uL Absolute Monos (auto) 0.99 H (0.30-0.82) x10^3/uL Absolute Nucleated RBC 0.00 (0.00-0.012) x10^3u/L Lymphocytes % 9.3 L (21.8-53.1) % Monocytes % 11.6 (5.3-12.2) % Eosinophils % 2.6 (0.8-7.0) % Basophils % 0.4 (0.2-1.2) % Absolute Granulocytes 6.51 H (1.78-5.38) x10^3/uL Basophils # 0.03 (0.01-0.08) x10^3/uL Sodium 139 (135-145) mmol/L Potassium 3.5 (3.5-5.1) mmol/L Chloride 95 L (98-107) mmol/L Carbon Dioxide 39 H (22-30) mmol/L Anion Gap 8.5 (5-15) MEQ/L BUN 26 H (9-20) mg/dL Creatinine 1.01 (0.66-1.25) mg/dL Estimated GFR 74.7 ML/MIN Glucose 156 H (74-106) mg/dL Lactic Acid (0.4-2.0) Calcium 8.9 (8.4-10.2) mg/dL Magnesium 1.9 (1.6-2.3) mg/dL Total Bilirubin 0.30 (0.2-1.3) mg/dL AST 57 (17-59) U/L ALT 124 H (0-50) U/L Alkaline Phosphatase 129 H (38-126) U/L Serum Total Protein 6.1 L (6.3-8.2) g/dL Albumin 3.1 L (3.5-5.0) g/dL 10/08/23 10/08/23 Range/Units 04:41 07:19 WBC (4.23-9.07) x10^3/uL RBC (4.63-6.08) x10^6/uL Hgb (13.7-17.5) g/dL Hct (40.1-51.0) % MCV (79.0-92.2) fL MCH (25.7-32.2) pg MCHC (32.3-36.5) g/dL RDW (11.6-14.4) % Plt Count (163-337) x10^3/uL MPV (9.4-12.4) fL Gran % (34.0-67.9) % Immature Gran % (Auto) (0.001-0.429) % Nucleat RBC Rel Count (0.00-0.2) % Eos # (Auto) (0.04-0.54) x10^3/uL Immature Gran # (Auto) (0.001-0.031) x10^3u/L Absolute Lymphs (auto) (1.32-3.57) x10^3/uL Absolute Monos (auto) (0.30-0.82) x10^3/uL Absolute Nucleated RBC (0.00-0.012) x10^3u/L Lymphocytes % (21.8-53.1) % Monocytes % (5.3-12.2) % Eosinophils % (0.8-7.0) % Basophils % (0.2-1.2) % Absolute Granulocytes (1.78-5.38) x10^3/uL Basophils # (0.01-0.08) x10^3/uL Sodium (135-145) mmol/L Potassium (3.5-5.1) mmol/L Chloride (98-107) mmol/L Carbon Dioxide (22-30) mmol/L Anion Gap (5-15) MEQ/L BUN (9-20) mg/dL Creatinine (0.66-1.25) mg/dL Estimated GFR ML/MIN Glucose (74-106) mg/dL Lactic Acid 1.0 (0.4-2.0) Calcium (8.4-10.2) mg/dL Magnesium 1.8 (1.6-2.3) mg/dL Total Bilirubin (0.2-1.3) mg/dL AST (17-59) U/L ALT (0-50) U/L Alkaline Phosphatase (38-126) U/L Serum Total Protein (6.3-8.2) g/dL Albumin (3.5-5.0) g/dL Micro Results-Entire Visit: Microbiology 10/05/23 14:21 Urine Culture - Final Urine, Void NO GROWTH 10/05/23 13:47 Blood Culture - Preliminary Blood - Procedures and Test Procedures and Tests throughout Hospitalization: Therapy Orders & Screens 10/05/23 14:16 BiPap/CPAP STAT Comment: 10/05/23 18:18 Respiratory Therapy Consult ONCE Comment: Reason For Exam: 10/05/23 19:19 Oxygen Nasal Cannula 5 lpm Comment: Diagnosis: chf exacerbation, pne, copd exacerbation, elevated troponins 10/05/23 20:09 Respiratory Therapy Assessment DAILY Comment: Diagnosis: chf exacerbation, pne, copd exacerbation, elevated troponins 10/06/23 18:34 Respiratory MDI BID Comment: Diagnosis: chf exacerbation, pne, copd exacerbation, elevated troponins Discharge Exam General Appearance: no apparent distress, alert, thin Neurologic Exam: alert, oriented x 3, cooperative, normal mood/affect, nml cerebellar function, sensation nml, No motor deficits Eye Exam: PERRL, EOMI, eyes nml inspection Ears, Nose, Throat Exam: normal ENT inspection, pharynx normal, moist mucous membranes Neck Exam: normal inspection, non-tender, supple, full range of motion Respiratory Exam: normal breath sounds, lungs clear, No respiratory distress Cardiovascular Exam: regular rate/rhythm, normal heart sounds Gastrointestinal/Abdomen Exam: soft, No tenderness, No mass Male Genitalia Exam: deferred Rectal Exam: deferred Back Exam: normal inspection, normal range of motion, No CVA tenderness, No vertebral tenderness Extremity Exam: normal inspection, normal range of motion Skin Exam: normal color, warm, dry Final Diagnosis/Problem List - Final Discharge Diagnosis/Problem (1) Lactic acidosis Current Visit: Yes Status: Acute Assessment & Plan: - 10/04 LA 3.1 - repeat 09/27- 1.0 - likely 2:2 CHF Code(s): E87.20 - ACIDOSIS, UNSPECIFIED (2) CHF exacerbation Current Visit: Yes Status: Acute Assessment & Plan: -supplemental oxygen with goal spo2 goal 88-92% -ABG/BIPAP if significant hypoxia/lethargy/confusion- refused -elevated HOB/Daily weights/ strict I&O -Continue lasix 40mg BID -BNP 8470 7/13/24 -CXR demonstrates new small bibasilar infiltrates/atelectasis/effusions, right greater than left. Remaining upper lungs hyperinflated and clear. Heart not enlarged again with coronary stent. -Optimize electrolytes K>4, MG >2 Code(s): I50.9 - HEART FAILURE, UNSPECIFIED (3) COPD exacerbation Current Visit: Yes Status: Acute Assessment & Plan: -At baseline oxygen of 4-5L - titrate as needed for spo2 goal 88-91% - Oxymask at night - refused CPAP at [facility] - DuoNebs - CXR as stated above - does not appear to be in exacerbation - Covid/flu/ RSV negative - wants OP sleep study if possible- Ordered- if pt agreeable will do and f/u with PCP. - Will need to f/u OP with PULM. Code(s): J44.1 - CHRONIC OBSTRUCTIVE PULMONARY DISEASE W (ACUTE) EXACERBATION (4) CKD stage 4 secondary to hypertension Current Visit: Yes Status: Acute Assessment & Plan: -Baseline creat around 1.1-1.2 -Avoid nephrotoxic agents -renal dose medications -monitor renal/lytes daily - @ baseline Code(s): I12.9 - HYPERTENSIVE CHRONIC KIDNEY DISEASE W STG 1-4/UNSP CHR KDNY; N18.4 - CHRONIC KIDNEY DISEASE, STAGE 4 (SEVERE) (5) Dysphagia Current Visit: Yes Status: Acute Assessment & Plan: -Modified Barium reviewed with recs as follows: ST Recommendations Diet Consistency Regular Liquid Consistency Regular Thin recommendations Safe Swallow Compensatory Strategies Compensatory Strategies Small bites and drinks,Dry swallows,Alternate solids/ liquids,Chin Tuck Medication Instructions Medication(s) in pudding or applesauce Staff/Family Suggestions Reinforce Treatment Program Speech Therapist Treatment Program Thermal/tactile Stim. to trigger the No swallow response Therapeutic Feeds Teach Compensatory Techniques, Diet Consistency Analysis Rehabilitation Potential: GOOD Additional Comments: ST TO PROVIDE A WRITTEN LIST OF SAFE SWALLOW COMPENSATORY STRATEGIES FOR PATIENT USE. PLAN OF CARE/STG (DURING HOSPITAL STAY): 1. PATIENT WILL INDEPENDENTLY UTILIZE SAFE SWALLOW COMPENSATORY STRATEGIES TO DECREASE RISK OF ASPIRATION, 90% OF TRIALS. Code(s): R13.10 - DYSPHAGIA, UNSPECIFIED (6) Elevated troponin Current Visit: Yes Status: Acute Assessment & Plan: -Likely demand ischemia - he does not want to be transferred. - He is DNR and understands the risk - denies CP - Trop 0.117, 0.132, 0.155 Code(s): R79.89 - OTHER SPECIFIED ABNORMAL FINDINGS OF BLOOD CHEMISTRY (7) Pneumonia Current Visit: No Status: Acute Assessment & Plan: -IP Rocephin for CAP - diagnosed 09/30/23 -OP therapy with Levaquin -renal dosed - antibiotic course completed - On baseline O2 @ 5LNC Code(s): J18.9 - PNEUMONIA, UNSPECIFIED ORGANISM (8) Weakness Current Visit: No Status: Acute Assessment & Plan: -secondary to pneumonia/ advanced lung disease -PT/OT eval Code(s): R53.1 - WEAKNESS (9) Chronic atrial fibrillation Current Visit: No Status: Chronic Assessment & Plan: -On Eliquis - will continue, HR is controlled Code(s): I48.2 - CHRONIC ATRIAL FIBRILLATION * DO NOT USE * (10) Depression Current Visit: No Status: Chronic Assessment & Plan: -continue home medications Code(s): F32.A - DEPRESSION, UNSPECIFIED (11) Diabetes mellitus Current Visit: No Status: Chronic Assessment & Plan: -Patient requesting regular diet -SSI, accuchecks ac/hs -a1c- 6.67 10-01-23- controlled Code(s): E11.9 - TYPE 2 DIABETES MELLITUS WITHOUT COMPLICATIONS (12) Hypertension Current Visit: No Status: Chronic Assessment & Plan: -stable continue home meds Code(s): I10 - ESSENTIAL (PRIMARY) HYPERTENSION (13) Hypothyroidism Current Visit: No Status: Chronic Assessment & Plan: -continue home meds synthroid Code(s): E03.9 - HYPOTHYROIDISM, UNSPECIFIED - Discharge Discharge Date: 10/08/23 Disposition: Home, Self-Care Condition: Fair Prescriptions: Continue Apixaban [Eliquis] 1 tab PO BID dilTIAZem HCL [Cartia Xt] 1 cap PO DAILY Valsartan 0.5 tab PO DAILY Metoprolol Tartrate 50 mg [Lopressor 50 MG] 1 tab PO BID Atorvastatin Calcium [Lipitor 20MG Tablet] 1 tab PO DAILY Potassium Chloride 10 meq PO TID Levothyroxine Sodium 75 Mcg [Synthroid 75 Mcg] 75 mcg PO DAILY LORazepam [Lorazepam] 0.5 mg PO BID PRN PRN Reason: Anxiety Bumetanide 1 mg [Bumex 1 mg] 1 mg PO DAILY Cinnamon Bark [Cinnamon] 2,000 mg PO DAILY Multivitamin 1 tab PO DAILY Sucralfate 1 tab PO HS Sertraline HCl 50 mg [Zoloft 50 mg Tablet] 1 tab PO DAILY Nitroglycerin 0.4 mg SL Q5MIN PRN MR X 3 PRN PRN Reason: Chest Pain Budesonide/Glycopyr/Formoterol [Breztri Aerosphere Inhaler] 2 puff IH BID Albuterol Sulfate 1.25 mg IH Q4H Discontinued levoFLOXacin [Levofloxacin] 500 mg PO DAILY 7 Days #7 tablet Follow up with: JED CARTER MD [Primary Care Provider] -
[2023-10-08] MEDS: BUMEX 1 MG PO SCH (10:38)
--- NOTE | 2023-10-08 15:51 | PCM.NOTE ---
Date and Time: 10/08/23 1549 Subjective Assessment: 10/08/23 is a 83 year old male with hx of chronic respiratory failure on 4Ls - 5Ls baseline NC O2, COPD, CHF, AFib, HTN, Hypothyroidism, and CKD 3-4. He presented on 10/05/23 for hypoxia after recent admission 09/27/23-10/04/23 for pneumonia. Patient stable at discharge and sent home on Levaquin. CXR showing new small bibasilar infiltrates/atelectasis/effusions, right greater than left. Remaining upper lungs hyperinflated and clear. Heart not enlarged again with coronary stent. Labs upon admission remarkable for BNP 8700, WBC mildly elevated at 11.7, Ddimer 0.72. CT performed 09/30/23 demonstrated mild right-sided pleural effusion with focal patchy consolidation with nodular infiltrates in posterior segment of the right upper lobe, likely representing acute infectious etiology. Multiple hypodense trachea, paratracheal, carinal and bilateral hilar nodes, appear to be reactive, the largest measuring 12 mm in short axis diameter. Extensive COPD.Thick fibroatelectatic bands in medio-basal segment of right lower lobe, sequelae to previous infection/insult. In ER he was to be transferred to [facility] per family request. Despite obtaining a bed at [facility] swiftly, the patient, awakened was alert and oriented, and declined the transfer to that facility and wants to be made DO NOT RESUSCITATE. He and his family were told that he has both congestive heart failure, pneumonia, COPD exacerbation and elevated heart enzymes. He is, as is the family, aware that, despite hospital intervention, his condition can worsen and he could . By signing the DO NOT RESUSCITATE form, patient will not be placed on mechanical ventilation and will not undergo CPR or electrical/mechanical cardioversion. During this visit Lasix 40mg IV BID and ceftriaxone (finished course of azithromycin). Fluid and salt intake limited during stay. He is DNR and does not want much more than medical management. He refused CPAP at night, and CO2 increasing. He is on 4-5 Liters NC O2, which is his baseline. He is wanting to go home today. Antibiotics completed yesterday. He is a good candidate for Palliative care or Hospice as he is not willing to do further medical treatment. Discussed with case management. They will make OP arrangements and discuss with family. After further discussion pt would like to go to OP rehab. Awaiting insurance approval. May likely d/c tomorrow. - Review of Systems Constitutional: Weakness, Weight Loss, No Fever, No Chills Eyes: No Symptoms Ears, Nose, & Throat: No Symptoms Respiratory: Short Of Breath, No Cough Cardiac: No Chest Pain, No Edema, No Syncope Abdominal/Gastrointestinal: No Abdominal Pain, No Nausea, No Vomiting, No Diarrhea Genitourinary Symptoms: No Dysuria Musculoskeletal: No Back Pain, No Neck Pain Skin: No Rash Neurological: No Dizziness, No Focal Weakness, No Sensory Changes Psychological: No Symptoms Endocrine: No Symptoms Hematologic/Lymphatic: No Symptoms Immunological/Allergic: No Symptoms Objective Exam General Appearance: no apparent distress, alert, thin Neurologic Exam: alert, oriented x 3, cooperative, normal mood/affect, nml cerebellar function, sensation nml, No motor deficits Skin Exam: normal color, warm, dry Eye Exam: PERRL, EOMI, eyes nml inspection Ears, Nose, Throat Exam: normal ENT inspection, pharynx normal, moist mucous membranes Neck Exam: normal inspection, non-tender, supple, full range of motion Respiratory Exam: normal breath sounds, lungs clear, No respiratory distress Cardiovascular Exam: regular rate/rhythm, normal heart sounds Gastrointestinal/Abdomen Exam: soft, No tenderness, No mass Extremity Exam: normal inspection, normal range of motion Back Exam: normal inspection, normal range of motion, No CVA tenderness, No vertebral tenderness Male Genitalia Exam: deferred Rectal Exam: deferred Objective Data Vital Signs: Vital Signs - 24 hr Temp Pulse Resp BP Pulse Ox 10/08/23 13:26 62 22 97 10/08/23 11:28 97.1 F 59 L 17 133/66 97 10/08/23 07:12 97.7 F 60 15 116/65 98 10/08/23 06:59 60 15 98 10/08/23 04:00 97.9 F 66 20 126/54 96 10/08/23 01:44 58 L 16 97 10/07/23 23:37 98.0 F 62 20 140/69 98 10/07/23 21:25 63 123/61 10/07/23 20:00 97.8 F 71 24 112/58 100 10/07/23 18:53 58 L 16 94 L 10/07/23 16:00 97.7 F 61 16 115/56 96 Pain Assessment - Last Documented Pain Intensity 0 Intake and Output: Intake & Output 10/06/23 10/07/23 10/08/23 10/09/23 11:59 11:59 11:59 11:59 Intake Total 017 982 7065 240 Output Total 800 1850 1400 Balance -580 -1270 -150 240 Weight 54 kg 53 kg Lab Results: Lab Results-Last 24 Hours 10/08/23 10/08/23 10/08/23 Range/Units 04:41 04:41 04:41 WBC 8.6 (4.23-9.07) x10^3/uL RBC 3.53 L (4.63-6.08) x10^6/uL Hgb 10.1 L (13.7-17.5) g/dL Hct 31.8 L (40.1-51.0) % MCV 90.1 (79.0-92.2) fL MCH 28.6 (25.7-32.2) pg MCHC 31.8 L (32.3-36.5) g/dL RDW 14.9 H (11.6-14.4) % Plt Count 194 (163-337) x10^3/uL MPV 10.5 (9.4-12.4) fL Gran % 75.9 H (34.0-67.9) % Immature Gran % (Auto) 0.2 (0.001-0.429) % Nucleat RBC Rel Count 0.0 (0.00-0.2) % Eos # (Auto) 0.22 (0.04-0.54) x10^3/uL Immature Gran # (Auto) 0.02 (0.001-0.031) x10^3u/L Absolute Lymphs (auto) 0.80 L (1.32-3.57) x10^3/uL Absolute Monos (auto) 0.99 H (0.30-0.82) x10^3/uL Absolute Nucleated RBC 0.00 (0.00-0.012) x10^3u/L Lymphocytes % 9.3 L (21.8-53.1) % Monocytes % 11.6 (5.3-12.2) % Eosinophils % 2.6 (0.8-7.0) % Basophils % 0.4 (0.2-1.2) % Absolute Granulocytes 6.51 H (1.78-5.38) x10^3/uL Basophils # 0.03 (0.01-0.08) x10^3/uL Sodium 139 (135-145) mmol/L Potassium 3.5 (3.5-5.1) mmol/L Chloride 95 L (98-107) mmol/L Carbon Dioxide 39 H (22-30) mmol/L Anion Gap 8.5 (5-15) MEQ/L BUN 26 H (9-20) mg/dL Creatinine 1.01 (0.66-1.25) mg/dL Estimated GFR 74.7 ML/MIN Glucose 156 H (74-106) mg/dL Lactic Acid (0.4-2.0) Calcium 8.9 (8.4-10.2) mg/dL Magnesium 1.8 (1.6-2.3) mg/dL Total Bilirubin 0.30 (0.2-1.3) mg/dL AST 57 (17-59) U/L ALT 124 H (0-50) U/L Alkaline Phosphatase 129 H (38-126) U/L Serum Total Protein 6.1 L (6.3-8.2) g/dL Albumin 3.1 L (3.5-5.0) g/dL 10/08/23 Range/Units 07:19 WBC (4.23-9.07) x10^3/uL RBC (4.63-6.08) x10^6/uL Hgb (13.7-17.5) g/dL Hct (40.1-51.0) % MCV (79.0-92.2) fL MCH (25.7-32.2) pg MCHC (32.3-36.5) g/dL RDW (11.6-14.4) % Plt Count (163-337) x10^3/uL MPV (9.4-12.4) fL Gran % (34.0-67.9) % Immature Gran % (Auto) (0.001-0.429) % Nucleat RBC Rel Count (0.00-0.2) % Eos # (Auto) (0.04-0.54) x10^3/uL Immature Gran # (Auto) (0.001-0.031) x10^3u/L Absolute Lymphs (auto) (1.32-3.57) x10^3/uL Absolute Monos (auto) (0.30-0.82) x10^3/uL Absolute Nucleated RBC (0.00-0.012) x10^3u/L Lymphocytes % (21.8-53.1) % Monocytes % (5.3-12.2) % Eosinophils % (0.8-7.0) % Basophils % (0.2-1.2) % Absolute Granulocytes (1.78-5.38) x10^3/uL Basophils # (0.01-0.08) x10^3/uL Sodium (135-145) mmol/L Potassium (3.5-5.1) mmol/L Chloride (98-107) mmol/L Carbon Dioxide (22-30) mmol/L Anion Gap (5-15) MEQ/L BUN (9-20) mg/dL Creatinine (0.66-1.25) mg/dL Estimated GFR ML/MIN Glucose (74-106) mg/dL Lactic Acid 1.0 (0.4-2.0) Calcium (8.4-10.2) mg/dL Magnesium (1.6-2.3) mg/dL Total Bilirubin (0.2-1.3) mg/dL AST (17-59) U/L ALT (0-50) U/L Alkaline Phosphatase (38-126) U/L Serum Total Protein (6.3-8.2) g/dL Albumin (3.5-5.0) g/dL Multi-Disciplinary Progress Notes: Multi-Disciplinary Progress Notes 10/08/23 13:55 Case Management Note by Brianna Chao PATIENT HAS NOW DECIDED HE IS MORE INTERESTED IN A SHORT TERM REHAB STAY THAN HOSPICE AT [facility]. HE IS STILL UNDECIDED AT THIS TIME BUT IF HE GOES- HE WOULD LIKE TO GO TO [facility]. S/W LEWIS FROM [facility]- SHE IS GOING TO REACH OUT TO [facility] PER PATIENT'S REQUEST TO DISCUSS FACILITY. JUAN MANUEL PAPERWORK DONE- NO LEVEL II REQUIRED. COPIES PLACED IN CHART FULL REFERRAL WITH JUAN MANUEL FAXED TO [facility]. SENT PT EVAL FROM LAST STAY WHILE WAITING FOR NEW EVAL. Initialized on 10/08/23 13:55 - END OF NOTE 10/08/23 12:15 Case Management Note by Brianna Chao PATIENT DCD HOME 10/04/23 WITH [facility] SET UP. FAMILY WAS GOING TO LOOK INTO GETTING [employer] TO ASSIST HIM AND HIS AT HOME. PATIENT ALREADY HAD HOME OXYGEN AT HOME WITH PORTABILITY AND A ROLLATOR. PATIENT CAME BACK IN RESP DISTRESS 10/04. S/W PATIENT AND VARIOUS FAMILY MEMBERS TODAY ABOUT PATIENT'S OPTIONS AT [facility]. PATIENT IS A DNR AND JUST WANTED MEDICAL MANAGEMENT OF HIS COPD WHILE HERE. HE HAS ALSO VOICED IN HIS PAST STAY HE IS ADAMENT TO RETURN HOME WITH HIS . I DISCUSSED HOSPICE WITH PATIENT HE IS END STAGE COPD. PATIENT VOICED HE WOULD LIKE HIS SYMPTOMS TO BE CONTROLLED AND STAY AT HOME WITH HIS . I ALSO DISCUSSED A SHORT TERM REHAB STAY WELL. I S/W DAUGHTER HANDY AND PANCHITO FOSTER ABOUT OPTIONS. THEY WERE GOING TO CALL AND DISCUSS THESE OPTIONS WITH PATIENT'S SHE HAS BEEN KNOWN TO FEEL STRONGLY AGAINST A REHAB STAY AND HOSPICE. WILL LET FAMILY AND PATIENT DISCUSS OPTIONS THEN HELP WITH ANY ARRANGEMENTS/REFERRALS THAT NEED MADE Initialized on 10/08/23 12:15 - END OF NOTE Assessment/Plan (1) Lactic acidosis Current Visit: Yes Status: Acute Code(s): E87.20 - ACIDOSIS, UNSPECIFIED (2) CHF exacerbation Current Visit: Yes Status: Acute Code(s): I50.9 - HEART FAILURE, UNSPECIFIED (3) COPD exacerbation Current Visit: Yes Status: Acute Code(s): J44.1 - CHRONIC OBSTRUCTIVE PULMONARY DISEASE W (ACUTE) EXACERBATION (4) CKD stage 4 secondary to hypertension Current Visit: Yes Status: Acute Code(s): I12.9 - HYPERTENSIVE CHRONIC KIDNEY DISEASE W STG 1-4/UNSP CHR KDNY; N18.4 - CHRONIC KIDNEY DISEASE, STAGE 4 (SEVERE) (5) Dysphagia Current Visit: Yes Status: Acute Code(s): R13.10 - DYSPHAGIA, UNSPECIFIED (6) Elevated troponin Current Visit: Yes Status: Acute Code(s): R79.89 - OTHER SPECIFIED ABNORMAL FINDINGS OF BLOOD CHEMISTRY (7) Pneumonia Current Visit: No Status: Acute Code(s): J18.9 - PNEUMONIA, UNSPECIFIED ORGANISM (8) Weakness Current Visit: No Status: Acute Code(s): R53.1 - WEAKNESS (9) Chronic atrial fibrillation Current Visit: No Status: Chronic Code(s): I48.2 - CHRONIC ATRIAL FIBRILLATION * DO NOT USE * (10) Depression Current Visit: No Status: Chronic Code(s): F32.A - DEPRESSION, UNSPECIFIED (11) Diabetes mellitus Current Visit: No Status: Chronic Qualifiers: Diabetes mellitus type: type 2 Diabetes mellitus complication status: without complication Code(s): E11.9 - TYPE 2 DIABETES MELLITUS WITHOUT COMPLICATIONS (12) Hypertension Current Visit: No Status: Chronic Code(s): I10 - ESSENTIAL (PRIMARY) HYPERTENSION (13) Hypothyroidism Current Visit: No Status: Chronic Assessment & Plan: (1) Lactic acidosis Current Visit: Yes Status: Acute Assessment & Plan: - 10/04 LA 3.1 - repeat 09/27- 1.0 - likely 2:2 CHF Code(s): E87.20 - ACIDOSIS, UNSPECIFIED (2) CHF exacerbation Current Visit: Yes Status: Acute Assessment & Plan: -supplemental oxygen with goal spo2 goal 88-92% -ABG/BIPAP if significant hypoxia/lethargy/confusion- refused -elevated HOB/Daily weights/ strict I&O -Continue lasix 40mg BID -BNP 8470 10/06/23 -CXR demonstrates new small bibasilar infiltrates/atelectasis/effusions, right greater than left. Remaining upper lungs hyperinflated and clear. Heart not enlarged again with coronary stent. -Optimize electrolytes K>4, MG >2 Code(s): I50.9 - HEART FAILURE, UNSPECIFIED (3) COPD exacerbation Current Visit: Yes Status: Acute Assessment & Plan: -At baseline oxygen of 4-5L - titrate as needed for spo2 goal 88-91% - Oxymask at night - refused CPAP at [facility] - CXR as stated above - does not appear to be in exacerbation - Covid/flu/ RSV negative - wants OP sleep study if possible- Ordered- if pt agreeable will do and f/u with PCP. - Will need to f/u OP with PULM. Code(s): J44.1 - CHRONIC OBSTRUCTIVE PULMONARY DISEASE W (ACUTE) EXACERBATION (4) CKD stage 4 secondary to hypertension Current Visit: Yes Status: Acute Assessment & Plan: -Baseline creat around 1.1-1.2 -Avoid nephrotoxic agents -renal dose medications -monitor renal/lytes daily - @ baseline Code(s): I12.9 - HYPERTENSIVE CHRONIC KIDNEY DISEASE W STG 1-4/UNSP CHR KDNY; N18.4 - CHRONIC KIDNEY DISEASE, STAGE 4 (SEVERE) (5) Dysphagia Current Visit: Yes Status: Acute Assessment & Plan: -Modified Barium reviewed with recs as follows: ST Recommendations Diet Consistency Regular Liquid Consistency Regular Thin recommendations Safe Swallow Compensatory Strategies Compensatory Strategies Small bites and drinks,Dry swallows,Alternate solids/ liquids,Chin Tuck Medication Instructions Medication(s) in pudding or applesauce Staff/Family Suggestions Reinforce Treatment Program Speech Therapist Treatment Program Thermal/tactile Stim. to trigger the No swallow response Therapeutic Feeds Teach Compensatory Techniques, Diet Consistency Analysis Rehabilitation Potential: GOOD Additional Comments: ST TO PROVIDE A WRITTEN LIST OF SAFE SWALLOW COMPENSATORY STRATEGIES FOR PATIENT USE. PLAN OF CARE/STG (DURING HOSPITAL STAY): 1. PATIENT WILL INDEPENDENTLY UTILIZE SAFE SWALLOW COMPENSATORY STRATEGIES TO DECREASE RISK OF ASPIRATION, 90% OF TRIALS. Code(s): R13.10 - DYSPHAGIA, UNSPECIFIED (6) Elevated troponin Current Visit: Yes Status: Acute Assessment & Plan: -Likely demand ischemia - he does not want to be transferred. - He is DNR and understands the risk - denies CP - Trop 0.117, 0.132, 0.155 Code(s): R79.89 - OTHER SPECIFIED ABNORMAL FINDINGS OF BLOOD CHEMISTRY (7) Pneumonia Current Visit: No Status: Acute Assessment & Plan: -IP Rocephin for CAP - diagnosed 09/30/23 -OP therapy with Levaquin -renal dosed - antibiotic course completed - On baseline O2 @ 5LNC Code(s): J18.9 - PNEUMONIA, UNSPECIFIED ORGANISM (8) Weakness Current Visit: No Status: Acute Assessment & Plan: -secondary to pneumonia/ advanced lung disease -PT/OT eval - Pt and family wants OP rehab. Code(s): R53.1 - WEAKNESS (9) Chronic atrial fibrillation Current Visit: No Status: Chronic Assessment & Plan: -On Eliquis - will continue, HR is controlled Code(s): I48.2 - CHRONIC ATRIAL FIBRILLATION * DO NOT USE * (10) Depression Current Visit: No Status: Chronic Assessment & Plan: -continue home medications Code(s): F32.A - DEPRESSION, UNSPECIFIED (11) Diabetes mellitus Current Visit: No Status: Chronic Assessment & Plan: -Patient requesting regular diet -SSI, accuchecks ac/hs -a1c- 6.67 7-8-24- controlled Code(s): E11.9 - TYPE 2 DIABETES MELLITUS WITHOUT COMPLICATIONS (12) Hypertension Current Visit: No Status: Chronic Assessment & Plan: -stable continue home meds Code(s): I10 - ESSENTIAL (PRIMARY) HYPERTENSION (13) Hypothyroidism Current Visit: No Status: Chronic Assessment & Plan: -continue home meds synthroid Code(s): E03.9 - HYPOTHYROIDISM, UNSPECIFIED Code(s): E03.9 - HYPOTHYROIDISM, UNSPECIFIED
[2023-10-09 05:31] LABS: Absolute Neutrophil Ct (ANC) 6.57 x10^3/uL (1.78-5.38); BASOPHIL % 0.5 % (0.2-1.2); Basophil (Absolute #) 0.04 x10^3/uL (0.01-0.08); Eosinophil % 3.3 % (0.8-7.0); Eosinophil (Absolute #) 0.29 x10^3/uL (0.04-0.54); Hematocrit 32.7 % (40.1-51.0); Hemoglobin 10.2 g/dL (13.7-17.5); IMMATURE GRAN # 0.03 x10^3u/L (0.001-0.031); IMMATURE GRAN % 0.3 % (0.001-0.429); Lymphocyte (Absolute #) 0.75 x10^3/uL (1.32-3.57); Lymphocytes % 8.5 % (21.8-53.1); Mean Cell Volume 91.3 fL (79.0-92.2); Mean Corpuscular Hemoglobin 28.5 pg (25.7-32.2); Mean Corpuscular Hgb Concent. 31.2 g/dL (32.3-36.5); Mean Platelet Volume 10.7 fL (9.4-12.4); Monocyte (Absolute #) 1.13 x10^3/uL (0.30-0.82); Monocytes % 12.8 % (5.3-12.2); Neutrophil % 74.6 % (34.0-67.9); Platelet Count 195 x10^3/uL (163-337); Red Blood Count 3.58 x10^6/uL (4.63-6.08); Red Cell Distribution Width 14.6 % (11.6-14.4); White Blood Count 8.8 x10^3/uL (4.23-9.07)
[2023-10-09 05:51] LABS: ALBUMIN 3.3 g/dL (3.5-5.0); BILIRUBIN,TOTAL 0.3 mg/dL (0.2-1.3); Calcium 9.1 mg/dL (8.4-10.2); Creatinine 1 1.03 mg/dL (0.66-1.25); Potassium 3.7 mmol/L (3.5-5.1); Total Protein 6.3 g/dL (6.3-8.2)
[2023-10-09 06:07] LABS: ANION GAP 11.7 MEQ/L (5-15)
--- NOTE | 2023-10-09 10:06 | PCM.DS ---
Discharge Summary Date of Admission: 10/05/23 18:13 Date of Discharge: 10/09/23 Admitting Physician: ALEKS CHIN MD Primary Care Provider: JED CARTER Allergies Allergies influenza vaccine Allergy (Severe, Uncoded 10/05/23 19:24) cardiac arrest Hospital Summary - Hospital Course Hospital Course: 10/08/23 is a 83 year old male with hx of chronic respiratory failure on 4Ls - 5Ls baseline [place] O2, COPD, CHF, AFib, HTN, Hypothyroidism, and CKD 3-4. He presented on 10/05/23 for hypoxia after recent admission 09/27/23-10/04/23 for pneumonia. Patient stable at discharge and sent home on Levaquin. CXR showing new small bibasilar infiltrates/atelectasis/effusions, right greater than left. Remaining upper lungs hyperinflated and clear. Heart not enlarged again with coronary stent. Labs upon admission remarkable for BNP 8700, WBC mildly elevated at 11.7, Ddimer 0.72. CT performed 09/30/23 demonstrated mild right-sided pleural effusion with focal patchy consolidation with nodular infiltrates in posterior segment of the right upper lobe, likely representing acute infectious etiology. Multiple hypodense trachea, paratracheal, carinal and bilateral hilar nodes, appear to be reactive, the largest measuring 12 mm in short axis diameter. Extensive COPD.Thick fibroatelectatic bands in medio-basal segment of right lower lobe, sequelae to previous infection/insult. In ER he was to be transferred to [facility] per family request. Despite obtaining a bed at [facility] swiftly, the patient, awakened was alert and oriented, and dec lined the transfer to that facility and wants to be made DO NOT RESUSCITATE. He and his family were told that he has both congestive heart failure, pneumonia, COPD exacerbation and elevated heart enzymes. He is, as is the family, aware that, despite hospital intervention, his condition can worsen and he could . By signing the DO NOT RESUSCITATE form, patient will not be placed on mechanical ventilation and will not undergo CPR or electrical/mechanical cardioversion. During this visit Lasix 40mg IV BID and ceftriaxone (finished course of azithromycin). Fluid and salt intake limited during stay. He is DNR and does not want much more than medical management. He refused CPAP at night, and CO2 increasing. He is on 4-5 Liters NC O2, which is his baseline. He is wanting to go home today. Antibiotics completed yesterday. He is a good candidate for Palliative care or Hospice as he is not willing to do further medical treatment. Discussed with case management. They will make OP arrangem ents and discuss with family. After further discussion pt would like to go to OP rehab. Awaiting insurance approval. May likely d/c tomorrow. 10/09/23 Pt resting in bed. He is awaiting d/c to rehab today,pending precert. However, he has now been thinking about Hospice. His family is to be here at 4pm to make a decision. Discussed with case management. He is on baseline oxygen 5lNC. He has continued weakness and SOB with activity. He denies CP, ABD. pain, N/V/D. Pt decided to go home with hospice and wants to d/c today. Case management setting this up. - Vitals & Intake/Output Vital Signs: Vital Signs Temperature 97.2 F 10/09/23 06:57 Pulse Rate 72 10/09/23 06:57 Respiratory Rate 17 10/09/23 06:57 Blood Pressure 160/73 10/09/23 06:57 O2 Sat by Pulse Oximetry 94 L 10/09/23 06:57 Intake & Output: Intake & Output 10/06/23 10/07/23 10/08/23 10/09/23 11:59 11:59 11:59 11:59 Intake Total 049 957 4410 960 Output Total 800 1850 1400 1025 Balance -580 -1270 -150 -65 Weight 54 kg 53 kg 53.6 kg - Lab Result Diagrams: 10/09/23 04:30 10/09/23 12:05 Lab Results-Last 24 Hrs: Lab Results-Last 24 Hours 10/09/23 10/09/23 Range/Units 04:30 04:30 WBC 8.8 (4.23-9.07) x10^3/uL RBC 3.58 L (4.63-6.08) x10^6/uL Hgb 10.2 L (13.7-17.5) g/dL Hct 32.7 L (40.1-51.0) % MCV 91.3 (79.0-92.2) fL MCH 28.5 (25.7-32.2) pg MCHC 31.2 L (32.3-36.5) g/dL RDW 14.6 H (11.6-14.4) % Plt Count 195 (163-337) x10^3/uL MPV 10.7 (9.4-12.4) fL Gran % 74.6 H (34.0-67.9) % Immature Gran % (Auto) 0.3 (0.001-0.429) % Nucleat RBC Rel Count 0.0 (0.00-0.2) % Eos # (Auto) 0.29 (0.04-0.54) x10^3/uL Immature Gran # (Auto) 0.03 (0.001-0.031) x10^3u/L Absolute Lymphs (auto) 0.75 L (1.32-3.57) x10^3/uL Absolute Monos (auto) 1.13 H (0.30-0.82) x10^3/uL Absolute Nucleated RBC 0.00 (0.00-0.012) x10^3u/L Lymphocytes % 8.5 L (21.8-53.1) % Monocytes % 12.8 H (5.3-12.2) % Eosinophils % 3.3 (0.8-7.0) % Basophils % 0.5 (0.2-1.2) % Absolute Granulocytes 6.57 H (1.78-5.38) x10^3/uL Basophils # 0.04 (0.01-0.08) x10^3/uL Sodium 138 (135-145) mmol/L Potassium 3.7 (3.5-5.1) mmol/L Chloride 94 L (98-107) mmol/L Carbon Dioxide 36 H (22-30) mmol/L Anion Gap 11.7 (5-15) MEQ/L BUN 24 H (9-20) mg/dL Creatinine 1.03 (0.66-1.25) mg/dL Estimated GFR 73.0 ML/MIN Glucose 132 H (74-106) mg/dL Calcium 9.1 (8.4-10.2) mg/dL Total Bilirubin 0.30 (0.2-1.3) mg/dL AST 42 (17-59) U/L ALT 101 H (0-50) U/L Alkaline Phosphatase 135 H (38-126) U/L Serum Total Protein 6.3 (6.3-8.2) g/dL Albumin 3.3 L (3.5-5.0) g/dL Micro Results-Entire Visit: Microbiology 10/05/23 14:21 Urine Culture - Final Urine, Void NO GROWTH 10/05/23 13:47 Blood Culture - Preliminary Blood - Procedures and Test Procedures and Tests throughout Hospitalization: Therapy Orders & Screens 10/05/23 14:16 BiPap/CPAP STAT Comment: 10/05/23 18:18 Respiratory Therapy Consult ONCE Comment: Reason For Exam: 10/05/23 19:19 Oxygen Nasal Cannula 5 lpm Comment: Diagnosis: chf exacerbation, pne, copd exacerbation, elevated troponins 10/05/23 20:09 Respiratory Therapy Assessment DAILY Comment: Diagnosis: chf exacerbation, pne, copd exacerbation, elevated troponins 10/06/23 18:34 Respiratory MDI BID Comment: Diagnosis: chf exacerbation, pne, copd exacerbation, elevated troponins 10/08/23 09:42 Sleep Study With 4 or More Par ONCE Comment: Reason For Exam: Diagnosis: chf exacerbation, pne, copd exacerbation, elevated troponins 10/08/23 13:18 PT Eval & Treat (MD Order) ONCE Reason for Eval:: NH PLACEMENT Diagnosis: chf exacerbation, pne, copd exacerbation, elevated troponins Discharge Exam General Appearance: no apparent distress, alert Neurologic Exam: alert, oriented x 3, cooperative, normal mood/affect, nml cerebellar function, sensation nml, No motor deficits Eye Exam: PERRL, EOMI, eyes nml inspection Ears, Nose, Throat Exam: normal ENT inspection, pharynx normal, moist mucous membranes Neck Exam: normal inspection, non-tender, supple, full range of motion Respiratory Exam: normal breath sounds, lungs clear, No respiratory distress Cardiovascular Exam: regular rate/rhythm, normal heart sounds Gastrointestinal/Abdomen Exam: soft, No tenderness, No mass Male Genitalia Exam: deferred Rectal Exam: deferred Back Exam: normal inspection, normal range of motion, No CVA tenderness, No vertebral tenderness Extremity Exam: normal inspection, normal range of motion Skin Exam: normal color, warm, dry Final Diagnosis/Problem List - Final Discharge Diagnosis/Problem (1) Lactic acidosis Current Visit: Yes Status: Acute Code(s): E87.20 - ACIDOSIS, UNSPECIFIED (2) CHF exacerbation Current Visit: Yes Status: Acute Code(s): I50.9 - HEART FAILURE, UNSPECIFIED (3) COPD exacerbation Current Visit: Yes Status: Acute Code(s): J44.1 - CHRONIC OBSTRUCTIVE PULMONARY DISEASE W (ACUTE) EXACERBATION (4) CKD stage 4 secondary to hypertension Current Visit: Yes Status: Acute Code(s): I12.9 - HYPERTENSIVE CHRONIC KIDNEY DISEASE W STG 1-4/UNSP CHR KDNY; N18.4 - CHRONIC KIDNEY DISEASE, STAGE 4 (SEVERE) (5) Dysphagia Current Visit: Yes Status: Acute Code(s): R13.10 - DYSPHAGIA, UNSPECIFIED (6) Elevated troponin Current Visit: Yes Status: Acute Code(s): R79.89 - OTHER SPECIFIED ABNORMAL FINDINGS OF BLOOD CHEMISTRY (7) Pneumonia Current Visit: No Status: Acute Code(s): J18.9 - PNEUMONIA, UNSPECIFIED ORGANISM (8) Weakness Current Visit: No Status: Acute Code(s): R53.1 - WEAKNESS (9) Chronic atrial fibrillation Current Visit: No Status: Chronic Code(s): I48.2 - CHRONIC ATRIAL FIBRILLATION * DO NOT USE * (10) Depression Current Visit: No Status: Chronic Code(s): F32.A - DEPRESSION, UNSPECIFIED (11) Diabetes mellitus Current Visit: No Status: Chronic Code(s): E11.9 - TYPE 2 DIABETES MELLITUS WITHOUT COMPLICATIONS (12) Hypertension Current Visit: No Status: Chronic Code(s): I10 - ESSENTIAL (PRIMARY) HYPERTENSION (13) Hypothyroidism Current Visit: No Status: Chronic Assessment & Plan: (1) Lactic acidosis Current Visit: Yes Status: Acute Assessment & Plan: - 10/04 LA 3.1 - repeat 09/27- 1.0 - likely 2:2 CHF Code(s): E87.20 - ACIDOSIS, UNSPECIFIED (2) CHF exacerbation Current Visit: Yes Status: Acute Assessment & Plan: -supplemental oxygen with goal spo2 goal 88-92% -ABG/BIPAP if significant hypoxia/lethargy/confusion- refused -elevated HOB/Daily weights/ strict I&O -Continue lasix 40mg BID -BNP 8470 10/06/23 -CXR demonstrates new small bibasilar infiltrates/atelectasis/effusions, right greater than left. Remaining upper lungs hyperinflated and clear. Heart not enlarged again with coronary stent. -Optimize electrolytes K>4, MG >2 Code(s): I50.9 - HEART FAILURE, UNSPECIFIED (3) COPD exacerbation Current Visit: Yes Status: Acute Assessment & Plan: -At baseline oxygen of 4-5L - titrate as needed for spo2 goal 88-91% - Oxymask at night - refused CPAP at [facility] - DuoNebs - CXR as stated above - does not appear to be in exacerbation - Covid/flu/ RSV negative - wants OP sleep study if possible- Ordered- if pt agreeable will do and f/u with PCP. - Will need to f/u OP with PULM. - rehab vs. hospice Code(s): J44.1 - CHRONIC OBSTRUCTIVE PULMONARY DISEASE W (ACUTE) EXACERBATION (4) CKD stage 4 secondary to hypertension Current Visit: Yes Status: Acute Assessment & Plan: -Baseline creat around 1.1-1.2 -Avoid nephrotoxic agents -renal dose medications -monitor renal/lytes daily - @ baseline Code(s): I12.9 - HYPERTENSIVE CHRONIC KIDNEY DISEASE W STG 1-4/UNSP CHR KDNY; N 18.4 - CHRONIC KIDNEY DISEASE, STAGE 4 (SEVERE) (5) Dysphagia Current Visit: Yes Status: Acute Assessment & Plan: -Modified Barium reviewed with recs as follows: ST Recommendations Diet Consistency Regular Liquid Consistency Regular Thin recommendations Safe Swallow Compensatory Strategies Compensatory Strategies Small bites and drinks,Dry swallows,Alternate solids/ liquids,Chin Tuck Medication Instructions Medication(s) in pudding or applesauce Staff/Family Suggestions Reinforce Treatment Program Speech Therapist Treatment Program Thermal/tactile Stim. to trigger the No swallow response Therapeutic Feeds Teach Compensatory Techniques, Diet Consistency Analysis Rehabilitation Potential: GOOD Additional Comments: ST TO PROVIDE A WRITTEN LIST OF SAFE SWALLOW COMPENSATORY STRATEGIES FOR PATIENT USE. PLAN OF CARE/STG (DURING HOSPITAL STAY): 1. PATIENT WILL INDEPENDENTLY UTILIZE SAFE SWALLOW COMPENSATORY STRATEGIES TO DECREASE RISK OF ASPIRATION, 90% OF TRIALS. Code(s): R13.10 - DYSPHAGIA, UNSPECIFIED (6) Elevated troponin Current Visit: Yes Status: Acute Assessment & Plan: -Likely demand ischemia - he does not want to be transferred. - He is DNR and understands the risk - denies CP - Trop 0.117, 0.132, 0.155 Code(s): R79.89 - OTHER SPECIFIED ABNORMAL FINDINGS OF BLOOD CHEMISTRY (7) Pneumonia Current Visit: No Status: Acute Assessment & Plan: -IP Rocephin for CAP - diagnosed 09/30/23 -OP therapy with Levaquin -renal dosed - antibiotic course completed - On baseline O2 @ 5LNC Code(s): J18.9 - PNEUMONIA, UNSPECIFIED ORGANISM (8) Weakness Current Visit: No Status: Acute Assessment & Plan: -secondary to pneumonia/ advanced lung disease -PT/OT eval - Pt and family wants OP rehab. - pt considering hospice Code(s): R53.1 - WEAKNESS (9) Chronic atrial fibrillation Current Visit: No Status: Chronic Assessment & Plan: -On Eliquis - will continue, HR is controlled Code(s): I48.2 - CHRONIC ATRIAL FIBRILLATION * DO NOT USE * (10) Depression Current Visit: No Status: Chronic Assessment & Plan: -continue home medications Code(s): F32.A - DEPRESSION, UNSPECIFIED (11) Diabetes mellitus Current Visit: No Status: Chronic Assessment & Plan: -Patient requesting regular diet -SSI, accuchecks ac/hs -a1c- 6.67 10-01-23- controlled Code(s): E11.9 - TYPE 2 DIABETES MELLITUS WITHOUT COMPLICATIONS (12) Hypertension Current Visit: No Status: Chronic Assessment & Plan: -stable continue home meds Code(s): I10 - ESSENTIAL (PRIMARY) HYPERTENSION (13) Hypothyroidism Current Visit: No Status: Chronic Assessment & Plan: -continue home meds synthroid Code(s): E03.9 - HYPOTHYROIDISM, UNSPECIFIED Code(s): E03.9 - HYPOTHYROIDISM, UNSPECIFIED - Discharge Discharge Date: 10/09/23 Disposition: Hospice @ [facility] Condition: Fair Prescriptions: Continue Apixaban [Eliquis] 1 tab PO BID dilTIAZem HCL [Cartia Xt] 1 cap PO DAILY Valsartan 0.5 tab PO DAILY Metoprolol Tartrate 50 mg [Lopressor 50 MG] 1 tab PO BID Atorvastatin Calcium [Lipitor 20MG Tablet] 1 tab PO DAILY Potassium Chloride 10 meq PO TID Levothyroxine Sodium 75 Mcg [Synthroid 75 Mcg] 75 mcg PO DAILY LORazepam [Lorazepam] 0.5 mg PO BID PRN PRN Reason: Anxiety Bumetanide 1 mg [Bumex 1 mg] 1 mg PO DAILY Cinnamon Bark [Cinnamon] 2,000 mg PO DAILY Multivitamin 1 tab PO DAILY Sucralfate 1 tab PO HS Sertraline HCl 50 mg [Zoloft 50 mg Tablet] 1 tab PO DAILY Nitroglycerin 0.4 mg SL Q5MIN PRN MR X 3 PRN PRN Reason: Chest Pain Budesonide/Glycopyr/Formoterol [Breztri Aerosphere Inhaler] 2 puff IH BID Albuterol Sulfate 1.25 mg IH Q4H Discontinued levoFLOXacin [Levofloxacin] 500 mg PO DAILY 7 Days #7 tablet Follow up with: JED CARTER MD [Primary Care Provider] - 10/16/23 10:00 am
[2023-10-09 11:42] VITALS: BP 146/69; TEMP 98
[2023-10-09 12:23] LABS: Calcium 8.9 mg/dL (8.4-10.2); Creatinine 1 1.1 mg/dL (0.66-1.25); EST GLOMERULAR FILTRATION RATE 67.4 ML/MIN; Potassium 3.8 mmol/L (3.5-5.1)
[2023-10-09 12:31] LABS: ANION GAP 9.8 MEQ/L (5-15)
[2023-10-09 12:56] VITALS: PULSE 66; RESP 20; O2SAT 92
== END 2023-10-09 15:40 | disposition hospice, home (50) ==
LOC: ED 13:08 → MED SURG 18:13
PROVIDERS: ADMIT Internal Medicine Nephrology; ATTEND Internal Medicine Nephrology
DX: E87.20 Acidosis, unspecified (principal); I11.0 Hypertensive heart disease with heart failure; Z59.12 Inadequate housing utilities; I50.9 Heart failure, unspecified; J44.1 Chronic obstructive pulmonary disease with (acute) exacerbation; E11.22 Type 2 diabetes mellitus with diabetic chronic kidney disease; I13.0 Hypertensive heart and chronic kidney disease with heart failure and stage 1 through stage 4 chronic kidney disease, or unspecified chronic kidney disease; N18.4 Chronic kidney disease, stage 4 (severe); R13.10 Dysphagia, unspecified; R79.89 Other specified abnormal findings of blood chemistry; J18.9 Pneumonia, unspecified organism; R53.1 Weakness; F32.A Depression, unspecified; E03.9 Hypothyroidism, unspecified; I48.91 Unspecified atrial fibrillation; I25.2 Old myocardial infarction; Z79.01 Long term (current) use of anticoagulants; Z79.899 Other long term (current) drug therapy; Z99.81 Dependence on supplemental oxygen; Z85.118 Personal history of other malignant neoplasm of bronchus and lung
CPT/HCPCS: 0241U; 36000; 36415; 71045; 80048; 80053; 81001; 82805; 83605; 83735; 83880; 84484; 85025; 85027; 85379; 87040; 87086; 93005; 93041; 94002; 94640; 94760; 94762; 96365; 96374; 96375; 97161; 99285; 99291; Q3014; 93268; J0696; J1940; J2919; A9270-GY; G0378